=== PATIENT | male | born 1950 | race Caucasian/White ===

== ENCOUNTER 2019-04-26 15:28 | Emergency (ER) | payer OTHER ==
--- NOTE | 2019-04-26 16:24 | XR ---
EXAMINATION TYPE: XR chest 2V DATE OF EXAM: 04/26/2019 COMPARISON: 04/26/2019 INDICATION: Cough short of breath x5 days TECHNIQUE: Frontal and lateral views of the chest are obtained. FINDINGS: The heart size is normal. The pulmonary vasculature is normal. The lungs are clear. IMPRESSION: 1. No acute pulmonary process.
--- NOTE | 2019-04-26 16:33 | ED ---
General Adult HPI - General Chief complaint: Shortness of Breath Stated complaint: Upper Respitory issues Time Seen by Provider: 04/26/19 16:08 Source: patient Mode of arrival: ambulatory Limitations: no limitations - History of Present Illness Initial comments: Patient is a 69-year-old male presenting to emergency Department with complaints of a cough 5 days. Patient states he has had pneumonia multiple times in the past as well as bronchitis. Patient states he has been coughing up yellow greenish phlegm for the last 5 days. Patient denies any fever. Patient isn't every day smoker. He has been cold lately. Patient denies any chest pain, nausea, vomiting, diarrhea. Patient has been eating and drinking as normal. Patient has no other complaints at this time. Upon arrival to the ER, patient's O2 is at 93%. BP is 182/95. Rest of vitals are normal. - Related Data Previous Rx's Medication Instructions Recorded Azithromycin [Zithromax Z-pack] 0 mg PO DIRECTED #1 pack 04/26/19 methylPREDNISolone [Medrol Dose 4 mg PO DIRECTED #1 pack 04/26/19 Pack] Allergies Allergy/AdvReac Type Severity Reaction Status Date / Time codeine Allergy Unknown Verified 04/26/19 15:50 Review of Systems ROS Statement: Those systems with pertinent positive or pertinent negative responses have been documented in the HPI. ROS Other: All systems not noted in ROS Statement are negative. Past Medical History Past Medical History: Hypertension, Pneumonia History of Any Multi-Drug Resistant Organisms: None Reported Past Surgical History: Appendectomy, Tonsillectomy Past Psychological History: No Psychological Hx Reported Smoking Status: Current every day smoker Past Alcohol Use History: Occasional Past Drug Use History: Marijuana General Exam - General Exam Comments Initial Comments: GENERAL: Well-appearing, well-nourished and in no acute distress. HEAD: Atraumatic, normocephalic. EYES: Pupils equal round and reactive to light, extraocular movements intact, sclera anicteric, conjunctiva are normal. ENT: TMs normal, nares patent, oropharynx clear without exudates. Moist mucous membranes. NECK: Normal range of motion, supple without lymphadenopathy or JVD. LUNGS: Mild bilateral wheezes. No rales or rhonchi. HEART: Regular rate and rhythm without murmurs, rubs or gallops. ABDOMEN: Soft, nontender, normoactive bowel sounds. No guarding, no rebound. No masses appreciated. : Deferred EXTREMITIES: Normal range of motion, no pitting or edema. No clubbing or cyanosis. NEUROLOGICAL: Normal speech, normal gait. PSYCH: Normal mood, normal affect. SKIN: Warm, Dry, normal turgor, no rashes or lesions noted. Limitations: no limitations Course Vital Signs 04/26/19 04/26/19 15:46 16:15 Temperature 98.1 F Pulse Rate 88 Respiratory 20 18 Rate Blood Pressure 182/95 O2 Sat by Pulse 93 L Oximetry Medical Decision Making - Medical Decision Making Patient is a 69-year-old male with a cough 5 days. Vital signs are stable, afebrile. Patient has mild bilateral wheezes. Chest x-ray shows no acute pulmonary processes. Given patient's history, smoking status, patient will be treated with antibiotics as well as a course of steroids. Patient does have an inhaler at home that he will use as needed. Patient will follow up with his PCP if symptoms persist after one week. Patient is stable for discharge at this time and he is in agreement with this plan of care. Return parameters were discussed with the patient and he verbalized understanding. Case discussed with Dr. Siddiqui. Disposition Clinical Impression: Bronchitis Disposition: HOME SELF-CARE Condition: Stable Instructions (If sedation given, give patient instructions): Acute Bronchitis (ED) Additional Instructions: Please return to the Emergency Department if symptoms worsen or any other concerns. Take prescriptions as prescribed. Follow-up with PCP if symptoms persist after one week. Prescriptions: methylPREDNISolone [Medrol Dose Pack] 4 mg PO DIRECTED #1 pack Azithromycin [Zithromax Z-pack] 0 mg PO DIRECTED #1 pack Is patient prescribed a controlled substance at d/c from ED?: No Referrals: [facility],Clinic [Primary Care Provider] - 1-2 days
[2019-04-26 16:38] VITALS: RESP 18
[2019-04-26 16:56] VITALS: BP 172/93; PULSE 79; TEMP 97.8
== END 2019-04-26 16:54 | disposition home or self-care (01) ==
LOC: EC 15:28
DX: J40 Bronchitis, not specified as acute or chronic (principal); I10 Essential (primary) hypertension; F17.200 Nicotine dependence, unspecified, uncomplicated; Z88.5 Allergy status to narcotic agent
CPT/HCPCS: 71046; 99284

== ENCOUNTER → 2019-05-28 | Outpatient (CLI) | payer OTHER ==
--- NOTE | 2019-05-28 15:15 | CT ---
EXAMINATION TYPE: CT chest wo con DATE OF EXAM: 05/28/2019 COMPARISON: None HISTORY: Left sided chest pain. CT DLP: 445 mGycm, Automated exposure control for dose reduction was used. CONTRAST: Performed injected with 0 mL of Isovue 300. TECHNIQUE: Axial images were obtained at 5 mm thick sections. Reconstructed images are reviewed on [employer] computer in the coronal plane. FINDINGS: Portion of the thyroid visualized is normal. There is a 0.4 x 1.3 cm oval streak opacity within the right middle lobe. Series 4 image 40. There is a 0.3 cm pleural-based nodule in the anterior lateral right apex. Series 4 image 15. Lungs otherwise appear clear. No enlarged mediastinal or hilar adenopathy is evident. The ascending aorta diameter at the level o f the main pulmonary artery is 3.5 cm. The main pulmonary artery diameter at the bifurcation is 2.7 cm. Moderate coronary artery calcification is present. Limited CT sections are obtained through the upper abdomen. Abdomen is essentially unremarkable. IMPRESSIONS: 1. Right middle lobe lung nodule. Follow-up exam in 3 months is recommended to evaluate stability.
== END | disposition home or self-care (01) ==
LOC: RADCTMAIN 14:42
DX: Z09 Encounter for follow-up examination after completed treatment for conditions other than malignant neoplasm (principal); R91.1 Solitary pulmonary nodule; Z87.891 Personal history of nicotine dependence
CPT/HCPCS: 71250

== ENCOUNTER 2019-11-09 14:39 | Inpatient (IN) | payer OTHER ==
[2019-11-09 15:01] VITALS: RESP 16; TEMP 98.2
--- NOTE | 2019-11-09 15:29 | ED ---
Recheck HPI - General Chief Complaint: Recheck/Abnormal Lab/Rx Stated Complaint: Abn Potassium Level Time Seen by Provider: 11/09/19 14:58 Source: patient, RN notes reviewed Mode of arrival: ambulatory Limitations: no limitations - History of Present Illness Initial Comments: 69-year-old male presents emergency Department chief complaint of abnormal labs. Patient states he received a phone call today stating that his potassium was elevated. Patient states she does take potassium supplement with denies taking a diuretic. Patient states is unsure why he takes potassium. He has no specific complaints at this time. Denies any chest pain, palpitations, muscle cramping, dizziness, shortness breath. Patient offers no other complaints. - Related Data Previous Rx's Medication Instructions Recorded Azithromycin [Zithromax Z-pack] 0 mg PO DIRECTED #1 pack 04/26/19 methylPREDNISolone [Medrol Dose 4 mg PO DIRECTED #1 pack 04/26/19 Pack] Allergies Allergy/AdvReac Type Severity Reaction Status Date / Time codeine Allergy Unknown Verified 04/26/19 15:50 Review of Systems ROS Statement: Those systems with pertinent positive or pertinent negative responses have been documented in the HPI. ROS Other: All systems not noted in ROS Statement are negative. Past Medical History Past Medical History: Hypertension, Pneumonia History of Any Multi-Drug Resistant Organisms: None Reported Past Surgical History: Appendectomy, Tonsillectomy Past Psychological History: No Psychological Hx Reported Smoking Status: Current every day smoker Past Alcohol Use History: Occasional Past Drug Use History: Marijuana General Exam Limitations: no limitations General appearance: alert, in no apparent distress Head exam: Present: atraumatic, normocephalic, normal inspection Eye exam: Present: normal appearance, PERRL, EOMI. Absent: scleral icterus, conjunctival injection, periorbital swelling Neck exam: Present: normal inspection. Absent: tenderness, meningismus, ly mphadenopathy Respiratory exam: Present: normal lung sounds bilaterally. Absent: respiratory distress, wheezes, rales, rhonchi, stridor Cardiovascular Exam: Present: regular rate, normal rhythm, normal heart sounds. Absent: systolic murmur, diastolic murmur, rubs, gallop, clicks Neurological exam: Present: alert, oriented X3, CN II-XII intact Skin exam: Present: warm, dry, intact, normal color. Absent: rash Course Vital Signs 11/09/19 14:58 Temperature 98.2 F Pulse Rate 66 Respiratory 16 Rate Blood Pressure 139/76 O2 Sat by Pulse 97 Oximetry Medical Decision Making - Medical Decision Making 69-year-old male presented for abnormal labs. Patient found to have sodium 128. Patient denies being on diuretics. Patient does complain of mild headaches. Patient will be admitted for hyponatremia. - Lab Data Result diagrams: 11/09/19 15:31 11/09/19 15:31 Lab Results 11/09/19 11/09/19 Range/Units 15:31 15:31 WBC 5.9 (3.8-10.6) k/uL RBC 4.20 L (4.30-5.90) m/uL Hgb 13.3 (13.0-17.5) gm/dL Hct 40.7 (39.0-53.0) % MCV 96.9 (80.0-100.0) fL MCH 31.6 (25.0-35.0) pg MCHC 32.6 (31.0-37.0) g/dL RDW 12.7 (11.5-15.5) % Plt Count 252 (150-450) k/uL Neutrophils % 65 % Lymphocytes % 23 % Monocytes % 8 % Eosinophils % 2 % Basophils % 1 % Neutrophils # 3.8 (1.3-7.7) k/uL Lymphocytes # 1.3 (1.0-4.8) k/uL Monocytes # 0.5 (0-1.0) k/uL Eosinophils # 0.1 (0-0.7) k/uL Basophils # 0.0 (0-0.2) k/uL Sodium 123 L (137-145) mmol/L Potassium 4.4 (3.5-5.1) mmol/L Chloride 88 L (98-107) mmol/L Carbon Dioxide 29 (22-30) mmol/L Anion Gap 6 mmol/L BUN 17 (9-20) mg/dL Creatinine 0.65 L (0.66-1.25) mg/dL Est GFR (CKD-EPI)AfAm >90 (>60 ml/min/1.73 sqM) Est GFR (CKD-EPI)NonAf >90 (>60 ml/min/1.73 sqM) Glucose 198 H (74-99) mg/dL Calcium 8.8 (8.4-10.2) mg/dL Disposition Clinical Impression: Hyponatremia Disposition: ADMITTED IP TO THIS HOSP Condition: Fair Referrals: [facility],Clinic [Primary Care Provider] - 1-2 days
[2019-11-09 15:52] LABS: Basophils % (A) 1 %; Eosinophils # (A) 0.1 k/uL (0-0.7); Eosinophils % (A) 2 %; HCT 40.7 % (39.0-53.0); HGB 13.3 gm/dL (13.0-17.5); Lymphocytes # (A) 1.3 k/uL (1.0-4.8); Lymphocytes % (A) 23 %; MCH 31.6 pg (25.0-35.0); MCHC 32.6 g/dL (31.0-37.0); MCV 96.9 fL (80.0-100.0); Mean Platelet Volume 7.4; Monocytes # (A) 0.5 k/uL (0-1.0); Monocytes % (A) 8 %; Neutrophils # (A) 3.8 k/uL (1.3-7.7); Neutrophils % (A) 65 %; Platelet Count 252 k/uL (150-450); RDW 12.7 % (11.5-15.5); WBC 5.9 k/uL (3.8-10.6)
[2019-11-09 16:01] LABS: African American GFR (CKD) >90 (>60 ml/min/1.73 sqM); Anion Gap 6 mmol/L; Blood Urea Nitrogen 17 mg/dL (9-20); Calcium 8.8 mg/dL (8.4-10.2); Carbon Dioxide 29 mmol/L (22-30); Chloride 88 mmol/L (98-107); Glucose 198 mg/dL (74-99); Non-African American GFR(CKD) >90 (>60 ml/min/1.73 sqM); Potassium 4.4 mmol/L (3.5-5.1); Sodium 123 mmol/L (137-145)
[2019-11-09] MEDS ORDERED: SODIUM CHLORIDE 0.9% 500 ML 500 ML IV ONE (16:18)
[2019-11-09] MEDS ORDERED: NALOXONE 0.4 MG/ML 1 ML VIAL IV PRN (16:19)
[2019-11-09] MEDS ORDERED: ACETAMINOPHEN TAB 325 MG TAB PO PRN (16:19)
[2019-11-09] MEDS ORDERED: SODIUM CHLORIDE 0.9% 1,000 ML IV SCH (16:30)
[2019-11-09 19:24] VITALS: BP 167/97; PULSE 67
--- NOTE | 2019-11-09 23:17 | HP ---
HISTORY AND PHYSICAL HISTORY AND PHYSICAL AND DISCHARGE SUMMARY DATE OF SERVICE: 11/09/2019 CHIEF COMPLAINT: Abnormal sodium level. hyponatremia HISTORY OF PRESENT ILLNESS: This 69-year-old gentleman admitted with severe hyponatremia. The sodium was 123 and potassium 4.4. However, the patient left the hospital AGAINST MEDICAL ADVICE. Please refer to the ER notes and staff notes for further information. The prognosis is extremely guarded. MMODL / IJN: [id number] / MTDKai
== END 2019-11-09 21:01 | disposition left against medical advice (07) | DRG 641 ==
LOC: EC 14:39 → 6NMEDSUR 16:19 → 5NMEDONC 17:56
PROVIDERS: ADMIT Hospitalist; ATTEND Hospitalist
DX: E87.1 Hypo-osmolality and hyponatremia (principal); I10 Essential (primary) hypertension; F17.200 Nicotine dependence, unspecified, uncomplicated; Z11.59 Encounter for screening for other viral diseases; Z87.01 Personal history of pneumonia (recurrent); Z88.5 Allergy status to narcotic agent; Z90.49 Acquired absence of other specified parts of digestive tract; Z90.89 Acquired absence of other organs
CPT/HCPCS: 36415; 80048; 85025; 96360; 96361; 99285

== ENCOUNTER → 2019-12-07 | Outpatient (CLI) | payer OTHER ==
[2019-12-07 15:24] LABS: African American GFR (CKD) >90 (>60 ml/min/1.73 sqM); Blood Urea Nitrogen 10 mg/dL (9-20); Non-African American GFR(CKD) >90 (>60 ml/min/1.73 sqM)
--- NOTE | 2019-12-07 16:37 | CT ---
EXAMINATION TYPE: CT chest wo con DATE OF EXAM: 12/07/2019 COMPARISON: CT chest 05/28/2019 HISTORY: chest congestion CT DLP: 200.8 mGycm. Automated Exposure Control for Dose Reduction was Utilized. TECHNIQUE: CT scan of the thorax is performed without IV contrast. FINDINGS: Lack of intravenous contrast could compromise sensitivity. LUNGS: The lungs are grossly clear, there is no concerning parenchymal mass or nodule identified, sma ll subpleural right upper lobe nodule is stable on axial image 14 of a similar lesion anteriorly on i mage 22 is also unchanged. Bandlike area of increased attenuation in the right upper lobe is also sta ble Centrilobular emphysema changes are present. There is no pleural effusion or pneumothorax seen. The tracheobronchial tree is patent. MEDIASTINUM: Lack of IV contrast is noted to limit evaluation for mediastinal and especially hilar ad enopathy. There are no definitive greater than 1 cm hilar or mediastinal lymph nodes. No cardiomega ly or pericardial effusion is seen. There are coronary artery calcifications. OTHER: No additional significant abnormality is seen. IMPRESSION: Emphysema. No suspicious lung nodule.
--- NOTE | 2019-12-07 16:45 | CT ---
CTA brain HISTORY: Headaches Patient received 100 cc Isovue-370 intravenously and helical imaging obtained through the brain, thre e-dimensional reconstructions performed on an alternate workstation. No comparisons, automated exposure control for dose reduction, DLP 1081.2 mGycm The internal carotid arteries are patent. There is no evident dissection, embolus, or aneurysm. Verte bral arteries are patent and codominant. Atheromatous changes present. IMPRESSION: No abnormality evident to account for patient's symptoms.
== END | disposition home or self-care (01) ==
LOC: RADCTMAIN 14:42
DX: Z09 Encounter for follow-up examination after completed treatment for conditions other than malignant neoplasm (principal); J43.9 Emphysema, unspecified; Z86.79 Personal history of other diseases of the circulatory system; Z87.891 Personal history of nicotine dependence
CPT/HCPCS: 82565; 84520; 70496; 71250; 36415; Q9967

== ENCOUNTER → 2022-11-08 | Outpatient (CLI) | payer OTHER ==
--- NOTE | 2022-11-08 19:26 | CT ---
EXAMINATION TYPE: CT chest wo con DATE OF EXAM: 11/08/2022 COMPARISON: 12/07/2019 HISTORY: 72-year-old male J44.9, Follow up for COPD. TECHNIQUE: Contiguous axial scanning of the chest without IV contrast. Coronal and sagittal reconstru ctions performed. CT DLP: 145.1 mGycm Automated exposure control for dose reduction was used. FINDINGS: The heart is normal size without pericardial effusion. Extensive three-vessel coronary calcifications are present. Additional mild aortic valvular calcifications. Ectatic ascending aorta 3.6 cm. Moderate atherosclerotic arch calcifications with conventional arch v essel branching anatomy. Ectatic descending thoracic aorta at 3.3 cm. Mid descending thoracic aorta is ectatic at 3.2 cm. 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 Moderate metastatic calcifications continue into th e visualized abdominal aorta. No thoracic lymphadenopathy by CT size criteria. Lungs show moderate to advanced emphysematous change. * Minimal 9 mm groundglass focus posterior right upper lung is new. * Stable elongated 1 cm nodule anterior right lower lung. Stability suggests a benign etiology. * A 4 mm subpleural pulmonary nodule lateral right base, axial image 57 is new and should be reasses sed at a 6 month follow-up. * Some subtle tree-in-bud groundglass changes in the periphery of the right base, new from prior. Otherwise, no consolidation or pleural effusion. Visualized upper abdomen shows a nonobstructive 3 mm left renal calculus. Bones: Advanced degenerative disc disease L3-L4. Mild degenerative disc disease midthoracic spine. IMPRESSION: 1. COPD WITH MODERATE TO ADVANCED EMPHYSEMA. There is a 4 mm subpleural pulmonary nodule lateral righ t base not clearly seen previously. Six-month follow-up CT to reassess and ensure stability. 2. A tiny 9 mm groundglass focus posterior right upper lung as well as some subtle tree-in-bud ground glass changes in the periphery of the right base. Findings suggest infectious/inflammatory foci. Derrell elate with patient's symptoms. This can also be reassessed at the 6 month follow-up. 3. CAD with extensive three-vessel coronary artery calcifications.
== END | disposition home or self-care (01) ==
LOC: RADCTMAIN 14:22
PROVIDERS: ATTEND Physician Assistant
DX: J43.9 Emphysema, unspecified (principal); I25.10 Atherosclerotic heart disease of native coronary artery without angina pectoris; R91.1 Solitary pulmonary nodule
CPT/HCPCS: 71250

== ENCOUNTER 2023-04-16 10:51 | Inpatient (IN) | payer OTHER ==
[2023-04-16 12:06] LABS: Basophils % (A) 0 %; Eosinophils # (A) 0.1 k/uL (0-0.7); Eosinophils % (A) 1 %; HGB 14.8 gm/dL (13.0-17.5); Hypochromasia Moderate; Lymphocytes # (A) 1.1 k/uL (1.0-4.8); Lymphocytes % (A) 13 %; MCH 30.7 pg (25.0-35.0); MCHC 31.5 g/dL (31.0-37.0); MCV 97.5 fL (80.0-100.0); Mean Platelet Volume 7.1; Monocytes # (A) 0.4 k/uL (0-1.0); Monocytes % (A) 5 %; Neutrophils % (A) 79 %; Platelet Count 295 k/uL (150-450); RBC 4.82 m/uL (4.30-5.90); RDW 13.3 % (11.5-15.5); WBC 8.8 k/uL (3.8-10.6)
--- NOTE | 2023-04-16 12:22 | ED ---
Extremity Problem HPI - General Chief complaint: Extremity Problem,Nontraumatic Stated complaint: Leg swelling Source: patient Mode of arrival: ambulatory Limitations: no limitations - History of Present Illness Initial comments: The patient is a 73-year-old gentleman with a history of COPD presents emergency room with complaints of bilateral lower extremity swelling. Patient states he has had swelling in the legs for a few months and it has gradually worsened. He states that they have become so swollen that it is more painful patient states he does not have any shortness of chest pain. He denies any known history of CHF. Patient comes in with oxygen nasal cannula on for90% on room air oxygen. He does not use oxygen at home. Patient goes to the [place] and has seen a microeconomics professor years ago but not regularly. Patient denies any recent travel or recent surgery. He denies any history of DVT or PE. - Related Data Home Medications Medication Instructions Recorded Confirmed Budesonide/Formoterol Fumarate 2 puff INHALATION RT-BID 11/09/19 04/16/23 [Symbicort 160-4.5 Mcg Inhaler] amLODIPine [Norvasc] 10 mg PO DAILY 11/09/19 04/16/23 Ensure 1 can PO DAILY 04/16/23 04/16/23 Loratadine 10 mg PO DAILY 04/16/23 04/16/23 Magnesium Oxide 420 Mg 420 mg PO DAILY 04/16/23 04/16/23 Multivitamins, Thera [Multivitamin 1 tab PO DAILY 04/16/23 04/16/23 (formulary)] Sertraline [Zoloft] 50 mg PO DAILY 04/16/23 04/16/23 lisinopriL [Zestril] 20 mg PO DAILY 04/16/23 04/16/23 Allergies Allergy/AdvReac Type Severity Reaction Status Date / Time codeine Allergy Unknown Verified 04/16/23 12:16 Review of Systems ROS Statement: Those systems with pertinent positive or pertinent negative responses have been documented in the HPI. ROS Other: All systems not noted in ROS Statement are negative. Past Medical History Past Medical History: COPD, Hypertension, Pneumonia History of Any Multi-Drug Resistant Organisms: None Reported Past Surgical History: Appendectomy, Tonsillectomy Past Psychological History: No Psychological Hx Reported Past Alcohol Use History: Occasional Past Drug Use History: Marijuana General Exam Limitations: no limitations General appearance: alert, in no apparent distress Head exam: Present: atraumatic Eye exam: Present: normal appearance ENT exam: Present: normal exam Neck exam: Present: normal inspection Respiratory exam: Present: normal lung sounds bilaterally, other (Patient is on oxygen nasal cannula for 90% O2 sat in triage, no wheezing or respiratory distress) Cardiovascular Exam: Present: regular rate, other (+2 b/l pedal and posterior tibial pitting edema, no erythema or warmth. palpable pulses) GI/Abdominal exam: Present: soft Extremities exam: Present: full ROM Back exam: Present: normal inspection, full ROM Neurological exam: Present: alert, oriented X3, CN II-XII intact Psychiatric exam: Present: normal affect, normal mood Skin exam: Present: warm, dry Course Vital Signs 04/16/23 04/16/23 11:06 16:21 Temperature 98 F Pulse Rate 83 87 Respiratory 18 Rate Blood Pressure 157/97 167/112 O2 Sat by Pulse 90 L Oximetry - Reevaluation(s) Reevaluation #1: 04/16/23 1269 The patient is well-appearing emergency room. He is not complaining of any chest pain or shortness breath however is on 2 L nasal cannula for the 90% O2 sat in triage. Patient has +2 pitting edema consistent with a new onset CHF. He was started on IV Lasix 40 mg in the emergency room and will continue inpatient treatment for the CHF. I did speak with attending physician regarding the possible occluded femoral artery seen on venous ultrasound however he states he will evaluate the patient and put and further orders. Patient has elevated troponin likely due to the new onset CHF and straining. Medical Decision Making - Medical Decision Making Was pt. sent in by a medical professional or institution (, PA, CEMENT SPRAYER HELPER, urgent care, hospital, or penitentiary...) When possible be specific @ -[No] Did you speak to anyone other than the patient for history (EMS, parent, family, police, friend...)? What history was obtained from this source @ -Spoke with family at the bedside Did you review nursing and triage notes (agree or disagree)? Why? @ -[I reviewed and agree with nursing and triage notes] Were old charts reviewed (outside hosp., previous admission, EMS record, old EKG, old radiological studies, urgent care reports/EKG's, penitentiary records)? Report findings @ -External medication records Differential Diagnosis (chest pain, altered mental status, abdominal pain women, abdominal pain men, vaginal bleeding, weakness, fever, dyspnea, syncope, headache, dizziness, GI bleed, back pain, seizure, CVA, palpatations, mental health, musculoskeletal)? @ -CHF, DVT, renal failure EKG interpreted by me (3pts min.). @ -EKG shows sinus rhythm with short ND intervals rate [address] segment elevation X-rays interpreted by me (1pt min.). @ -No severe vascular congestion seen on chest x-ray CT interpreted by me (1pt min.). @ -[None done] U/S interpreted by me (1pt. min.). @ -[None done] What testing was considered but not performed or refused? (CT, X-rays, U/S, labs)? Why? @ -[None] What meds were considered but not given or refused? Why? @ -[None] Did you discuss the management of the patient with other professionals (professionals i.e. , PA, CEMENT SPRAYER HELPER, lab, RT, psych nurse, hospital social worker, stagecraft teacher, teacher, combat information center officer, rn case manager hospice)? Give summary @ -I spoke with sound physician Dr. Marcelo regarding admission for the new onset CHF management with hospital admission. Patient will be given IV Lasix in the emergency room and throughout the admission. I spoke with Dr. Marcelo regarding the possible occluded femoral artery seen on the venous ultrasound. He will take over further orders on this after evaluating the patient. Was smoking cessation discussed for >3mins.? @ -[No] Was critical care preformed (if so, how long)? @ -[No] Were there social determinants of health that impacted care today? How? (Homelessness, low income, unemployed, alcoholism, drug addiction, transportation, low edu. Level, literacy, decrease access to med. care, care home, rehab)? @ -[No] Was there de-escalation of care discussed even if they declined (Discuss DNR or withdrawal of care, Hospice)? DNR status @ -[No] What co-morbidities impacted this encounter? (DM, HTN, Smoking, COPD, CAD, Cancer, CVA, ARF, Chemo, Hep., AIDS, mental health diagnosis, sleep apnea, morbid obesity)? @ -COPD Was patient admitted / discharged? Hospital course, mention meds given and route, prescriptions, significant lab abnormalities, going to OR and other pertinent info. @ -Patient will be admitted for further management of the new onset CHF. Will continue IV Lasix upon admission and hospitalist will evaluate the possible occluded femoral artery upon admission as well. Undiagnose upon admission and they willd new problem with uncertain prognosis? @ -[No] Drug Therapy requiring intensive monitoring for toxicity (Heparin, Nitro, Insulin, Cardizem)? @ -[No] Were any procedures done? @ -[No] Diagnosis/symptom? @ new-onset CHF, hypoxia, peripheral edema, elevated troponin, suspected Femoral artery occlusion] Acute, or Chronic, or Acute on Chronic? @ -[Acute] Uncomplicated (without systemic symptoms) or Complicated (systemic symptoms)? @ -[Complicated Side effects of treatment? @ -[No] Exacerbation, Progression, or Severe Exacerbation? @ -[No] Poses a threat to life or bodily function? How? (Chest pain, [place], [place], pneumonia, PE, COPD, DKA, ARF, appy, cholecystitis, CVA, Diverticulitis, Homicidal, Suicidal, threat to staff... and all critical care pts) @ -YEs - Lab Data Result diagrams: 04/16/23 11:34 04/16/23 11:34 Lab Results 04/16/23 04/16/23 04/16/23 Range/Units 11:34 11:34 11:34 WBC 8.8 (3.8-10.6) k/uL RBC 4.82 (4.30-5.90) m/uL Hgb 14.8 (13.0-17.5) gm/dL Hct 47.0 (39.0-53.0) % MCV 97.5 (80.0-100.0) fL MCH 30.7 (25.0-35.0) pg MCHC 31.5 (31.0-37.0) g/dL RDW 13.3 (11.5-15.5) % Plt Count 295 (150-450) k/uL MPV 7.1 Neutrophils % 79 % Lymphocytes % 13 % Monocytes % 5 % Eosinophils % 1 % Basophils % 0 % Neutrophils # 7.0 (1.3-7.7) k/uL Lymphocytes # 1.1 (1.0-4.8) k/uL Monocytes # 0.4 (0-1.0) k/uL Eosinophils # 0.1 (0-0.7) k/uL Basophils # 0.0 (0-0.2) k/uL Hypochromasia Moderate D-Dimer (<0.60) mg/L FEU Sodium 128 L (137-145) mmol/L Potassium 4.7 (3.5-5.1) mmol/L Chloride 88 L (98-107) mmol/L Carbon Dioxide 30 (22-30) mmol/L Anion Gap 10 mmol/L BUN 16 (9-20) mg/dL Creatinine 0.58 L (0.66-1.25) mg/dL Est GFR (CKD-EPI)AfAm >90 (>60 ml/min/1.73 sqM) Est GFR (CKD-EPI)NonAf >90 (>60 ml/min/1.73 sqM) Glucose 79 (74-99) mg/dL Calcium 9.1 (8.4-10.2) mg/dL Total Bilirubin 1.1 (0.2-1.3) mg/dL AST 36 (17-59) U/L ALT 21 (4-49) U/L Alkaline Phosphatase 111 (38-126) U/L Troponin I 0.057 H* (0.000-0.034) ng/mL NT-Pro-B Natriuret Pep 7350 pg/mL Total Protein 6.5 (6.3-8.2) g/dL Albumin 3.6 (3.5-5.0) g/dL 04/16/23 04/16/23 04/16/23 Range/Units 15:24 15:24 15:24 WBC (3.8-10.6) k/uL RBC (4.30-5.90) m/uL Hgb (13.0-17.5) gm/dL Hct (39.0-53.0) % MCV (80.0-100.0) fL MCH (25.0-35.0) pg MCHC (31.0-37.0) g/dL RDW (11.5-15.5) % Plt Count (150-450) k/uL MPV Neutrophils % % Lymphocytes % % Monocytes % % Eosinophils % % Basophils % % Neutrophils # (1.3-7.7) k/uL Lymphocytes # (1.0-4.8) k/uL Monocytes # (0-1.0) k/uL Eosinophils # (0-0.7) k/uL Basophils # (0-0.2) k/uL Hypochromasia D-Dimer 1.78 H (<0.60) mg/L FEU Sodium (137-145) mmol/L Potassium (3.5-5.1) mmol/L Chloride (98-107) mmol/L Carbon Dioxide (22-30) mmol/L Anion Gap mmol/L BUN (9-20) mg/dL Creatinine (0.66-1.25) mg/dL Est GFR (CKD-EPI)AfAm (>60 ml/min/1.73 sqM) Est GFR (CKD-EPI)NonAf (>60 ml/min/1.73 sqM) Glucose (74-99) mg/dL Calcium (8.4-10.2) mg/dL Total Bilirubin (0.2-1.3) mg/dL AST (17-59) U/L ALT (4-49) U/L Alkaline Phosphatase (38-126) U/L Troponin I 0.050 H* (0.000-0.034) ng/mL NT-Pro-B Natriuret Pep 6970 pg/mL Total Protein (6.3-8.2) g/dL Albumin (3.5-5.0) g/dL - EKG Data -: EKG Interpreted by Me - Radiology Data Radiology results: report reviewed, image reviewed Disposition Clinical Impression: CHF (congestive heart failure), Peripheral edema Disposition: ADMITTED IP TO THIS [facility] Condition: Fair Decision to Admit Reason: Admit from EC Decision Time: 14:47
[2023-04-16 12:25] LABS: ALT 21 U/L (4-49); African American GFR (CKD) >90 (>60 ml/min/1.73 sqM); Albumin 3.6 g/dL (3.5-5.0); Anion Gap 10 mmol/L; Blood Urea Nitrogen 16 mg/dL (9-20); Calcium 9.1 mg/dL (8.4-10.2); Carbon Dioxide 30 mmol/L (22-30); Chloride 88 mmol/L (98-107); Glucose 79 mg/dL (74-99); Non-African American GFR(CKD) >90 (>60 ml/min/1.73 sqM); Sodium 128 mmol/L (137-145); Total Bilirubin 1.1 mg/dL (0.2-1.3); Total Protein 6.5 g/dL (6.3-8.2)
[2023-04-16 12:28] LABS: AST 36 U/L (17-59); Alkaline Phosphatase 111 U/L (38-126); Potassium 4.7 mmol/L (3.5-5.1)
[2023-04-16 12:31] LABS: NT-Pro-B-Type Natriuretic Pept 7350 pg/mL
--- NOTE | 2023-04-16 13:29 | US ---
EXAMINATION TYPE: US venous doppler duplex LE BI DATE OF EXAM: 04/16/2023 1:09 PM COMPARISON: NONE CLINICAL INDICATION: Male, 73 years old with history of LE swelling, pain; SIDE PERFORMED: Bilateral TECHNIQUE: The lower extremity deep venous system is examined utilizing real time linear array sonog de with graded compression, doppler sonography and color-flow sonography. VESSELS IMAGED: Common Femoral Vein Deep Femoral Vein Greater Saphenous Vein * Femoral Vein Popliteal Vein Small Saphenous Vein * Proximal Calf Veins (* superficial vessels) Right Leg: Negative for DVT Left Leg: Negative for DVT Incidental - ? completely occluded proximal left femoral artery. IMPRESSION: 1. No evidence of deep venous thrombosis. 2. Question abnormality within the left proximal femoral artery may be occluded. Further workup is re commended as the indicated.
--- NOTE | 2023-04-16 13:31 | XR ---
EXAMINATION TYPE: XR chest 2V DATE OF EXAM: 04/16/2023 COMPARISON: NONE HISTORY: Lower extremity swelling and hypoxia. TECHNIQUE: Frontal and lateral views of the chest are obtained. IMPRESSION: There is patchy parenchymal changes within the right lung base which is suspicious for a developing p neumonia. The left lung is clear. The cardiac silhouette and pulmonary vessels are otherwise appear to be within normal limits.
[2023-04-16] MEDS ORDERED: FUROSEMIDE 10 MG/ML 4 ML VIAL IV STA (13:40)
[2023-04-16] MEDS ORDERED: MELATONIN 3 MG TABLET PO PRN (14:47)
[2023-04-16] MEDS ORDERED: ACETAMINOPHEN TAB 325 MG TAB PO PRN (14:47)
[2023-04-16] MEDS ORDERED: NALOXONE 0.4 MG/ML 1 ML VIAL IV PRN (14:47)
[2023-04-16] MEDS ORDERED: DOCUSATE 100 MG CAP PO PRN (14:47)
[2023-04-16] MEDS ORDERED: ONDANSETRON 4 MG/2 ML VIAL IVP PRN (14:47)
--- NOTE | 2023-04-16 15:43 | P.HPIM ---
History of Present Illness H&P Date: 04/16/23 73-year-old male with PMH of COPD, hypertension, depression presents to the ED for shortness of breath and lower extremity swelling. Symptoms have been progressively getting worse over the past 6 months. He reports multiple pillow orthopnea. He reports a chronic cough (> 6 months) of green sputum. Reports a 50 year history of heavy smoking. Complains of left sided chest pain, sharp and stabbing with cough or deep inspiration. In the ED, he underwent extensive evaluation. Vital signs show hypoxia to 90%. CBC unremarkable. BMP NA 128, Cl 88, Cr 0.58. Trop 0.057. BNP 7350. CXR patchy parenchymal changes R > L. Venous doppler negative DVT possible occluded proximal left femoral artery. Pertinent positives and negatives as discussed in HPI, a complete review of systems was performed and all other systems are negative. General: non toxic, no distress, appears at stated age, cachectic Derm: warm, dry Head: atraumatic, normocephalic, symmetric Eyes: EOMI, no lid lag, anicteric sclera Cardiovascular: S1S2, no murmur Lungs: Decreased BS bilateral, no rhonchi, no rales , no accessory muscle use Abdominal: soft, nontender to palpation, no guarding, no appreciable organomegaly Ext: no gross muscle atrophy, 2+ pitting LE edema, no contractures Neuro: no focal neuro deficits Psych: Alert, oriented, appropriate affect Based on my assessment of this patient, this patient meets a high complexity level of care. Patient has an acute diagnosis of hypoxia and bilateral LE swelling that poses a threat to life or bodily function. Acute hypoxic respiratory failure: Supplemental O2 to maintain O2 saturation > 92%. Elevated BNP. Obtain D-Dimer. Obtain Echo. Obtain pro-alexia. Exertional dyspnea: Elevated BNP. Start Lasix 40 mg IV QD. Echo as above. Strict intake outtake. Daily weights. Lower extremity swelling Possible occluded proximal left femoral artery: CTA with run off ordered. Troponin elevation: Trend trop/EKG to rule out ACS. Echo as above. Hyponatremia: Hypervolemic? Hopeful improvement with diuresis. CODE STATUS: FULL CODE DVT Prophylaxis: Lovenox SQ GI Prophylaxis: Designated medical POA if patient is not able to make medical decisions for themselves: Son and daughter I have reviewed the following market intelligence consultant notes: I have reviewed the results of the following tests: As above. I have ordered the following tests: As above. I have discussed the care of this patient with the following independent historian: I have independently interpreted the following test below: I have discussed the management of this patient with the following physician: Discussed with ED provider in detail. Past Medical History Past Medical History: COPD, Hypertension, Pneumonia History of Any Multi-Drug Resistant Organisms: None Reported Past Surgical History: Appendectomy, Tonsillectomy Past Psychological History: No Psychological Hx Reported Past Alcohol Use History: Occasional Past Drug Use History: Marijuana Medications and Allergies Home Medications Medication Instructions Recorded Confirmed Type Budesonide/Formoterol Fumarate 2 puff INHALATION RT-BID 11/09/19 04/16/23 History [Symbicort 160-4.5 Mcg Inhaler] amLODIPine [Norvasc] 10 mg PO DAILY 11/09/19 04/16/23 History Ensure 1 can PO DAILY 04/16/23 04/16/23 History Loratadine 10 mg PO DAILY 04/16/23 04/16/23 History Magnesium Oxide 420 Mg 420 mg PO DAILY 04/16/23 04/16/23 History Multivitamins, Thera [Multivitamin 1 tab PO DAILY 04/16/23 04/16/23 History (formulary)] Sertraline [Zoloft] 50 mg PO DAILY 04/16/23 04/16/23 History lisinopriL [Zestril] 20 mg PO DAILY 04/16/23 04/16/23 History Allergies Allergy/AdvReac Type Severity Reaction Status Date / Time codeine Allergy Unknown Verified 04/16/23 12:16 Physical Exam Vitals: Vital Signs Temp Pulse Resp BP Pulse Ox 04/16/23 11:06 98 F 83 18 157/97 90 L Intake and Output 04/16/23 04/16/23 04/16/23 06:59 14:59 22:59 Other: Weight 63.503 kg Results CBC & Chem 7: 04/16/23 11:34 04/16/23 11:34 Labs: Abnormal Lab Results - Last 24 Hours (Table) 04/16/23 04/16/23 Range/Units 11:34 11:34 Sodium 128 L (137-145) mmol/L Chloride 88 L (98-107) mmol/L Creatinine 0.58 L (0.66-1.25) mg/dL Troponin I 0.057 H* (0.000-0.034) ng/mL
[2023-04-16] MEDS: lisinopriL 20 MG TAB PO SCH (16:18)
[2023-04-16] MEDS: amLODIPine 10 MG TAB PO SCH (16:18)
[2023-04-16] MEDS: SERTRALINE 50 MG TAB PO SCH (16:18)
[2023-04-16] MEDS: LORATADINE 10 MG TAB PO SCH (16:18)
[2023-04-17] MEDS ORDERED: FUROSEMIDE 10 MG/ML 4 ML VIAL IV SCH (02:00)
[2023-04-17] MEDS: ENOXAPARIN 40 MG/0.4 ML SYRINGE SQ SCH (07:46)
[2023-04-17] MEDS: LORATADINE 10 MG TAB PO SCH (07:47)
[2023-04-17] MEDS: FUROSEMIDE 10 MG/ML 4 ML VIAL IV SCH (07:47)
[2023-04-17] MEDS: amLODIPine 10 MG TAB PO SCH (07:47)
[2023-04-17] MEDS: SERTRALINE 50 MG TAB PO SCH (07:47)
[2023-04-17] MEDS: lisinopriL 20 MG TAB PO SCH (07:47)
[2023-04-17 08:41] LABS: Basophils % (A) 0 %; Eosinophils % (A) 0 %; HGB 12.7 gm/dL (13.0-17.5); Hypochromasia Moderate; Lymphocytes # (A) 1.1 k/uL (1.0-4.8); Lymphocytes % (A) 12 %; MCHC 31.8 g/dL (31.0-37.0); MCV 97.6 fL (80.0-100.0); Mean Platelet Volume 7.7; Monocytes # (A) 0.5 k/uL (0-1.0); Monocytes % (A) 6 %; Neutrophils # (A) 7.5 k/uL (1.3-7.7); Neutrophils % (A) 81 %; Platelet Count 273 k/uL (150-450); RDW 13.1 % (11.5-15.5); WBC 9.3 k/uL (3.8-10.6)
[2023-04-17 09:01] LABS: African American GFR (CKD) >90 (>60 ml/min/1.73 sqM); Anion Gap 7 mmol/L; Blood Urea Nitrogen 17 mg/dL (9-20); Calcium 8.5 mg/dL (8.4-10.2); Carbon Dioxide 37 mmol/L (22-30); Chloride 85 mmol/L (98-107); Glucose 81 mg/dL (74-99); Non-African American GFR(CKD) >90 (>60 ml/min/1.73 sqM); Sodium 129 mmol/L (137-145)
--- NOTE | 2023-04-17 11:31 | CA ---
Transthoracic Echo Report Name: Josh Brooke Age: 73 Gender: M : 1950 Exam Date: 04/17/2023 09:50 Exam Location: [facility] Ht (in): 76 Wt (lb): 140 Ordering Physician: Lita Bronson MD Attending/Referring Phys: Quantitative Researcher Harvinder Duran Procedure CPT: Indications: SOB LE swelling Cardiac Hx: Technical Quality: Fair Contrast 1: Total Dose (mL): Contrast 2: Total Dose (mL): MEASUREMENTS (Male / Female) Normal Values 2D ECHO LV Diastolic Diameter PLAX 3.4 cm 4.2 - 5.9 / 3.9 - 5.3 cm IVS Diastolic Thickness 1.2 cm 0.6 - 1.0 / 0.6 - 0.9 cm LVPW Diastolic Thickness 1.2 cm 0.6 - 1.0 / 0.6 - 0.9 cm LV Relative Wall Thickness 0.7 RV Internal Dim ED PLAX 2.7 cm LVOT Diameter 2.0 cm Aortic Root Diameter 3.0 cm LA Systolic Diameter LX 1.6 cm 3.0 - 4.0 / 2.7 - 3.8 cm LV Diastolic Volume MOD BP 56.0 cm??? 67 - 155 / 56 - 104 cm??? LV Systolic Volume MOD BP 28.0 cm??? 22 - 58 / 19 - 49 cm??? LV Ejection Fraction MOD BP 50.0 % >= 55 % LV Diastolic Volume MOD 4C 60.3 cm??? LV Systolic Volume MOD 4C 26.3 cm??? LV Ejection Fraction MOD 4C 56.3 % LV Diastolic Length 4C 8.0 cm LV Systolic Length 4C 6.6 cm LV Diastolic Volume MOD 2C 49.2 cm??? LV Systolic Volume MOD 2C 28.3 cm??? LV Ejection Fraction MOD 2C 42.5 % LV Diastolic Length 2C 7.5 cm LV Systolic Length 2C 7.1 cm LA Volume 31.9 cm??? 18 - 58 / 22 - 52 cm??? LA Volume Index 17.5 cm???/m??? 16 - 28 cm???/m??? DOPPLER AV Peak Velocity 253.6 cm/s AV Peak Gradient 25.7 mmHg AV Mean Velocity 168.9 cm/s AV Mean Gradient 13.6 mmHg AV Velocity Time Integral 45.0 cm LVOT Peak Velocity 95.3 cm/s LVOT Peak Gradient 3.6 mmHg LVOT Velocity Time Integral 21.1 cm LVOT Stroke Volume 67.7 cm??? LVOT Stroke Volume Index 35.6 ml/m??? AV Area Cont Eq vti 1.5 cm??? AV Area Cont Eq pk 1.2 cm??? MV Peak Velocity 123.2 cm/s MV Peak Gradient 6.1 mmHg MV Mean Velocity 61.5 cm/s MV Mean Gradient 1.8 mmHg MV Velocity Time Integral 36.4 cm Mitral E Point Velocity 85.8 cm/s Mitral A Point Velocity 117.7 cm/s Mitral E to A Ratio 0.7 MV Deceleration Time 334.7 ms PV Peak Velocity 67.8 cm/s PV Peak Gradient 1.8 mmHg FINDINGS Left Ventricle Moderate Concentric LVH. Normal LV size. Left ventricular ejection fraction is estimated at 50-55 %. Right Ventricle Normal right ventricular size. Right Atrium Normal right atrial size. Left Atrium Normal left atrial size. Mitral Valve Structurally normal mitral valve. No mitral regurgitation. Aortic Valve Moderate AV calcification. AV peak gradient=25.7mmHg. AV mean gradient= 13.6mmHg. Tricuspid Valve Structurally normal tricuspid valve. No tricuspid regurgitation. Pulmonic Valve Pulmonic valve not well visualized. No pulmonic regurgitation. Pericardium Normal pericardium. Aorta Normal size aortic root and proximal ascending aorta. CONCLUSIONS Concentric left ventricular hypertrophy with normal LV systolic function Aortic sclerosis with mild aortic stenosis with a. Peak gradient of 25 mm and the mean gradient of 13 mm across the valve Previewed by: Dr. Daryl Brunner MD (Electronically Signed) Final Date: 17 April 2023 11:30
--- NOTE | 2023-04-17 12:03 | CT ---
EXAMINATION TYPE: CT chest angio for PE DATE OF EXAM: 04/17/2023 COMPARISON: None available. HISTORY: Hypoxia with elevated d-dimer. CT DLP: 200.6 mGycm Automated exposure control for dose reduction was used. CONTRAST: CT Chest for pulmonary embolism performed with with IV Contrast, patient injected with 54 mL of Isovu e 370. FINDINGS: LUNGS: There is moderate diffuse centrilobular emphysema. There is significant tree-in-bud areas of n odularity seen within the right lower and right middle lobe which is likely inflammatory or infectiou s. There is mucus plugging also seen throughout the right lower lobe. Similar findings are seen withi n the right middle lobe to a lesser degree. The left lung otherwise appears clear. MEDIASTINUM: Multiple enlarged lymph nodes are seen within the right hilar region measuring up to 1.6 cm in short axis diameter. This could potentially represent 1 confluent lymph node. No additional ad enopathy is clearly identified. There is significant vascular calcification throughout the thoracic a glen without evidence of aneurysmal dilation or dissection. OTHER: No additional significant abnormality is seen. IMPRESSION: 1. No evidence of pulmonary embolism. 2. Significant areas of tree-in-bud nodularity, septal thickening and mild areas of airspace opacity within the right middle and right lower lobe are likely due to an inflammatory or atypical infectious process. There is associated right hilar lymphadenopathy which could be reactive with malignancy not entirely excluded. A follow-up in 3 months is recommended. 3. Moderate emphysema. 4. Severe coronary artery calcifications.
--- NOTE | 2023-04-17 12:30 | P.GSCN ---
History of Present Illness Consult date: 04/17/23 Reason for Consult: Left Femoral artery occlusion on venous duplex Requesting physician: Lita Bronson History of present illness: This is a 73-year-old male with a past medical history significant for 45 year pack per day cigarette smoker and marijuana smoker, COPD, hypertension who presented to the emergency department with complaints of bilateral lower extremity feet swelling. Patient states he has pain in bilateral feet with swelling. Also states he has pain in bilateral lower extremities has been for y ears. States he usually can only walk, maybe 50 feet max before he has to sit down because his legs hurt. He had a venous duplex of the lower extremities that were negative for DVT however the venous duplex did report possible left proximal femoral artery occlusion. Vascular surgery was consulted for the above. He did have a positive d-dimer, CT angiogram chest ordered. Patient denies any previous history of blood clots, no previous history of known peripheral arterial disease or intervention. Patient does have productive cough, some shortness of breath, no chest pain, abdominal pain, nausea, vomiting, fever, or chills. He does admit to lower extremity pain, there are some small scabs/sores on bilateral feet which he states have been there for years. Review of Systems A 14 point review systems was completed all pertinent positives and negatives as stated in the HPI. Past Medical History Past Medical History: COPD, Hypertension, Pneumonia History of Any Multi-Drug Resistant Organisms: None Reported Past Surgical History: Appendectomy, Tonsillectomy Past Anesthesia/Blood Transfusion Reactions: No Reported Reaction Past Psychological History: No Psychological Hx Reported Smoking Status: Former smoker Past Alcohol Use History: Occasional Past Drug Use History: Marijuana Medications and Allergies Home Medications Medication Instructions Recorded Confirmed Type Budesonide/Formoterol Fumarate 2 puff INHALATION RT-BID 11/09/19 04/16/23 History [Symbicort 160-4.5 Mcg Inhaler] amLODIPine [Norvasc] 10 mg PO DAILY 11/09/19 04/16/23 History Ensure 1 can PO DAILY 04/16/23 04/16/23 History Loratadine 10 mg PO DAILY 04/16/23 04/16/23 History Magnesium Oxide 420 Mg 420 mg PO DAILY 04/16/23 04/16/23 History Multivitamins, Thera [Multivitamin 1 tab PO DAILY 04/16/23 04/16/23 History (formulary)] Sertraline [Zoloft] 50 mg PO DAILY 04/16/23 04/16/23 History lisinopriL [Zestril] 20 mg PO DAILY 04/16/23 04/16/23 History Allergies Allergy/AdvReac Type Severity Reaction Status Date / Time codeine Allergy Unknown Verified 04/16/23 12:16 Surgical - Exam Vital Signs Temp Pulse Resp BP Pulse Ox 98 F 83 18 157/97 90 L 04/16/23 11:06 04/16/23 11:06 04/16/23 11:06 04/16/23 11:06 04/16/23 11:06 General appearance: The patient is alert, oriented, appears in no acute distress. HET: Head is normocephalic and atraumatic. Pupils are equal and reactive. Neck: Supple. No audible bruit. Heart: Regular. Lungs: Equal expansion, normal respiratory effort. Abdomen: Soft, nontender, nondistended. Extremities: Palpable bilateral femoral pulses. Bilateral popliteal, PT Doppler signals present. Right monophasic PT signal, no Doppler signal obtained. Left DP signal present. Bilateral lower extremities warm to the touch, toes are able to wiggle and move. Good capillary refill. Right great toe with 2 small scabs/ulcer. Right foot with erythema. Left foot with 2-3 small scabs. Neurological: No focal deficits. Sensorimotor intact. Results - Labs 04/17/23 07:16 04/17/23 07:16 Abnormal Lab Results - Last 24 Hours (Table) 04/16/23 04/16/23 04/16/23 Range/Units 11:34 11:34 15:24 RBC (4.30-5.90) m/uL Hgb (13.0-17.5) gm/dL D-Dimer (<0.60) mg/L FEU Sodium 128 L (137-145) mmol/L Chloride 88 L (98-107) mmol/L Carbon Dioxide (22-30) mmol/L Creatinine 0.58 L (0.66-1.25) mg/dL Troponin I 0.057 H* 0.050 H* (0.000-0.034) ng/mL 04/16/23 04/16/23 04/17/23 Range/Units 15:24 17:42 07:16 RBC 4.10 L (4.30-5.90) m/uL Hgb 12.7 L (13.0-17.5) gm/dL D-Dimer 1.78 H (<0.60) mg/L FEU Sodium (137-145) mmol/L Chloride (98-107) mmol/L Carbon Dioxide (22-30) mmol/L Creatinine (0.66-1.25) mg/dL Troponin I 0.050 H* (0.000-0.034) ng/mL 04/17/23 Range/Units 07:16 RBC (4.30-5.90) m/uL Hgb (13.0-17.5) gm/dL D-Dimer (<0.60) mg/L FEU Sodium 129 L (137-145) mmol/L Chloride 85 L (98-107) mmol/L Carbon Dioxide 37 H (22-30) mmol/L Creatinine 0.61 L (0.66-1.25) mg/dL Troponin I (0.000-0.034) ng/mL Diabetes panel 04/16/23 04/17/23 Range/Units 11:34 07:16 Sodium 128 L 129 L (137-145) mmol/L Potassium 4.7 4.0 (3.5-5.1) mmol/L Chloride 88 L 85 L (98-107) mmol/L Carbon Dioxide 30 37 H (22-30) mmol/L BUN 16 17 (9-20) mg/dL Creatinine 0.58 L 0.61 L (0.66-1.25) mg/dL Glucose 79 81 (74-99) mg/dL Calcium 9.1 8.5 (8.4-10.2) mg/dL AST 36 (17-59) U/L ALT 21 (4-49) U/L Alkaline Phosphatase 111 (38-126) U/L Total Protein 6.5 (6.3-8.2) g/dL Albumin 3.6 (3.5-5.0) g/dL Calcium panel 04/16/23 04/17/23 Range/Units 11:34 07:16 Calcium 9.1 8.5 (8.4-10.2) mg/dL Albumin 3.6 (3.5-5.0) g/dL Pituitary panel 04/16/23 04/17/23 Range/Units 11:34 07:16 Sodium 128 L 129 L (137-145) mmol/L Potassium 4.7 4.0 (3.5-5.1) mmol/L Chloride 88 L 85 L (98-107) mmol/L Carbon Dioxide 30 37 H (22-30) mmol/L BUN 16 17 (9-20) mg/dL Creatinine 0.58 L 0.61 L (0.66-1.25) mg/dL Glucose 79 81 (74-99) mg/dL Calcium 9.1 8.5 (8.4-10.2) mg/dL Adrenal panel 04/16/23 04/17/23 Range/Units 11:34 07:16 Sodium 128 L 129 L (137-145) mmol/L Potassium 4.7 4.0 (3.5-5.1) mmol/L Chloride 88 L 85 L (98-107) mmol/L Carbon Dioxide 30 37 H (22-30) mmol/L BUN 16 17 (9-20) mg/dL Creatinine 0.58 L 0.61 L (0.66-1.25) mg/dL Glucose 79 81 (74-99) mg/dL Calcium 9.1 8.5 (8.4-10.2) mg/dL Total Bilirubin 1.1 (0.2-1.3) mg/dL AST 36 (17-59) U/L ALT 21 (4-49) U/L Alkaline Phosphatase 111 (38-126) U/L Total Protein 6.5 (6.3-8.2) g/dL Albumin 3.6 (3.5-5.0) g/dL - Imaging Comments: Venous duplex lower extremity reports negative for DVT bilaterally. Question abnormality within the left proximal femoral artery may be occluded. Further workup is recommended as the indicated. Chest CT angiogram reports no evidence of pulmonary embolism. Significant areas of tree-in-bud nodularity, septal thickening and mild areas of airspace opacity within the right middle and right lower lobe likely due to inflammatory or atypical infectious process. Associated right hilar lymphadenopathy which could be reactive with malignancy not entirely excluded. Follow-up in 3 months recommended. Moderate emphysema. Severe coronary artery calcification. Echocardiogram reports concentric left ventricular hypertrophy with normal LV systolic function. Aortic sclerosis with mild aortic stenosis with a peak gradient of 25 mm and the mean gradient of 13 mm across the valve. Assessment and Plan Assessment: 1. Bilateral lower extremity swelling 2. Possible left proximal femoral artery occlusion per venous duplex 3. Bilateral lower extremity pain 4. Diabetes mellitus 5. 45 year pack per day smoker as well as marijuana smoker 6. COPD Plan: 1. Arterial duplex ordered 2. Carotid duplex ordered 3. Can wait and CTA abdomen pelvis with runoff and do as an outpatient, likely all chronic disease 4. Patient to follow-up with vascular surgery in 2-3 weeks. Thank you for this consultation, we will continue to follow. The impression and plan of care has been dictated as directed. I performed a history and examination of this patient, discussed the same with the dictator. I agree with the dictator's note ,documented as a scribe. Any additional findings or plans will be noted.
[2023-04-17 13:48] VITALS: BMI 16.7
--- NOTE | 2023-04-17 16:32 | P.PN ---
Subjective Progress Note Date: 04/17/23 73-year-old male with PMH of COPD, hypertension, depression presents to the ED for shortness of breath and lower extremity swelling. Symptoms have been progressively getting worse over the past 6 months. He reports multiple pillow orthopnea. He reports a chronic cough (> 6 months) of green sputum. Reports a 50 year history of heavy smoking. Complains of left sided chest pain, sharp and stabbing with cough or deep inspiration. In the ED, he underwent extensive evaluation. Vital signs show hypoxia to 90%. CBC unremarkable. BMP NA 128, Cl 88, Cr 0.58. Trop 0.057. EKG sinus rhythm. BNP 7350. CXR patchy parenchymal changes R > L. Venous doppler negative DVT possible occluded proximal left femoral artery. 04/17 Patient was seen and examined this morning. Slight improvement in his breathing. Currently on 2-3L NC saturating low 90s. D-Dimer elevated at 1.78. Troponins 0.057, 0.05, 0.05. Procal 0.03. Currently on Lasix 40 mg IV QD. Echocardiogram pending. CTA chest ordered to rule out PE. CBC Hg 12.7. BMP Na 129, Cl 85, bicarb 37, Cr 0.61. General: non toxic, no distress, appears at stated age, cachectic Derm: warm, dry Head: atraumatic, normocephalic, symmetric Eyes: EOMI, no lid lag, anicteric sclera Cardiovascular: S1S2, no murmur Lungs: Decreased BS bilateral, no rhonchi, no rales , no accessory muscle use Abdominal: soft, nontender to palpation, no guarding, no appreciable organome carey Ext: no gross muscle atrophy, 1+ pitting LE edema, no contractures Neuro: no focal neuro deficits Psych: Alert, oriented, appropriate affect Based on my assessment of this patient, this patient meets a high complexity level of care. Patient has an acute diagnosis of hypoxia and bilateral LE swelling that poses a threat to life or bodily function. Acute hypoxic respiratory failure: Supplemental O2 to maintain O2 saturation > 92%. Elevated BNP. D-Dimer elevated. Obtain Echo. Pro-alexia neg. Probable CHF exacerbation, unknown EF: Elevated BNP. Start Lasix 40 mg IV QD. Echo as above. Strict intake outtake. Daily weights. Elevated D-Dimer: Obtain CTA chest. Possible occluded proximal left femoral artery: Vascular surgery consulted. Troponin elevation: Flat. ACS ruled out. Echo ordered. Hyponatremia, hypochloremic with metabolic alkalsos: Likely due to forced diuresis. CODE STATUS: FULL CODE DVT Prophylaxis: Lovenox SQ GI Prophylaxis: Designated medical POA if patient is not able to make medical decisions for themselves: Son and daughter I have reviewed the following legal consultant notes: I have reviewed the results of the following tests: Procal. Troponin. D-Dimer. I have ordered the following tests: CTA chest. Pending: Echo, CBC, BMP I have discussed the care of this patient with the following independent historian: I have independently interpreted the following test below: I have discussed the management of this patient with the following physician: Objective - Vital Signs Vital signs: Vital Signs Temp 97.9 F 04/17/23 07:54 Pulse 78 04/17/23 07:54 Resp 20 04/17/23 07:54 BP 132/80 04/17/23 07:54 Pulse Ox 92 L 04/17/23 07:54 FiO2 Intake & Output 04/16/23 04/17/23 04/17/23 18:59 06:59 18:59 Intake Total 240 180 Balance 240 180 Weight 63.503 kg 62.4 kg Intake: Oral 240 180 Other: Voiding Method Urinal - Labs CBC & Chem 7: 04/17/23 07:16 04/17/23 07:16 Labs: Abnormal Lab Results - Last 24 Hours (Table) 04/16/23 04/16/23 04/16/23 Range/Units 11:34 11:34 15:24 D-Dimer (<0.60) mg/L FEU Sodium 128 L (137-145) mmol/L Chloride 88 L (98-107) mmol/L Creatinine 0.58 L (0.66-1.25) mg/dL Troponin I 0.057 H* 0.050 H* (0.000-0.034) ng/mL 04/16/23 04/16/23 Range/Units 15:24 17:42 D-Dimer 1.78 H (<0.60) mg/L FEU Sodium (137-145) mmol/L Chloride (98-107) mmol/L Creatinine (0.66-1.25) mg/dL Troponin I 0.050 H* (0.000-0.034) ng/mL
[2023-04-17] MEDS ORDERED: AZITHROMYCIN 500 MG in SODIUM CHLORIDE 0.9% 250 ML IVPB SCH (18:00)
--- NOTE | 2023-04-17 22:54 | US ---
EXAMINATION TYPE: US carotid duplex BILAT DATE OF EXAM: 04/17/2023 COMPARISON: CTA: 12/07/19 CLINICAL INDICATION: Male, 73 years old with history of CAD; CAD TECHNIQUE: Carotid duplex ultrasound examination. Indirect Doppler criteria was utilized. FINDINGS: EXAM MEASUREMENTS: RIGHT: Peak Systolic Velocity (PSV) cm/sec ----- Right CCA: 75.5 ----- Right ICA: 87.1 ----- Right ECA: 94.3 ICA/CCA ratio: 1.2 RIGHT: End Diastole cm/sec ----- Right CCA: 18.8 ----- Right ICA: 18.8 ----- Right ECA: 7.6 LEFT: Peak Systolic Velocity (PSV) cm/sec ----- Left CCA: 63.3 ----- Left ICA: 85.8 ----- Left ECA: 240.4 ICA/CCA ratio: 1.4 LEFT: End Diastole cm/sec ----- Left CCA: 15.7 ----- Left ICA: 18.4 ----- Left ECA: 22.9 VERTEBRALS (direction of flow): Right Vertebral: Antegrade Left Vertebral: Antegrade Rhythm: Normal IMPRESSION: Examination is negative for hemodynamically-significant carotid stenosis. Moderate-severe plaque seen in bilateral proximal, mid, and distal CCAs, carotid bulbs, and proximal ICAs. Criteria for Assigning % of Stenosis / Diameter reduction (Estimation based on the indirect measurements of the internal carotid artery velocities (ICA PSV). 1. Normal (no stenosis)=ICA PSV < 125 cm/s: ratio < 2.0: ICA EDV<40 cm/s. 2. Less than 50% stenosis=ICA PSV < 125 cm/s: ratio < 2.0: ICA EDV<40 cm/s. 3. 50 to 69% stenosis=ICA PSV of 125 to 230 cm/s: ration 2.0 ? 4.0: ICA EDV 40-100 cm/s. 4. Greater than 70% stenosis to near occlusion= ICA PSV > 230 cm/s: ratio > 4.0: ICA EDV > 100 cm/s. 5. Near occlusion= ICA PSV velocities may be low or undetectable: variable ratio and ICA EDV. 6. Total occlusion=unable to detect flow.
--- NOTE | 2023-04-18 07:42 | US ---
EXAMINATION TYPE: US arterial LE multi level DATE OF EXAM: 04/17/2023 5:05 PM CLINICAL INDICATION: Male, 73 years old with history of b/l lower extremity pain, evaluate for PAD; History of: Smoker: Patient stopped smoking a few months ago. Hypertension: Yes Diabetic: No Hyperlipidemia: No TIA/CVA: No Previous Vascular Surgery: No CAD: No TX: No Vascular Ulcers: no Claudication: None Gangrene: no Doppler Waveforms: Right: Monophasic Left: Monophasic Right Brachial Pressure: 122 Left Brachial Pressure: 106 Ankle-Brachial Indices: Right: 0.77 Left: 0.71 (Vessel hardening > 1.4; Normal 0.9 - 1.4, Moderate 0.7 - 0.9, Severe 0.5-0.7) Toe Brachial Indices: Right: CNO Left: CNO IMPRESSION: Moderate bilateral peripheral vascular disease by ankle brachial indices.
[2023-04-18] MEDS: LORATADINE 10 MG TAB PO SCH (09:26)
[2023-04-18] MEDS: lisinopriL 20 MG TAB PO SCH (09:26)
[2023-04-18] MEDS: SERTRALINE 50 MG TAB PO SCH (09:26)
[2023-04-18] MEDS: amLODIPine 10 MG TAB PO SCH (09:26)
[2023-04-18] MEDS: ENOXAPARIN 40 MG/0.4 ML SYRINGE SQ SCH (09:27)
[2023-04-18] MEDS: FUROSEMIDE 10 MG/ML 4 ML VIAL IV SCH (09:27)
[2023-04-18 10:07] LABS: African American GFR (CKD) >90 (>60 ml/min/1.73 sqM); Blood Urea Nitrogen 20 mg/dL (9-20); Calcium 8.5 mg/dL (8.4-10.2); Chloride 84 mmol/L (98-107); Glucose 259 mg/dL (74-99); Non-African American GFR(CKD) >90 (>60 ml/min/1.73 sqM); Potassium 4.1 mmol/L (3.5-5.1); Sodium 129 mmol/L (137-145)
[2023-04-18 10:16] LABS: Anion Gap 7 mmol/L
[2023-04-18 10:19] LABS: Carbon Dioxide 38 mmol/L (22-30)
--- NOTE | 2023-04-18 10:25 | P.PN ---
Subjective Progress Note Date: 04/18/23 Principal diagnosis: lower extremity edema Patient seen and examined follow-up of her possible left femoral artery occlusion seen on venous duplex. CTA chest was completed yesterday for positive d-dimer therefore held off on CT angiogram of lower extremities. However again feel as though any peripheral arterial disease would be chronic. Patient states he does have some pain in his feet. His right foot has some mild erythema. Sensorimotor intact with good capillary refill.arterial duplex shows a mild to moderate peripheral arterial disease with ABIs of 0.7 bilaterally. Carotid duplex with no hemodynamically significant stenosis. Objective - Vital Signs Vital signs: Vital Signs Temp 98.5 F 04/17/23 20:00 Pulse 71 04/18/23 04:00 Resp 20 04/18/23 04:00 BP 114/73 04/18/23 04:00 Pulse Ox 90 L 04/18/23 04:00 FiO2 Intake & Output 04/17/23 04/18/23 04/18/23 18:59 06:59 18:59 Intake Total 600 Output Total 1325 400 Balance -725 -400 Weight 62.4 kg Intake: Oral 600 Output: Urine 1325 400 Other: Voiding Method Urinal Urinal # Voids 1 - Exam General appearance: The patient is alert, oriented, appears in no acute distress. HET: Head is normocephalic and atraumatic. Pupils are equal and reactive. Neck: Supple. Heart: Regular. Lungs: Equal expansion, normal respiratory effort. Abdomen: Soft, nontender, nondistended. Extremities: right foot with some erythema, bilateral pedal edema. Good capillary refill with sensorimotor intact. Palpable bilateral femoral pulses. Bilateral popliteal and PT pulses multiphasic. Neurological: No focal deficits. Strength and sensation are grossly intact. - Labs CBC & Chem 7: 04/17/23 07:16 04/18/23 09:26 Labs: Abnormal Lab Results - Last 24 Hours (Table) 04/17/23 04/17/23 Range/Units 07:16 07:16 RBC 4.10 L (4.30-5.90) m/uL Hgb 12.7 L (13.0-17.5) gm/dL Sodium 129 L (137-145) mmol/L Chloride 85 L (98-107) mmol/L Carbon Dioxide 37 H (22-30) mmol/L Creatinine 0.61 L (0.66-1.25) mg/dL Assessment and Plan Assessment: 1. Bilateral lower extremity swelling 2. Possible left proximal femoral artery occlusion per venous duplex 3. Peripheral arterial disease 4. Bilateral lower extremity pain 5. Diabetes mellitus 6. 45 year pack per day smoker as well as marijuana smoker 7. COPD Plan: 1. Arterial duplex ordered and reviewed 2. Carotid duplex ordered and reviewed 3. Can wait and CTA abdomen pelvis with runoff and do as an outpatient, likely all chronic disease 4. Patient to follow-up with vascular surgery in 2-3 weeks. Thank you for this consultation, patient is cleared from vascular surgery for discharge. The impression and plan of care has been dictated as directed. I performed a history and examination of this patient, discussed the same with the dictator. I agree with the dictator's note ,documented as a scribe. Any additional findings or plans will be noted.
[2023-04-18] MEDS ORDERED: IPRATROPIUM-ALBUTEROL 3 ML NEB INHALATION PRN (10:41)
[2023-04-18] MEDS: IPRATROPIUM-ALBUTEROL 3 ML NEB INHALATION SCH ×3 (11:04→20:01)
--- NOTE | 2023-04-18 12:09 | P.PN ---
Subjective Progress Note Date: 04/18/23 73-year-old male with PMH of COPD, hypertension, depression presents to the ED for shortness of breath and lower extremity swelling. Symptoms have been progressively getting worse over the past 6 months. He reports multiple pillow orthopnea. He reports a chronic cough (> 6 months) of green sputum. Reports a 50 year history of heavy smoking. Complains of left sided chest pain, sharp and stabbing with cough or deep inspiration. In the ED, he underwent extensive evaluation. Vital signs show hypoxia to 90%. CBC unremarkable. BMP NA 128, Cl 88, Cr 0.58. Trop 0.057. EKG sinus rhythm. BNP 7350. CXR patchy parenchymal changes R > L. Venous doppler negative DVT possible occluded proximal left femoral artery. 04/17 Patient was seen and examined this morning. Slight improvement in his breathing. Currently on 2-3L NC saturating low 90s. D-Dimer elevated at 1.78. Troponins 0.057, 0.05, 0.05. Procal 0.03. Currently on Lasix 40 mg IV QD. Echocardiogram pending. CTA chest ordered to rule out PE. CBC Hg 12.7. BMP Na 129, Cl 85, bicarb 37, Cr 0.61. 04/18 Patient was seen and examined. Breathing stable. CTA chest showed no PE, significant areas of tree-in-bud nodularity, septal thicking in the RM and RLL with hilar LAD, moderate emphesema, severe CAD. Possible mucous plugging. Started on Rocephin and Azithromycin with Pulmonology consulted. Vascular surgery recommended CUS which shows moderate to severe plaque in the CCAs, carotid bulbs and proximal ICAs. Arterial duplex consistent with moderate PVD. Echo shows concentric LVH with normal systolic function, mild . BMP shows Na 129, Cl 84, bicarb 38, Cr 0.58, glu 259. General: non toxic, no distress, appears at stated age, cachectic Derm: warm, dry Head: atraumatic, normocephalic, symmetric Eyes: EOMI, no lid lag, anicteric sclera Cardiovascular: S1S2, no murmur Lungs: Decreased BS bilateral, no rhonchi, no rales , no accessory muscle use Abdominal: soft, nontender to palpation, no guarding, no appreciable organomegaly Ext: no gross muscle atrophy, 1+ pitting LE edema, no contractures Neuro: no focal neuro deficits Psych: Alert, oriented, appropriate affect Based on my assessment of this patient, this patient meets a high complexity level of care. Patient has an acute diagnosis of hypoxia and bilateral LE swelling that poses a threat to life or bodily function. Acute hypoxic respiratory failure: Supplemental O2 to maintain O2 saturation > 92%. Multifactorial, diastolic CHF along with RM and RLL consolidation with possible mucous plugging. Home O2 eval ordered. Diastolic CHF exacerbation: Elevated BNP. Continue Lasix 40 mg IV QD. Echo as above. Strict intake outtake. Daily weights. Cardiology on board. Community acquired PNA: With possible mucous plugging. Procal negative. Started on Rocephin and Azithromycin. Pulmonology consulted. Elevated D-Dimer: PE ruled out. Carotid stenosis with PVD: Start ASA 81 mg PO QD, Lipitor 40 mg PO QHS. Vascular surgery on board. Troponin elevation: Flat. ACS ruled out. Echo as above. Hyponatremia, hypochloremic with metabolic alkalsos: Likely due to forced diuresis. CODE STATUS: FULL CODE DVT Prophylaxis: Lovenox SQ GI Prophylaxis: Designated medical POA if patient is not able to make medical decisions for themselves: Son and daughter I have reviewed the following regulatory consultant notes: Vascular surgery, Cardiology note. I have reviewed the results of the following tests: CTA chest, CUS, Arterial duplex, Echo, BMP. I have ordered the following tests: BMP. I have discussed the care of this patient with the following independent historian: I have independently interpreted the following test below: I have discussed the management of this patient with the following physician: Objective - Vital Signs Vital signs: Vital Signs Temp 98.5 F 04/17/23 20:00 Pulse 71 04/18/23 04:00 Resp 20 04/18/23 04:00 BP 114/73 04/18/23 04:00 Pulse Ox 90 L 04/18/23 04:00 FiO2 Intake & Output 04/17/23 04/18/23 04/18/23 18:59 06:59 18:59 Intake Total 600 120 Output Total 1325 400 Balance -725 -400 120 Weight 62.4 kg Intake: Oral 600 120 Output: Urine 1325 400 Other: Voiding Method Urinal Urinal # Voids 1 - Labs CBC & Chem 7: 04/17/23 07:16 04/18/23 09:26
--- NOTE | 2023-04-18 12:56 | CDI ---
Documentation Clarification Form Date: 04/18/2023 12:41:34 PM From: Courtney Patel RN CCDS Phone: [phone] Admit Date: 04/16/2023 04:38:00 PM Patient Name: Josh Brooke Visit Number: [id number] Discharge Date: ATTENTION: The Clinical Documentation Specialists (CDI) and [facility] Coding Staff appreciate your assistance in clarifying documentation. Please respond to the clarification below the line at the bottom and electronically sign. The CDI & [facility] Coding staff will review the response and follow-up if needed. Please note: Queries are made part of the Legal Health Record. If you have any questions, please contact the author of this message via ITS. Dr. Lita Bronson The Registered Dietitian assessment on 04/17 indicates this patient meets criteria for Chronic Severe malnutrition. Based on this information and the findings below, is there an additional diagnosis that is clinically appropriate for this patient? History/Risk Factors: 73-year-old male presents to the ED with shortness of breath and lower extremity swelling. Medical History: COPD, HTN and Pneumonia. 04/16, H&P. Clinical Indicators: New onset Congestive heart failure. RD Consult Assessment: Current BMI: 19.2kg; Weight 62.4kg, Height 6ft 4 inches, BMI Underweight, Calculated [place] body weight 91.626kg. Physical Findings: Emaciated and underweight Estimated Nutritional needs in Kcal 2748 -3207 Kcal Estimated Protein needs in grams 110 grams/day Nutritional diagnosis: Chronic severe malnutrition, Poor caloric intake <75% of EER> 1 month. Evidence by: Severe fat and muscle wasting. Buccal fat pads, temporalis, pectoralis major, trapezius muscles and deltoid muscle. Treatment: Monitor PO and Supplement Intake, Low Sodium diet Supplements: Ensure Enlive TID, Vanilla preferred. Is there an additional diagnosis that is clinically appropriate for this patient? [ ] Severe Protein-Calorie Malnutrition [ ] Other condition, please specify [ ] Unable to Determine Reference: Using the ASPEN Guidelines, Undernutrition (Malnutrition) is characterized by at least two of the following six findings. The severity can be determined based on the criteria listed below. Malnutrition Characteristics for Moderate and Severe Malnutrition Type of Malnutrition Acute Illness or Injury Chronic Illness Degree of Malnutrition Non-severe (moderate) Malnutrition Severe Malnutrition Non-severe (moderate) Malnutrition Severe Malnutrition Energy Intake <75% for >7 days = 50% for = 5 days <75% for = 1 month =75% for = 1 month Weight Loss 1-2% in one week, 5% in 1 month, 7.5% in 3 months 2% in one week, >5% in 1 month, >7.5% in 3 months 5% in one month, 7.5% in 3 months, 10% in 6 months, 20% in 1 year >5% in one month, >7.5% in 3 months, >10% in 6 months, >20% in 1 year Body Fat Wasting Mild Moderate Mild Severe Muscle Wasting Mild Moderate Mild Severe Presence of Edema Mild Moderate to Severe 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 Consensus statement: Academy of Nutrition and Dietetics and [employer] Society for Parenteral and Enteral Nutrition: characteristics recommended for the identification and documentation of adult malnutrition (undernutrition).BRANDIN J Parenter Enteral Nutr. 2012;36(3):275-283. (Template Last Revised: November 2022) MTDD
[2023-04-18] MEDS: ASPIRIN 81 MG PO SCH (13:04)
--- NOTE | 2023-04-18 15:02 | P.CNPUL ---
History of Present Illness Consult date: 04/18/23 Requesting physician: Lita Bronson Reason for consult: dyspnea, cough, COPD, hypoxemia, abnormal CXR/CT, other Chief complaint: Shortness of breath. History of present illness: Pulmonary consult dated 04/18/2023. 73-year-old male presents to the emergency department on April 16, with c omplaints of lower extremity edema. In addition, the patient was short of breath, particularly on exertion. The swelling in the lower semis, had been taken place over a period of a couple months. In addition the swelling, he had pain in his legs, which necessitated him to come to the emergency room to be evaluated. The patient apparently sees somebody at the [facility] in [place], [place]. In the past, the patient has seen cardiology as well. Currently, the patient is sitting up in a chair next to his bed. He is on 3 L of oxygen. His pro- calcitonin level is 0.03. Antibiotics can be discontinued. His admission N- terminal proBNP was 7350. White count 9.3, he will been 12.7, hematocrit 40, platelet count 273,000. D-dimer was 1.78. Sodium 129, potassium 4.1, chloride 84, CO2 38, anion gap 7, BUN 20, creatinine 0.58. Glucose 259. Troponins were 0.057, 0.050, and 0.050. As mentioned, the initial N-terminal proBNP was 7350. Subsequently, it was 6970. Venous Dopplers of the lower extremities were negative for DVT. Computed tomography scan of the chest revealed no evidence of pulmonary embolism. There were some inflammatory changes noted particularly in the right middle lobe and right lower lobe, possibly related to atypical infection. In addition, there are emphysematous changes. Review of Systems REVIEW OF SYSTEMS: CONSTITUTIONAL: Weakness. NEUROLOGIC: [ Negative.] HEENT: [ Negative.] CARDIAC: Lower extremity edema. PULMONARY: Shortness of breath. GI: [Negative.] : [Negative.] RHEUMATOLOGIC: [ Negative.] IMMUNOLOGIC: [ Negative.] ENDOCRINE: [Negative. ] DERMATOLOGIC: [Negative.] Past Medical History Past Medical History: COPD, Hypertension, Pneumonia History of Any Multi-Drug Resistant Organisms: None Reported Past Surgical History: Appendectomy, Tonsillectomy Past Anesthesia/Blood Transfusion Reactions: No Reported Reaction Past Psychological History: No Psychological Hx Reported Smoking Status: Former smoker Past Alcohol Use History: Occasional Past Drug Use History: Marijuana Medications and Allergies Home Medications Medication Instructions Recorded Confirmed Type Budesonide/Formoterol Fumarate 2 puff INHALATION RT-BID 11/09/19 04/16/23 History [Symbicort 160-4.5 Mcg Inhaler] amLODIPine [Norvasc] 10 mg PO DAILY 11/09/19 04/16/23 History Ensure 1 can PO DAILY 04/16/23 04/16/23 History Loratadine 10 mg PO DAILY 04/16/23 04/16/23 History Magnesium Oxide 420 Mg 420 mg PO DAILY 04/16/23 04/16/23 History Multivitamins, Thera [Multivitamin 1 tab PO DAILY 04/16/23 04/16/23 History (formulary)] Sertraline [Zoloft] 50 mg PO DAILY 04/16/23 04/16/23 History lisinopriL [Zestril] 20 mg PO DAILY 04/16/23 04/16/23 History Allergies Allergy/AdvReac Type Severity Reaction Status Date / Time codeine Allergy Unknown Verified 04/16/23 12:16 Physical Exam Osteopathic Statement: *. No significant issues noted on an osteopathic structural exam other than those noted in the History and Physical/Consult. Vitals: Vital Signs Temp Pulse Pulse Resp BP Pulse Ox Pulse Ox 04/18/23 13:07 87 L 04/18/23 12:12 61 18 114/73 04/18/23 11:16 75 04/18/23 11:04 72 04/18/23 09:25 98.3 F 85 16 112/62 94 L 04/18/23 04:00 71 20 114/73 90 L 04/18/23 00:00 80 20 114/69 100 04/17/23 20:00 98.5 F 84 20 90/59 91 L 04/17/23 16:01 98.2 F 86 20 122/71 92 L Intake and Output 04/17/23 04/18/23 04/18/23 22:59 06:59 14:59 Intake Total 240 210 Output Total 975 250 Balance -735 -250 210 Intake: IV 40 Invasive Line 1 20 Invasive Line 3 20 Intake, IV Titration 50 Amount cefTRIAXone 2 gm In 50 Sodium Chloride 0.9% 50 ml @ 100 mls/hr IVPB Q24HR [facility] Rx#:[id number] Oral 240 120 Output: Urine 975 250 Other: Voiding Method Urinal Urinal Urinal # Voids 1 3 No acute distress, oriented 3. 3 L saturation is 92%. HEENT examination is grossly unremarkable. Mucous membranes are moist. No oral lesions. Neck supple. Full range of motion. No adenopathy thyromegaly or neck vein distention. Cardiovascular examination reveals regular rhythm rate. S1-S2 normal. No S3 or S4. No discernible murmur noted. Heart rate 75 bpm. Lungs reveal minimal bibasilar crackles. No wheezes. No rhonchi. Breath sounds equal bilaterally. Saturations are adequate on supplemental oxygen. Abdomen soft bowel sounds are heard. No masses or tenderness. Extremities are intact. No cyanosis or clubbing. Trace to 1+ edema of the lower extremities is noted. Skin is without rash or lesion. Neurologic examination is brief but nonfocal. Results - Laboratory Findings CBC and BMP: 04/17/23 07:16 04/18/23 09:26 PT/INR, D-dimer D-Dimer 1.78 mg/L FEU (<0.60) H 04/16/23 15:24 Abnormal lab findings: Abnormal Labs 04/16/23 04/16/23 04/16/23 11:34 11:34 15:24 RBC Hgb D-Dimer Sodium 128 L Chloride 88 L Carbon Dioxide Creatinine 0.58 L Glucose Troponin I 0.057 H* 0.050 H* 04/16/23 04/16/23 04/17/23 15:24 17:42 07:16 RBC 4.10 L Hgb 12.7 L D-Dimer 1.78 H Sodium Chloride Carbon Dioxide Creatinine Glucose Troponin I 0.050 H* 04/17/23 04/18/23 07:16 09:26 RBC Hgb D-Dimer Sodium 129 L 129 L Chloride 85 L 84 L Carbon Dioxide 37 H 38 H Creatinine 0.61 L 0.58 L Glucose 259 H Troponin I - Diagnostic Findings Chest x-ray: image reviewed CT scan - chest: image reviewed Assessment and Plan Assessment: Acute hypoxemic respiratory failure, multifactorial, in part related to fluid overload/CHF, COPD exacerbation, and possible pulmonary infection. History of COPD from previous heavy tobacco use. History of hypertension. History of pneumonia. Plan: Plan dated 04/18/2023. The patient is seen today in room 370. The patient was admitted with a d iagnosis of shortness of breath, and lower extremity edema. Likely his shortness of breath, is multifactorial, most related to COPD, and fluid overload/CHF. In addition, there may be some inflammatory/infectious changes in the right middle lobe and right lower lobe, that we'll need outpatient eval uation. We will continue to follow the patient, and make recommendations along the way. The patient currently is on Symbicort 160/4.5, 2 puffs twice a day, albuterol sulfate and ipratropium bromide updrafts, 4 times a day and when necessary, and antibiotics have been discontinued, given the pro-calcitonin level 0.03. Time with Patient: Greater than 30
[2023-04-18] MEDS: SYMBICORT 160-4.5 MCG INHALER INHALATION SCH (20:01)
[2023-04-18] MEDS ORDERED: ATORVASTATIN 40 MG TAB PO SCH (21:00)
[2023-04-19] MEDS: SYMBICORT 160-4.5 MCG INHALER INHALATION SCH (07:46)
[2023-04-19] MEDS: IPRATROPIUM-ALBUTEROL 3 ML NEB INHALATION SCH ×3 (07:46→15:45)
[2023-04-19] MEDS: ENOXAPARIN 40 MG/0.4 ML SYRINGE SQ SCH (09:08)
[2023-04-19] MEDS: FUROSEMIDE 10 MG/ML 4 ML VIAL IV SCH (09:08)
[2023-04-19] MEDS: SERTRALINE 50 MG TAB PO SCH (09:08)
[2023-04-19] MEDS: lisinopriL 20 MG TAB PO SCH (09:08)
[2023-04-19] MEDS: LORATADINE 10 MG TAB PO SCH (09:08)
[2023-04-19] MEDS: ASPIRIN 81 MG PO SCH (09:08)
[2023-04-19] MEDS: amLODIPine 10 MG TAB PO SCH (09:08)
[2023-04-19 09:24] VITALS: RESP 20
--- NOTE | 2023-04-19 11:34 | P.PN ---
Subjective Progress Note Date: 04/19/23 Principal diagnosis: Shortness of breath. Pulmonary consult dated 04/18/2023. 73-year-old male presents to the emergency department on April 16, with complaints of lower extremity edema. In addition, the patient was short of breath, particularly on exertion. The swelling in the lower semis, had been taken place over a period of a couple months. In addition the swelling, he had pain in his legs, which necessitated him to come to the emergency room to be evaluated. The patient apparently sees somebody at the [facility] in [place], [place]. In the past, the patient has seen cardiology as well. Currently, the patient is sitting up in a chair next to his bed. He is on 3 L of oxygen. His pro- calcitonin level is 0.03. Antibiotics can be discontinued. His admission N-terminal proBNP was 7350. White count 9.3, he will been 12.7, hematocrit 40, platelet count 273,000. D-dimer was 1.78. Sodium 129, potassium 4.1, chloride 84, CO2 38, anion gap 7, BUN 20, creatinine 0.58. Glucose 259. Troponins were 0.057, 0.050, and 0.050. As mentioned, the initial N-terminal proBNP was 7350. Subsequently, it was 6970. Venous Dopplers of the lower extremities were negative for DVT. Computed tomography scan of the chest revealed no evidence of pulmonary embolism. There were some inflammatory changes noted particularly in the right middle lobe and right lower lobe, possibly related to atypical infection. In addition, there are emphysematous changes. Progress note dated 04/19/2023. 73-year-old male who was admitted to the hospital April 16. We saw him in consultation yesterday. The patient came to the hospital with complaints of lower extremity edema. He also had shortness of breath on exertion. His admission N-terminal proBNP was 7350. He was evaluated for DVT, but that was negative. Currently, the patient's on 2 L of oxygen. He's not receiving any IV fluids. He appears be much more clinically stable. No new labs today. Labs from April 18 are reviewed. Objective - Vital Signs Vital signs: Vital Signs Temp 97.2 F L 04/19/23 08:00 Pulse 70 04/19/23 08:02 Resp 20 04/19/23 08:00 BP 128/74 04/19/23 08:00 Pulse Ox 97 04/19/23 08:00 FiO2 Intake & Output 04/18/23 04/19/23 04/19/23 18:59 06:59 18:59 Intake Total 330 1040 480 Output Total 200 275 750 Balance 130 765 -270 Intake: IV 40 20 Invasive Line 1 20 Invasive Line 3 20 20 Intake, IV Titration 50 Amount cefTRIAXone 2 gm In 50 Sodium Chloride 0.9% 50 ml @ 100 mls/hr IVPB Q24HR [facility] Rx#:[id number] Oral 240 1020 480 Output: Urine 200 275 750 Other: Voiding Method Urinal Urinal # Voids 3 - Exam No acute distress, oriented 3. 2 L saturation is 97 %. HEENT examination is grossly unremarkable. Mucous membranes are moist. No oral lesions. Neck supple. Full range of motion. No adenopathy thyromegaly or neck vein distention. Cardiovascular examination reveals regular rhythm rate. S1-S2 normal. No S3 or S4. No discernible murmur noted. Heart rate 78 bpm. Lungs reveal minimal bibasilar crackles. No wheezes. No rhonchi. Breath sounds equal bilaterally. Saturations are adequate on supplemental oxygen. Abdomen soft bowel sounds are heard. No masses or tenderness. Extremities are intact. No cyanosis or clubbing. Trace to 1+ edema of the lower extremities is noted. Skin is without rash or lesion. Neurologic examination is brief but nonfocal. - Labs CBC & Chem 7: 04/17/23 07:16 04/18/23 09:26 Assessment and Plan Assessment: Acute hypoxemic respiratory failure, multifactorial, in part related to fluid overload/CHF, COPD exacerbation, and possible pulmonary infection. History of COPD from previous heavy tobacco use. History of hypertension. History of pneumonia. Plan: Plan dated 04/18/2023. The patient is seen today in room 370. The patient was admitted with a diagnosis of shortness of breath, and lower extremity edema. Likely his shortness of breath, is multifactorial, most related to COPD, and fluid overload/CHF. In addition, there may be some inflammatory/infectious changes in the right middle lobe and right lower lobe, that we'll need outpatient evaluation. We will continue to follow the patient, and make recommendations along the way. The patient currently is on Symbicort 160/4.5, 2 puffs twice a day, albuterol sulfate and ipratropium bromide updrafts, 4 times a day and when necessary, and antibiotics have been discontinued, given the pro-calcitonin level 0.03. Plan dated 04/19/2023. 73-year-old male seen for shortness of breath on exertion, likely related to COPD exacerbation, and fluid overload/CHF. His pro-calcitonin level was 0.03. We don't believe he has active pulmonary infection. He's currently on Symbicort , and updrafts, and diuretics. We will continue to follow make recommendations along the way. Labs, x-rays, and medications are reviewed. He appears clinically stable. Time with Patient: Less than 30
[2023-04-19 11:54] LABS: African American GFR (CKD) >90 (>60 ml/min/1.73 sqM); Blood Urea Nitrogen 21 mg/dL (9-20); Calcium 8.6 mg/dL (8.4-10.2); Chloride 82 mmol/L (98-107); Glucose 128 mg/dL (74-99); Non-African American GFR(CKD) >90 (>60 ml/min/1.73 sqM); Sodium 130 mmol/L (137-145)
[2023-04-19 12:01] LABS: Anion Gap 9 mmol/L
[2023-04-19 12:06] LABS: Carbon Dioxide 39 mmol/L (22-30)
[2023-04-19 13:03] VITALS: BP 93/52; TEMP 97.4
--- NOTE | 2023-04-19 14:02 | P.DS ---
Providers Date of admission: 04/16/23 16:38 Expected date of discharge: 04/19/23 Attending physician: Lita Bronson MD Consults: 04/17/23 16:28 Consult Physician Routine Consulting Provider: Howard Nye Consult Reason/Comments: mucus plug, PNA Do you want consulting provider notified?: Yes Primary care physician: [facility] Course: 73-year-old male with PMH of COPD, hypertension, depression presents to the ED for shortness of breath and lower extremity swelling. Symptoms have been progressively getting worse over the past 6 months. He reports multiple pillow orthopnea. He reports a chronic cough (> 6 months) of green sputum. Reports a 50 year history of heavy smoking. Complains of left sided chest pain, sharp and stabbing with cough or deep insp iration. In the ED, he underwent extensive evaluation. Vital signs show hypoxia to 90%. CBC unremarkable. BMP NA 128, Cl 88, Cr 0.58. Trop 0.057. EKG sinus rhythm. BNP 7350. CXR patchy parenchymal changes R > L. Venous doppler negative DVT possible occluded proximal left femoral artery. 04/17 Patient was seen and examined this morning. Slight improvement in his breathing. Currently on 2-3L NC saturating low 90s. D-Dimer elevated at 1.78. Troponins 0.057, 0.05, 0.05. Procal 0.03. Currently on Lasix 40 mg IV QD. Echocardiogram pending. CTA chest ordered to rule out PE. CBC Hg 12.7. BMP Na 129, Cl 85, bicarb 37, Cr 0.61. 04/18 Patient was seen and examined. Breathing stable. CTA chest showed no PE, significant areas of tree-in-bud nodularity, septal thicking in the RM and RLL with hilar LAD, moderate emphesema, severe CAD. Possible mucous plugging. Started on Rocephin and Azithromycin with Pulmonology consulted. Vascular surgery recommended CUS which shows moderate to severe plaque in the CCAs, carotid bulbs and proximal ICAs. Arterial duplex consistent with moderate PVD. Echo shows concentric LVH with normal systolic function, mild . BMP shows Na 129, Cl 84, bicarb 38, Cr 0.58, glu 259. 04/19 Patient was seen and examined. Home O2 eval performed yesterday, he will need home O2 on discharge, hopefully to be delivered today. Pulmonology consulted, started on DuoNeb scheduled and PRN along with Symbicort INH. Procalcitonin was negative, so antibiotics were discontinued. BMP Na 130, Cl 82, bicarb 39, BUN 21, Cr 0.54, glu 128. Lasix will be switched from 40 mg IV QD to 20 mg PO QD. Plans to discharge home today on ASA, Lipitor, Lasix and Albuterol. Continue Amlodipine, Symbicort and Lisinopril. Diet: Low salt. 1.5 L fluid restriction Follow up with PCP within 1-2 days of discharge Follow up with Pulmonology, Cardiology and Vascular surgery within 1 week of discharge. Pertinent studies include Venous doppler, CXR, Echo, CTA chest, CUS, Art duplex LE General: non toxic, no distress, appears at stated age, cachectic Derm: warm, dry Head: atraumatic, normocephalic, symmetric Eyes: EOMI, no lid lag, anicteric sclera Cardiovascular: S1S2, no murmur Lungs: Decreased BS bilateral, no rhonchi, no rales , no accessory muscle use Abdominal: soft, nontender to palpation, no guarding, no appreciable organomegaly Ext: no gross muscle atrophy, 1+ pitting LE edema, no contractures Neuro: no focal neuro deficits Psych: Alert, oriented, appropriate affect Discharge Diagnosis: Acute hypoxic respiratory failure Diastolic CHF exacerbation Community acquired PNA Elevated D-Dimer Carotid stenosis with PVD Troponin elevation Hyponatremia, hypochloremic with metabolic alkalosis This complex discharge took 35 minutes to complete. Patient Condition at Discharge: Stable Plan - Discharge Summary Discharge Rx Participant: No New Discharge Prescriptions: New RX: Aspirin 81 mg PO DAILY #30 tab RX: Furosemide [Lasix] 20 mg PO DAILY #30 tab RX: Atorvastatin [Lipitor] 40 mg PO HS #30 tab RX: Albuterol Inhaler [Ventolin Hfa Inhaler] 1 - 2 puff INHALATION Q6H PRN #1 each PRN Reason: Shortness Of Breath Continue RX: amLODIPine [Norvasc] 10 mg PO DAILY RX: Budesonide/Formoterol Fumarate [Symbicort 160-4.5 Mcg Inhaler] 2 puff INHALATION RT-BID RX: Sertraline [Zoloft] 50 mg PO DAILY RX: Ensure 1 can PO DAILY Magnesium Oxide 420 Mg 420 mg PO DAILY RX: Loratadine 10 mg PO DAILY RX: Multivitamins, Thera [Multivitamin (formulary)] 1 tab PO DAILY RX: lisinopriL [Zestril] 20 mg PO DAILY Discharge Medication List RX: Budesonide/Formoterol Fumarate [Symbicort 160-4.5 Mcg Inhaler] 2 puff INHAL ATION RT-BID 11/09/19 [History] RX: amLODIPine [Norvasc] 10 mg PO DAILY 11/09/19 [History] Magnesium Oxide 420 Mg 420 mg PO DAILY 04/16/23 [History] RX: Ensure 1 can PO DAILY 04/16/23 [History] RX: Loratadine 10 mg PO DAILY 04/16/23 [History] RX: Multivitamins, Thera [Multivitamin (formulary)] 1 tab PO DAILY 04/16/23 [History] RX: Sertraline [Zoloft] 50 mg PO DAILY 04/16/23 [History] RX: lisinopriL [Zestril] 20 mg PO DAILY 04/16/23 [History] RX: Albuterol Inhaler [Ventolin Hfa Inhaler] 1 - 2 puff INHALATION Q6H PRN #1 each 04/19/23 [Rx] RX: Aspirin 81 mg PO DAILY #30 tab 04/19/23 [Rx] RX: Atorvastatin [Lipitor] 40 mg PO HS #30 tab 04/19/23 [Rx] RX: Furosemide [Lasix] 20 mg PO DAILY #30 tab 04/19/23 [Rx] Follow up Appointment(s)/Referral(s): Trip Ontiveros MD [Medical Doctor] - 1 Week Howard Nye DO [Doctor of Osteopathic Medicine] - 1 Week [facility] [Primary Care Provider] - 1-2 days Activity/Diet/Wound Care/Special Instructions: Diet: Low salt. 1.5 L fluid restriction Follow up with PCP within 1-2 days of discharge Follow up with Pulmonology, Cardiology and Vascular surgery within 1 week of discharge. Discharge Disposition: HOME SELF-CARE
[2023-04-19 16:15] VITALS: PULSE 72
[2023-04-20] MEDS ORDERED: FUROSEMIDE 20 MG TAB PO SCH (09:00)
== END 2023-04-19 16:50 | disposition home or self-care (01) | DRG 291 ==
LOC: EC 10:51 → 3SCARD 16:38
PROVIDERS: ADMIT Family Medicine; ATTEND Family Medicine
DX: I11.0 Hypertensive heart disease with heart failure (principal); I50.33 Acute on chronic diastolic (congestive) heart failure; J96.01 Acute respiratory failure with hypoxia; J18.9 Pneumonia, unspecified organism; E87.3 Alkalosis; E87.1 Hypo-osmolality and hyponatremia; J44.0 Chronic obstructive pulmonary disease with (acute) lower respiratory infection; J44.1 Chronic obstructive pulmonary disease with (acute) exacerbation; E11.51 Type 2 diabetes mellitus with diabetic peripheral angiopathy without gangrene; E87.8 Other disorders of electrolyte and fluid balance, not elsewhere classified; I70.202 Unspecified atherosclerosis of native arteries of extremities, left leg; Z28.310 Unvaccinated for COVID-19; I65.23 Occlusion and stenosis of bilateral carotid arteries; I25.10 Atherosclerotic heart disease of native coronary artery without angina pectoris; F32.A Depression, unspecified; Z79.51 Long term (current) use of inhaled steroids; Z79.899 Other long term (current) drug therapy; Z87.891 Personal history of nicotine dependence; Z87.01 Personal history of pneumonia (recurrent); Z88.5 Allergy status to narcotic agent
CPT/HCPCS: 36415; 71046; 71275; 80048; 80053; 83880; 84145; 84484; 85025; 85379; 93005; 93306; 93880; 93923; 93970; 94640; 94760; 96374; 99285

== ENCOUNTER 2023-06-11 16:33 | Inpatient (IN) | payer OTHER ==
[2023-06-11] MEDS ORDERED: IPRATROPIUM-ALBUTEROL 3 ML NEB INHALATION STA (16:55)
[2023-06-11 17:37] LABS: Basophils % (A) 1 %; Eosinophils # (A) 0.1 k/uL (0-0.7); Eosinophils % (A) 1 %; HGB 13.9 gm/dL (13.0-17.5); Hypochromasia Marked; Lymphocytes # (A) 0.6 k/uL (1.0-4.8); Lymphocytes % (A) 7 %; MCH 29.1 pg (25.0-35.0); MCHC 30.1 g/dL (31.0-37.0); MCV 96.7 fL (80.0-100.0); Mean Platelet Volume 7.2; Monocytes # (A) 0.4 k/uL (0-1.0); Monocytes % (A) 4 %; Neutrophils % (A) 86 %; Platelet Count 296 k/uL (150-450); RBC 4.76 m/uL (4.30-5.90); RDW 14.6 % (11.5-15.5); WBC 9.2 k/uL (3.8-10.6)
[2023-06-11 17:38] LABS: VBG PH 7.32 (7.31-7.41)
[2023-06-11 17:53] LABS: ALT 55 U/L (4-49); African American GFR (CKD) >90 (>60 ml/min/1.73 sqM); Anion Gap 6 mmol/L; Blood Urea Nitrogen 34 mg/dL (9-20); Calcium 8.5 mg/dL (8.4-10.2); Carbon Dioxide 30 mmol/L (22-30); Chloride 97 mmol/L (98-107); Glucose 126 mg/dL (74-99); Non-African American GFR(CKD) >90 (>60 ml/min/1.73 sqM); Sodium 133 mmol/L (137-145); Total Bilirubin 0.7 mg/dL (0.2-1.3)
[2023-06-11 18:01] LABS: NT-Pro-B-Type Natriuretic Pept 13100 pg/mL
--- NOTE | 2023-06-11 18:02 | XR ---
EXAMINATION TYPE: XR chest 2V DATE OF EXAM: 06/11/2023 5:29 PM CLINICAL INDICATION:Male, 73 years old with history of difficulty breathing; [facility] COMPARISON: 04/16/2023 TECHNIQUE: XR chest 2V Frontal and lateral views of the chest. FINDINGS: Lungs/Pleura: There is no evidence of pleural effusion, focal consolidation, or pneumothorax. Pulmonary vascularity: Unremarkable. Heart/mediastinum: Cardiomediastinal silhouette is unremarkable. Musculoskeletal: No acute osseous pathology. IMPRESSION: Low lung volumes with a generalized hazy appearance which could represent atelectasis versus pulmonar y edema correlate with serum BNP.
[2023-06-11 18:04] LABS: AST 85 U/L (17-59); Albumin 3.7 g/dL (3.5-5.0); Alkaline Phosphatase 112 U/L (38-126); Potassium 5.7 mmol/L (3.5-5.1); Total Protein 6.8 g/dL (6.3-8.2)
[2023-06-11] MEDS ORDERED: FUROSEMIDE 10 MG/ML 4 ML VIAL IV STA (18:11)
[2023-06-11 18:17] LABS: Partial Thromboplastin Time 24.3 sec (22.0-30.0); Prothrombin Time 10.9 sec (10.0-12.5)
[2023-06-11] MEDS ORDERED: ASPIRIN 81 MG PO STA (18:25)
[2023-06-11] MEDS ORDERED: NALOXONE 0.4 MG/ML 1 ML VIAL IV PRN (18:45)
--- NOTE | 2023-06-11 18:49 | ED ---
General Adult HPI - General Chief complaint: Shortness of Breath Stated complaint: leg swelling Time Seen by Provider: 06/11/23 16:45 Source: patient, RN notes reviewed, old records reviewed Mode of arrival: ambulatory Limitations: no limitations - History of Present Illness Initial comments: Patient is a 73-year-old male who presents emergency department complaining of shortness of breath. Patient is supposed to be on oxygen at home but ran out about a month ago and has been without it since then. Patient is also noticed increasing lower extremity swelling over this period of time. Endorses worsening orthopnea, exertional dyspnea. Patient denies any chest pain. He has a history of COPD. Denies history of CHF despite in his chart showing that he was recently diagnosed with CHF. Has noticed worsening lower extremity edema. When I ask him about this he does endorse that he may not be taking every medication that he was recently prescribed. This includes what appears to be Lasix. Presents for further evaluation at this time. Endorses a nonproductive cough. - Related Data Home Medications Medication Instructions Recorded Confirmed Budesonide/Formoterol Fumarate 2 puff INHALATION RT-BID 11/09/19 06/11/23 [Symbicort 160-4.5 Mcg Inhaler] amLODIPine [Norvasc] 10 mg PO DAILY 11/09/19 06/11/23 Ensure 1 can PO DAILY 04/16/23 06/11/23 Loratadine 10 mg PO DAILY 04/16/23 06/11/23 Magnesium Oxide 420 Mg 420 mg PO DAILY 04/16/23 06/11/23 Multivitamins, Thera [Multivitamin 1 tab PO DAILY 04/16/23 06/11/23 (formulary)] Sertraline [Zoloft] 50 mg PO DAILY 04/16/23 06/11/23 lisinopriL [Zestril] 20 mg PO DAILY 04/16/23 06/11/23 Previous Rx's Medication Instructions Recorded Albuterol Inhaler [Ventolin Hfa 1 - 2 puff INHALATION Q6H PRN #1 04/19/23 Inhaler] each Aspirin 81 mg PO DAILY #30 tab 04/19/23 Atorvastatin [Lipitor] 40 mg PO HS #30 tab 04/19/23 Furosemide [Lasix] 20 mg PO DAILY #30 tab 04/19/23 Allergies Allergy/AdvReac Type Severity Reaction Status Date / Time codeine Allergy Unknown Verified 06/11/23 17:50 Review of Systems ROS Statement: Those systems with pertinent positive or pertinent negative responses have been documented in the HPI. Review of Systems: CONST: Denies fever EYES: Denies blurry vision ENT: Denies nasal congestion C/V: Denies Chest pain RESP: Endorses shortness of breath GI: Denies abdominal pain : Denies dysuria SKIN: Denies rash. MSK: Denies joint pain. NEURO: Denies headache ROS Other: All systems not noted in ROS Statement are negative. Past Medical History Past Medical History: COPD, Hypertension, Pneumonia History of Any Multi-Drug Resistant Organisms: None Reported Past Surgical History: Appendectomy, Tonsillectomy Past Anesthesia/Blood Transfusion Reactions: No Reported Reaction Past Psychological History: No Psychological Hx Reported Smoking Status: Current some day smoker, Former smoker Past Alcohol Use History: Occasional Past Drug Use History: Marijuana General Exam - General Exam Comments Initial Comments: General: Appears in no acute distress. HEAD: Normal with no signs of head trauma. EYES: PERRLA, EOMI, conjunctiva normal, no discharge. ENT: Hearing grossly intact, normal oropharynx. RESPIRATORY: Coarse breath sounds bilaterally. Hypoxic on room air to 78%. Improved on 3 L nasal cannula. Mild increased work of breathing. C/V: Regular rate and rhythm. S1 and S2 auscultated, significant bilateral lower extremity pitting edema peripheral pulses 2+ and intact throughout ABD: Abd is soft, nontender, nondistended EXT: Normal range of motion, no obvious deformity SKIN: No rashes or lesions observed on exposed skin. NEURO: Alert and oriented x 4. Limitations: no limitations Course Vital Signs 06/11/23 06/11/23 06/11/23 16:39 16:49 16:59 Temperature 97.9 F 97.7 F Pulse Rate 100 100 Respiratory 18 22 Rate Blood Pressure 159/84 153/99 O2 Sat by Pulse 78 L 93 L Oximetry 06/11/23 06/11/23 06/11/23 18:33 18:43 18:44 Temperature Pulse Rate 90 85 80 Respiratory 20 Rate Blood Pressure 164/104 O2 Sat by Pulse 100 Oximetry 06/11/23 06/11/23 06/11/23 19:20 20:35 21:01 Temperature Pulse Rate 81 83 Respiratory 14 22 Rate Blood Pressure 170/108 173/104 O2 Sat by Pulse 95 97 98 Oximetry Medical Decision Making - Medical Decision Making Was pt. sent in by a medical professional or institution (, DUARTE, LEGAL ANALYST, urgent care, hospital, or senior care...) When possible be specific @ -No Did you speak to anyone other than the patient for history (EMS, parent, family, police, friend...)? What history was obtained from this source @ -No Did you review nursing and triage notes (agree or disagree)? Why? @ -I reviewed and agree with nursing and triage notes Were old charts reviewed (outside hosp., previous admission, EMS record, old EKG, old radiological studies, urgent care reports/EKG's, senior care records)? Report findings @ -Old charts reviewed Differential Diagnosis (chest pain, altered mental status, abdominal pain women, abdominal pain men, vaginal bleeding, weakness, fever, dyspnea, syncope, headache, dizziness, GI bleed, back pain, seizure, CVA, palpatations, mental health, musculoskeletal)? @Differential Dyspnea: Coronary syndrome, arrhythmia, tamponade, asthma, COPD, pulmonary embolism, pneumonia, pneumothorax, pulmonary effusion, anaphylaxis, diabetic ketoacidosis, flailed chest, pulmonary contusion, diaphragmatic rupture, anemia, neuromuscular, this is not meant to be an all-inclusive list. EKG interpreted by me (3pts min.). @ -As above X-rays interpreted by me (1pt min.). @ -Chest x-ray reveals bilateral pulmonary vascular congestion, CT interpreted by me (1pt min.). @ -None done U/S interpreted by me (1pt. min.). @ -None done What testing was considered but not performed or refused? (CT, X-rays, U/S, la bs)? Why? @ -None What meds were considered but not given or refused? Why? @ -None Did you discuss the management of the patient with other professionals (professionals i.e. DUARTE Tang, LEGAL ANALYST, lab, RT, psych nurse, clinical social worker, director of enterprise architecture, teacher, chief fundraising officer, rifle case repairer)? Give summary @ -Discussed with Dr. Ojeda who accepted the admission. Was smoking cessation discussed for >3mins.? @ -No Was critical care preformed (if so, how long)? @ -Yes, 36 minutes Were there social determinants of health that impacted care today? How? (Homelessness, low income, unemployed, alcoholism, drug addiction, transportation, low edu. Level, literacy, decrease access to med. care, fdc, rehab)? @ -No Was there de-escalation of care discussed even if they declined (Discuss DNR or withdrawal of care, Hospice)? DNR status @ -No What co-morbidities impacted this encounter? (DM, HTN, Smoking, COPD, CAD, Cancer, CVA, ARF, Chemo, Hep., AIDS, mental health diagnosis, sleep apnea, morbid obesity)? @ -CHF, medication noncompliance Was patient admitted / discharged? Hospital course, mention meds given and route, prescriptions, significant lab abnormalities, going to OR and other pertinent info. @ -Patient is a 73-year-old male who is supposed to be on home oxygen and has not been compliant as well as who was prescribed Lasix for CHF who has not been compliant presents emergency department for what appears to be CHF exacerbation and acute hypoxic respiratory failure. Patient's workup remarkable for bilateral pulmonary vascular congestion. Patient has an elevated BNP of 13,000, slightly elevated troponin of 0.079 likely secondary to underlying CHF as well as recent hypoxia, he hemolyzed potassium which will be repeated. EKG shows no signs of acute ischemia. On room air, patient was initially 78%. Improved on 3 L nasal cannula. I discussed the workup with the patient. He is feeling improved at this time on oxygen. We will continue with IV Lasix administration, repeat potassium, and trending the troponin. He will be given 324 mg of aspirin in addition to 40 mg of IV Lasix twice a day. He was in agreement this plan. Home meds will be reordered. Cardiology is consulted. I spoke with the admitting physician, Dr. Ojeda who was in agreement the plan and accepted the admission. Undiagnosed new problem with uncertain prognosis? @ -No Drug Therapy requiring intensive monitoring for toxicity (Heparin, Nitro, Insulin, Cardizem)? @ -No Were any procedures done? @ -No Diagnosis/symptom? @ -CHF, hypoxic respiratory failure, elevated troponin Acute, or Chronic, or Acute on Chronic? @ -Acute on chronic Uncomplicated (without systemic symptoms) or Complicated (systemic symptoms)? @ -Complicated Side effects of treatment? @ -No Exacerbation, Progression, or Severe Exacerbation? @ -Exacerbation Poses a threat to life or bodily function? How? (Chest pain, [place], [place], pneumonia, PE, COPD, DKA, ARF, appy, cholecystitis, CVA, Diverticulitis, Homicidal, Suicidal, threat to staff... and all critical care pts) @ -Yes - Lab Data Result diagrams: 06/11/23 17:01 06/11/23 19:03 Lab Results 06/11/23 06/11/23 06/11/23 Range/Units 17:01 17:01 17:01 WBC 9.2 (3.8-10.6) k/uL RBC 4.76 (4.30-5.90) m/uL Hgb 13.9 (13.0-17.5) gm/dL Hct 46.0 (39.0-53.0) % MCV 96.7 (80.0-100.0) fL MCH 29.1 (25.0-35.0) pg MCHC 30.1 L (31.0-37.0) g/dL RDW 14.6 (11.5-15.5) % Plt Count 296 (150-450) k/uL MPV 7.2 Neutrophils % 86 % Lymphocytes % 7 % Monocytes % 4 % Eosinophils % 1 % Basophils % 1 % Neutrophils # 8.0 H (1.3-7.7) k/uL Lymphocytes # 0.6 L (1.0-4.8) k/uL Monocytes # 0.4 (0-1.0) k/uL Eosinophils # 0.1 (0-0.7) k/uL Basophils # 0.0 (0-0.2) k/uL Hypochromasia Marked PT 10.9 (10.0-12.5) sec INR 1.0 (<1.2) APTT 24.3 (22.0-30.0) sec VBG pH (7.31-7.41) VBG pCO2 (37-51) mmHg VBG HCO3 (24-28) mmol/L Sodium (137-145) mmol/L Potassium (3.5-5.1) mmol/L Chloride (98-107) mmol/L Carbon Dioxide (22-30) mmol/L Anion Gap mmol/L BUN (9-20) mg/dL Creatinine (0.66-1.25) mg/dL Est GFR (CKD-EPI)AfAm (>60 ml/min/1.73 sqM) Est GFR (CKD-EPI)NonAf (>60 ml/min/1.73 sqM) Glucose (74-99) mg/dL Plasma Lactic Acid Justin (0.7-2.0) mmol/L Calcium (8.4-10.2) mg/dL Magnesium (1.6-2.3) mg/dL Total Bilirubin (0.2-1.3) mg/dL AST (17-59) U/L ALT (4-49) U/L Alkaline Phosphatase (38-126) U/L Troponin I (0.000-0.034) ng/mL NT-Pro-B Natriuret Pep pg/mL Total Protein (6.3-8.2) g/dL Albumin (3.5-5.0) g/dL Urine Color Colorless Urine Appearance Clear (Clear) Urine pH 5.5 (5.0-8.0) Ur Specific [place] 1.010 (1.001-1.035) Urine Protein Negative (Negative) Urine Glucose (UA) Negative (Negative) Urine Ketones Negative (Negative) Urine Blood Negative (Negative) Urine Nitrite Negative (Negative) Urine Bilirubin Negative (Negative) Urine Urobilinogen <2.0 (<2.0) mg/dL Ur Leukocyte Esterase Negative (Negative) Influenza Type A (PCR) (Not Detectd) Influenza Type B (PCR) (Not Detectd) RSV (PCR) (Not Detectd) SARS-CoV-2 (PCR) (Not Detectd) 06/11/23 06/11/23 06/11/23 Range/Units 17:01 17:01 17:01 WBC (3.8-10.6) k/uL RBC (4.30-5.90) m/uL Hgb (13.0-17.5) gm/dL Hct (39.0-53.0) % MCV (80.0-100.0) fL MCH (25.0-35.0) pg MCHC (31.0-37.0) g/dL RDW (11.5-15.5) % Plt Count (150-450) k/uL MPV Neutrophils % % Lymphocytes % % Monocytes % % Eosinophils % % Basophils % % Neutrophils # (1.3-7.7) k/uL Lymphocytes # (1.0-4.8) k/uL Monocytes # (0-1.0) k/uL Eosinophils # (0-0.7) k/uL Basophils # (0-0.2) k/uL Hypochromasia PT (10.0-12.5) sec INR (<1.2) APTT (22.0-30.0) sec VBG pH (7.31-7.41) VBG pCO2 (37-51) mmHg VBG HCO3 (24-28) mmol/L Sodium 133 L (137-145) mmol/L Potassium 5.7 H (3.5-5.1) mmol/L Chloride 97 L (98-107) mmol/L Carbon Dioxide 30 (22-30) mmol/L Anion Gap 6 mmol/L BUN 34 H (9-20) mg/dL Creatinine 0.65 L (0.66-1.25) mg/dL Est GFR (CKD-EPI)AfAm >90 (>60 ml/min/1.73 sqM) Est GFR (CKD-EPI)NonAf >90 (>60 ml/min/1.73 sqM) Glucose 126 H (74-99) mg/dL Plasma Lactic Acid Justin (0.7-2.0) mmol/L Calcium 8.5 (8.4-10.2) mg/dL Magnesium 2.0 (1.6-2.3) mg/dL Total Bilirubin 0.7 (0.2-1.3) mg/dL AST 85 H (17-59) U/L ALT 55 H (4-49) U/L Alkaline Phosphatase 112 (38-126) U/L Troponin I 0.079 H* (0.000-0.034) ng/mL NT-Pro-B Natriuret Pep 57541 pg/mL Total Protein 6.8 (6.3-8.2) g/dL Albumin 3.7 (3.5-5.0) g/dL Urine Color Urine Appearance (Clear) Urine pH (5.0-8.0) Ur Specific [place] (1.001-1.035) Urine Protein (Negative) Urine Glucose (UA) (Negative) Urine Ketones (Negative) Urine Blood (Negative) Urine Nitrite (Negative) Urine Bilirubin (Negative) Urine Urobilinogen (<2.0) mg/dL Ur Leukocyte Esterase (Negative) Influenza Type A (PCR) Not Detected (Not Detectd) Influenza Type B (PCR) Not Detected (Not Detectd) RSV (PCR) Not Detected (Not Detectd) SARS-CoV-2 (PCR) Not Detected (Not Detectd) 06/11/23 06/11/23 Range/Units 17:01 18:13 WBC (3.8-10.6) k/uL RBC (4.30-5.90) m/uL Hgb (13.0-17.5) gm/dL Hct (39.0-53.0) % MCV (80.0-100.0) fL MCH (25.0-35.0) pg MCHC (31.0-37.0) g/dL RDW (11.5-15.5) % Plt Count (150-450) k/uL MPV Neutrophils % % Lymphocytes % % Monocytes % % Eosinophils % % Basophils % % Neutrophils # (1.3-7.7) k/uL Lymphocytes # (1.0-4.8) k/uL Monocytes # (0-1.0) k/uL Eosinophils # (0-0.7) k/uL Basophils # (0-0.2) k/uL Hypochromasia PT (10.0-12.5) sec INR (<1.2) APTT (22.0-30.0) sec VBG pH 7.32 (7.31-7.41) VBG pCO2 65 H (37-51) mmHg VBG HCO3 34 H (24-28) mmol/L Sodium (137-145) mmol/L Potassium (3.5-5.1) mmol/L Chloride (98-107) mmol/L Carbon Dioxide (22-30) mmol/L Anion Gap mmol/L BUN (9-20) mg/dL Creatinine (0.66-1.25) mg/dL Est GFR (CKD-EPI)AfAm (>60 ml/min/1.73 sqM) Est GFR (CKD-EPI)NonAf (>60 ml/min/1.73 sqM) Glucose (74-99) mg/dL Plasma Lactic Acid Justin 1.4 (0.7-2.0) mmol/L Calcium (8.4-10.2) mg/dL Magnesium (1.6-2.3) mg/dL Total Bilirubin (0.2-1.3) mg/dL AST (17-59) U/L ALT (4-49) U/L Alkaline Phosphatase (38-126) U/L Troponin I (0.000-0.034) ng/mL NT-Pro-B Natriuret Pep pg/mL Total Protein (6.3-8.2) g/dL Albumin (3.5-5.0) g/dL Urine Color Urine Appearance (Clear) Urine pH (5.0-8.0) Ur Specific [place] (1.001-1.035) Urine Protein (Negative) Urine Glucose (UA) (Negative) Urine Ketones (Negative) Urine Blood (Negative) Urine Nitrite (Negative) Urine Bilirubin (Negative) Urine Urobilinogen (<2.0) mg/dL Ur Leukocyte Esterase (Negative) Influenza Type A (PCR) (Not Detectd) Influenza Type B (PCR) (Not Detectd) RSV (PCR) (Not Detectd) SARS-CoV-2 (PCR) (Not Detectd) - EKG Data -: EKG Interpreted by Me EKG Comments: 12-lead Electrocardiogram Interpretation Note EKG was reviewed and interpreted by myself. 12-lead ECG performed at 1657 is interpreted by me as revealing normal sinus rhythm at a rate of 95 beats per minute. [place] is normal. MI interval is 135 ms, QRS duration is 88 ms, QTc is 380 ms.. There were no ST or T wave abnormalities to suggest myocardial ischemia or injury. R wave progression across the precordium was satisfactory. By my interpretation this EKG is non-diagnostic for acute ischemia. Critical Care Time Critical Care Time: Yes Total Critical Care Time: 36 Disposition Clinical Impression: CHF exacerbation, Hypoxia Disposition: ADMITTED IP TO THIS HOSP Condition: Serious Time of Disposition: 18:32
[2023-06-11] MEDS ORDERED: ALBUTEROL NEBULIZED 2.5 MG/3 ML INHALATION PRN (19:26)
[2023-06-11 19:28] LABS: Appearance,Urine Clear (Clear); Bilirubin,Urine Negative (Negative); Blood,Urine Negative (Negative); Color,Urine Colorless; Glucose,Urine (UA) Negative (Negative); Ketones,Urine Negative (Negative); Leukocyte Esterase,Urine Negative (Negative); Nitrite,Urine Negative (Negative); PH, Urine 5.5 (5.0-8.0); Protein,Urine Negative (Negative); Urobilinogen,Urine <2.0 mg/dL (<2.0)
[2023-06-11] MEDS: ATORVASTATIN 40 MG TAB PO SCH (20:28)
[2023-06-11] MEDS: SYMBICORT 160-4.5 MCG INHALER INHALATION SCH (20:33)
[2023-06-11] MEDS ORDERED: FUROSEMIDE 10 MG/ML 4 ML VIAL IV SCH (21:00)
[2023-06-11] MEDS ORDERED: HEPARIN SODIUM 1,000 UN/ML (10ML VL) IV ONE (23:44)
[2023-06-11] MEDS ORDERED: HEPARIN SODIUM 1,000 UN/ML (10ML VL) IV PRN (23:44)
[2023-06-11] MEDS ORDERED: HEPARIN SOD,PORK IN 0.45% NACL 25,000 UNIT in 0.45% NACL 1 250ML.BAG IV SCH (23:45)
[2023-06-12] MEDS ORDERED: HEPARIN SODIUM,PORCINE 5,000 UNIT/ML 1 ML VIAL SQ SCH
[2023-06-12 00:33] LABS: Basophils % (A) 1 %; Eosinophils # (A) 0.1 k/uL (0-0.7); Eosinophils % (A) 1 %; HCT 43.2 % (39.0-53.0); Hypochromasia Marked; Lymphocytes # (A) 0.9 k/uL (1.0-4.8); Lymphocytes % (A) 12 %; MCHC 30.2 g/dL (31.0-37.0); MCV 96.1 fL (80.0-100.0); Mean Platelet Volume 7.3; Monocytes # (A) 0.6 k/uL (0-1.0); Monocytes % (A) 8 %; Neutrophils # (A) 5.5 k/uL (1.3-7.7); Neutrophils % (A) 76 %; Platelet Count 291 k/uL (150-450); RBC 4.49 m/uL (4.30-5.90); RDW 14.7 % (11.5-15.5); WBC 7.3 k/uL (3.8-10.6)
[2023-06-12 00:44] LABS: Partial Thromboplastin Time 24.7 sec (22.0-30.0); Prothrombin Time 11.3 sec (10.0-12.5)
--- NOTE | 2023-06-12 02:06 | CT ---
EXAM: CT Head Without Intravenous Contrast CLINICAL HISTORY: ITS.REASON CT Reason: prior head trauma, heparin drip TECHNIQUE: Axial computed tomography images of the head/brain without intravenous contrast. CTDI is 49.2 mGy and DLP is 1183.4 mGy-cm. This CT exam was performed using one or more of the following dose reduction techniques: automated exposure control, adjustment of the mA and/or kV according to patient size, and/or use of iterative reconstruction technique. COMPARISON: No relevant prior studies available. FINDINGS: Brain: Trace acute subarachnoid hemorrhage near the left subinsular white matter. No herniation or midline shift. Ventricles: No hydrocephalus. Bones/joints: Unremarkable. Soft tissues: Unremarkable. Sinuses: No air fluid level. Mastoid air cells: Clear. IMPRESSION: Trace acute subarachnoid hemorrhage near the left subinsular white matter. No herniation or midline shift. <MYCVCSECTION> Communications: 06/12/23 02:22 Verify Receipt with Nurse Verified receipt with MESSI Julio on 06/12 02:22 (-05:00)
--- NOTE | 2023-06-12 03:15 | P.HPIM ---
History of Present Illness H&P Date: 06/11/23 Chief Complaint: Shortness of breath 73-year-old male with COPD, hypertension, recent diagnosis CHF Patient coming in reporting difficulty breathing which has gotten worse after he ran out of oxygen at home over the past month. Patient seems to be very noncompliant with medications has poor insight of his overall medical condition. He has been noticing gradually worsening shortness of breath with activity and recently started having some orthopnea and shortness of breath even at rest while doing nothing. He is not compliant with his medications he believes that he was recently prescribed Lasix but he has not been taking them. For which she has been noticing gradual worsening bilateral leg edema, he is also endorsing some coughing nonproductive denies any fevers or chills denies any chest pain denies any abdominal pain denies nausea vomiting changes in bowel or urinary habits Patient denies any history of blood clots denies any recent traveling review of systems Pertinent positives as noted in HPI. All other systems were reviewed and are negative on exam Constitutional: No acute distress, very hard of hearing Eyes: Anicteric sclerae, moist conjunctiva, Pupils equal round reactive to light ENMT: NC/AT Oropharynx clear, no erythema, or exudates Lungs: Poor effort decreased breath sounds at lung bases with some inspiratory rales Clear to percussion Normal respiratory effort, no accessory muscle use Cardiovascular: Heart regular in rate and rhythm, No murmurs, gallops, or rubs +2 bilateral peripheral leg edema Abdominal: Soft Nontender, no guarding, rebound or rigidity Abdomen moving with respiration Normoactive bowel sounds No hepatomegaly, No splenomegaly Extremities: No digital cyanosis No clubbing Pedal pulses intact and symmetrical Radial pulses intact and symmetrical No calf tenderness Psychiatric: Alert and oriented to person, place Neuro patient moving all 4 extremities spontaneously purposefully but failed to cooperate with neuroexam Lymphatics: no palpable cervical or supraclavicular lymph nodes Past Medical History Past Medical History: COPD, Hypertension, Pneumonia History of Any Multi-Drug Resistant Organisms: None Reported Past Surgical History: Appendectomy, Tonsillectomy Past Anesthesia/Blood Transfusion Reactions: No Reported Reaction Past Psychological History: No Psychological Hx Reported Smoking Status: Current some day smoker, Former smoker Past Alcohol Use History: Occasional Past Drug Use History: Marijuana Medications and Allergies Home Medications Medication Instructions Recorded Confirmed Type Budesonide/Formoterol Fumarate 2 puff INHALATION RT-BID 11/09/19 06/11/23 History [Symbicort 160-4.5 Mcg Inhaler] amLODIPine [Norvasc] 10 mg PO DAILY 11/09/19 06/11/23 History Ensure 1 can PO DAILY 04/16/23 06/11/23 History Loratadine 10 mg PO DAILY 04/16/23 06/11/23 History Magnesium Oxide 420 Mg 420 mg PO DAILY 04/16/23 06/11/23 History Multivitamins, Thera [Multivitamin 1 tab PO DAILY 04/16/23 06/11/23 History (formulary)] Sertraline [Zoloft] 50 mg PO DAILY 04/16/23 06/11/23 History lisinopriL [Zestril] 20 mg PO DAILY 04/16/23 06/11/23 History Albuterol Inhaler [Ventolin Hfa 1 - 2 puff INHALATION Q6H PRN #1 04/19/23 06/11/23 Rx Inhaler] each Aspirin 81 mg PO DAILY #30 tab 04/19/23 06/11/23 Rx Atorvastatin [Lipitor] 40 mg PO HS #30 tab 04/19/23 06/11/23 Rx Furosemide [Lasix] 20 mg PO DAILY #30 tab 04/19/23 06/11/23 Rx Allergies Allergy/AdvReac Type Severity Reaction Status Date / Time codeine Allergy Unknown Verified 06/11/23 17:50 Physical Exam Vitals: Vital Signs Temp Pulse Pulse Resp BP BP Pulse Ox 06/11/23 23:27 68 18 168/91 100 06/11/23 21:43 97.4 F L 85 20 159/98 96 06/11/23 21:01 83 22 173/104 98 06/11/23 20:35 97 06/11/23 19:20 81 14 170/108 95 06/11/23 18:44 80 06/11/23 18:43 85 20 164/104 100 06/11/23 18:33 90 06/11/23 16:59 93 L 06/11/23 16:49 97.7 F 100 22 153/99 78 L 06/11/23 16:39 97.9 F 100 18 159/84 Intake and Output 06/11/23 06/11/23 06/12/23 14:59 22:59 06:59 Intake Total 240 Output Total 325 400 Balance -85 -400 Intake: Oral 240 Output: Urine 325 400 Other: Weight 63.503 kg Results CBC & Chem 7: 06/12/23 00:22 06/11/23 19:03 Labs: Abnormal Lab Results - Last 24 Hours (Table) 06/11/23 06/11/23 06/11/23 Range/Units 17:01 17:01 17:01 MCHC 30.1 L (31.0-37.0) g/dL Neutrophils # 8.0 H (1.3-7.7) k/uL Lymphocytes # 0.6 L (1.0-4.8) k/uL VBG pCO2 (37-51) mmHg VBG HCO3 (24-28) mmol/L Sodium 133 L (137-145) mmol/L Potassium 5.7 H (3.5-5.1) mmol/L Chloride 97 L (98-107) mmol/L BUN 34 H (9-20) mg/dL Creatinine 0.65 L (0.66-1.25) mg/dL Glucose 126 H (74-99) mg/dL AST 85 H (17-59) U/L ALT 55 H (4-49) U/L Troponin I 0.079 H* (0.000-0.034) ng/mL 06/11/23 06/11/23 06/11/23 Range/Units 17:01 19:03 21:35 MCHC (31.0-37.0) g/dL Neutrophils # (1.3-7.7) k/uL Lymphocytes # (1.0-4.8) k/uL VBG pCO2 65 H (37-51) mmHg VBG HCO3 34 H (24-28) mmol/L Sodium (137-145) mmol/L Potassium 5.3 H (3.5-5.1) mmol/L Chloride (98-107) mmol/L BUN (9-20) mg/dL Creatinine (0.66-1.25) mg/dL Glucose (74-99) mg/dL AST (17-59) U/L ALT (4-49) U/L Troponin I 0.094 H* (0.000-0.034) ng/mL 06/12/23 Range/Units 00:22 MCHC 30.2 L (31.0-37.0) g/dL Neutrophils # (1.3-7.7) k/uL Lymphocytes # 0.9 L (1.0-4.8) k/uL VBG pCO2 (37-51) mmHg VBG HCO3 (24-28) mmol/L Sodium (137-145) mmol/L Potassium (3.5-5.1) mmol/L Chloride (98-107) mmol/L BUN (9-20) mg/dL Creatinine (0.66-1.25) mg/dL Glucose (74-99) mg/dL AST (17-59) U/L ALT (4-49) U/L Troponin I (0.000-0.034) ng/mL Thrombosis Risk Factor Assmnt - Choose All That Apply Other Risk Factors: Yes Each Risk Factor Represents 2 Points: Age 61-74 years Thrombosis Risk Factor Assessment Total Risk Factor Score: 2 Thrombosis Risk Factor Assessment Level: Low Risk Assessment and Plan Assessment: 73-year-old male COPD hypertension noncompliant with home medications coming in for progressive worsening of shortness of breath with orthopnea bilateral leg edema I discussed the case with the ED doctor accepted the admission for acute CHF exacerbation with fluid overload with anticipated length of stay more than 2 midnights Acute on chronic hypoxic respiratory failure Fluid overload with pulmonary edema CHF exacerbation Elevated troponins Plan IV Lasix 40 mg twice daily Daily weight Fluid restriction 1500 cc daily Fall precautions Cardiac monitoring Monitor vital signs Cardiology consult Trend troponins Cardiology recommending heparin drip for elevated tropes Elevated proBNP 49186 Chest x-ray showing pulmonary edema COPD Continue with home inhalers Continue with DuoNebs as needed Supplemental oxygen as needed Hypertension Blood pressure poorly controlled Continue with amlodipine and lisinopril Home medications Blood work overall unremarkable sodium 133 potassium 5.7 BUN 34 creatinine 0.6 White count 7 hemoglobin 13 Respiratory viral panel negative Full code DVT prophylaxis on heparin drip for elevated troponins
[2023-06-12 03:27] LABS: Glucose,Whole Blood 121 mg/dL (70-110)
[2023-06-12 04:55] LABS: Basophils % (A) 1 %; Eosinophils # (A) 0.1 k/uL (0-0.7); Eosinophils % (A) 1 %; HCT 38.4 % (39.0-53.0); HGB 11.7 gm/dL (13.0-17.5); Hypochromasia Marked; Lymphocytes # (A) 0.9 k/uL (1.0-4.8); Lymphocytes % (A) 14 %; MCH 29.3 pg (25.0-35.0); MCHC 30.3 g/dL (31.0-37.0); MCV 96.6 fL (80.0-100.0); Mean Platelet Volume 7.4; Monocytes # (A) 0.4 k/uL (0-1.0); Monocytes % (A) 7 %; Neutrophils # (A) 4.6 k/uL (1.3-7.7); Neutrophils % (A) 76 %; Platelet Count 299 k/uL (150-450); RBC 3.98 m/uL (4.30-5.90); RDW 14.7 % (11.5-15.5); WBC 6.1 k/uL (3.8-10.6)
[2023-06-12 05:13] LABS: African American GFR (CKD) >90 (>60 ml/min/1.73 sqM); Anion Gap 3 mmol/L; Blood Urea Nitrogen 28 mg/dL (9-20); Carbon Dioxide 38 mmol/L (22-30); Chloride 91 mmol/L (98-107); Glucose 106 mg/dL (74-99); Non-African American GFR(CKD) >90 (>60 ml/min/1.73 sqM); Sodium 132 mmol/L (137-145)
[2023-06-12 06:09] LABS: Prothrombin Time 10.8 sec (10.0-12.5)
[2023-06-12 06:10] LABS: Partial Thromboplastin Time 25.3 sec (22.0-30.0)
--- NOTE | 2023-06-12 06:23 | P.CNPUL ---
History of Present Illness Consult date: 06/12/23 Requesting physician: Oh Pierce Reason for consult: other (Development of acute subarachnoid hemorrhage and ICU monitoring) Chief complaint: Shortness of breath and increased lower extremity swelling History of present illness: I am seeing this patient in consultation today June 12, 2023 after he was transferred earlier this morning for the finding of a trace acute subarachnoid hemorrhage on brain CT. Patient is a 73-year-old white male with past medical history significant for CHF, hypertension, COPD, ongoing tobacco dependence, hypertension. Patient actually came to the hospital yesterday evening for increased shortness of breath and lower extremity swelling over the past month. Also endorses exertional dyspnea along with orthopnea. He denies any chest pain. He had a recent hospital admission back in March, for the same and possible superimposed pneumonia. He is oxygen dependent at home, but has reportedly been without for approximately 1 month. He is currently on 4 L/min nasal cannula. SpO2 98%. He is in no respiratory distress. He denies any infectious symptoms such as cough, sputum production, fever, hemoptysis. On arrival to the emergency room, the patient had elevated troponins, he was going to be started on IV heparin. When questioned about previous head injury, the patient did report hitting his head about 1 month ago. He did redemonstrate that in the room. Patient was sent down for a brain CT which found a trace acute subarachnoid hemorrhage near the left subinsular white matter. Patient's admitting physician contacted me for transfer to the intensive care unit. Patient's neurological exam was benign at this point. He is alert and oriented. Able to protect his airway. Blood pressure is stable. As needed IV nicardipine was added to maintain a systolic blood pressure less than 160. I did personally talk to our neurologist. There were initial plans for transfer, however, our neurologist felt it unnecessary if the patient does not need systemic heparinization. Heparin was never started and there is no need for reversal. No witnessed seizure activity. No prophylactic antiepileptics have been added. In the meantime, the patient was transferred to the intensive care unit for close neurological monitoring. Vital signs are stable at this time. Review of Systems REVIEW OF SYSTEMS: CONSTITUTIONAL: Denies any recent significant weight loss or weight gain. EYES: Denies change in vision. He does wear glasses. EARS, NOSE, MOUTH, THROAT: Denies headaches, denies sore throat. CARDIOVASCULAR: Denies chest pain, palpitations or syncopal episodes. RESPIRATORY: see HPI GASTROINTESTINAL: Denies change in appetite, abdominal pain, nausea and vomiting, or diarrhea GENITOURINARY: Denies hematuria, denies infections. MUSKULOSKELETAL: Denies pain, denies swelling. INTEGUMENTARY: Denies rash, denies eczema. NEUROLOGICAL: Denies recent memory loss, no recent seizure activity. Denies headache. Denies vision changes. Denies photophobia. PSYCHIATRIC: Denies anxiety, denies depression. HEMATOLOGIC/LYMPHATIC: Denies anemia, denies enlarged lymph node Past Medical History Past Medical History: COPD, Hypertension, Pneumonia History of Any Multi-Drug Resistant Organisms: None Reported Past Surgical History: Appendectomy, Tonsillectomy Past Anesthesia/Blood Transfusion Reactions: No Reported Reaction Past Psychological History: No Psychological Hx Reported Smoking Status: Current some day smoker, Former smoker Past Alcohol Use History: Occasional Past Drug Use History: Marijuana Medications and Allergies Home Medications Medication Instructions Recorded Confirmed Type Budesonide/Formoterol Fumarate 2 puff INHALATION RT-BID 11/09/19 06/11/23 History [Symbicort 160-4.5 Mcg Inhaler] amLODIPine [Norvasc] 10 mg PO DAILY 11/09/19 06/11/23 History Ensure 1 can PO DAILY 04/16/23 06/11/23 History Loratadine 10 mg PO DAILY 04/16/23 06/11/23 History Magnesium Oxide 420 Mg 420 mg PO DAILY 04/16/23 06/11/23 History Multivitamins, Thera [Multivitamin 1 tab PO DAILY 04/16/23 06/11/23 History (formulary)] Sertraline [Zoloft] 50 mg PO DAILY 04/16/23 06/11/23 History lisinopriL [Zestril] 20 mg PO DAILY 04/16/23 06/11/23 History Albuterol Inhaler [Ventolin Hfa 1 - 2 puff INHALATION Q6H PRN #1 04/19/23 06/11/23 Rx Inhaler] each Aspirin 81 mg PO DAILY #30 tab 04/19/23 06/11/23 Rx Atorvastatin [Lipitor] 40 mg PO HS #30 tab 04/19/23 06/11/23 Rx Furosemide [Lasix] 20 mg PO DAILY #30 tab 12/02/23 01/24/24 Rx Allergies Allergy/AdvReac Type Severity Reaction Status Date / Time codeine Allergy Unknown Verified 06/11/23 17:50 Physical Exam Vitals: Vital Signs Temp Pulse Pulse Resp BP BP Pulse Ox 06/12/23 05:00 74 18 144/95 06/12/23 04:45 71 16 143/94 06/12/23 04:30 28 H 154/104 06/12/23 04:15 68 15 142/87 06/12/23 04:00 76 24 145/95 06/12/23 03:47 97.4 F L 70 23 145/95 06/12/23 03:11 97.4 F L 70 23 142/87 06/11/23 23:27 68 18 168/91 100 06/11/23 21:43 97.4 F L 85 20 159/98 96 06/11/23 21:01 83 22 173/104 98 06/11/23 20:35 97 06/11/23 19:20 81 14 170/108 95 06/11/23 18:44 80 06/11/23 18:43 85 20 164/104 100 06/11/23 18:33 90 06/11/23 16:59 93 L 06/11/23 16:49 97.7 F 100 22 153/99 78 L 06/11/23 16:39 97.9 F 100 18 159/84 Intake and Output 06/11/23 06/11/23 06/12/23 14:59 22:59 06:59 Intake Total 240 Output Total 325 400 Balance -85 -400 Intake: Oral 240 Output: Urine 325 400 Other: Voiding Method Toilet Urinal Weight 63.503 kg 56.5 kg GENERAL EXAM: Alert, 73-year-old white male, frail/cachectic, comfortable in no apparent distress. HEAD: Normocephalic and atraumatic EYES: Normal reaction of pupils, equal size. NOSE: Clear with pink turbinates. THROAT: No erythema or exudates. NECK: No masses, no JVD. CHEST: No chest wall deformity. LUNGS: Equal air entry with no crackles, wheeze, rhonchi or dullness. On 4 L/min nasal cannula. No conversational dyspnea or accessory muscle use.. CVS: S1 and S2 normal with no audible murmur, regular rhythm. No extra heart sounds ABDOMEN: No hepatosplenomegaly, active bowel sounds, no guarding or rigidity. SPINE: No scoliosis or deformity SKIN: No rashes CENTRAL NERVOUS SYSTEM: Alert and fully oriented x 3. Cranial nerves II through XII grossly intact. No oculomotor nerve palsy. No vomiting. No photophobia. No focal deficits, tone is normal in all 4 extremities. EXTREMITIES: There is bilateral lower extremity 3+ edema. No clubbing, or cyanosis. Peripheral pulses are intact. Results - Laboratory Findings CBC and BMP: 06/12/23 04:00 06/12/23 04:00 PT/INR, D-dimer PT 11.3 sec (10.0-12.5) 06/12/23 00:22 INR 1.0 (<1.2) 06/12/23 00:22 Abnormal lab findings: Abnormal Labs 06/11/23 06/11/23 06/11/23 17:01 17:01 17:01 RBC Hgb Hct MCHC 30.1 L Neutrophils # 8.0 H Lymphocytes # 0.6 L VBG pCO2 VBG HCO3 Sodium 133 L Potassium 5.7 H Chloride 97 L Carbon Dioxide BUN 34 H Creatinine 0.65 L Glucose 126 H POC Glucose (mg/dL) Calcium AST 85 H ALT 55 H Troponin I 0.079 H* 06/11/23 06/11/23 06/11/23 17:01 19:03 21:35 RBC Hgb Hct MCHC Neutrophils # Lymphocytes # VBG pCO2 65 H VBG HCO3 34 H Sodium Potassium 5.3 H Chloride Carbon Dioxide BUN Creatinine Glucose POC Glucose (mg/dL) Calcium AST ALT Troponin I 0.094 H* 06/12/23 06/12/23 06/12/23 00:22 00:22 03:25 RBC Hgb Hct MCHC 30.2 L Neutrophils # Lymphocytes # 0.9 L VBG pCO2 VBG HCO3 Sodium Potassium Chloride Carbon Dioxide BUN Creatinine Glucose POC Glucose (mg/dL) 121 H Calcium AST ALT Troponin I 0.083 H* 06/12/23 06/12/23 04:00 04:00 RBC 3.98 L Hgb 11.7 L Hct 38.4 L MCHC 30.3 L Neutrophils # Lymphocytes # 0.9 L VBG pCO2 VBG HCO3 Sodium 132 L Potassium Chloride 91 L Carbon Dioxide 38 H BUN 28 H Creatinine 0.56 L Glucose 106 H POC Glucose (mg/dL) Calcium 8.0 L AST ALT Troponin I - Diagnostic Findings Chest x-ray: image reviewed Assessment and Plan Assessment: Acute trace subarachnoid hemorrhage, brain CT found a trace acute subarachnoid hemorrhage near the left subinsular white matter, no herniation or midline shift. Neurology was updated, and feels transfer to tertiary facility is not necessary at this time, if the patient does not need systemic anticoagulation. Patient has been transferred to the intensive care unit for closer monitoring. Acute on chronic hypoxemic respiratory failure, possibly secondary to diastolic CHF exacerbation, chest x-ray on arrival demonstrates a stable cardiac silhouette, generalized hazy appearance, and right lower lobe infiltrate likely correlating with patient's recent chest CTA on April 17, 2003 which showed a significant area of tree-in-bud nodularity, septal thickening, and mild areas of airspace opacity within the right middle lobe and right lower lobe likely due to an inflammatory or atypical infectious process. NT-proBNP elevated at 13,000. Bilateral lower extremity edema Elevated troponins, rule out NSTEMI Chronic obstructive pulmonary disease, stable Chronic ongoing tobacco dependence Hypertension Severe protein-calorie malnutrition Plan: Patient was moved to the intensive care unit after an acute subarachnoid hemorrhage was found on brain CT, no mass effect or midline shift. Original plan was for transfer to tertiary care facility. Admitting Sound physician did initiate this transfer. I did speak to the neurologist on-call at our facility who felt surgical intervention and transfer not necessary at this point in time. A follow-up brain CT is ordered. May follow up with Brain MRI. Neurological examination is benign at this time. He is alert and able to protect his airway. No need for intubation. No seizure-like activity. Nicardipine infusion was started to avoid hypertension. Patient was never started on IV heparin and this order has been discontinued. Continue supplemental oxygen Continue Lasix 40 mg twice daily. Overall prognosis is guarded related to above-mentioned comorbidities. I would still recommend transfer to tertiary care facility if patient has any sign of neurological compromise or if follow-up brain CT shows enlarging subarachnoid hemorrhage. We will continue to follow, and further recommendations are forthcoming I have personally seen and examined the patient, performed the documentation and the assessment and plan as written. Number of minutes spent on the visit:20 Time with Patient: Greater than 30
--- NOTE | 2023-06-12 07:27 | P.CRDCN ---
History of Present Illness Consult date: 06/12/23 History of present illness: History of Present Illness: The patient is a 73-year-old male who presented to the emergency room with symptoms of progressive dyspnea and worsening edema. He has a history of chronic tobacco use. He has not been using his home oxygen because of difficulty in operating his machine. Cardiology consultation was requested for further evaluation of heart failure. He had an echocardiogram in March 2023 that revealed a preserved systolic function. Patient is vague about any prior history of cardiac disease. He says he may have had a heart attack or heart failure but not very clear. I have no records of prior admission with myocard ial infarction. In the emergency room he was noted to have mild troponin elevation but he had a recent fall and injury to his head, his CT scan showed evidence of subarachnoid hemorrhage. No anticoagulation was initiated. The patient had the worsening dyspnea with cough and worsening peripheral edema. He denies any chest discomfort or palpitations. He has a cough and wheezing that has been chronic. He continues to smoke on a regular basis. He was hypertensive on presentation. He has been initiated on diuretics since admission. His NT proBNP was elevated on presentation. He was started on nicardipine on admission. Medications: Lisinopril 20 mg daily, amlodipine 10 mg daily, Lasix 20 mg daily, Lipitor 40 mg daily, aspirin, multivitamin, Zoloft, Ventolin, Symbicort Review of Systems: Respiratory: Symptoms of progressive dyspnea and cough with chronic obstructive lung disease GI: No nausea or vomiting . No history of peptic ulcer disease. No recent GI bleed. : No hematuria or dysuria. Nervous System: No seizure. Questionable history of stroke Physical Examination: 73-year-old male, cachectic appears older than stated age,Blood pressure 145/90, Heart rate 70 Head: Normocephalic. Eyes: Sclerae nonicteric. Neck: Good carotid upstroke, no bruit, mild jugular venous distention. Lungs: Decreased breath sounds bilaterally with few crackles Heart: Regular rate and rhythm, S1-S2, no S3, no rub. Systolic ejection murmur. Abdomen: Soft nontender, positive bowel sounds no organomegaly. Extremities: +2-3 edema bilaterally with erythema, intact distal pulses. Labs: Hemoglobin 13, WBC 7.3, potassium on admission 5.7, 4.0 this morning. BUN/creatinine 28 and 0.56. NT proBNP 13,100. Troponin 0.079, 0.094, 0.083. Brain CT is consistent with subarachnoid hemorrhage, trace. Chest x-ray is consistent with fluid overload and possible atelectasis. EKG: Sinus mechanism rate of [address]-T wave changes Impression: 1. Progressive dyspnea and peripheral edema with evidence of CHF, probably with preserved systolic function 2. Mild troponin elevation, flat, most likely secondary to the CHF and representing a type II cardiac injury 3. Subarachnoid hemorrhage 4. History of hypertension 5. Chronic tobacco use and chronic obstructive lung disease, not using his oxygen 6. History of hyperlipidemia 7. Cachexia Plan: 1. Continue IV diuresis 2. Stop amlodipine which could be worsening his peripheral edema 3. Increase SHANKAR inhibitor and add hydralazine for blood pressure control 4. Add Farxiga 5. Obtain an echocardiogram with Doppler 6. No anticoagulation because of the subarachnoid hemorrhage 7. Follow renal functions closely 8. Depending on his progress further recommendations will be made. Thank you for this consult we will follow with you. Past Medical History Past Medical History: COPD, Hypertension, Pneumonia History of Any Multi-Drug Resistant Organisms: None Reported Past Surgical History: Appendectomy, Tonsillectomy Past Anesthesia/Blood Transfusion Reactions: No Reported Reaction Past Psychological History: No Psychological Hx Reported Smoking Status: Current some day smoker, Former smoker Past Alcohol Use History: Occasional Past Drug Use History: Marijuana Medications and Allergies Home Medications Medication Instructions Recorded Confirmed Type Budesonide/Formoterol Fumarate 2 puff INHALATION RT-BID 11/09/19 06/11/23 History [Symbicort 160-4.5 Mcg Inhaler] amLODIPine [Norvasc] 10 mg PO DAILY 11/09/19 06/11/23 History Ensure 1 can PO DAILY 04/16/23 06/11/23 History Loratadine 10 mg PO DAILY 04/16/23 06/11/23 History Magnesium Oxide 420 Mg 420 mg PO DAILY 04/16/23 06/11/23 History Multivitamins, Thera [Multivitamin 1 tab PO DAILY 04/16/23 06/11/23 History (formulary)] Sertraline [Zoloft] 50 mg PO DAILY 04/16/23 06/11/23 History lisinopriL [Zestril] 20 mg PO DAILY 04/16/23 06/11/23 History Albuterol Inhaler [Ventolin Hfa 1 - 2 puff INHALATION Q6H PRN #1 04/19/23 06/11/23 Rx Inhaler] each Aspirin 81 mg PO DAILY #30 tab 04/19/23 06/11/23 Rx Atorvastatin [Lipitor] 40 mg PO HS #30 tab 04/19/23 06/11/23 Rx Furosemide [Lasix] 20 mg PO DAILY #30 tab 04/19/23 06/11/23 Rx Allergies Allergy/AdvReac Type Severity Reaction Status Date / Time codeine Allergy Unknown Verified 06/11/23 17:50 Physical Exam Vitals: Vital Signs Temp Pulse Pulse Resp BP BP Pulse Ox 06/12/23 06:30 73 15 145/90 06/12/23 06:15 97.5 F L 70 11 L 132/95 06/12/23 06:11 36.4 F L 70 15 142/87 06/12/23 06:00 67 15 149/85 06/12/23 05:45 71 15 155/87 06/12/23 05:30 72 18 138/92 06/12/23 05:15 36.5 F L 69 18 145/85 06/12/23 05:11 97.7 F 69 15 142/87 06/12/23 05:00 74 18 144/95 06/12/23 04:45 71 16 143/94 06/12/23 04:30 28 H 154/104 06/12/23 04:15 68 15 142/87 06/12/23 04:11 97.5 F L 68 15 142/87 06/12/23 04:00 76 24 145/95 06/12/23 03:47 97.4 F L 70 23 145/95 06/12/23 03:11 97.4 F L 70 23 142/87 06/11/23 23:27 68 18 168/91 100 06/11/23 21:43 97.4 F L 85 20 159/98 96 06/11/23 21:01 83 22 173/104 98 06/11/23 20:35 97 06/11/23 19:20 81 14 170/108 95 06/11/23 18:44 80 06/11/23 18:43 85 20 164/104 100 06/11/23 18:33 90 06/11/23 16:59 93 L 06/11/23 16:49 97.7 F 100 22 153/99 78 L 06/11/23 16:39 97.9 F 100 18 159/84 Intake and Output 06/11/23 06/12/23 06/12/23 22:59 06:59 14:59 Intake Total 240 Output Total 325 850 Balance -85 -850 Intake: Oral 240 Output: Urine 325 850 Other: Voiding Method External Catheter Weight 63.503 kg 56.5 kg Results 06/12/23 04:00 06/12/23 04:00 Cardiac Enzymes 06/11/23 06/11/23 06/11/23 Range/Units 17:01 17:01 21:35 AST 85 H (17-59) U/L Troponin I 0.079 H* 0.094 H* (0.000-0.034) ng/mL 06/12/23 Range/Units 00:22 AST (17-59) U/L Troponin I 0.083 H* (0.000-0.034) ng/mL Coagulation 06/11/23 06/12/23 06/12/23 Range/Units 17:01 00:22 04:00 PT 10.9 11.3 10.8 (10.0-12.5) sec APTT 24.3 24.7 25.3 (22.0-30.0) sec CBC 06/11/23 06/12/23 06/12/23 Range/Units 17:01 00:22 04:00 WBC 9.2 7.3 6.1 (3.8-10.6) k/uL RBC 4.76 4.49 3.98 L (4.30-5.90) m/uL Hgb 13.9 13.0 11.7 L (13.0-17.5) gm/dL Hct 46.0 43.2 38.4 L (39.0-53.0) % Plt Count 296 291 299 (150-450) k/uL Comprehensive Metabolic Panel 06/11/23 06/11/23 06/12/23 Range/Units 17:01 19:03 04:00 Sodium 133 L 132 L (137-145) mmol/L Potassium 5.7 H 5.3 H 4.0 (3.5-5.1) mmol/L Chloride 97 L 91 L (98-107) mmol/L Carbon Dioxide 30 38 H (22-30) mmol/L BUN 34 H 28 H (9-20) mg/dL Creatinine 0.65 L 0.56 L (0.66-1.25) mg/dL Glucose 126 H 106 H (74-99) mg/dL Calcium 8.5 8.0 L (8.4-10.2) mg/dL AST 85 H (17-59) U/L ALT 55 H (4-49) U/L Alkaline Phosphatase 112 (38-126) U/L Total Protein 6.8 (6.3-8.2) g/dL Albumin 3.7 (3.5-5.0) g/dL Current Medications Generic Name Dose Route Start Last Admin Trade Name Freq PRN Reason Stop Dose Admin Albuterol Sulfate 2.5 mg 06/11/23 19:26 Albuterol Nebulized 2.5 Mg/3 Ml INHALATION Q6H PRN Shortness Of Breath Amlodipine Besylate 10 mg 06/12/23 09:00 Amlodipine 10 Mg Tab PO DAILY TAMMY Atorvastatin Calcium 40 mg 06/11/23 21:00 06/11/23 20:28 Atorvastatin 40 Mg Tab PO 40 mg HS TAMMY Administration Budesonide/Formoterol Fumarate 2 puff 06/11/23 20:00 06/11/23 20:33 Symbicort 160-4.5 Mcg Inhaler INHALATION 2 puff RT-BID TAMMY Administration Furosemide 40 mg 06/11/23 21:00 06/11/23 20:29 Furosemide 10 Mg/Ml 4 Ml Vial IV 40 mg Q12HR TAMMY Administration Nicardipine HCl 20 mg/ Sodium 200 mls @ 50 mls/hr 06/12/23 03:15 Chloride IV .Q4H TAMMY Protocol 5 MG/HR Lisinopril 20 mg 06/12/23 09:00 Lisinopril 20 Mg Tab PO DAILY TAMMY Loratadine 10 mg 06/12/23 09:00 Loratadine 10 Mg Tab PO DAILY TAMMY Naloxone HCl 0.2 mg 06/11/23 18:45 Naloxone 0.4 Mg/Ml 1 Ml Vial IV Q2M PRN Opioid Reversal Sertraline HCl 50 mg 06/12/23 09:00 Sertraline 50 Mg Tab PO DAILY TAMMY Intake and Output 06/11/23 06/12/23 06/12/23 22:59 06:59 14:59 Intake Total 240 Output Total 325 850 Balance -85 -850 Intake: Oral 240 Output: Urine 325 850 Other: Voiding Method External Catheter Weight 63.503 kg 56.5 kg 06/12/23 04:00 06/12/23 04:00
[2023-06-12] MEDS: niCARdipine 20 MG in SODIUM CHLORIDE 0.9% 192 ML IV SCH ×6 (07:53→23:08)
[2023-06-12] MEDS: hydrALAZINE HCL 25 MG TAB PO SCH ×3 (08:14→22:58)
[2023-06-12] MEDS: LORATADINE 10 MG TAB PO SCH (08:14)
[2023-06-12] MEDS: lisinopriL 20 MG TAB PO SCH ×2 (08:15→20:11)
[2023-06-12] MEDS: FUROSEMIDE 10 MG/ML 4 ML VIAL IV SCH ×3 (08:15→22:58)
[2023-06-12] MEDS: DAPAGLIFLOZIN PROPANEDIOL 10 MG TABLET PO SCH (08:15)
[2023-06-12] MEDS ORDERED: amLODIPine 10 MG TAB PO SCH (09:00)
[2023-06-12] MEDS ORDERED: lisinopriL 20 MG TAB PO SCH (09:00)
[2023-06-12] MEDS ORDERED: ASPIRIN 81 MG PO SCH (09:00)
[2023-06-12] MEDS: SYMBICORT 160-4.5 MCG INHALER INHALATION SCH ×2 (09:30→22:22)
[2023-06-12] MEDS: SERTRALINE 50 MG TAB PO SCH (11:18)
--- NOTE | 2023-06-12 11:26 | MR ---
EXAMINATION TYPE: MR brain wo con DATE OF EXAM: 06/12/2023 COMPARISON: CT brain 06/12/2023 HISTORY: Rule out SAH, aneurysm CONTRAST: Performed utilizing 0 mL intravenous Gadavist gadolinium contrast. TECHNIQUE: Multiplanar, multiecho imaging on a 3.0 Wilma magnet is performed through the brain. Stud y is performed within 24 hours of arrival to the hospital. The craniovertebral junction is normal. The pituitary is normal. Diffusion-weighted imaging is performed. No abnormal hyperintensity is present to suggest an acute i ntracranial infarct or acute ischemic change. There are patchy periventricular and subcortical white matter changes, likely on the basis of chronic white matter ischemic change. There is some blooming artifact within the posterior left basal ganglion suspicious for hemorrhage. T his area corresponds to some vague increased density on the recent CT examination. Additionally, in t he left posterior lateral ventricle periventricular region there is a smaller focus of blooming artif act without corresponding abnormality on the CT examination suspicious for additional acute hemorrhag e. Example image series 701 image 349. Ventricles and sulci are appropriate for the patient age. No mass effect or midline shift is evident. IMPRESSION: 1. Two foci of acute hemorrhage left periventricular region and posterior left basal ganglion. Second fredrick appears to correlate with the recent CT examinations.
--- NOTE | 2023-06-12 12:03 | P.CNNES ---
History of Present Illness Consult date: 06/12/23 Requesting physician: Oh Pierce Reason for Consult: Subarachnoid hemorrhage History of Present Illness: Patient is a 73-year-old right-handed male came to the hospital yesterday at 4:33 PM for increased body swelling and leg swelling. Patient states that he has peripheral edema going on for about 9 months to a year and it has been getting worse. Patient states that the swelling was so much, that he was using a toothpick, and poking try to get rid of the water. Patient was diagnosed with CHF exacerbation. Patient was noted to have elevated cardiac enzymes. Prior to starting heparin, on asking, it appeared patient's did suffer from a fall 3 weeks ago. He states that he turned around too fast, became dizzy, lightheaded, drop to the knees, and lean forward and hit his head lightly on the board which patient describes as "love tap". He did not pass out. He did not seek any medical attention, as he was feeling fine. Because of this history of head injury, CT scan was performed, which revealed possibility of subarachnoid hemorrhage. Neurology was consulted. Vital signs on arrival blood pressure 159/84, pulse rate 100 temperature 97.9. Blood test shows normal CBC, PT PTT, sodium 133 potassium 5.7, BUN 34, creatinine 0.65, AST and ALT are mildly elevated 85 and 55 respectively, troponins mildly elevated UA negative. Influenza, RSV and gonzales virus PCR negative. EKG shows sinus rhythm with sinus arrhythmia. Chest x-ray revealed low lung volumes with a generalized hazy appearance, which could represent atelectasis versus pulmonary edema, correlate with serum BNP. CT head revealed trace acute subarachnoid hemorrhage near the left subinsular white matter. No herniation or midline shift. I personally reviewed CT head, agree with the findings. Unclear if subarachnoid, or intraparenchymal or artifactual. Patient's home medications include amlodipine, sertraline 50 mg, magnesium, multivitamins, lisinopril, aspirin 81 mg, Lasix 20 mg, Lipitor 40 mg, albuterol. Patient states that he lives by himself, does not use any assistive device. He has 4 children, one of them of a car accident. He smokes at least 1 pack/day for last 50 years and also uses marijuana. Patient denies any numbness or tingling focal weakness, headache. He just complains of swelling and s oreness in the feet. Patient does have hypertension. Review of Systems Constitutional: Reports weight gain (from fluid), Denies chills, Denies fever Eyes: denies blurred vision, denies diplopia, denies pain, denies loss of vision Ears: bilateral: decreased hearing, deny: earache Ears, nose, mouth and throat: Denies headache, Denies vertigo Cardiovascular: Reports shortness of breath, Denies chest pain, Denies lightheadedness Respiratory: Reports cough (on an off, not often), Denies excessive sputum Gastrointestinal: Denies abdominal pain, Denies diarrhea, Denies nausea, Denies vomiting Genitourinary: Denies dysuria, Denies incontinence Musculoskeletal: Reports low back pain, Denies neck pain Integumentary: Reports sores, Denies pruritus, Denies rash Neurological: Reports as per HPI Psychiatric: Denies anxiety, Denies depression Endocrine: Reports weight change Past Medical History Past Medical History: COPD, Hypertension, Pneumonia History of Any Multi-Drug Resistant Organisms: None Reported Past Surgical History: Appendectomy, Tonsillectomy Past Anesthesia/Blood Transfusion Reactions: No Reported Reaction Past Psychological History: No Psychological Hx Reported Smoking Status: Current some day smoker, Former smoker Past Alcohol Use History: Occasional Past Drug Use History: Marijuana Medications and Allergies Home Medications Medication Instructions Recorded Confirmed Type Budesonide/Formoterol Fumarate 2 puff INHALATION RT-BID 11/09/19 06/11/23 History [Symbicort 160-4.5 Mcg Inhaler] amLODIPine [Norvasc] 10 mg PO DAILY 11/09/19 06/11/23 History Ensure 1 can PO DAILY 04/16/23 06/11/23 History Loratadine 10 mg PO DAILY 04/16/23 06/11/23 History Magnesium Oxide 420 Mg 420 mg PO DAILY 04/16/23 06/11/23 History Multivitamins, Thera [Multivitamin 1 tab PO DAILY 04/16/23 06/11/23 History (formulary)] Sertraline [Zoloft] 50 mg PO DAILY 04/16/23 06/11/23 History lisinopriL [Zestril] 20 mg PO DAILY 04/16/23 06/11/23 History Albuterol Inhaler [Ventolin Hfa 1 - 2 puff INHALATION Q6H PRN #1 04/19/23 06/11/23 Rx Inhaler] each Aspirin 81 mg PO DAILY #30 tab 04/19/23 06/11/23 Rx Atorvastatin [Lipitor] 40 mg PO HS #30 tab 04/19/23 06/11/23 Rx Furosemide [Lasix] 20 mg PO DAILY #30 tab 04/19/23 06/11/23 Rx Allergies Allergy/AdvReac Type Severity Reaction Status Date / Time codeine Allergy Unknown Verified 06/11/23 17:50 Physical Examination - Vital Signs Vital Signs: Vital Signs Temp Pulse Pulse Resp BP BP Pulse Ox 06/12/23 10:00 81 19 148/89 92 L 06/12/23 09:00 89 16 168/105 89 L 06/12/23 08:00 99.0 F 77 18 164/94 88 L 06/12/23 07:00 72 14 150/104 06/12/23 06:30 73 15 145/90 06/12/23 06:15 97.5 F L 70 11 L 132/95 06/12/23 06:11 36.4 F L 70 15 142/87 06/12/23 06:00 67 15 149/85 06/12/23 05:45 71 15 155/87 06/12/23 05:30 72 18 138/92 06/12/23 05:15 36.5 F L 69 18 145/85 06/12/23 05:11 97.7 F 69 15 142/87 06/12/23 05:00 74 18 144/95 06/12/23 04:45 71 16 143/94 06/12/23 04:30 28 H 154/104 06/12/23 04:15 68 15 142/87 06/12/23 04:11 97.5 F L 68 15 142/87 06/12/23 04:00 76 24 145/95 06/12/23 03:47 97.4 F L 70 23 145/95 06/12/23 03:11 97.4 F L 70 23 142/87 06/11/23 23:27 68 18 168/91 100 06/11/23 21:43 97.4 F L 85 20 159/98 96 06/11/23 21:01 83 22 173/104 98 06/11/23 20:35 97 06/11/23 19:20 81 14 170/108 95 06/11/23 18:44 80 06/11/23 18:43 85 20 164/104 100 06/11/23 18:33 90 06/11/23 16:59 93 L 06/11/23 16:49 97.7 F 100 22 153/99 78 L 06/11/23 16:39 97.9 F 100 18 159/84 Intake and Output 06/11/23 06/12/23 06/12/23 22:59 06:59 14:59 Intake Total 240 200 Output Total 315 308 7015 Balance -85 -850 -800 Intake: Oral 240 200 Output: Urine 485 138 5641 Other: Voiding Method External Catheter External Catheter Weight 63.503 kg 56.5 kg Patient is an elderly male, cachectic looking, very pleasant, in no acute distress. Patient is alert awake oriented to time place and person. Patient knows it is June 12, 2023 and that he is [facility] in [place]. Speech and language functions are normal. Patient can name and repeat very well. No aphasia or dysarthria. Attention, concentration and fund of knowledge is adequate. On cranial nerve examination, pupils are equal, round and reacting to light, visual mehta are full on confrontation, with no neglect on double simultaneous stimulation. Extraocular muscles are intact with no nystagmus. Face is symmetric, tongue protrudes to the midline. Palatal elevation and sensation normal, hearing is moderately decreased and shoulder shrug normal, facial sensation normal. On muscle strength testing, there is no pronator drift and the strength is normal in arms and legs distally and proximally except hip flexion, which is 4+ bilaterally. Deep tendon reflexes are symmetric (right/left) very hypoactive and plantars are flat. Sensory to touch is equal with no neglect on double simultaneous stimulation. Cerebellar function showed no ataxia for [id number]-[id number] testing. No ataxia for jbuh-cx-fube testing on either side. Tone and bulk of muscles normal. Gait deferred.. On general examination, there is no carotid bruit or murmur, S1-S2 audible. Chest is clear on consultation. Abdomen is soft nontender. No organomegaly, bowel sounds present. Patient has moderate peripheral edema. He has some scabs on his knees, some redness of the skin. Results - Laboratory Findings CBC and BMP: 06/12/23 04:00 06/12/23 04:00 Abnormal Lab Findings: Abnormal Labs 06/11/23 06/11/23 06/11/23 17:01 17:01 17:01 RBC Hgb Hct MCHC 30.1 L Neutrophils # 8.0 H Lymphocytes # 0.6 L VBG pCO2 VBG HCO3 Sodium 133 L Potassium 5.7 H Chloride 97 L Carbon Dioxide BUN 34 H Creatinine 0.65 L Glucose 126 H POC Glucose (mg/dL) Calcium AST 85 H ALT 55 H Troponin I 0.079 H* 06/11/23 06/11/23 06/11/23 17:01 19:03 21:35 RBC Hgb Hct MCHC Neutrophils # Lymphocytes # VBG pCO2 65 H VBG HCO3 34 H Sodium Potassium 5.3 H Chloride Carbon Dioxide BUN Creatinine Glucose POC Glucose (mg/dL) Calcium AST ALT Troponin I 0.094 H* 06/12/23 06/12/23 06/12/23 00:22 00:22 03:25 RBC Hgb Hct MCHC 30.2 L Neutrophils # Lymphocytes # 0.9 L VBG pCO2 VBG HCO3 Sodium Potassium Chloride Carbon Dioxide BUN Creatinine Glucose POC Glucose (mg/dL) 121 H Calcium AST ALT Troponin I 0.083 H* 06/12/23 06/12/23 04:00 04:00 RBC 3.98 L Hgb 11.7 L Hct 38.4 L MCHC 30.3 L Neutrophils # Lymphocytes # 0.9 L VBG pCO2 VBG HCO3 Sodium 132 L Potassium Chloride 91 L Carbon Dioxide 38 H BUN 28 H Creatinine 0.56 L Glucose 106 H POC Glucose (mg/dL) Calcium 8.0 L AST ALT Troponin I Assessment and Plan Assessment: * Probable subarachnoid hemorrhage, left perisylvian region. Patient did suffer from a fall 3 weeks ago and hitting his head lightly. Uncertain if related to the fall, as the hyperdensity on CT scan appears "fresh hemorrhage", should not show up by now after 3 weeks. * Hypertension * CHF exacerbation * Mild troponin elevation, flat * COPD * Peripheral edema * Hard of hearing * Tobacco use * Marijuana use Plan: * No antiplatelets or anticoagulants. * Urgent MRI of the brain, MRA of head ordered last night. * Patient at present is currently asymptomatic, with no headache or any focal symptoms or focal deficits. His NIH stroke scale is 0. * Patient is neurologically completely stable, and the subarachnoid hemorrhage is small. I do not see any medical necessity for transfer to higher level of care. * Keep head end of bed at least 30 degree. * Keep blood pressure <140/80 * Patient will need repeat CT head next morning. * PT, OT, speech therapy * Other medical management as per IM/critical care. Discussed with ICU staff. * Discussed with patient's daughter as well. She is not sure if patient had suffered from another fall besides the one 3 weeks ago that he mentioned. * EEG, rule out any epileptiform activity. * Recommend complete tobacco cessation. * Neurology will follow. Thank you for the consult. Time with Patient: Greater than 30
--- NOTE | 2023-06-12 12:55 | MR ---
EXAMINATION TYPE: MR angio head wo con DATE OF EXAM: 06/12/2023 COMPARISON: HISTORY: Rule out SAH, aneurysm CONTRAST: None TECHNIQUE: Multiplanar multiecho imaging on a 3.0 Wilma magnet is performed through the [place]. 3-D [id number] imaging is performed. Source images are reviewed on the computer in the axi al plane. Reconstructed images rotating on the computer are reviewed. FINDINGS: The internal carotid arteries bifurcate normally into A1 and M1 segments. The A2 segments are normal. Middle cerebral artery branches are normal. Anterior communicating artery is patent. The right posterior communicating artery is absent. The left posterior communicating artery is absent. Vertebrobasilar arteries within the [id number]-wr-[id number] are normal. Posterior cerebral vasculature is norm al. No suspicious aneurysm or aneurysmal dilatation is evident. No obstructions are identified. No significant flow-limiting stenosis is evident. In the left posterior basal ganglion there is a small vessel with signal with surrounding blooming ar tifact. This would most likely be a branch of the middle cerebral artery. Series 301 image 94. No signal abnormality is identified within the additional area of left periventricular lateral ventri cular Blooming artifact. Series 301 image 117. IMPRESSION: 1. NORMAL MRA [place]. 2. Vascular type signal may be within the lower area of blooming artifact at the subarachnoid hemorrh age. A 2 mm aneurysm cannot be excluded.
--- NOTE | 2023-06-12 14:17 | P.PN ---
Subjective Progress Note Date: 06/12/23 Hospital Course: 73-year-old male with history of COPD, hypertension, diastolic heart failure patient presented with shortness of breath. Patient also had recent fall about 2 to 3 weeks ago sustaining head injury. P at the time of admission, vital signs were within normal limit limits except for hypoxia. Patient was started on nasal cannula. Sinus rhythm. Chest x-ray showed increased interstitial opacities. Laboratory workup showed mild hyponatremia slightly elevated troponin, proBNP at 13,000. Patient was admitted for CHF exacerbation started on IV diuretics. Head CT was also completed, which showed trace acute subarachnoid hemorrhage with no herniation or midline shift. Neurology was c onsulted, patient was moved to medical ICU for close monitoring. Subjective: Patient seen and examined at bedside. No acute events overnight. Patient Pertinent positives and negatives as discussed above, a complete review of systems was performed and all other systems are negative. Vitals Signs Reviewed. General: [nontoxic], [no distress], [appears at stated age] Derm: [warm], [dry] Head: [atraumatic], [normocephalic], [symmetric] Eyes: [EOMI], [no lid lag], [anicteric sclera] Mouth: [no lip lesion], [mucus membranes moist] Cardiovascular: [S1S2 reg], [no murmur] Lungs: [Bibasilar rales] , [no accessory muscle use], supplemental oxygen Abdominal: [soft], [ nontender to palpation], [no EKG showed guarding], [no appreciable organomegaly] Ext: [no gross muscle atrophy], [trace peripheral edema], [no contractures] Neuro: [ CN II-XI grossly intact], [no focal neuro deficits] Psych: [Alert], [oriented], [appropriate affect] Data Reviewed Today: Pertinent Labs: WBC 6.1, hemoglobin 11.7, sodium 132, potassium 4, creatinine 0.56, troponin peaked at 0.094 Imaging: MRI brain shows 2 foci of acute hemorrhage left periventricular region and posterior left basal ganglia correlated with recent CT examination. Had MRI also shows vascular type signal within the lower area of blooming artifact at the subarachnoid hemorrhage. Assessment and Plan: Patient is severely ill, in medical ICU, needs close monitoring. Prognosis is guarded . [Active:] Recent traumatic fall with head injury Acute trace subarachnoid hemorrhage found on head CT Acute on chronic hypoxic respiratory failure Acute diastolic CHF exacerbation NSTEMI, type 2 Hypervolemic hyponatremia Hypertension -Continue IV Lasix 40 mg every 8 hours -Lisinopril increased to 20 twice daily -Strict I's and O's, daily weights, continue telemetry -Echocardiogram pending -Cardiology note reviewed, amlodipine discontinued, also started on Farxiga, hold off any further anticoagulation, also started on hydralazine 25 3 times daily -Neurology note reviewed, keep blood pressure below 140/80, repeat CT head next morning, if worsening hemorrhage, may need transfer, EEG pending -Sodium improving, repeat BMP tomorrow Severe protein calorie malnutrition -Dietitian consult [Chronic:] COPD not in exacerbation Depression Dyslipidemia DVT ppx: SCDs Code status: Full code Anticipated discharge place: Pending clinical course pending clinical course Anticipated discharge time: [] Objective - Vital Signs Vital signs: Vital Signs Temp 98.2 F 06/12/23 12:00 Pulse 74 06/12/23 13:00 Resp 18 06/12/23 13:00 BP 138/102 06/12/23 13:00 Pulse Ox 99 06/12/23 13:00 FiO2 Intake & Output 06/11/23 06/12/23 06/12/23 18:59 06:59 18:59 Intake Total 240 600 Output Total 1175 1400 Balance -935 -800 Weight 63.503 kg 56.5 kg Intake: Oral 240 600 Output: Urine 1175 1400 Other: Voiding Method External Catheter External Catheter - Labs CBC & Chem 7: 06/12/23 04:00 06/12/23 04:00 Labs: Abnormal Lab Results - Last 24 Hours (Table) 06/11/23 06/11/23 06/11/23 Range/Units 17:01 17:01 17:01 RBC (4.30-5.90) m/uL Hgb (13.0-17.5) gm/dL Hct (39.0-53.0) % MCHC 30.1 L (31.0-37.0) g/dL Neutrophils # 8.0 H (1.3-7.7) k/uL Lymphocytes # 0.6 L (1.0-4.8) k/uL VBG pCO2 (37-51) mmHg VBG HCO3 (24-28) mmol/L Sodium 133 L (137-145) mmol/L Potassium 5.7 H (3.5-5.1) mmol/L Chloride 97 L (98-107) mmol/L Carbon Dioxide (22-30) mmol/L BUN 34 H (9-20) mg/dL Creatinine 0.65 L (0.66-1.25) mg/dL Glucose 126 H (74-99) mg/dL POC Glucose (mg/dL) (70-110) mg/dL Calcium (8.4-10.2) mg/dL AST 85 H (17-59) U/L ALT 55 H (4-49) U/L Troponin I 0.079 H* (0.000-0.034) ng/mL 06/11/23 06/11/23 06/11/23 Range/Units 17:01 19:03 21:35 RBC (4.30-5.90) m/uL Hgb (13.0-17.5) gm/dL Hct (39.0-53.0) % MCHC (31.0-37.0) g/dL Neutrophils # (1.3-7.7) k/uL Lymphocytes # (1.0-4.8) k/uL VBG pCO2 65 H (37-51) mmHg VBG HCO3 34 H (24-28) mmol/L Sodium (137-145) mmol/L Potassium 5.3 H (3.5-5.1) mmol/L Chloride (98-107) mmol/L Carbon Dioxide (22-30) mmol/L BUN (9-20) mg/dL Creatinine (0.66-1.25) mg/dL Glucose (74-99) mg/dL POC Glucose (mg/dL) (70-110) mg/dL Calcium (8.4-10.2) mg/dL AST (17-59) U/L ALT (4-49) U/L Troponin I 0.094 H* (0.000-0.034) ng/mL 06/12/23 06/12/23 06/12/23 Range/Units 00:22 00:22 03:25 RBC (4.30-5.90) m/uL Hgb (13.0-17.5) gm/dL Hct (39.0-53.0) % MCHC 30.2 L (31.0-37.0) g/dL Neutrophils # (1.3-7.7) k/uL Lymphocytes # 0.9 L (1.0-4.8) k/uL VBG pCO2 (37-51) mmHg VBG HCO3 (24-28) mmol/L Sodium (137-145) mmol/L Potassium (3.5-5.1) mmol/L Chloride (98-107) mmol/L Carbon Dioxide (22-30) mmol/L BUN (9-20) mg/dL Creatinine (0.66-1.25) mg/dL Glucose (74-99) mg/dL POC Glucose (mg/dL) 121 H (70-110) mg/dL Calcium (8.4-10.2) mg/dL AST (17-59) U/L ALT (4-49) U/L Troponin I 0.083 H* (0.000-0.034) ng/mL 06/12/23 06/12/23 Range/Units 04:00 04:00 RBC 3.98 L (4.30-5.90) m/uL Hgb 11.7 L (13.0-17.5) gm/dL Hct 38.4 L (39.0-53.0) % MCHC 30.3 L (31.0-37.0) g/dL Neutrophils # (1.3-7.7) k/uL Lymphocytes # 0.9 L (1.0-4.8) k/uL VBG pCO2 (37-51) mmHg VBG HCO3 (24-28) mmol/L Sodium 132 L (137-145) mmol/L Potassium (3.5-5.1) mmol/L Chloride 91 L (98-107) mmol/L Carbon Dioxide 38 H (22-30) mmol/L BUN 28 H (9-20) mg/dL Creatinine 0.56 L (0.66-1.25) mg/dL Glucose 106 H (74-99) mg/dL POC Glucose (mg/dL) (70-110) mg/dL Calcium 8.0 L (8.4-10.2) mg/dL AST (17-59) U/L ALT (4-49) U/L Troponin I (0.000-0.034) ng/mL
[2023-06-12] MEDS: ATORVASTATIN 40 MG TAB PO SCH (20:11)
--- NOTE | 2023-06-13 02:48 | EEG ---
DATE OF SERVICE: 06/12/2023 ELECTROENCEPHALOGRAM REPORT PREAMBLE: This is a 73-year-old male, who suffered from a fall recently, and has developed left subarachnoid hemorrhage. This study is performed to evaluate for any epileptiform activity. EEG FINDINGS: This is a 21-channel digital EEG recorded with video component, utilizing 10/20 international system with referential and bipolar montages. Background consists of periods of relatively normal appearing background at 7 to 8 hertz, posterior dominant, reactive to eye opening and closing. This is intermixed with some periods of theta and some low-voltage delta slowing seen in bihemispheric region. Photic driving response was not seen. The patient was frequently drowsy during most of the study. Deeper stages of sleep were not seen. No focal or generalized epileptiform activity was seen. IMPRESSION: This is an abnormal EEG due to intermittent background slowing, suggestive of mild generalized cerebral dysfunction as can be seen with encephalopathy. No epileptiform activity was seen. MMODL / IJN: [id number] / MTDD
[2023-06-13] MEDS: hydrALAZINE HCL 25 MG TAB PO SCH ×3 (08:59→22:16)
[2023-06-13] MEDS: SERTRALINE 50 MG TAB PO SCH (09:00)
[2023-06-13] MEDS: lisinopriL 20 MG TAB PO SCH ×2 (09:00→22:16)
[2023-06-13] MEDS: DAPAGLIFLOZIN PROPANEDIOL 10 MG TABLET PO SCH (09:00)
[2023-06-13] MEDS: LORATADINE 10 MG TAB PO SCH (09:00)
[2023-06-13] MEDS: FUROSEMIDE 10 MG/ML 4 ML VIAL IV SCH (09:01)
--- NOTE | 2023-06-13 09:35 | CA ---
Transthoracic Echo Report Name: Josh Brooke Age: 73 Gender: M : 1950 Exam Date: 06/12/2023 09:09 Exam Location: [facility] Ht (in): 76 Wt (lb): 124 Ordering Physician: Duane Dixon MD ([id number]) Attending/Referring Phys: Bailing Machine Operator Caitlyn Bosch [facility] Procedure CPT: Indications: chf Cardiac Hx: Technical Quality: Technically difficult study Contrast 1: Total Dose (mL): Contrast 2: Total Dose (mL): MEASUREMENTS (Male / Female) Normal Values 2D ECHO LV Diastolic Diameter PLAX 3.7 cm 4.2 - 5.9 / 3.9 - 5.3 cm LV Systolic Diameter PLAX 2.6 cm IVS Diastolic Thickness 1.2 cm 0.6 - 1.0 / 0.6 - 0.9 cm LVPW Diastolic Thickness 1.2 cm 0.6 - 1.0 / 0.6 - 0.9 cm LV Relative Wall Thickness 0.6 LVOT Diameter 2.0 cm M-MODE Aortic Root Diameter MM 2.2 cm LA Systolic Diameter MM 4.0 cm LA Ao Ratio MM 1.8 AV Cusp Separation MM 1.1 cm DOPPLER AV Peak Velocity 256.0 cm/s AV Peak Gradient 26.2 mmHg AV Mean Velocity 166.4 cm/s AV Mean Gradient 13.3 mmHg AV Velocity Time Integral 47.6 cm LVOT Peak Velocity 86.4 cm/s LVOT Peak Gradient 3.0 mmHg LVOT Velocity Time Integral 21.3 cm LVOT Stroke Volume 69.7 cm??? LVOT Stroke Volume Index 38.6 ml/m??? LVOT Cardiac Index 3349.6 cm???/min???m??? AV Area Cont Eq vti 1.5 cm??? AV Area Cont Eq pk 1.1 cm??? Mitral E Point Velocity 92.1 cm/s Mitral A Point Velocity 105.8 cm/s Mitral E to A Ratio 0.9 MV Deceleration Time 218.0 ms LV E' Lateral Velocity 6.3 cm/s Mitral E to LV E' Lateral Ratio 14.6 LV E' Septal Velocity 4.9 cm/s Mitral E to LV E' Septal Ratio 18.7 TR Peak Velocity 313.1 cm/s TR Peak Gradient 39.2 mmHg Right Atrial Pressure 8.0 mmHg Pulmonary Artery Systolic Pressu 47.2 mmHg Right Ventricular Systolic Press 47.2 mmHg FINDINGS Left Ventricle Mildly increased left ventricular wall thickness. Small left ventricular cavity. Low normal left ventricular systolic function with no obvious regional wall motion abnormalities. Left ventricular ejection fraction is estimated at 50-55%. Right Ventricle Severe right ventricular dilatation. Moderate pulmonary hypertension. Right Atrium Mild right atrial dilatation. Left Atrium Normal left atrial size. Mitral Valve Mitral valve thickened. Trace mitral regurgitation. Aortic Valve Aortic valve not well visualized. Mildly calcified. Diffuse thickening of the aortic valve cusps with reduced excursion. Mild aortic stenosis with a peak gradient of 26.2 mmHg and a mean gradient of 13.3 mmHg. No aortic regurgitation. Tricuspid Valve Structurally normal tricuspid valve. Mild tricuspid regurgitation. Pulmonic Valve Pulmonic valve not well visualized. Pericardium Small pericardial effusion. Aorta Normal size aortic root. CONCLUSIONS Normal LV systolic function Aortic sclerosis. Cannot exclude bicuspid aortic valve. Mean gradient is 13 mmHg Small pericardial effusion Previewed by: Dr. Nayan Hooper MD (Electronically Signed) Final Date: 13 June 2023 09:34
[2023-06-13] MEDS: SYMBICORT 160-4.5 MCG INHALER INHALATION SCH ×2 (09:43→22:07)
[2023-06-13 10:49] LABS: Basophils % (A) 0 %; Eosinophils # (A) 0.1 k/uL (0-0.7); Eosinophils % (A) 1 %; HCT 41.4 % (39.0-53.0); HGB 12.7 gm/dL (13.0-17.5); Hypochromasia Marked; Lymphocytes % (A) 9 %; MCH 29.1 pg (25.0-35.0); MCHC 30.6 g/dL (31.0-37.0); MCV 95.1 fL (80.0-100.0); Monocytes # (A) 0.6 k/uL (0-1.0); Monocytes % (A) 5 %; Neutrophils # (A) 8.8 k/uL (1.3-7.7); Neutrophils % (A) 83 %; Platelet Count 310 k/uL (150-450); RBC 4.35 m/uL (4.30-5.90); RDW 14.8 % (11.5-15.5); WBC 10.6 k/uL (3.8-10.6)
[2023-06-13 11:11] LABS: African American GFR (CKD) >90 (>60 ml/min/1.73 sqM); Blood Urea Nitrogen 26 mg/dL (9-20); Calcium 8.5 mg/dL (8.4-10.2); Chloride 85 mmol/L (98-107); Glucose 97 mg/dL (74-99); Magnesium 1.7 mg/dL (1.6-2.3); Non-African American GFR(CKD) >90 (>60 ml/min/1.73 sqM); Sodium 132 mmol/L (137-145)
[2023-06-13 11:18] LABS: Anion Gap 3 mmol/L
[2023-06-13 11:41] LABS: Carbon Dioxide 44 mmol/L (22-30)
--- NOTE | 2023-06-13 12:30 | CT ---
EXAMINATION TYPE: CT brain wo con DATE OF EXAM: 06/13/2023 COMPARISON: ] 252, CT brain 06/12/2023 INDICATION: Follow up SAH DLP: 1144.3 mGycm, Automated exposure control for dose reduction was used. CONTRAST: None CT of the brain is performed utilizing 3 mm thick sections through the posterior fossa and 3 mm thick sections through the remaining calvarium. Study is performed within 24 hours of arrival to the hosp [facility]. The vague increased density near the sylvian fissure remains present. No increase in size is no new a willa of hemorrhage is evident. No mass lesion is evident. There is a 0.9 cm rounded area adjacent to the fourth ventricle. This appe ars to be artifact not on the prior examinations. No acute infarcts are evident. Periventricular white matter hypodensity is present on the basis of ch ronic white matter ischemic changes. Ventricles and sulci are appropriate for the patient age. Paranasal sinuses and mastoid air cells within the [id number] are clear. IMPRESSION: 1. Stable appearance to minimal left subarachnoid hemorrhage. 2. Chronic appearing periventricular white matter ischemic-type changes. 3. No suspicious interval findings.
--- NOTE | 2023-06-13 13:49 | P.PN ---
Subjective HISTORY OF PRESENT ILLNESS: The patient is a 73-year-old male who presented to the emergency room with symptoms of progressive dyspnea and worsening edema. He has a history of chronic tobacco use. He has not been using his home oxygen because of difficulty in operating his machine. Cardiology consultation was requested for further evaluation of heart failure. He had an echocardiogram in March 2023 that revealed a preserved systolic function. Patient is vague about any prior history of cardiac disease. He says he may have had a heart attack or heart failure but not very clear. I have no records of prior admission with myocardial infarction. In the emergency room he was noted to have mild troponin elevation but he had a recent fall and injury to his head, his CT scan showed evidence of subarachnoid hemorrhage. No anticoagulation was initiated. The patient had the worsening dyspnea with cough and worsening peripheral edema. He denies any chest discomfort or palpitations. He has a cough and wheezing that has been chronic. He continues to smoke on a regular basis. He was hypertensive on presentation. He has been initiated on diuretics since admission. His NT proBNP was elevated on presentation. He was started on nicardipine on admission. Medications: Lisinopril 20 mg daily, amlodipine 10 mg daily, Lasix 20 mg daily, Lipitor 40 mg daily, aspirin, multivitamin, Zoloft, Ventolin, Symbicort Labs: Hemoglobin 13, WBC 7.3, potassium on admission 5.7, 4.0 this morning. BUN/creatinine 28 and 0.56. NT proBNP 13,100. Troponin 0.079, 0.094, 0.083. Brain CT is consistent with subarachnoid hemorrhage, trace. Chest x-ray is consistent with fluid overload and possible atelectasis. EKG: Sinus mechanism rate of [address]-T wave changes June 13, 2023 Patient examined this morning at the bedside. Patient currently denies chest pain or pressure. He denies shortness of breath. He complains of a headache at the time of examination. Telemetry reveals sinus mechanism with a heart rate in the 90s. Echocardiogram completed revealing ejection fraction 50 to 55%. PHYSICAL EXAM: VITAL SIGNS: Reviewed. GENERAL: Well-developed in no acute distress. NECK: Supple. No JVD or thyromegaly LUNGS: Respirations even and unlabored. Lungs essentially clear to auscultation bilaterally, diminished. HEART: Regular rate and rhythm. S1 and S2 heard. Systolic murmur noted. EXTREMITIES: Normal range of motion. No clubbing or cyanosis. Peripheral pulses intact. Bilateral lower extremity edema noted, improved ASSESSMENT: 1. Progressive dyspnea and peripheral edema with evidence of CHF, with pres erved systolic function 2. Mild troponin elevation, flat, most likely secondary to the CHF and repr esenting a type II cardiac injury 3. Subarachnoid hemorrhage 4. History of hypertension 5. Chronic tobacco use and chronic obstructive lung disease, not using his oxygen 6. History of hyperlipidemia 7. Cachexia PLAN: Discontinue Cardene drip Discontinue IV Lasix. Begin oral Lasix 40 mg twice a day No anticoagulation secondary to subarachnoid hemorrhage Continue to monitor blood pressure. Continue telemetry monitoring. Further recommendations pending patient course Nurse practitioner note has been reviewed by physician. Signing provider agrees with the documented findings, assessment, and plan of care documented by EXERCISER HORSE as a scribe. Objective - Vital Signs Vital signs: Vital Signs Temp 98 F 06/13/23 08:00 Pulse 84 06/13/23 08:06 Resp 18 06/13/23 08:06 BP 128/81 06/13/23 08:00 Pulse Ox 93 L 06/13/23 09:43 FiO2 Intake & Output 06/12/23 06/13/23 06/13/23 18:59 06:59 18:59 Intake Total 1200 260 Output Total 3400 300 Balance -2200 -40 Weight 58.8 kg 58.8 kg Intake: IV 20 Invasive Line 2 10 Invasive Line 3 10 Oral 1200 240 Output: Urine 3400 300 Other: Voiding Method External Catheter External Catheter # Voids 1 1 # Bowel Movements 1 1 - Labs CBC & Chem 7: 06/13/23 10:23 06/13/23 10:23 Labs: Abnormal Lab Results - Last 24 Hours (Table) 06/13/23 06/13/23 Range/Units 10:23 10:23 Hgb 12.7 L (13.0-17.5) gm/dL MCHC 30.6 L (31.0-37.0) g/dL Neutrophils # 8.8 H (1.3-7.7) k/uL Sodium 132 L (137-145) mmol/L Chloride 85 L (98-107) mmol/L Carbon Dioxide 44 H* (22-30) mmol/L BUN 26 H (9-20) mg/dL Creatinine 0.62 L (0.66-1.25) mg/dL
--- NOTE | 2023-06-13 14:11 | P.PN ---
Subjective Progress Note Date: 06/13/23 Hospital Course: 73-year-old male with history of COPD, hypertension, diastolic heart failure patient presented with shortness of breath. Patient also had recent fall about 2 to 3 weeks ago sustaining head injury. P at the time of admission, vital signs were within normal limit limits except for hypoxia. Patient was started on nasal cannula. Sinus rhythm. Chest x-ray showed increased interstitial opacities. Laboratory workup showed mild hyponatremia slightly elevated troponin, proBNP at 13,000. Patient was admitted for CHF exacerbation started on IV diuretics. Head CT was also completed, which showed trace acute subarachnoid hemorrhage with no herniation or midline shift. Neurology was c onsulted, patient was moved to medical ICU for close monitoring. MRI brain shows 2 foci of acute hemorrhage left periventricular region and posterior left basal ganglia correlated with recent CT examination. Head MRI also shows vascular type signal within the lower area of blooming artifact at the subarachnoid hemorrhage. Repeat CT head showed stable appearance to minimal left subarachnoid hemorrhage. Patient transition back to regular floors. EEG did not show any epileptiform discharges. Subjective: Patient seen and examined at bedside. No acute events overnight. No new complaints. Pertinent positives and negatives as discussed above, a complete review of systems was performed and all other systems are negative. Vitals Signs Reviewed. General: Nontoxic, no distress, appears at stated age Derm: Warm, dry Head: Atraumatic, normocephalic, symmetric Eyes: EOMI, no lid lag, anicteric sclera Mouth: No lip lesion, mucus membranes moist Cardiovascular: S1S2 reg, no murmur Lungs: Bibasilar rales, no accessory muscle use, supplemental oxygen Abdominal: Soft, nontender to palpation, no guarding, no appreciable organomegaly Ext: No gross muscle atrophy, trace peripheral edema, no contractures Neuro: CN II-XI grossly intact, no focal neuro deficits Psych: Alert, oriented, appropriate affect Data Reviewed Today: Pertinent Labs: WBC 10.6, hemoglobin 12.7, sodium 132, bicarb 44, creatinine 0.60 Imaging: EEG did not show any epileptiform discharges. CT head showed stable appearance compatible left subarachnoid hemorrhage. Assessment and Plan: . Active: Recent traumatic fall with head injury Acute trace subarachnoid hemorrhage found on head CT Acute on chronic hypoxic respiratory failure Acute diastolic CHF exacerbation NSTEMI, type 2 Hypervolemic hyponatremia Hypertension Metabolic alkalosis -Cardiology note reviewed, patient started on oral Lasix 40 twice daily -Continue lisinopril 20 twice daily, continue Farxiga, hydralazine 25 3 times daily -Strict I's and O's, daily weights, continue telemetry -Echocardiogram showed normal LV systolic function, aortic sclerosis, could not exclude bicuspid aortic valve, small pericardial effusion. -Discussed management with neurology, no further changes -Sodium improving, repeat BMP tomorrow -Likely contraction alkalosis, repeat BMP tomorrow Severe protein calorie malnutrition -Dietitian consult Chronic: COPD not in exacerbation Depression Dyslipidemia DVT ppx: SCDs Code status: Full code Anticipated discharge place: Pending clinical course Anticipated discharge time: Pending clinical course Objective - Vital Signs Vital signs: Vital Signs Temp 98 F 06/13/23 08:00 Pulse 84 06/13/23 08:06 Resp 18 06/13/23 08:06 BP 128/81 06/13/23 08:00 Pulse Ox 93 L 06/13/23 09:43 FiO2 Intake & Output 06/12/23 06/13/23 06/13/23 18:59 06:59 18:59 Intake Total 1200 260 Output Total 3400 300 Balance -2200 -40 Weight 58.8 kg 58.8 kg Intake: IV 20 Invasive Line 2 10 Invasive Line 3 10 Oral 1200 240 Output: Urine 3400 300 Other: Voiding Method External Catheter External Catheter # Voids 1 1 # Bowel Movements 1 1 - Labs CBC & Chem 7: 06/13/23 10:23 06/13/23 10:23 Labs: Abnormal Lab Results - Last 24 Hours (Table) 06/13/23 06/13/23 Range/Units 10:23 10:23 Hgb 12.7 L (13.0-17.5) gm/dL MCHC 30.6 L (31.0-37.0) g/dL Neutrophils # 8.8 H (1.3-7.7) k/uL Sodium 132 L (137-145) mmol/L Chloride 85 L (98-107) mmol/L Carbon Dioxide 44 H* (22-30) mmol/L BUN 26 H (9-20) mg/dL Creatinine 0.62 L (0.66-1.25) mg/dL
--- NOTE | 2023-06-13 16:14 | P.PN ---
Subjective Progress Note Date: 06/13/23 Principal diagnosis: Acute subarachnoid hemorrhage and acute on chronic hypoxic respiratory failure secondary to acute on chronic diastolic congestive heart failure I am seeing this patient in consultation today June 12, 2023 after he was transferred earlier this morning for the finding of a trace acute subarachnoid hemorrhage on brain CT. Patient is a 73-year-old white male with past medical history significant for CHF, hypertension, COPD, ongoing tobacco dependence, hy pertension. Patient actually came to the hospital yesterday evening for increased shortness of breath and lower extremity swelling over the past month. Also endorses exertional dyspnea along with orthopnea. He denies any chest pain. He had a recent hospital admission back in March, for the same and possible superimposed pneumonia. He is oxygen dependent at home, but has reportedly been without for approximately 1 month. He is currently on 4 L/min nasal cannula. SpO2 98%. He is in no respiratory distress. He denies any infectious symptoms such as cough, sputum production, fever, hemoptysis. On arrival to the emergency room, the patient had elevated troponins, he was going to be started on IV heparin. When questioned about previous head injury, the patient did report hitting his head about 1 month ago. He did redemonstrate that in the room. Patient was sent down for a brain CT which found a trace acute subarachnoid hemorrhage near the left subinsular white matter. Patient's admitting physician contacted me for transfer to the intensive care unit. Patient's neurological exam was benign at this point. He is alert and oriented. Able to protect his airway. Blood pressure is stable. As needed IV nicardipine was added to maintain a systolic blood pressure less than 160. I did personally talk to our neurologist. There were initial plans for transfer, however, our neurologist felt it unnecessary if the patient does not need systemic heparinization. Heparin was never started and there is no need for reversal. No witnessed seizure activity. No prophylactic antiepileptics have been added. In the meantime, the patient was transferred to the intensive care unit for close neurological monitoring. Vital signs are stable at this time. Reevaluated today on 06/13/2023, patient is resting in bed, does not seem to be in any distress, denies any specific neurological symptoms, no headache, no syncope, no lightheadedness, patient is relatively asymptomatic. Labs are reviewed, bicarb is 44, repeat brain CT showed stable appearance to minimal left subarachnoid hemorrhage and no suspicious interval findings Objective - Vital Signs Vital signs: Vital Signs Temp 98.1 F 06/13/23 12:00 Pulse 87 06/13/23 12:00 Resp 20 06/13/23 12:00 BP 127/74 06/13/23 12:00 Pulse Ox 93 L 06/13/23 12:00 FiO2 Intake & Output 06/12/23 06/13/23 06/13/23 18:59 06:59 18:59 Intake Total 1200 830 Output Total 3400 1075 Balance -2200 -245 Weight 58.8 kg 58.8 kg Intake: IV 40 Invasive Line 2 20 Invasive Line 3 20 Oral 1200 790 Output: Urine 3400 1075 Other: Voiding Method External Catheter External Catheter External Catheter # Voids 1 1 # Bowel Movements 1 1 - Exam GENERAL EXAM: Alert, 73-year-old white male, frail/cachectic, comfortable in no apparent distress. HEAD: Normocephalic and atraumatic EYES: Normal reaction of pupils, equal size. NOSE: Clear with pink turbinates. THROAT: No erythema or exudates. NECK: No masses, no JVD. CHEST: No chest wall deformity. LUNGS: Equal air entry with no crackles, wheeze, rhonchi or dullness. On 4 L/min nasal cannula. No conversational dyspnea or accessory muscle use.. CVS: S1 and S2 normal with no audible murmur, regular rhythm. No extra heart sounds ABDOMEN: No hepatosplenomegaly, active bowel sounds, no guarding or rigidity. SPINE: No scoliosis or deformity SKIN: No rashes CENTRAL NERVOUS SYSTEM: Alert and fully oriented x 3. Cranial nerves II through XII grossly intact. . EXTREMITIES: There is bilateral lower extremity 3+ edema. No clubbing, or cyanosis. Peripheral pulses are intact. - Labs CBC & Chem 7: 06/13/23 10:23 06/13/23 10:23 Labs: Abnormal Lab Results - Last 24 Hours (Table) 06/13/23 06/13/23 Range/Units 10:23 10:23 Hgb 12.7 L (13.0-17.5) gm/dL MCHC 30.6 L (31.0-37.0) g/dL Neutrophils # 8.8 H (1.3-7.7) k/uL Sodium 132 L (137-145) mmol/L Chloride 85 L (98-107) mmol/L Carbon Dioxide 44 H* (22-30) mmol/L BUN 26 H (9-20) mg/dL Creatinine 0.62 L (0.66-1.25) mg/dL Assessment and Plan Assessment: Impression Acute trace subarachnoid hemorrhage, brain CT found a trace acute subarachnoid hemorrhage near the left subinsular white matter, no herniation or midline shift. Acute on chronic hypoxemic respiratory failure, possibly secondary to diastolic CHF exacerbation, followed by cardiology Bilateral lower extremity edema, on diuretics Elevated troponins, rule out NSTEMI Chronic obstructive pulmonary disease, stable Chronic ongoing tobacco dependence Hypertension Severe protein-calorie malnutrition Recommendation: Continue present treatment plan as per neurology Continue present treatment plan as per cardiology Patient cannot go on anticoagulation because of his subarachnoid hemorrhage Close monitoring of his blood pressure Will continue to follow. Time with Patient: Less than 30
[2023-06-13] MEDS: FUROSEMIDE 40 MG TAB PO SCH (16:49)
--- NOTE | 2023-06-13 19:22 | CT ---
EXAMINATION TYPE: CT angio head neck DATE OF EXAM: 06/13/2023 HISTORY: Cerebral aneurysm COMPARISON: CT DLP: 364.3 mGycm. Automated Exposure Control for Dose Reduction was Utilized. TECHNIQUE: CTA scan of the neck is performed with IV Contrast, patient injected with 65ml mL of Isov ue 370, axial images are obtained, coronal and sagittal reformatted images are reviewed. Three-D dannielle nstructed images are created on an independent workstation and reviewed. Source images are reviewed. FINDINGS: Carotid/Vascular Structures: There is a 3 vessel arch. Common carotid arteries bifurcate into internal and external carotid arteries. There appears to be se chava narrowing of the left internal carotid artery at its origin. This measures 71% by NASCET criteri a. Dense calcifications of the carotid bifurcations. Vertebral arteries are codominant. Internal carotid arteries and vertebral arteries are patent to the skull base. Cervical of [place]: Vertebral basilar system appears normal. Posterior cerebral vasculature is unrema rkable. Internal carotid arteries bifurcate normally into A1 and M1 segments. A2 segments are normal. The anterior communicating artery is patent. The right posterior communicating artery is patent. The left posterior communicating artery is patent. IMPRESSION: 1. Significant flow-limiting stenosis of 71% left internal carotid artery origin. 2. Normal [place] of [place]. No obvious aneurysm evident. NASCET criteria was used in interpretation of this exam?
[2023-06-13] MEDS: ATORVASTATIN 40 MG TAB PO SCH (22:16)
[2023-06-14] MEDS: LORATADINE 10 MG TAB PO SCH (08:37)
[2023-06-14] MEDS: SERTRALINE 50 MG TAB PO SCH (08:37)
[2023-06-14] MEDS: DAPAGLIFLOZIN PROPANEDIOL 10 MG TABLET PO SCH (08:37)
[2023-06-14] MEDS: FUROSEMIDE 40 MG TAB PO SCH ×2 (08:37→15:49)
[2023-06-14] MEDS: lisinopriL 20 MG TAB PO SCH ×2 (08:37→21:03)
[2023-06-14] MEDS: hydrALAZINE HCL 25 MG TAB PO SCH ×3 (08:37→21:03)
[2023-06-14 09:24] LABS: Basophils % (A) 0 %; Eosinophils % (A) 0 %; HCT 40.7 % (39.0-53.0); HGB 12.7 gm/dL (13.0-17.5); Hypochromasia Marked; Lymphocytes % (A) 11 %; MCH 29.5 pg (25.0-35.0); MCHC 31.1 g/dL (31.0-37.0); Mean Platelet Volume 7.6; Monocytes # (A) 0.6 k/uL (0-1.0); Monocytes % (A) 7 %; Neutrophils # (A) 7.5 k/uL (1.3-7.7); Neutrophils % (A) 79 %; Platelet Count 323 k/uL (150-450); RBC 4.28 m/uL (4.30-5.90); RDW 14.9 % (11.5-15.5); WBC 9.5 k/uL (3.8-10.6)
[2023-06-14] MEDS: SYMBICORT 160-4.5 MCG INHALER INHALATION SCH ×2 (09:41→22:11)
[2023-06-14 09:47] LABS: African American GFR (CKD) >90 (>60 ml/min/1.73 sqM); Anion Gap 5 mmol/L; Blood Urea Nitrogen 18 mg/dL (9-20); Calcium 8.7 mg/dL (8.4-10.2); Chloride 83 mmol/L (98-107); Glucose 129 mg/dL (74-99); Non-African American GFR(CKD) >90 (>60 ml/min/1.73 sqM); Potassium 4.4 mmol/L (3.5-5.1); Sodium 128 mmol/L (137-145)
--- NOTE | 2023-06-14 10:12 | P.PN ---
Subjective Progress Note Date: 06/13/23 Patient was seen for a follow-up. Patient admits to having headache 7-12/26, pointing to the frontal region. Denies any numbness or tingling. Denies any focal symptoms. Patient is laying comfortably in the bed. Objective - Vital Signs Vital signs: Vital Signs Temp 98.1 F 06/13/23 12:00 Pulse 87 06/13/23 12:00 Resp 20 06/13/23 12:00 BP 127/74 06/13/23 12:00 Pulse Ox 93 L 06/13/23 12:00 FiO2 Intake & Output 06/12/23 06/13/23 06/13/23 18:59 06:59 18:59 Intake Total 1200 830 Output Total 3400 1075 Balance -2200 -245 Weight 58.8 kg 58.8 kg Intake: IV 40 Invasive Line 2 20 Invasive Line 3 20 Oral 1200 790 Output: Urine 3400 1075 Other: Voiding Method External Catheter External Catheter External Catheter # Voids 1 1 # Bowel Movements 1 1 - Exam Patient's mental status, speech and language functions are normal. Visual mehta are full, face is symmetric and muscle strength is normal. Patient has SCDs in place. - Labs CBC & Chem 7: 06/14/23 08:16 06/13/23 10:23 Labs: Abnormal Lab Results - Last 24 Hours (Table) 06/13/23 06/13/23 Range/Units 10:23 10:23 Hgb 12.7 L (13.0-17.5) gm/dL MCHC 30.6 L (31.0-37.0) g/dL Neutrophils # 8.8 H (1.3-7.7) k/uL Sodium 132 L (137-145) mmol/L Chloride 85 L (98-107) mmol/L Carbon Dioxide 44 H* (22-30) mmol/L BUN 26 H (9-20) mg/dL Creatinine 0.62 L (0.66-1.25) mg/dL Assessment and Plan Assessment: * Probable subarachnoid hemorrhage, left perisylvian region. Patient did suffer from a fall 3 weeks ago and hitting his head lightly. Uncertain if related to the fall, as the hyperdensity on CT scan appears "fresh hemorrhage", should not show up by now after 3 weeks. * Hypertension * CHF exacerbation * Mild troponin elevation, flat * COPD * Peripheral edema * Hard of hearing * Tobacco use * Marijuana use Plan: * No antiplatelets or anticoagulants. * MRI of the brain revealed 2 foci of acute hemorrhage left periventricular region and posterior left basal ganglia on. Secondary appears to correlate with the recent CT examinations. * MRA of the head revealed normal MRA [place] of [place]. Vascular type signal may be within the lower areas of blooming artifact at the subarachnoid hemorrhage. A 2 mm aneurysm cannot be excluded. * Repeat CT head performed today reveals stable appearance to minimal left subarachnoid hemorrhage. Chronic appearing periventricular white matter ischemic type changes. No suspicious interval findings. * Patient at present complaining of headache. His CT head and MRI of the brain confirmed subarachnoid hemorrhage. I spoke to neurointervention Dr. Foy, about these findings and also because of report of possible 2 mm aneurysm. * Dr. Foy recommended checking CTA of head and neck. * CTA of head and neck revealed significant flow-limiting stenosis of 71% left ICA origin. Normal [place] of [place]. No obvious aneurysm evident. * Check carotid Doppler. * Keep head end of bed at least 30 degree. * Keep blood pressure <140/80 * PT, OT, speech therapy * Other medical management as per IM/critical care. Discussed with ICU staff. * EEG was abnormal due to intermittent background slowing, suggestive of mild generalized cerebral dysfunction, as can be seen with encephalopathy. No epileptiform activity was seen. No indication for antiepileptic medication. * Recommend complete tobacco cessation.
[2023-06-14 10:14] LABS: Carbon Dioxide 40 mmol/L (22-30)
--- NOTE | 2023-06-14 11:25 | P.PN ---
Subjective Progress Note Date: 06/14/23 Hospital Course: 73-year-old male with history of chronic hypoxic respiratory failure, COPD, hypertension, diastolic heart failure patient presented with shortness of breath. Patient also had recent fall about 2 to 3 weeks ago sustaining head injury. P at the time of admission, vital signs were within normal limit limits except for hypoxia. Patient was started on nasal cannula. Sinus rhythm. Chest x-ray showed increased interstitial opacities. Laboratory workup showed mild hyponatremia slightly elevated troponin, proBNP at 13,000. Patient was admitted for CHF exacerbation started on IV diuretics. Head CT was also completed, which showed trace acute subarachnoid hemorrhage with no herniation or midline shift. Neurology was consulted, patient was moved to medical ICU for close monitoring. MRI brain shows 2 foci of acute hemorrhage left periventricular region and posterior left basal ganglia correlated with recent CT examination. Head MRI also shows vascular type signal within the lower area of blooming artifact at the subarachnoid hemorrhage. Repeat CT head showed stable appearance to minimal left subarachnoid hemorrhage. Patient transition back to regular floors. EEG did not show any epileptiform discharges. Subjective: Patient seen and examined at bedside. No acute events overnight. No new complaints. Pertinent positives and negatives as discussed above, a complete review of systems was performed and all other systems are negative. Vitals Signs Reviewed. General: Nontoxic, no distress, appears older than at stated age, cachectic Derm: Warm, dry Head: Atraumatic, normocephalic, symmetric Eyes: EOMI, no lid lag, anicteric sclera Mouth: No lip lesion, mucus membranes moist Cardiovascular: S1S2 reg, no murmur Lungs: Bibasilar rales, no accessory muscle use, supplemental oxygen Abdominal: Soft, nontender to palpation, no guarding, no appreciable organomeg ethan Ext: No gross muscle atrophy, no edema, no contractures Neuro: CN II-XI grossly intact, no focal neuro deficits Psych: Alert, oriented, appropriate affect Data Reviewed Today: Pertinent Labs: WBC 9.5, hemoglobin 12.7, sodium 128, bicarb 40, creatinine 0.62 Imaging: CTA showed significant flow-limiting stenosis of 71% left internal carotid artery origin Assessment and Plan: . Active: Recent traumatic fall with head injury Acute trace subarachnoid hemorrhage found on head CT Carotid artery stenosis -Neurochecks -Neurology following -Repeat CT head showed stable appearance -Continue atorvastatin, not on any anticoagulation or antiplatelet therapy Acute on chronic hypoxic respiratory failure, resolving Acute diastolic CHF exacerbation, resolving NSTEMI, type 2, no active chest pain Hyponatremia, worsening Hypertension Metabolic alkalosis, improving -Cardiology following, patient currently on oral Lasix 40 twice daily -Continue lisinopril 20 twice daily, continue Farxiga 10 daily, hydralazine 25 3 times daily -Strict I's and O's, daily weights, continue telemetry -Echocardiogram showed normal LV systolic function, aortic sclerosis, could not exclude bicuspid aortic valve, small pericardial effusion. -Sodium down trended likely in the setting of diuretics, if continues to go do wn, we will need to reduce the dose of Lasix Severe protein calorie malnutrition -Dietitian -Magic cup 3 times daily Debility -PT consult Following Chronic: COPD not in exacerbation Depression Dyslipidemia DVT ppx: SCDs Code status: Full code Anticipated discharge place: Pending clinical course Anticipated discharge time: Pending clinical course Objective - Vital Signs Vital signs: Vital Signs Temp 98.2 F 06/14/23 04:00 Pulse 84 06/14/23 09:43 Resp 16 06/14/23 08:00 BP 102/65 06/14/23 08:00 Pulse Ox 97 06/14/23 09:43 FiO2 Intake & Output 06/13/23 06/14/23 06/14/23 18:59 06:59 18:59 Intake Total 1070 40 138 Output Total 1075 1350 1550 Balance -5 -1310 -1412 Weight 58.8 kg Intake: IV 40 40 20 Invasive Line 2 20 20 10 Invasive Line 3 20 20 10 Oral 1030 118 Output: Urine 1075 1350 1550 Other: Voiding Method External Catheter External Catheter External Catheter # Voids 1 1 # Bowel Movements 1 1 1 - Labs CBC & Chem 7: 06/14/23 08:16 06/14/23 08:16 Labs: Abnormal Lab Results - Last 24 Hours (Table) 06/13/23 06/14/23 06/14/23 Range/Units 10:23 08:16 08:16 RBC 4.28 L (4.30-5.90) m/uL Hgb 12.7 L (13.0-17.5) gm/dL Sodium 132 L 128 L (137-145) mmol/L Chloride 85 L 83 L (98-107) mmol/L Carbon Dioxide 44 H* 40 H (22-30) mmol/L BUN 26 H (9-20) mg/dL Creatinine 0.62 L 0.62 L (0.66-1.25) mg/dL Glucose 129 H (74-99) mg/dL
--- NOTE | 2023-06-14 12:14 | P.PN ---
Subjective HISTORY OF PRESENT ILLNESS: The patient is a 73-year-old male who presented to the emergency room with symptoms of progressive dyspnea and worsening edema. He has a history of chronic tobacco use. He has not been using his home oxygen because of difficulty in operating his machine. Cardiology consultation was requested for further evaluation of heart failure. He had an echocardiogram in March 2023 that revealed a preserved systolic function. Patient is vague about any prior history of cardiac disease. He says he may have had a heart attack or heart failure but not very clear. I have no records of prior admission with myocardial infarction. In the emergency room he was noted to have mild troponin elevation but he had a recent fall and injury to his head, his CT scan showed evidence of subarachnoid hemorrhage. No anticoagulation was initiated. The patient had the worsening dyspnea with cough and worsening peripheral edema. He denies any chest discomfort or palpitations. He has a cough and wheezing that has been chronic. He continues to smoke on a regular basis. He was hypertensive on presentation. He has been initiated on diuretics since admission. His NT proBNP was elevated on presentation. He was started on nicardipine on admission. Medications: Lisinopril 20 mg daily, amlodipine 10 mg daily, Lasix 20 mg daily, Lipitor 40 mg daily, aspirin, multivitamin, Zoloft, Ventolin, Symbicort Labs: Hemoglobin 13, WBC 7.3, potassium on admission 5.7, 4.0 this morning. BUN/creatinine 28 and 0.56. NT proBNP 13,100. Troponin 0.079, 0.094, 0.083. Brain CT is consistent with subarachnoid hemorrhage, trace. Chest x-ray is consistent with fluid overload and possible atelectasis. EKG: Sinus mechanism rate of [address]-T wave changes June 13, 2023 Patient examined this morning at the bedside. Patient currently denies chest pain or pressure. He denies shortness of breath. He complains of a headache at the time of examination. Telemetry reveals sinus mechanism with a heart rate in the 90s. Echocardiogram completed revealing ejection fraction 50 to 55%. June 14, 2023 Patient examined this morning. He is sitting up in the chair. He currently denies chest pain or pressure. He denies shortness of breath.. He remains on oral diuretics. Patient does have lower extremity edema. Patient is sitting with his legs in the dependent position at the time of examination. Patient ag reeable to elevating his legs and adding pillows. Telemetry reveals sinus mechanism. PHYSICAL EXAM: VITAL SIGNS: Reviewed. GENERAL: Well-developed in no acute distress. NECK: Supple. No JVD or thyromegaly LUNGS: Respirations even and unlabored. Lungs essentially clear to auscultation bilaterally, diminished. HEART: Regular rate and rhythm. S1 and S2 heard. Systolic murmur noted. EXTREMITIES: Normal range of motion. No clubbing or cyanosis. Peripheral pulses intact. Bilateral lower extremity edema noted, improved ASSESSMENT: 1. Progressive dyspnea and peripheral edema with evidence of CHF, with preserved systolic function 2. Mild troponin elevation, flat, most likely secondary to the CHF and representing a type II cardiac injury 3. Subarachnoid hemorrhage 4. History of hypertension 5. Chronic tobacco use and chronic obstructive lung disease, not using his oxygen 6. History of hyperlipidemia 7. Cachexia PLAN: Continue oral diuretics Continue to elevate lower extremities when patient is sitting up in the chair Continue to monitor blood pressure. Continue telemetry monitoring. Further recommendations pending patient course Nurse practitioner note has been reviewed by physician. Signing provider agrees with the documented findings, assessment, and plan of care documented by JOURNEYMAN MILLWRIGHT as a scribe. Objective - Vital Signs Vital signs: Vital Signs Temp 98.2 F 06/14/23 04:00 Pulse 78 06/14/23 11:46 Resp 16 06/14/23 11:46 BP 154/89 06/14/23 11:46 Pulse Ox 97 06/14/23 11:46 FiO2 Intake & Output 06/13/23 06/14/23 06/14/23 18:59 06:59 18:59 Intake Total 1070 40 138 Output Total 1075 1350 1550 Balance -5 -1310 -1412 Weight 58.8 kg Intake: IV 40 40 20 Invasive Line 2 20 20 10 Invasive Line 3 20 20 10 Oral 1030 118 Output: Urine 1075 1350 1550 Other: Voiding Method External Catheter External Catheter External Catheter # Voids 1 1 # Bowel Movements 1 1 1 - Labs CBC & Chem 7: 06/14/23 08:16 06/14/23 08:16 Labs: Abnormal Lab Results - Last 24 Hours (Table) 06/14/23 06/14/23 Range/Units 08:16 08:16 RBC 4.28 L (4.30-5.90) m/uL Hgb 12.7 L (13.0-17.5) gm/dL Sodium 128 L (137-145) mmol/L Chloride 83 L (98-107) mmol/L Carbon Dioxide 40 H (22-30) mmol/L Creatinine 0.62 L (0.66-1.25) mg/dL Glucose 129 H (74-99) mg/dL
--- NOTE | 2023-06-14 14:05 | P.PN ---
Subjective Progress Note Date: 06/14/23 I am seeing this patient in consultation today June 12, 2023 after he was transferred earlier this morning for the finding of a trace acute subarachnoid hemorrhage on brain CT. Patient is a 73-year-old white male with past medical history significant for CHF, hypertension, COPD, ongoing tobacco dependence, hypertension. Patient actually came to the hospital yesterday evening for increased shortness of breath and lower extremity swelling over the past month. Also endorses exertional dyspnea along with orthopnea. He denies any chest pain. He had a recent hospital admission back in March, for the same and possible superimposed pneumonia. He is oxygen dependent at home, but has reportedly been without for approximately 1 month. He is currently on 4 L/min nasal cannula. SpO2 98%. He is in no respiratory distress. He denies any infectious symptoms such as cough, sputum production, fever, hemoptysis. On arrival to the emergency room, the patient had elevated troponins, he was going to be started on IV heparin. When questioned about previous head injury, the patient did report hitting his head about 1 month ago. He did redemonstrate that in the room. Patient was sent down for a brain CT which found a trace acute subarachnoid hemorrhage near the left subinsular white matter. Patient's admitting physician contacted me for transfer to the intensive care unit. Patient's neurological exam was benign at this point. He is alert and oriented. Able to protect his airway. Blood pressure is stable. As needed IV nicardipine was added to maintain a systolic blood pressure less than 160. I did personally talk to our neurologist. There were initial plans for transfer, however, our neurologist felt it unnecessary if the patient does not need systemic heparinization. Heparin was never started and there is no need for reversal. No witnessed seizure activity. No prophylactic antiepileptics have been added. In the meantime, the patient was transferred to the intensive care unit for close neurological monitoring. Vital signs are stable at this time. Reevaluated today on 06/13/2023, patient is resting in bed, does not seem to be in any distress, denies any specific neurological symptoms, no headache, no syncope, no lightheadedness, patient is relatively asymptomatic. Labs are reviewed, bicarb is 44, repeat brain CT showed stable appearance to minimal left subarachnoid hemorrhage and no suspicious interval findings The patient is seen today June 14, 2023 in follow-up on the selective care unit. He is up ambulating in his room. Awake and alert in no acute distress. Denies any worsening shortness of breath, cough or congestion congestion. Denies any headache. Denies any change in neurological status. CT angiogram revealed significant flow-limiting stenosis of 71% in the left internal carotid artery. Normal [place]. No obvious aneurysm present. White count 9.5. Hemoglobin 12.7. Platelets 323. Sodium 128. Potassium 4.4. Bicarb 40. BUN 18. Creatinine 0.62. He remains on Symbicort, albuterol. Remains on oral diuretics. Neurology following. Objective - Vital Signs Vital signs: Vital Signs Temp 98.2 F 06/14/23 04:00 Pulse 78 06/14/23 11:46 Resp 16 06/14/23 11:46 BP 154/89 06/14/23 11:46 Pulse Ox 97 06/14/23 11:46 FiO2 Intake & Output 06/13/23 06/14/23 06/14/23 18:59 06:59 18:59 Intake Total 1070 40 276 Output Total 1075 1350 1550 Balance -5 -1310 -1274 Weight 58.8 kg Intake: IV 40 40 40 Invasive Line 2 20 20 20 Invasive Line 3 20 20 20 Oral 1030 236 Output: Urine 1075 1350 1550 Other: Voiding Method External Catheter External Catheter External Catheter # Voids 1 1 # Bowel Movements 1 1 1 - Exam GENERAL EXAM: Alert, 73-year-old male, on 4 L nasal cannula, comfortable in no apparent distress. HEAD: Normocephalic and atraumatic EYES: Normal reaction of pupils, equal size. NOSE: Clear with pink turbinates. THROAT: No erythema or exudates. NECK: No masses, no JVD. CHEST: No chest wall deformity. LUNGS: Equal air entry with no crackles, wheeze, rhonchi or dullness. No conversational dyspnea. CVS: S1 and S2 normal with no audible murmur, regular rhythm. No extra heart sounds ABDOMEN: No hepatosplenomegaly, active bowel sounds, no guarding or rigidity. SPINE: No scoliosis or deformity SKIN: No rashes CENTRAL NERVOUS SYSTEM: Alert and fully oriented x 3. Cranial nerves II through XII grossly intact. . EXTREMITIES: There is bilateral lower extremity 3+ edema. No clubbing, or cyanosis. Peripheral pulses are intact. - Labs CBC & Chem 7: 06/14/23 08:16 06/14/23 08:16 Labs: Abnormal Lab Results - Last 24 Hours (Table) 06/14/23 06/14/23 Range/Units 08:16 08:16 RBC 4.28 L (4.30-5.90) m/uL Hgb 12.7 L (13.0-17.5) gm/dL Sodium 128 L (137-145) mmol/L Chloride 83 L (98-107) mmol/L Carbon Dioxide 40 H (22-30) mmol/L Creatinine 0.62 L (0.66-1.25) mg/dL Glucose 129 H (74-99) mg/dL Assessment and Plan Assessment: Acute trace subarachnoid hemorrhage, brain CT found a trace acute subarachnoid hemorrhage near the left subinsular white matter, no herniation or midline shift. Acute on chronic hypoxemic respiratory failure, possibly secondary to diastolic CHF exacerbation, followed by cardiology Bilateral lower extremity edema, on diuretics Elevated troponins, rule out NSTEMI Chronic obstructive pulmonary disease, stable Chronic ongoing tobacco dependence Hypertension Severe protein-calorie malnutrition Plan: The patient was seen and evaluated Stable from the pulmonary/critical care standpoint Neurology is following for possible transfer to tertiary care center We will continue to follow I have personally seen and examined the patient, performed the documentation and the assessment and plan as written. Number of minutes spent on the visit: 10.
[2023-06-14] MEDS: ATORVASTATIN 40 MG TAB PO SCH (21:03)
[2023-06-15] MEDS: LORATADINE 10 MG TAB PO SCH (08:51)
[2023-06-15] MEDS: DAPAGLIFLOZIN PROPANEDIOL 10 MG TABLET PO SCH (08:51)
[2023-06-15] MEDS: lisinopriL 20 MG TAB PO SCH ×2 (08:51→20:17)
[2023-06-15] MEDS: SERTRALINE 50 MG TAB PO SCH (08:51)
[2023-06-15] MEDS: FUROSEMIDE 40 MG TAB PO SCH ×2 (08:51→16:04)
[2023-06-15] MEDS: hydrALAZINE HCL 50 MG TAB PO SCH ×3 (08:53→20:17)
[2023-06-15] MEDS: SYMBICORT 160-4.5 MCG INHALER INHALATION SCH ×2 (09:05→20:53)
[2023-06-15 09:51] LABS: African American GFR (CKD) >90 (>60 ml/min/1.73 sqM); Blood Urea Nitrogen 19 mg/dL (9-20); Calcium 8.7 mg/dL (8.4-10.2); Chloride 83 mmol/L (98-107); Glucose 103 mg/dL (74-99); Magnesium 1.7 mg/dL (1.6-2.3); Non-African American GFR(CKD) >90 (>60 ml/min/1.73 sqM); Sodium 127 mmol/L (137-145)
[2023-06-15 09:57] LABS: Anion Gap 1 mmol/L
[2023-06-15 10:03] LABS: Carbon Dioxide 43 mmol/L (22-30)
--- NOTE | 2023-06-15 10:47 | P.PN ---
Subjective Progress Note Date: 06/14/23 Patient was seen for a follow-up. Patient complaining of occipital headache. He states that he ran out of the hot pack. Denies frontal headache. Denies any numbness or tingling. Denies any focal symptoms. Patient is laying comfortably in the bed. Objective - Vital Signs Vital signs: Vital Signs Temp 98.2 F 06/14/23 04:00 Pulse 78 06/14/23 11:46 Resp 16 06/14/23 11:46 BP 154/89 06/14/23 11:46 Pulse Ox 97 06/14/23 11:46 FiO2 Intake & Output 06/13/23 06/14/23 06/14/23 18:59 06:59 18:59 Intake Total 1070 40 138 Output Total 1075 1350 1550 Balance -5 -1310 -1412 Weight 58.8 kg Intake: IV 40 40 20 Invasive Line 2 20 20 10 Invasive Line 3 20 20 10 Oral 1030 118 Output: Urine 1075 1350 1550 Other: Voiding Method External Catheter External Catheter External Catheter # Voids 1 1 # Bowel Movements 1 1 1 - Exam Patient's mental status, speech and language functions are normal. Visual mehta are full, face is symmetric and muscle strength is normal. Patient has SCDs in place. - Labs CBC & Chem 7: 06/14/23 08:16 06/15/23 08:24 Labs: Abnormal Lab Results - Last 24 Hours (Table) 06/14/23 06/14/23 Range/Units 08:16 08:16 RBC 4.28 L (4.30-5.90) m/uL Hgb 12.7 L (13.0-17.5) gm/dL Sodium 128 L (137-145) mmol/L Chloride 83 L (98-107) mmol/L Carbon Dioxide 40 H (22-30) mmol/L Creatinine 0.62 L (0.66-1.25) mg/dL Glucose 129 H (74-99) mg/dL Assessment and Plan Assessment: * Subarachnoid hemorrhage, left perisylvian region. Patient did suffer from a fall 3 weeks ago and hitting his head lightly. Uncertain if related to the fall, as the hyperdensity on CT scan appears "fresh hemorrhage", should not show up by now after 3 weeks. * Rule out aneurysm * Hypertension * CHF exacerbation * Mild troponin elevation, flat * COPD * Peripheral edema * Hard of hearing * Tobacco use * Marijuana use Plan: * No antiplatelets or anticoagulants. * MRI of the brain revealed 2 foci of acute hemorrhage left periventricular region and posterior left basal ganglia on. Secondary appears to correlate with the recent CT examinations. * MRA of the head revealed normal MRA lower [place]. Vascular type signal may be within the lower areas of blooming artifact at the subarachnoid hemorrhage. A 2 mm aneurysm cannot be excluded. * Repeat CT head performed today reveals stable appearance to minimal left subarachnoid hemorrhage. Chronic appearing periventricular white matter ischemic type changes. No suspicious interval findings. * I had discussed case with neurointervention Dr. Foy, about these findings and also because of report of possible 2 mm aneurysm. * Dr. Foy recommended checking CTA of head and neck. * CTA of head and neck revealed significant flow-limiting stenosis of 71% left ICA origin. Normal [place]. No obvious aneurysm evident. * Dr. Foy reviewed all images, and informed that he does not see any aneurysm, however he did recommend patient to undergo DSA as an outpatient. * Check carotid Doppler. * Keep head end of bed at least 30 degree. * Keep blood pressure <140/80 * PT, OT, speech therapy * Other medical management as per IM/critical care. Discussed with ICU staff. * EEG was abnormal due to intermittent background slowing, suggestive of mild generalized cerebral dysfunction, as can be seen with encephalopathy. No epileptiform activity was seen. No indication for antiepileptic medication. * Recommend complete tobacco cessation.
--- NOTE | 2023-06-15 10:49 | P.PN ---
Subjective HISTORY OF PRESENT ILLNESS: The patient is a 73-year-old male who presented to the emergency room with symptoms of progressive dyspnea and worsening edema. He has a history of chronic tobacco use. He has not been using his home oxygen because of difficulty in operating his machine. Cardiology consultation was requested for further evaluation of heart failure. He had an echocardiogram in March 2023 that revealed a preserved systolic function. Patient is vague about any prior history of cardiac disease. He says he may have had a heart attack or heart failure but not very clear. I have no records of prior admission with myocardial infarction. In the emergency room he was noted to have mild troponin elevation but he had a recent fall and injury to his head, his CT scan showed evidence of subarachnoid hemorrhage. No anticoagulation was initiated. The patient had the worsening dyspnea with cough and worsening peripheral edema. He denies any chest discomfort or palpitations. He has a cough and wheezing that has been chronic. He continues to smoke on a regular basis. He was hypertensive on presentation. He has been initiated on diuretics since admission. His NT proBNP was elevated on presentation. He was started on nicardipine on admission. Medications: Lisinopril 20 mg daily, amlodipine 10 mg daily, Lasix 20 mg daily, Lipitor 40 mg daily, aspirin, multivitamin, Zoloft, Ventolin, Symbicort Labs: Hemoglobin 13, WBC 7.3, potassium on admission 5.7, 4.0 this morning. BUN/creatinine 28 and 0.56. NT proBNP 13,100. Troponin 0.079, 0.094, 0.083. Brain CT is consistent with subarachnoid hemorrhage, trace. Chest x-ray is consistent with fluid overload and possible atelectasis. EKG: Sinus mechanism rate of [address]-T wave changes June 13, 2023 Patient examined this morning at the bedside. Patient currently denies chest pain or pressure. He denies shortness of breath. He complains of a headache at the time of examination. Telemetry reveals sinus mechanism with a heart rate in the 90s. Echocardiogram completed revealing ejection fraction 50 to 55%. June 14, 2023 Patient examined this morning. He is sitting up in the chair. He currently denies chest pain or pressure. He denies shortness of breath.. He remains on oral diuretics. Patient does have lower extremity edema. Patient is sitting with his legs in the dependent position at the time of examination. Patient ag reeable to elevating his legs and adding pillows. Telemetry reveals sinus mechanism. June 15, 2023 Patient examined this morning at the bedside. Patient denies chest pain pressure. He denies shortness of breath. He remains on nasal cannula at 6 L to maintain oxygen saturations are in the 92%. Patient's blood pressures are elevated this morning with a systolic in the 150s. PHYSICAL EXAM: VITAL SIGNS: Reviewed. GENERAL: Well-developed in no acute distress. NECK: Supple. No JVD or thyromegaly LUNGS: Respirations even and unlabored. Lungs essentially clear to auscultation bilaterally, diminished. HEART: Regular rate and rhythm. S1 and S2 heard. Systolic murmur noted. EXTREMITIES: Normal range of motion. No clubbing or cyanosis. Peripheral pulses intact. Bilateral lower extremity edema noted, improved ASSESSMENT: 1. Progressive dyspnea and peripheral edema with evidence of CHF, with preserved systolic function 2. Mild troponin elevation, flat, most likely secondary to the CHF and representing a type II cardiac injury 3. Subarachnoid hemorrhage 4. History of hypertension 5. Chronic tobacco use and chronic obstructive lung disease, not using his oxygen 6. History of hyperlipidemia 7. Cachexia PLAN: Continue oral diuretics Continue to elevate lower extremities when patient is sitting up in the chair Continue to monitor blood pressure. Continue telemetry monitoring Increase hydralazine to 50 mg 3 times a day for optimal blood pressure control Further recommendations pending patient course Nurse practitioner note has been reviewed by physician. Signing provider agrees with the documented findings, assessment, and plan of care documented by COMPUTER SYSTEMS MANAGER as a scribe. Objective - Vital Signs Vital signs: Vital Signs Temp 97.6 F 06/14/23 20:59 Pulse 89 06/15/23 04:10 Resp 18 06/15/23 04:10 BP 159/77 06/15/23 04:10 Pulse Ox 92 L 06/15/23 09:06 FiO2 Intake & Output 06/14/23 06/15/23 06/15/23 18:59 06:59 18:59 Intake Total 276 Output Total 1550 1550 Balance -1274 -1550 Weight 58.5 kg Intake: IV 40 Invasive Line 2 20 Invasive Line 3 20 Oral 236 Output: Urine 1550 1550 Other: Voiding Method External Catheter External Catheter # Voids 1 # Bowel Movements 1 1 - Labs CBC & Chem 7: 06/14/23 08:16 06/15/23 08:24 Labs: Abnormal Lab Results - Last 24 Hours (Table) 06/15/23 Range/Units 08:24 Sodium 127 L (137-145) mmol/L Chloride 83 L (98-107) mmol/L Carbon Dioxide 43 H* (22-30) mmol/L Creatinine 0.52 L (0.66-1.25) mg/dL Glucose 103 H (74-99) mg/dL
--- NOTE | 2023-06-15 11:15 | XR ---
EXAMINATION TYPE: XR chest 1V portable DATE OF EXAM: 06/15/2023 COMPARISON: 06/11/2023 INDICATION: CHF TECHNIQUE: Single frontal view of the chest is obtained. FINDINGS: The heart size is normal. The pulmonary vasculature is normal. Right lower lobe infiltrate is present. There is blunting of right costophrenic angle. Findings appea r stable from comparison IMPRESSION: 1. Mild right lower lobe infiltrate and/or effusion. Correlate for atelectasis and pneumonia
--- NOTE | 2023-06-15 13:05 | P.PN ---
Subjective Progress Note Date: 06/15/23 Hospital Course: 73-year-old male with history of chronic hypoxic respiratory failure, COPD, hypertension, diastolic heart failure patient presented with shortness of breath. Patient also had recent fall about 2 to 3 weeks ago sustaining head injury. P at the time of admission, vital signs were within normal limit limits except for hypoxia. Patient was started on nasal cannula. Sinus rhythm. Chest x-ray showed increased interstitial opacities. Laboratory workup showed mild hyponatremia slightly elevated troponin, proBNP at 13,000. Patient was admitted for CHF exacerbation started on IV diuretics. Head CT was also completed, which showed trace acute subarachnoid hemorrhage with no herniation or midline shift. Neurology was consulted, patient was moved to medical ICU for close monitoring. MRI brain shows 2 foci of acute hemorrhage left periventricular region and posterior left basal ganglia correlated with recent CT examination. Head MRI also shows vascular type signal within the lower area of blooming artifact at the subarachnoid hemorrhage. Repeat CT head showed stable appearance to minimal left subarachnoid hemorrhage. Patient transition back to regular floors. EEG did not show any epileptiform discharges. Subjective: Patient seen and examined at bedside. No acute events overnight. No new complaints. Pertinent positives and negatives as discussed above, a complete review of systems was performed and all other systems are negative. Vitals Signs Reviewed. General: Nontoxic, no distress, appears older than at stated age, cachectic Derm: Warm, dry Head: Atraumatic, normocephalic, symmetric Eyes: EOMI, no lid lag, anicteric sclera Mouth: No lip lesion, mucus membranes moist Cardiovascular: S1S2 reg, no murmur Lungs: Bibasilar rales, no accessory muscle use, supplemental oxygen Abdominal: Soft, nontender to palpation, no guarding, no appreciable organomeg ethan Ext: No gross muscle atrophy, no edema, no contractures Neuro: CN II-XI grossly intact, no focal neuro deficits Psych: Alert, oriented, appropriate affect Data Reviewed Today: Pertinent Labs: WBC 9.5, hemoglobin 12.7, sodium 128, bicarb 40, creatinine 0.62 Imaging: Chest x-ray dependently interpreted, shows bibasilar interstitial opacities, more prominent in right lower lobe, similar to how he presented initially. Assessment and Plan: . Active: Recent traumatic fall with head injury Acute trace subarachnoid hemorrhage found on head CT Carotid artery stenosis -Neurochecks -Neurology following -Repeat CT head showed stable appearance -Continue atorvastatin, not on any anticoagulation or antiplatelet therapy Acute on chronic hypoxic respiratory failure, resolving Acute diastolic CHF exacerbation, resolving NSTEMI, type 2, no active chest pain Hyponatremia, worsening Hypertension Metabolic alkalosis, contraction related -Cardiology note reviewed, continue on Lasix 40 twice daily, monitor renal function and electrolytes -Continue lisinopril 20 twice daily, continue Farxiga 10 daily, hydralazine increased to 50 twice daily -Strict I's and O's, daily weights, continue telemetry -Echocardiogram showed normal LV systolic function, aortic sclerosis, could not exclude bicuspid aortic valve, small pericardial effusion. -Sodium down trended likely in the setting of diuretics, if continues to go down, we will need to reduce the dose of Lasix Severe protein calorie malnutrition -Dietitian -Magic cup 3 times daily Debility -PT consult Following Chronic: COPD not in exacerbation Depression Dyslipidemia DVT ppx: SCDs Code status: Full code Anticipated discharge place: Pending clinical course Anticipated discharge time: Pending clinical course Objective - Vital Signs Vital signs: Vital Signs Temp 98.3 F 06/15/23 08:00 Pulse 84 06/15/23 08:00 Resp 16 06/15/23 08:00 BP 150/82 06/15/23 08:00 Pulse Ox 92 L 06/15/23 09:06 FiO2 Intake & Output 06/14/23 06/15/23 06/15/23 18:59 06:59 18:59 Intake Total 276 240 Output Total 1550 1550 Balance -1274 -1550 240 Weight 58.5 kg Intake: IV 40 Invasive Line 2 20 Invasive Line 3 20 Oral 236 240 Output: Urine 1550 1550 Other: Voiding Method External Catheter External Catheter External Catheter # Voids 1 # Bowel Movements 1 1 - Labs CBC & Chem 7: 06/14/23 08:16 06/15/23 08:24 Labs: Abnormal Lab Results - Last 24 Hours (Table) 06/15/23 Range/Units 08:24 Sodium 127 L (137-145) mmol/L Chloride 83 L (98-107) mmol/L Carbon Dioxide 43 H* (22-30) mmol/L Creatinine 0.52 L (0.66-1.25) mg/dL Glucose 103 H (74-99) mg/dL
--- NOTE | 2023-06-15 14:16 | P.PN ---
Subjective Progress Note Date: 06/15/23 Principal diagnosis: Acute subarachnoid hemorrhage and acute on chronic hypoxic respiratory failure secondary to acute on chronic diastolic congestive heart failure I am seeing this patient in consultation today June 12, 2023 after he was transferred earlier this morning for the finding of a trace acute subarachnoid hemorrhage on brain CT. Patient is a 73-year-old white male with past medical history significant for CHF, hypertension, COPD, ongoing tobacco dependence, hy pertension. Patient actually came to the hospital yesterday evening for increased shortness of breath and lower extremity swelling over the past month. Also endorses exertional dyspnea along with orthopnea. He denies any chest pain. He had a recent hospital admission back in March, for the same and possible superimposed pneumonia. He is oxygen dependent at home, but has reportedly been without for approximately 1 month. He is currently on 4 L/min nasal cannula. SpO2 98%. He is in no respiratory distress. He denies any infectious symptoms such as cough, sputum production, fever, hemoptysis. On arrival to the emergency room, the patient had elevated troponins, he was going to be started on IV heparin. When questioned about previous head injury, the patient did report hitting his head about 1 month ago. He did redemonstrate that in the room. Patient was sent down for a brain CT which found a trace acute subarachnoid hemorrhage near the left subinsular white matter. Patient's admitting physician contacted me for transfer to the intensive care unit. Patient's neurological exam was benign at this point. He is alert and oriented. Able to protect his airway. Blood pressure is stable. As needed IV nicardipine was added to maintain a systolic blood pressure less than 160. I did personally talk to our neurologist. There were initial plans for transfer, however, our neurologist felt it unnecessary if the patient does not need systemic heparinization. Heparin was never started and there is no need for reversal. No witnessed seizure activity. No prophylactic antiepileptics have been added. In the meantime, the patient was transferred to the intensive care unit for close neurological monitoring. Vital signs are stable at this time. Reevaluated today on 06/13/2023, patient is resting in bed, does not seem to be in any distress, denies any specific neurological symptoms, no headache, no syncope, no lightheadedness, patient is relatively asymptomatic. Labs are reviewed, bicarb is 44, repeat brain CT showed stable appearance to minimal left subarachnoid hemorrhage and no suspicious interval findings Reevaluated today on 06/15/2023, patient is feeling better, relatively asymptomatic, nonetheless the patient continues to require oxygen at 4 to 6 L vi a nasal cannula and his O2 saturations ranging above 94%. I recommended a follow-up chest x-ray this morning, and it clearly showed evidence of COPD and I strongly suspect and a limited infiltrate in the right lower lobe neurologically, the patient is doing well, no headache, no neurological sympto ms, apparently his subarachnoid hemorrhage is not clinically significant at this point. WBC count yesterday was 9.5, sodium today is 127 bicarb is 43 BUN is 19 creatinine 0.52 I suspect that the patient has chronic COPD and chronic hypercapnia with metabolic compensation Objective - Vital Signs Vital signs: Vital Signs Temp 97.5 F L 06/15/23 12:00 Pulse 82 06/15/23 12:00 Resp 18 06/15/23 12:00 BP 104/55 06/15/23 12:00 Pulse Ox 94 L 06/15/23 12:00 FiO2 Intake & Output 06/14/23 06/15/23 06/15/23 18:59 06:59 18:59 Intake Total 276 358 Output Total 1550 1550 Balance -1274 -1550 358 Weight 58.5 kg Intake: IV 40 Invasive Line 2 20 Invasive Line 3 20 Oral 236 358 Output: Urine 1550 1550 Other: Voiding Method External Catheter External Catheter External Catheter # Voids 1 # Bowel Movements 1 1 1 - Exam GENERAL EXAM: Alert, 73-year-old white male, frail/cachectic, comfortable in no apparent distress. HEAD: Normocephalic and atraumatic EYES: Normal reaction of pupils, equal size. NOSE: Clear with pink turbinates. THROAT: No erythema or exudates. NECK: No masses, no JVD. CHEST: No chest wall deformity. LUNGS: Equal air entry with no crackles, wheeze, rhonchi or dullness. On 4 L /min nasal cannula. No conversational dyspnea or accessory muscle use.. CVS: S1 and S2 normal with no audible murmur, regular rhythm. No extra heart sounds ABDOMEN: No hepatosplenomegaly, active bowel sounds, no guarding or rigidity. SPINE: No scoliosis or deformity SKIN: No rashes CENTRAL NERVOUS SYSTEM: Alert and fully oriented x 3. Cranial nerves II through XII grossly intact. . EXTREMITIES: There is bilateral lower extremity 3+ edema. No clubbing, or cyanosis. Peripheral pulses are intact. - Labs CBC & Chem 7: 06/14/23 08:16 06/15/23 08:24 Labs: Abnormal Lab Results - Last 24 Hours (Table) 06/15/23 Range/Units 08:24 Sodium 127 L (137-145) mmol/L Chloride 83 L (98-107) mmol/L Carbon Dioxide 43 H* (22-30) mmol/L Creatinine 0.52 L (0.66-1.25) mg/dL Glucose 103 H (74-99) mg/dL Assessment and Plan Assessment: Impression Acute trace subarachnoid hemorrhage, brain CT found a trace acute subarachnoid hemorrhage near the left subinsular white matter, no herniation or midline shift. Acute on chronic hypoxemic respiratory failure, possibly secondary to diastolic CHF exacerbation, followed by cardiology suspect underlying COPD but inactive. Bilateral lower extremity edema, on diuretics Suspect right lower lobe pneumonia, possibly hospital-acquired pneumonia considering this is a relatively new finding. Elevated troponins, rule out NSTEMI Chronic obstructive pulmonary disease, stable Chronic ongoing tobacco dependence Hypertension Severe protein-calorie malnutrition Recommendation: Check procalcitonin level Start patient empirically on Augmentin 875 twice daily, however if procalcitonin level is normal could consider stopping antibiotics at that point Continue present treatment plan as per neurology Continue present treatment plan as per cardiology Patient cannot go on anticoagulation because of his subarachnoid hemorrhage Close monitoring of his blood pressure Will continue to follow. Time with Patient: Less than 30
--- NOTE | 2023-06-15 14:35 | US ---
EXAMINATION TYPE: US carotid duplex BILAT DATE OF EXAM: 06/15/2023 COMPARISON: US CLINICAL INDICATION: Male, 73 years old with history of ICA stenosis; Stenosis TECHNIQUE: Carotid duplex ultrasound examination. Indirect Doppler criteria was utilized. FINDINGS: EXAM MEASUREMENTS: RIGHT: Peak Systolic Velocity (PSV) cm/sec ----- Right CCA: 95.8 ----- Right ICA: 95.1 ----- Right ECA: 160.1 ICA/CCA ratio: 1.0 RIGHT: End Diastole cm/sec ----- Right CCA: 31.8 ----- Right ICA: 27.3 ----- Right ECA: 20.7 LEFT: Peak Systolic Velocity (PSV) cm/sec ----- Left CCA: 94.3 ----- Left ICA: 120.0 ----- Left ECA: 87.8 ICA/CCA ratio: 1.3 LEFT: End Diastole cm/sec ----- Left CCA: 24.5 ----- Left ICA: 31.3 ----- Left ECA: 19.1 VERTEBRALS (direction of flow): Right Vertebral: Antegrade Left Vertebral: Antegrade Rhythm: Normal RECORD CHANGER NOTES: Extensive heterogeneous plaque bilaterally with elevated velocities bilateral ECA' s IMPRESSION: Scattered atherosclerotic disease without sonographic evidence of significant stenosis.
[2023-06-15] MEDS: AMOXIC-POT CLAV 875-125MG 1 EACH TAB PO SCH ×2 (16:04→20:17)
[2023-06-15] MEDS: ATORVASTATIN 40 MG TAB PO SCH (20:17)
--- NOTE | 2023-06-15 23:18 | P.PN ---
Subjective Progress Note Date: 06/15/23 Patient was seen for a follow-up. Patient denies headache. He states the neck hurts just a little bit. Offers no new complaints. Objective - Vital Signs Vital signs: Vital Signs Temp 97.5 F L 06/15/23 12:00 Pulse 82 06/15/23 12:00 Resp 18 06/15/23 12:00 BP 104/55 06/15/23 12:00 Pulse Ox 94 L 06/15/23 12:00 FiO2 Intake & Output 06/14/23 06/15/23 06/15/23 18:59 06:59 18:59 Intake Total 276 358 Output Total 1550 1550 Balance -1274 -1550 358 Weight 58.5 kg Intake: IV 40 Invasive Line 2 20 Invasive Line 3 20 Oral 236 358 Output: Urine 1550 1550 Other: Voiding Method External Catheter External Catheter External Catheter # Voids 1 # Bowel Movements 1 1 1 - Exam Patient's mental status, speech and language functions are normal. Visual mehta are full, face is symmetric and muscle strength is normal. Patient has SCDs in place. - Labs CBC & Chem 7: 06/14/23 08:16 06/15/23 08:24 Labs: Abnormal Lab Results - Last 24 Hours (Table) 06/15/23 Range/Units 08:24 Sodium 127 L (137-145) mmol/L Chloride 83 L (98-107) mmol/L Carbon Dioxide 43 H* (22-30) mmol/L Creatinine 0.52 L (0.66-1.25) mg/dL Glucose 103 H (74-99) mg/dL Assessment and Plan Assessment: * Subarachnoid hemorrhage, left perisylvian region. Patient did suffer from a fall 3 weeks ago and hitting his head lightly. Uncertain if related to the fall, as the hyperdensity on CT scan appears "fresh hemorrhage", should not show up by now after 3 weeks. * Rule out left MCA cerebral aneurysm * Hypertension * CHF exacerbation * Mild troponin elevation, flat * COPD * Peripheral edema * Hard of hearing * Tobacco use * Marijuana use Plan: * No antiplatelets or anticoagulants. * MRI of the brain 06/12/2023 revealed 2 foci of acute hemorrhage left periventricular region and posterior left basal ganglion. Secondary appears to correlate with the recent CT examinations. I personally reviewed MRI agree with the findings. * MRA of the head revealed normal MRA [place]. Vascular type signal may be within the lower areas of blooming artifact at the subarachnoid hemorrhage. A 2 mm aneurysm cannot be excluded. * Repeat CT head 06/13/2023 reveals stable appearance to minimal left subarachnoid hemorrhage. Chronic appearing periventricular white matter ischemic type changes. No suspicious interval findings. * Repeat CT head in the morning. * I had discussed case with neurointervention Dr. Foy, about these findings and also because of report of possible 2 mm aneurysm. * Dr. Foy recommended checking CTA of head and neck. * CTA of head and neck revealed significant flow-limiting stenosis of 71% left ICA origin. Normal [place]. No obvious aneurysm evident. * Dr. Foy reviewed all images, and informed that he does not see any aneurysm, however he did recommend patient to undergo DSA as an outpatient. * Carotid Doppler revealed scattered atherosclerotic disease without sonographic evidence of significant stenosis. Antegrade flow in both vertebral arteries. * Keep head end of bed at least 30 degree. * Keep blood pressure <140/80 * PT, OT, speech therapy * Other medical management as per IM/critical care. Discussed with ICU staff. * EEG was abnormal due to intermittent background slowing, suggestive of mild generalized cerebral dysfunction, as can be seen with encephalopathy. No epileptiform activity was seen. No indication for antiepileptic medication. * Recommend complete tobacco cessation. * Dr. Vinod Nye to resume neurology service in the morning.
[2023-06-16 07:23] LABS: African American GFR (CKD) >90 (>60 ml/min/1.73 sqM); Anion Gap 5 mmol/L; Blood Urea Nitrogen 19 mg/dL (9-20); Calcium 8.6 mg/dL (8.4-10.2); Carbon Dioxide 38 mmol/L (22-30); Chloride 84 mmol/L (98-107); Glucose 90 mg/dL (74-99); Magnesium 1.6 mg/dL (1.6-2.3); Non-African American GFR(CKD) >90 (>60 ml/min/1.73 sqM); Potassium 3.9 mmol/L (3.5-5.1); Sodium 127 mmol/L (137-145)
--- NOTE | 2023-06-16 08:48 | CT ---
EXAMINATION TYPE: CT brain wo con CT DLP: 1094.9 mGycm, Automated exposure control for dose reduction was used. DATE OF EXAM: 06/16/2023 8:28 AM COMPARISON: Prior CT Brain from 06/13/2023. CLINICAL INDICATION:Male, 73 years old with history of Follow-up subarachnoid hemorrhage, Follow up o n subarachnoid hemorrhage TECHNIQUE: Brain: Multiple axial CT images of the brain were obtained without IV contrast. . Coronal and sagitta l reformats reviewed. FINDINGS: Brain: Extra-axial spaces: 0.9 cm rounded area adjacent to the fourth ventricle favored to represent calcifi cation and is unchanged from prior exam. Similar vague increased density near the sylvian fissure on the left (series 201, image 23). No identified subdural hemorrhage. Ventricular system: Within normal limits Cerebral parenchyma: No acute mass effect. The wyatt-white junction is well differentiated. Scattered hypoattenuating areas are seen within the white matter. Cerebellum: Unremarkable. Mass effect: No evidence of midline shift. Intracranial vasculature: Atherosclerotic calcifications of the intracranial vessels. Soft tissues: Normal. Calvarium/osseous structures: No depressed skull fracture. Paranasal sinuses and mastoid air cells: Clear Visualized orbits: Orbital contents are intact. IMPRESSION: No significant change in minimal left subarachnoid hemorrhage near the sylvian fissure. No new concer justo findings.
[2023-06-16] MEDS: SYMBICORT 160-4.5 MCG INHALER INHALATION SCH ×2 (08:58→21:26)
[2023-06-16] MEDS: LORATADINE 10 MG TAB PO SCH (09:37)
[2023-06-16] MEDS: DAPAGLIFLOZIN PROPANEDIOL 10 MG TABLET PO SCH (09:37)
[2023-06-16] MEDS: hydrALAZINE HCL 50 MG TAB PO SCH ×4 (09:37→21:48)
[2023-06-16] MEDS: AMOXIC-POT CLAV 875-125MG 1 EACH TAB PO SCH ×2 (09:37→21:48)
[2023-06-16] MEDS: FUROSEMIDE 40 MG TAB PO SCH ×2 (09:37→16:56)
[2023-06-16] MEDS: lisinopriL 20 MG TAB PO SCH ×2 (09:37→09:44)
[2023-06-16] MEDS: SERTRALINE 50 MG TAB PO SCH (09:37)
--- NOTE | 2023-06-16 13:00 | P.PN ---
Subjective Progress Note Date: 06/16/23 73-year-old male with history of chronic hypoxic respiratory failure, COPD, hypertension, diastolic heart failure patient presented with shortness of breath. Patient also had recent fall about 2 to 3 weeks ago sustaining head injury. At the time of admission, vital signs were within normal limit limits except for hypoxia. Patient was started on nasal cannula. Sinus rhythm. Chest x-ray showed increased interstitial opacities. Laboratory workup showed mild hyponatremia slightly elevated troponin, proBNP at 13,000. Patient was admitted for CHF exacerbation started on IV diuretics. Head CT was also completed, which showed trace acute subarachnoid hemorrhage with no herniation or midline shift. Neurology was consulted, patient was moved to medical ICU for close monitoring. MRI brain shows 2 foci of acute hemorrhage left periventricular region and posterior left basal ganglia correlated with recent CT examination. Head MRI also shows vascular type signal within the lower area of blooming artifact at the subarachnoid hemorrhage. Repeat CT head showed stable appearance to minimal left subarachnoid hemorrhage. Patient transition back to regular floors. EEG did not show any epileptiform discharges. 06/16 Patient was seen and examined. Nasal cannula not on laying on the side of the bed. Hypoxic to 70s. Patient reports having oxygen at home but conflicting reports of wether he uses it or not. He is feeling well and wanting to go home. Repeat CT head shows minimal subarachnoid hemorrhage. BMP Na 127, Cl 84, bicarb 38, Cr 0.49. General: Non toxic, no distress, appears at stated age, cachectic Derm: Warm, dry Head: Atraumatic, normocephalic, symmetric Eyes: EOMI, no lid lag, anicteric sclera Mouth: No lip lesion, mucus membranes moist Cardiovascular: S1S2 reg, no murmur Lungs: Decreased BS bilateral, no rhonchi, no rales Ext: No gross muscle atrophy, no edema, no contractures Neuro: no focal neuro deficits Psych: Alert, oriented, appropriate affect Based on my assessment of this patient, this patient meets a moderate complexity level of care. Patient has a new diagnosis of traumatic SAH likely from syncope from hypoxia with uncertain prognosis. Recent traumatic fall with head injury: Fall purecations. PT and OT on board. Acute trace subarachnoid hemorrhage found on head CT: ST consulted for cognitive eval. Neurology on board. Carotid artery stenosis: As seen on carotid doppler. Lipitor 40 mg QHS. Chronic respiratory failure: Unclear if patient has decision making capability with regard to wearning his oxygen. Mentation could have worsened with recent SAH. HypoCl metabolic alkalosis: Likely compensatory from chronic respiratory failure. Hyponatremia: SIADH vs hypovolemic due to diuretic use. Diastolic CHF: Appears euvolemic. Hydralazine 50 mg PO TID. Switch Lisinopril to 20 mg PO QD from BID due to hypotension today. NSTEMI: Troponins flat. ACS ruled out. No ASA due to recent SAH. CODE STATUS: FULL CODE. DVT Prophylaxis: SCD GI Prophylaxis: Designated medical POA if patient is not able to make medical decisions for themselves: I have reviewed the following design center consultant notes: I have reviewed the results of the following tests: BMP. CT head. I have ordered the following tests: BMP. VBG. I have discussed the care of this patient with the following independent historian: Discussed with RN and case management. Patient seems to be unsafe for discharge home. I have independently interpreted the following test below: I have discussed the management of this patient with the following physician: Discussed with Dr. Nye. Objective - Vital Signs Vital signs: Vital Signs Temp 97.8 F 06/16/23 08:00 Pulse 100 06/16/23 08:00 Resp 18 06/16/23 08:00 BP 90/54 06/16/23 08:00 Pulse Ox 91 L 06/16/23 08:00 FiO2 Intake & Output 06/15/23 06/16/23 06/16/23 18:59 06:59 18:59 Intake Total 358 0 Output Total 500 600 Balance -142 -600 Weight 54 kg Intake: Oral 358 0 Output: Urine 500 600 Other: Voiding Method External Catheter External Catheter # Bowel Movements 1 1 - Labs CBC & Chem 7: 06/14/23 08:16 06/16/23 06:30 Labs: Abnormal Lab Results - Last 24 Hours (Table) 06/16/23 Range/Units 06:30 Sodium 127 L (137-145) mmol/L Chloride 84 L (98-107) mmol/L Carbon Dioxide 38 H (22-30) mmol/L Creatinine 0.49 L (0.66-1.25) mg/dL
--- NOTE | 2023-06-16 14:43 | P.PN ---
Subjective Progress Note Date: 06/16/23 HISTORY OF PRESENT ILLNESS: The patient is a 73-year-old male who presented to the emergency room with s ymptoms of progressive dyspnea and worsening edema. He has a history of chronic tobacco use. He has not been using his home oxygen because of difficulty in operating his machine. Cardiology consultation was requested for further evaluation of heart failure. He had an echocardiogram in March 2023 that revealed a preserved systolic function. Patient is vague about any prior history of cardiac disease. He says he may have had a heart attack or heart failure but not very clear. I have no records of prior admission with myocardial infarction. In the emergency room he was noted to have mild troponin elevation but he had a recent fall and injury to his head, his CT scan showed evidence of subarachnoid hemorrhage. No anticoagulation was initiated. The patient had the worsening dyspnea with cough and worsening peripheral edema. He denies any chest discomfort or palpitations. He has a cough and wheezing that has been chronic. He continues to smoke on a regular basis. He was hype rtensive on presentation. He has been initiated on diuretics since admission. His NT proBNP was elevated on presentation. He was started on nicardipine on admission. Medications: Lisinopril 20 mg daily, amlodipine 10 mg daily, Lasix 20 mg daily, Lipitor 40 mg daily, aspirin, multivitamin, Zoloft, Ventolin, Symbicort Labs: Hemoglobin 13, WBC 7.3, potassium on admission 5.7, 4.0 this morning. BUN/creatinine 28 and 0.56. NT proBNP 13,100. Troponin 0.079, 0.094, 0.083. Brain CT is consistent with subarachnoid hemorrhage, trace. Chest x-ray is consistent with fluid overload and possible atelectasis. EKG: Sinus mechanism rate of [address]-T wave changes June 13, 2023 Patient examined this morning at the bedside. Patient currently denies chest pain or pressure. He denies shortness of breath. He complains of a headache at the time of examination. Telemetry reveals sinus mechanism with a heart rate in the 90s. Echocardiogram completed revealing ejection fraction 50 to 55%. June 14, 2023 Patient examined this morning. He is sitting up in the chair. He currently denies chest pain or pressure. He denies shortness of breath.. He remains on oral diuretics. Patient does have lower extremity edema. Patient is sitting with his legs in the dependent position at the time of examination. Patient agreeable to elevating his legs and adding pillows. Telemetry reveals sinus mechanism. June 15, 2023 Patient examined this morning at the bedside. Patient denies chest pain pressure. He denies shortness of breath. He remains on nasal cannula at 6 L to maintain oxygen saturations are in the 92%. Patient's blood pressures are elevated this morning with a systolic in the 150s. 06/16 Patient denies having any lightheadedness, no shortness of breath. His edema has been resolved. Blood pressure 90/54, heart rate in the 89-100 range. Afebrile, pulse ox 91 to 93% on 6 L nasal cannula. Repeat blood work reveals sodium 127, potassium 3.9, BUN 19 creatinine 0.49, CO2 is 38. PHYSICAL EXAM: VITAL SIGNS: Reviewed. GENERAL: Well-developed in no acute distress. NECK: Supple. No JVD or thyromegaly LUNGS: Respirations even and unlabored. Lungs essentially clear to auscultation bilaterally, diminished. HEART: Regular rate and rhythm. S1 and S2 heard. Systolic murmur noted. EXTREMITIES: Normal range of motion. No clubbing or cyanosis. Peripheral pulses intact. Bilateral lower extremity edema noted, improved ASSESSMENT: 1. Progressive dyspnea and peripheral edema with evidence of CHF, with preserved systolic function 2. Mild troponin elevation, flat, most likely secondary to the CHF and representing a type II cardiac injury 3. Subarachnoid hemorrhage 4. History of hypertension 5. Chronic tobacco use and chronic obstructive lung disease, not using his oxygen 6. History of hyperlipidemia 7. Cachexia PLAN: Continue oral diuretics Continue to elevate lower extremities when patient is sitting up in the chair Continue hydralazine to 50 mg 3 times a day for optimal blood pressure control Cardiology will sign off this case and follow on an as-needed basis. Please reconsult for any new concerns. Patient may follow-up in the office in one to 2 weeks. Nurse practitioner note has been reviewed by physician. Signing provider agrees with the documented findings, assessment, and plan of care documented by BREASTFEEDING EDUCATOR as a scribe. Objective - Vital Signs Vital signs: Vital Signs Temp 97.8 F 06/16/23 08:00 Pulse 100 06/16/23 08:00 Resp 18 06/16/23 08:00 BP 90/54 06/16/23 08:00 Pulse Ox 91 L 06/16/23 08:00 FiO2 Intake & Output 06/15/23 06/16/23 06/16/23 18:59 06:59 18:59 Intake Total 358 0 120 Output Total 500 600 400 Balance -142 -600 -280 Weight 54 kg Intake: Oral 358 0 120 Output: Urine 500 600 400 Other: Voiding Method External Catheter External Catheter # Bowel Movements 1 1 - Labs CBC & Chem 7: 06/14/23 08:16 06/16/23 06:30 Labs: Abnormal Lab Results - Last 24 Hours (Table) 06/16/23 Range/Units 06:30 Sodium 127 L (137-145) mmol/L Chloride 84 L (98-107) mmol/L Carbon Dioxide 38 H (22-30) mmol/L Creatinine 0.49 L (0.66-1.25) mg/dL
--- NOTE | 2023-06-16 14:44 | P.PN ---
Subjective Progress Note Date: 06/16/23 Principal diagnosis: CHF, respiratory failure. Acute subarachnoid hemorrhage and acute on chronic hypoxic respiratory failure secondary to acute on chronic diastolic congestive heart failure I am seeing this patient in consultation today June 12, 2023 after he was transferred earlier this morning for the finding of a trace acute subarachnoid hemorrhage on brain CT. Patient is a 73-year-old white male with past medical history significant for CHF, hypertension, COPD, ongoing tobacco dependence, hypertension. Patient actually came to the hospital yesterday evening for increased shortness of breath and lower extremity swelling over the past month. Also endorses exertional dyspnea along with orthopnea. He denies any chest pain. He had a recent hospital admission back in March, for the same and possible superimposed pneumonia. He is oxygen dependent at home, but has reportedly been without for approximately 1 month. He is currently on 4 L/min nasal cannula. SpO2 98%. He is in no respiratory distress. He denies any infectious symptoms such as cough, sputum production, fever, hemoptysis. On arrival to the emergency room, the patient had elevated troponins, he was going to be started on IV heparin. When questioned about previous head injury, the patient did report hitting his head about 1 month ago. He did redemonstrate that in the room. Patient was sent down for a brain CT which found a trace acute subarachnoid hemorrhage near the left subinsular white matter. Patient's admitting physician contacted me for transfer to the intensive care unit. Patient's neurological exam was benign at this point. He is alert and oriented. Able to protect his airway. Blood pressure is stable. As needed IV nicardipine was added to maintain a systolic blood pressure less than 160. I did personally talk to our neurologist. There were initial plans for transfer, however, our neurologist felt it unnecessary if the patient does not need systemic heparinization. Heparin was never started and there is no need for reversal. No witnessed seizure activity. No prophylactic antiepileptics have been added. In the meantime, the patient was transferred to the intensive care unit for close neurological monitoring. Vital signs are stable at this time. Reevaluated today on 06/13/2023, patient is resting in bed, does not seem to be in any distress, denies any specific neurological symptoms, no headache, no syncope, no lightheadedness, patient is relatively asymptomatic. Labs are reviewed, bicarb is 44, repeat brain CT showed stable appearance to minimal left subarachnoid hemorrhage and no suspicious interval findings Reevaluated today on 06/15/2023, patient is feeling better, relatively asymptomatic, nonetheless the patient continues to require oxygen at 4 to 6 L via nasal cannula and his O2 saturations ranging above 94%. I recommended a follow-up chest x-ray this morning, and it clearly showed evidence of COPD and I strongly suspect and a limited infiltrate in the right lower lobe neurologically, the patient is doing well, no headache, no neurological symptoms, apparently his subarachnoid hemorrhage is not clinically significant at this point. WBC count yesterday was 9.5, sodium today is 127 bicarb is 43 BUN is 19 creatinine 0.52 I suspect that the patient has chronic COPD and chronic hypercapnia with metabolic compensation Progress note dated June 16, 2023. The patient is seen today in room 374. Currently, the patient is on room air, but his saturations are only 72%. He was not wearing his oxygen, and it was placed back on him by the nurse, in the hospital physician. He should be on 6 L by nasal cannula. The patient is not receiving any IV fluids. Having said that, the patient did not appear to be in any distress. Labs today include a sodium 127, potassium 3.9, chloride 84, CO2 38, BUN 19, creatinine 0.49. Calcium is 8.6 with a magnesium of 1.6. Brain CT showed no significant change in the patient's minimal left subarachnoid hemorrhage. Objective - Vital Signs Vital signs: Vital Signs Temp 97.8 F 06/16/23 08:00 Pulse 100 06/16/23 08:00 Resp 18 06/16/23 08:00 BP 90/54 06/16/23 08:00 Pulse Ox 91 L 06/16/23 08:00 FiO2 Intake & Output 06/15/23 06/16/23 06/16/23 18:59 06:59 18:59 Intake Total 358 0 120 Output Total 500 600 400 Balance -142 -600 -280 Weight 54 kg Intake: Oral 358 0 120 Output: Urine 500 600 400 Other: Voiding Method External Catheter External Catheter # Bowel Movements 1 1 - Exam No acute distress, oriented 3. Currently on 6 L nasal cannula. HEENT examination is grossly unremarkable. Mucous membranes are moist. No oral lesions. Neck supple. Full range of motion. No adenopathy thyromegaly or neck vein distention. Cardiovascular examination reveals regular rhythm rate. S1-S2 normal. No S3 or S4. No discernible murmur noted. Heart rate 80 bpm. Lungs reveal clear breath sounds. Breath sounds are equal bilaterally. No adventitious lung sounds including wheezes rhonchi or crackles. Room air saturation was only 72%. Abdomen soft, with bowel sounds. No masses or tenderness. Extremities are intact. No cyanosis or clubbing. Mild to moderate edema. Skin is without rash or lesion. Neurologic examination is brief but nonfocal. - Labs CBC & Chem 7: 06/14/23 08:16 06/16/23 06:30 Labs: Abnormal Lab Results - Last 24 Hours (Table) 06/16/23 Range/Units 06:30 Sodium 127 L (137-145) mmol/L Chloride 84 L (98-107) mmol/L Carbon Dioxide 38 H (22-30) mmol/L Creatinine 0.49 L (0.66-1.25) mg/dL Assessment and Plan Assessment: Acute small subarachnoid hemorrhage, with no planned intervention at this time. Acute on chronic hypoxemic respiratory failure, secondary to diastolic CHF. Bilateral lower extremity edema. Possible right lower lobe pneumonia. Rule out non-ST segment elevation myocardial infarction. Chronic obstructive pulmonary disease, relatively stable. Chronic and ongoing tobacco dependence. Hypertension. Severe protein/calorie malnutrition. Plan: Plan dated June 16, 2023. The patient continues on Augmentin. In addition, the patient continues on Lasix 40 mg twice a day, and albuterol breathing treatments, as needed. Labs, x-rays, and all medications are reviewed. We have encouraged the patient to continue to wear his oxygen. When we entered the room, he was on room air, with saturations of only 72%. He was placed back on nasal cannula 6 L. Labs, x-rays, and medications are reviewed. The patient's overall prognosis remains guarded. No additional recommendations at this time. Time with Patient: Less than 30
--- NOTE | 2023-06-16 17:19 | P.PN ---
Subjective Progress Note Date: 06/16/23 I am seeing the patient for the first time during this admission. Please refer to Dr. Benites's notes for further details. It seems the patient had a fall 3 weeks prior to present to the ED and hit his head slightly and is seems the patient has subarachnoid hemorrhage over the left parasylvian region. It seems that interventional neurologist recommended diagnostic cerebral angiogram as an outpatient and did not feel there is aneurysm per Dr. Benites's note. Denies of any headache. He feels he is doing much better. Objective - Vital Signs Vital signs: Vital Signs Temp 98.7 F 06/16/23 16:00 Pulse 90 06/16/23 16:00 Resp 18 06/16/23 16:00 BP 121/77 06/16/23 16:00 Pulse Ox 90 L 06/16/23 12:00 FiO2 Intake & Output 06/15/23 06/16/23 06/16/23 18:59 06:59 18:59 Intake Total 358 0 120 Output Total 500 600 400 Balance -142 -600 -280 Weight 54 kg Intake: Oral 358 0 120 Output: Urine 500 600 400 Other: Voiding Method External Catheter External Catheter External Catheter # Bowel Movements 1 1 - Exam General: Lying in bed and is not in acute distress. Neuro: She is awake alert and oriented to self place and time. The patient is following simple commands. No aphasia and no neglect. The pupils are round equal reactive to light. Pupils are round 3 mm bilaterally. Visual mehta are full to confrontation. Extraocular movement was intact. No facial weakness. No dysarthria. Motor: strength is lifting all extremities above gravity equally. No focal deficit is appreciated Sensation is normal to touch throughout. - Labs CBC & Chem 7: 06/14/23 08:16 06/16/23 06:30 Labs: Abnormal Lab Results - Last 24 Hours (Table) 06/16/23 Range/Units 06:30 Sodium 127 L (137-145) mmol/L Chloride 84 L (98-107) mmol/L Carbon Dioxide 38 H (22-30) mmol/L Creatinine 0.49 L (0.66-1.25) mg/dL Assessment and Plan Assessment: * Subarachnoid hemorrhage, left perisylvian region. Patient did suffer from a fall 3 weeks ago and hitting his head lightly. Uncertain if related to the fall, as the hyperdensity on CT scan appears "fresh hemorrhage", should not show up by now after 3 weeks---stable. Denies of any headache. * Rule out left MCA cerebral aneurysm * Hypertension * CHF exacerbation * Mild troponin elevation, flat * COPD * Peripheral edema * Hard of hearing * Tobacco use * Marijuana use Plan: * No antiplatelets or anticoagulants. * MRI of the brain 06/12/2023 revealed 2 foci of acute hemorrhage left periventricular region and posterior left basal ganglion. Secondary appears to correlate with the recent CT examinations. I personally reviewed MRI agree with the findings. * MRA of the head revealed normal MRA [place]. Vascular type signal may be within the lower areas of blooming artifact at the subarachnoid hemorrhage. A 2 mm aneurysm cannot be excluded. * Repeat CT head 06/13/2023 reveals stable appearance to minimal left subarachnoid hemorrhage. Chronic appearing periventricular white matter ischemic type changes. No suspicious interval findings. * Repeat CT head today a.m.: There is reported as no significant change and and minimal left subarachnoid hemorrhage near the sylvian fissure. No new concerning finding. * Dr. Benites, discussed case with neurointervention Dr. Foy, about these findings and also because of report of possible [address] Benites, Dr. Foy reviewed all images, and informed that he does not see any aneurysm, however he did recommend patient to undergo DSA as an outpatient. * CTA of head and neck revealed significant flow-limiting stenosis of 71% left ICA origin. Normal [place]. No obvious aneurysm evident. * Carotid Doppler revealed scattered atherosclerotic disease without sonographic evidence of significant stenosis. Antegrade flow in both vertebral arteries. * EEG was abnormal due to intermittent background slowing, suggestive of mild generalized cerebral dysfunction, as can be seen with encephalopathy. No epileptiform activity was seen. No indication for antiepileptic medication. * Keep head end of bed at least 30 degree. * Keep blood pressure <140/80 * PT, OT, speech therapy * Other medical management as per IM and other specialist. * Recommend complete tobacco cessation. * Upon discharge recommend patient to follow-up with a interventionalists neurologist as an outpatient as well as general neurologist in town within 2 weeks. The plan is discussed with his nurse. Time with Patient: Less than 30
[2023-06-16] MEDS: ATORVASTATIN 40 MG TAB PO SCH (21:48)
[2023-06-17] MEDS: SYMBICORT 160-4.5 MCG INHALER INHALATION SCH ×2 (08:21→22:06)
[2023-06-17] MEDS: FUROSEMIDE 40 MG TAB PO SCH ×2 (08:32→16:00)
[2023-06-17] MEDS: LORATADINE 10 MG TAB PO SCH (08:32)
[2023-06-17] MEDS: AMOXIC-POT CLAV 875-125MG 1 EACH TAB PO SCH ×2 (08:32→20:46)
[2023-06-17] MEDS: DAPAGLIFLOZIN PROPANEDIOL 10 MG TABLET PO SCH (08:32)
[2023-06-17] MEDS: SERTRALINE 50 MG TAB PO SCH (08:32)
[2023-06-17] MEDS: hydrALAZINE HCL 50 MG TAB PO SCH (08:33)
[2023-06-17] MEDS: lisinopriL 20 MG TAB PO SCH (08:58)
[2023-06-17 09:39] LABS: VBG PH 7.47 (7.31-7.41)
[2023-06-17 10:01] LABS: African American GFR (CKD) >90 (>60 ml/min/1.73 sqM); Blood Urea Nitrogen 25 mg/dL (9-20); Calcium 8.3 mg/dL (8.4-10.2); Chloride 83 mmol/L (98-107); Glucose 142 mg/dL (74-99); Non-African American GFR(CKD) >90 (>60 ml/min/1.73 sqM); Potassium 3.9 mmol/L (3.5-5.1); Sodium 127 mmol/L (137-145)
[2023-06-17 10:08] LABS: Anion Gap 5 mmol/L
[2023-06-17 10:10] LABS: Carbon Dioxide 39 mmol/L (22-30)
--- NOTE | 2023-06-17 12:03 | P.PN ---
Subjective Progress Note Date: 06/17/23 73-year-old male with history of chronic hypoxic respiratory failure, COPD, hypertension, diastolic heart failure patient presented with shortness of breath. Patient also had recent fall about 2 to 3 weeks ago sustaining head injury. At the time of admission, vital signs were within normal limit limits except for hypoxia. Patient was started on nasal cannula. Sinus rhythm. Chest x-ray showed increased interstitial opacities. Laboratory workup showed mild hyponatremia slightly elevated troponin, proBNP at 13,000. Patient was admitted for CHF exacerbation started on IV diuretics. Head CT was also completed, which showed trace acute subarachnoid hemorrhage with no herniation or midline shift. Neurology was consulted, patient was moved to medical ICU for close monitoring. MRI brain shows 2 foci of acute hemorrhage left periventricular region and posterior left basal ganglia correlated with recent CT examination. Head MRI also shows vascular type signal within the lower area of blooming artifact at the subarachnoid hemorrhage. Repeat CT head showed stable appearance to minimal left subarachnoid hemorrhage. Patient transition back to regular floors. EEG did not show any epileptiform discharges. 06/16 Patient was seen and examined. Nasal cannula not on laying on the side of the bed. Hypoxic to 70s. Patient reports having oxygen at home but conflicting reports of wether he uses it or not. He is feeling well and wanting to go home. Repeat CT head shows minimal subarachnoid hemorrhage. BMP Na 127, Cl 84, bicarb 38, Cr 0.49. 06/17 Patient was seen and examined. No complaints, wants to go home. Yesterday, eloped with son, found in the lobby without any oxygen, brought back to his room. ST did evaluate him, SLUMS, mild cognitive impairment. Psychiatry consulted for decision making capacity. VBG pH 7.47 pCO2 62. BMP Na 127, Cl 83, bicarb 39, BUN 25, Cr 0.55, glu 142, Ca 8.3. His D-Dimer is found to be elevated at 1.81. However, he does not have IV access and is refusing to get one. He does understand that this test is meant to rule out pulmonary embolus but continues to refuse testing. General: Non toxic, no distress, appears at stated age, cachectic Derm: Warm, dry Head: Atraumatic, normocephalic, symmetric Eyes: EOMI, no lid lag, anicteric sclera Mouth: No lip lesion, mucus membranes moist Cardiovascular: S1S2 reg, no murmur Lungs: Decreased BS bilateral, no rhonchi, no rales Ext: No gross muscle atrophy, no edema, no contractures Neuro: no focal neuro deficits Psych: Alert, oriented, appropriate affect Based on my assessment of this patient, this patient meets a moderate complexity level of care. Patient has a new diagnosis of traumatic SAH likely from syncope from hypoxia with uncertain prognosis. Recent traumatic fall with head injury: Fall purecations. PT and OT on board. Acute trace subarachnoid hemorrhage found on head CT: ST consulted for cognitive eval. Neurology on board. Carotid artery stenosis: As seen on carotid doppler. Lipitor 40 mg QHS. Chronic respiratory failure: Respiratory acidosis with metabolic alkalosis. Unclear if patient has decision making capability with regard to wearing his oxygen. Mentation could have worsened with recent SAH. Psyc consulted, discussed with Dr. Iglesias. Hyponatremia: SIADH vs hypovolemic due to diuretic use. Diastolic CHF: Appears euvolemic. Hydralazine 50 switched to 25 mg PO TID, Lisin opril 20 mg PO QD due to hypotension today. NSTEMI: Troponins flat. ACS ruled out. No ASA due to recent SAH. CODE STATUS: FULL CODE. DVT Prophylaxis: SCD GI Prophylaxis: Designated medical POA if patient is not able to make medical decisions for themselves: I have reviewed the following technology consultant notes: I have reviewed the results of the following tests: BMP. VBG. D-Dimer I have ordered the following tests: I have discussed the care of this patient with the following independent historian: Discussed with RN and case management. I have independently interpreted the following test below: I have discussed the management of this patient with the following physician: Discussed with Dr. Iglesias. Objective - Vital Signs Vital signs: Vital Signs Temp 97.6 F 06/17/23 08:30 Pulse 84 06/17/23 08:30 Resp 18 06/17/23 08:30 BP 92/54 06/17/23 08:30 Pulse Ox 91 L 06/17/23 08:30 FiO2 Intake & Output 06/16/23 06/17/23 06/17/23 18:59 06:59 18:59 Intake Total 120 240 598 Output Total 400 600 600 Balance -280 -360 -2 Weight 50.5 kg Intake: Oral 120 240 598 Output: Urine 400 600 600 Other: Voiding Method External Catheter Toilet Toilet External Catheter External Catheter # Bowel Movements 1 - Labs CBC & Chem 7: 06/14/23 08:16 06/17/23 09:04 Labs: Abnormal Lab Results - Last 24 Hours (Table) 06/17/23 06/17/23 06/17/23 Range/Units 09:04 09:05 09:05 D-Dimer 1.81 H (<0.60) mg/L FEU VBG pH 7.47 H (7.31-7.41) VBG pCO2 62 H (37-51) mmHg VBG HCO3 45 H (24-28) mmol/L Sodium 127 L (137-145) mmol/L Chloride 83 L (98-107) mmol/L Carbon Dioxide 39 H (22-30) mmol/L BUN 25 H (9-20) mg/dL Creatinine 0.55 L (0.66-1.25) mg/dL Glucose 142 H (74-99) mg/dL Calcium 8.3 L (8.4-10.2) mg/dL
--- NOTE | 2023-06-17 13:45 | P.PN ---
Subjective Progress Note Date: 06/17/23 Principal diagnosis: CHF, respiratory failure. Acute subarachnoid hemorrhage and acute on chronic hypoxic respiratory failure secondary to acute on chronic diastolic congestive heart failure I am seeing this patient in consultation today June 12, 2023 after he was transferred earlier this morning for the finding of a trace acute subarachnoid hemorrhage on brain CT. Patient is a 73-year-old white male with past medical history significant for CHF, hypertension, COPD, ongoing tobacco dependence, hypertension. Patient actually came to the hospital yesterday evening for increased shortness of breath and lower extremity swelling over the past month. Also endorses exertional dyspnea along with orthopnea. He denies any chest pain. He had a recent hospital admission back in March, for the same and possible superimposed pneumonia. He is oxygen dependent at home, but has reportedly been without for approximately 1 month. He is currently on 4 L/min nasal cannula. SpO2 98%. He is in no respiratory distress. He denies any infectious symptoms such as cough, sputum production, fever, hemoptysis. On arrival to the emergency room, the patient had elevated troponins, he was going to be started on IV heparin. When questioned about previous head injury, the patient did report hitting his head about 1 month ago. He did redemonstrate that in the room. Patient was sent down for a brain CT which found a trace acute subarachnoid hemorrhage near the left subinsular white matter. Patient's admitting physician contacted me for transfer to the intensive care unit. Patient's neurological exam was benign at this point. He is alert and oriented. Able to protect his airway. Blood pressure is stable. As needed IV nicardipine was added to maintain a systolic blood pressure less than 160. I did personally talk to our neurologist. There were initial plans for transfer, however, our neurologist felt it unnecessary if the patient does not need systemic heparinization. Heparin was never started and there is no need for reversal. No witnessed seizure activity. No prophylactic antiepileptics have been added. In the meantime, the patient was transferred to the intensive care unit for close neurological monitoring. Vital signs are stable at this time. Reevaluated today on 06/13/2023, patient is resting in bed, does not seem to be in any distress, denies any specific neurological symptoms, no headache, no syncope, no lightheadedness, patient is relatively asymptomatic. Labs are reviewed, bicarb is 44, repeat brain CT showed stable appearance to minimal left subarachnoid hemorrhage and no suspicious interval findings Reevaluated today on 06/15/2023, patient is feeling better, relatively asymptomatic, nonetheless the patient continues to require oxygen at 4 to 6 L via nasal cannula and his O2 saturations ranging above 94%. I recommended a follow-up chest x-ray this morning, and it clearly showed evidence of COPD and I strongly suspect and a limited infiltrate in the right lower lobe neurologically, the patient is doing well, no headache, no neurological symptoms, apparently his subarachnoid hemorrhage is not clinically significant at this point. WBC count yesterday was 9.5, sodium today is 127 bicarb is 43 BUN is 19 creatinine 0.52 I suspect that the patient has chronic COPD and chronic hypercapnia with metabolic compensation Progress note dated June 16, 2023. The patient is seen today in room 374. Currently, the patient is on room air, but his saturations are only 72%. He was not wearing his oxygen, and it was placed back on him by the nurse, in the hospital physician. He should be on 6 L by nasal cannula. The patient is not receiving any IV fluids. Having said that, the patient did not appear to be in any distress. Labs today include a sodium 127, potassium 3.9, chloride 84, CO2 38, BUN 19, creatinine 0.49. Calcium is 8.6 with a magnesium of 1.6. Brain CT showed no significant change in the patient's minimal left subarachnoid hemorrhage. Progress note dated June 17, 2023. This is a 73-year-old gentleman seen in room 374. Currently, the patient is on 6 L of oxygen. He is not receiving any IV fluids. Currently, labs include a D- dimer of 1.81, and a venous blood gas showing a pCO2 of 62, and a pH of 7.47. Sodium 127, potassium 3.9, chloride 83, CO2 39, BUN 25, and creatinine 0.55. Glucose is 142 with a calcium of 8.3. Objective - Vital Signs Vital signs: Vital Signs Temp 97.6 F 06/17/23 08:30 Pulse 84 06/17/23 08:30 Resp 18 06/17/23 08:30 BP 92/54 06/17/23 08:30 Pulse Ox 91 L 06/17/23 08:30 FiO2 Intake & Output 06/16/23 06/17/23 06/17/23 18:59 06:59 18:59 Intake Total 120 240 598 Output Total 400 600 600 Balance -280 -360 -2 Weight 50.5 kg Intake: Oral 120 240 598 Output: Urine 400 600 600 Other: Voiding Method External Catheter Toilet Toilet External Catheter External Catheter # Bowel Movements 1 - Exam No acute distress, oriented 3. Currently on 6 L nasal cannula. HEENT examination is grossly unremarkable. Mucous membranes are moist. No oral lesions. Neck supple. Full range of motion. No adenopathy thyromegaly or neck vein distention. Cardiovascular examination reveals regular rhythm rate. S1-S2 normal. No S3 or S4. No discernible murmur noted. Heart rate 84 bpm. Lungs reveal clear breath sounds. Breath sounds are equal bilaterally. No adventitious lung sounds including wheezes rhonchi or crackles. 6 L saturation was 92%. Abdomen soft, with bowel sounds. No masses or tenderness. Extremities are intact. No cyanosis or clubbing. Mild to moderate edema. Skin is without rash or lesion. Neurologic examination is brief but nonfocal. - Labs CBC & Chem 7: 06/14/23 08:16 06/17/23 09:04 Labs: Abnormal Lab Results - Last 24 Hours (Table) 06/17/23 06/17/23 06/17/23 Range/Units 09:04 09:05 09:05 D-Dimer 1.81 H (<0.60) mg/L FEU VBG pH 7.47 H (7.31-7.41) VBG pCO2 62 H (37-51) mmHg VBG HCO3 45 H (24-28) mmol/L Sodium 127 L (137-145) mmol/L Chloride 83 L (98-107) mmol/L Carbon Dioxide 39 H (22-30) mmol/L BUN 25 H (9-20) mg/dL Creatinine 0.55 L (0.66-1.25) mg/dL Glucose 142 H (74-99) mg/dL Calcium 8.3 L (8.4-10.2) mg/dL Assessment and Plan Assessment: Acute small subarachnoid hemorrhage, with no planned intervention at this time. Acute on chronic hypoxemic respiratory failure, secondary to diastolic CHF. Bilateral lower extremity edema. Possible right lower lobe pneumonia. Rule out non-ST segment elevation myocardial infarction. Chronic obstructive pulmonary disease, relatively stable. Chronic and ongoing tobacco dependence. Hypertension. Severe protein/calorie malnutrition. Plan: Plan dated June 16, 2023. The patient continues on Augmentin. In addition, the patient continues on Lasix 40 mg twice a day, and albuterol breathing treatments, as needed. Labs, x-rays, and all medications are reviewed. We have encouraged the patient to continue to wear his oxygen. When we entered the room, he was on room air, with saturations of only 72%. He was placed back on nasal cannula 6 L. Labs, x-rays, and medications are reviewed. The patient's overall prognosis remains guarded. No additional recommendations at this time. Plan dated June 17, 2023. The patient is currently on 6 L of oxygen. Saturations are in the low 90s. He does not appear to have any respiratory distress. The patient is not receiving any IV fluids. Labs, x-rays, and medications are all reviewed. The patient continues on albuterol inhaler, Symbicort, Augmentin, and Lasix, among other medications. We will continue to follow, make recommendations along the way. Prognosis is guarded. No additional recommendations at this time. The patient is encouraged to keep his oxygen on. Time with Patient: Less than 30
[2023-06-17 15:02] VITALS: BMI 13.5
[2023-06-17] MEDS ORDERED: OLANZapine 2.5 MG TAB PO PRN (15:22)
[2023-06-17] MEDS ORDERED: OLANZapine 10 MG VIAL IM PRN (15:22)
[2023-06-17] MEDS: hydrALAZINE HCL 25 MG TAB PO SCH ×2 (16:00→20:46)
[2023-06-17] MEDS: MELATONIN 3 MG TABLET PO SCH (20:46)
[2023-06-17] MEDS: ATORVASTATIN 40 MG TAB PO SCH (20:46)
--- NOTE | 2023-06-17 21:33 | P.CN ---
Psychiatric Consult - . Consult date: 06/17/23 Consult:: 06/17/23 15:22 IDENTIFYING DATA: This patient is a 73-year-old male, currently lives alone in an apartment, he is , he has 4 kids REASON FOR REFERRAL: Psychiatry was consulted for capacity evaluation HISTORY OF PRESENT ILLNESS: The patient presented to the hospital on 06/11 for SOB, patient has a hx of COPD and supposed to be on home , presented with LE swelling. he also had hyponatremia, was admitted to the medical floors with CHF exacerbation, hypoxia and a subarachnoid hemorrage and also respiratory failure. Nurse and hospitalist claimed that patient apparently attempted to elope from the hospital and apparently has not been able to take care of himself at home. patient knows his name, location, does not know the specific date however does know its 2023. he spoke briefly about his sx coming into the hospital mainly his swelling. he minimized his need for hospitalization and stated that he was promised that he could leave today. he made several vague threats about causing issues if he is not d/c. he beleives that because he has an oxygen tank that he is stable to go home. he was not able to verbalize the risks of going home too early against medical advice and was not able to appreciate the extent of his physical condition. claims his mood is "fine" and denies any anxiety. he denies any issues with sleep and appetite. At this time patient denies any suicidal or homical ideations, intent or plan. Patient denies any auditory, visual hallucinations and denies any paranoia or delusions. Patients admits to using cigarettes and cannabis regulalry. he claims that he doesnt use his oxygen much at home. PAST PSYCHIATRIC HISTORY: Patient has a a history of anxiety/depression. currently on zoloft. states that he was once psychiatrically hospitalized . [Patient denies any psychiatric outpatient follow-up. Patient denies any history of suicide attempts in the past. Past Medical History: COPD, Hypertension, Pneumonia History of Any Multi-Drug Resistant Organisms: None Reported Past Surgical History: Appendectomy, Tonsillectomy Past Anesthesia/Blood Transfusion Reactions: No Reported Reaction Past Psychological History: No Psychological Hx Reported Smoking Status: Current some day smoker, Former smoker Past Alcohol Use History: Occasional Past Drug Use History: Marijuana ALLERGIES: as per EMR. CHEMICAL DEPENDENCY HISTORY: as per HPI. FAMILY PSYCHIATRIC/SUBSTANCE USE HISTORY: denies SOCIAL HISTORY: Patient was born and raised in [place], [place] and also in [place]. claism that he finishe high school, served in the [employer] for 9 months. 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 states that he also served a brief amount of time in [facility] for drug related charges. MENTAL STATUS EXAM: General Appearance: Patient appears to be thin/frail, stated age is alert, pleasant, and cooperative. Patient appears to have [fair] hygiene and grooming wearing hospital gown with [fair] eye contact. Behavior: [Patient is calmly lying in bed without any agitated behavior.] mildly irritable Speech: Patient's speech is fluent and nonpressured. concrete Mood/Affect: Patient reports their mood is "fine", affect is congruent and constricted Suicidality/Homicidality: Patient denies having any suicidal or homicidal ideation intent or plan. Perceptions: Patient denies any visual hallucinations [and denies any auditory hallucinations] Though content/process: There is no evidence of any delusional thought content and thought process is linear and goal-directed. rationilizing and minimizing his condition. Memory and concentration: AOX2-3, grossly intact for the purposes of this session. Cannot spell "WORLD" backwards Judgment and insight: [poor] IMPRESSIONS: History of depressive disorder subarachnoid hemorrhage nonadherence with medical treatment PLAN: -At this time patient DOES NOT meet criteria for inpatient psychiatric admission. -Patient DOES NOT have decision making capacity at this time and is unable to reason through and communicate/appreciate the risks, benefits and alternatives to treatment and care. -Delirium precautions recommended with patient including - avoiding use of narcotics and [employer]URANCE [employer]IONER sedatives, limit anticholinergic medications when possible, frequent re-orientation, minimize use of restraints, open window shades during the day and close them at night -Would recommend the following medication changes/additions: melatonin qhs for sleep, added zyprexa 2.5 mg tid prn for agitation both PO and IM if needed. can continue on current dose of zoloft. -Communicated plan to patient's nurse and hospitalist -Psychiatry will sign off at this time -Please contact with any questions. 06/17/23 21:10
[2023-06-18] MEDS: SYMBICORT 160-4.5 MCG INHALER INHALATION SCH ×2 (08:09→21:29)
[2023-06-18] MEDS: LORATADINE 10 MG TAB PO SCH (08:36)
[2023-06-18] MEDS: FUROSEMIDE 40 MG TAB PO SCH ×2 (08:36→15:54)
[2023-06-18] MEDS: SERTRALINE 50 MG TAB PO SCH (08:36)
[2023-06-18] MEDS: lisinopriL 20 MG TAB PO SCH (08:36)
[2023-06-18] MEDS: AMOXIC-POT CLAV 875-125MG 1 EACH TAB PO SCH (08:36)
[2023-06-18] MEDS: DAPAGLIFLOZIN PROPANEDIOL 10 MG TABLET PO SCH (08:36)
[2023-06-18] MEDS: hydrALAZINE HCL 25 MG TAB PO SCH ×3 (08:36→21:48)
--- NOTE | 2023-06-18 13:38 | P.DS ---
Providers Date of admission: 06/11/23 18:48 Expected date of discharge: 06/18/23 Attending physician: Donya David MD Consults: 06/11/23 18:45 Consult Physician Routine Consulting Provider: [facility] Consult Reason/Comments: chf, elevated troponin Do you want consulting provider notified?: Yes 06/12/23 02:49 Consult Physician Urgent Consulting Provider: Tia Spangler Consult Reason/Comments: SAH Do you want consulting provider notified?: Yes 06/12/23 03:00 Consult Physician Routine Consulting Provider: Balaji Benites Consult Reason/Comments: SAH Do you want consulting provider notified?: Already Contacted 06/16/23 14:57 Consult Physician Routine Consulting Provider: Félxi Iglesias Consult Reason/Comments: decision making capacity Do you want consulting provider notified?: Yes Primary care physician: [facility] Course: 73-year-old male with history of chronic hypoxic respiratory failure, COPD, hypertension, diastolic heart failure patient presented with shortness of breath. Patient also had recent fall about 2 to 3 weeks ago sustaining head injury. At the time of admission, vital signs were within normal limit limits except for hypoxia. Patient was started on nasal cannula. Sinus rhythm. Chest x-ray showed increased interstitial opacities. Laboratory workup showed mild hyponatremia slightly elevated troponin, proBNP at 13,000. Patient was admitted for CHF exacerbation started on IV diuretics. Head CT was also completed, which showed trace acute subarachnoid hemorrhage with no herniation or midline shift. Neurology was consulted, patient was moved to medical ICU for close monitoring. MRI brain shows 2 foci of acute hemorrhage left periventricular region and posterior left basal ganglia correlated with recent CT examination. Head MRI also shows vascular type signal within the lower area of blooming artifact at the subarachnoid hemorrhage. Repeat CT head showed stable appearance to minimal left subarachnoid hemorrhage. Patient transition back to regular floors. EEG did not show any epileptiform discharges. 06/16 Patient was seen and examined. Nasal cannula not on laying on the side of the bed. Hypoxic to 70s. Patient reports having oxygen at home but conflicting reports of wether he uses it or not. He is feeling well and wanting to go home. Repeat CT head shows minimal subarachnoid hemorrhage. BMP Na 127, Cl 84, bicarb 38, Cr 0.49. 06/17 Patient was seen and examined. No complaints, wants to go home. Yesterday, eloped with son, found in the lobby without any oxygen, brought back to his room. ST did evaluate him, SLUMS, mild cognitive impairment. Psychiatry consulted for decision making capacity. VBG pH 7.47 pCO2 62. BMP Na 127, Cl 83, bicarb 39, BUN 25, Cr 0.55, glu 142, Ca 8.3. His D-Dimer is found to be elevated at 1.81. However, he does not have IV access and is refusing to get one. He does understand that this test is meant to rule out pulmonary embolus but continues to refuse testing. I attempted to call the [facility] twice [facility] Patient was seen and examined. He is upset that people are lying to him and that he can't go home. Discussed with Dr. Iglesias, patient does not have decision making capacity. His daughter is in the process of obtaining guardianship from the courts. We will need to discuss discharge disposition with her daughter to ensure a safe discharge home. Plans for discharge home if we are able to accomplish this today. General: Non toxic, no distress, appears at stated age, cachectic Derm: Warm, dry Head: Atraumatic, normocephalic, symmetric Eyes: EOMI, no lid lag, anicteric sclera Mouth: No lip lesion, mucus membranes moist Cardiovascular: S1S2 reg, no murmur Lungs: Decreased BS bilateral, no rhonchi, no rales Ext: No gross muscle atrophy, no edema, no contractures Neuro: no focal neuro deficits Psych: Alert, oriented, appropriate affect Discharge Diagnosis: Recent traumatic fall with head injury Acute trace subarachnoid hemorrhage found on head CT Carotid artery stenosis Chronic respiratory failure Hyponatremia Diastolic CHF NSTEMI This complex discharge took 35 minutes to complete. Patient Condition at Discharge: Stable Plan - Discharge Summary Discharge Rx Participant: Yes New Discharge Prescriptions: No Action amLODIPine [Norvasc] 10 mg PO DAILY Budesonide/Formoterol Fumarate [Symbicort 160-4.5 Mcg Inhaler] 2 puff INHALATION RT-BID Sertraline [Zoloft] 50 mg PO DAILY Ensure 1 can PO DAILY Magnesium Oxide 420 Mg 420 mg PO DAILY Loratadine 10 mg PO DAILY Multivitamins, Thera [Multivitamin (formulary)] 1 tab PO DAILY lisinopriL [Zestril] 20 mg PO DAILY Aspirin 81 mg PO DAILY #30 tab Furosemide [Lasix] 20 mg PO DAILY #30 tab Atorvastatin [Lipitor] 40 mg PO HS #30 tab Albuterol Inhaler [Ventolin Hfa Inhaler] 1 - 2 puff INHALATION Q6H PRN #1 each PRN Reason: Shortness Of Breath Discharge Medication List Budesonide/Formoterol Fumarate [Symbicort 160-4.5 Mcg Inhaler] 2 puff INHALATION RT-BID 11/09/19 [History] amLODIPine [Norvasc] 10 mg PO DAILY 11/09/19 [History] Ensure 1 can PO DAILY 04/16/23 [History] Loratadine 10 mg PO DAILY 04/16/23 [History] Magnesium Oxide 420 Mg 420 mg PO DAILY 04/16/23 [History] Multivitamins, Thera [Multivitamin (formulary)] 1 tab PO DAILY 04/16/23 [History] Sertraline [Zoloft] 50 mg PO DAILY 04/16/23 [History] lisinopriL [Zestril] 20 mg PO DAILY 04/16/23 [History] Albuterol Inhaler [Ventolin Hfa Inhaler] 1 - 2 puff INHALATION Q6H PRN #1 each 04/19/23 [Rx] Aspirin 81 mg PO DAILY #30 tab 04/19/23 [Rx] Atorvastatin [Lipitor] 40 mg PO HS #30 tab 04/19/23 [Rx] Furosemide [Lasix] 20 mg PO DAILY #30 tab 04/19/23 [Rx] Follow up Appointment(s)/Referral(s): Valentin Foy MD [STAFF PHYSICIAN] - 1 Week Aging,[place] [NON-STAFF] - [facility],Clinic [Primary Care Provider] - 1-2 days Activity/Diet/Wound Care/Special Instructions: Per [facility]: [facility] other gardiner they will take away the O2. You have missed multiple appointments already. Discharge/Stand Alone Forms: AA Meetings [place], Who Do I Call?, Adult Foster Nursing Home List, Community Resources, Help In The Home, Outpatient Counseling, In Substance Abuse Facilities, Personal Literacy Tutor
--- NOTE | 2023-06-18 14:10 | P.PN ---
Subjective Progress Note Date: 06/18/23 Principal diagnosis: CHF, respiratory failure. Acute subarachnoid hemorrhage and acute on chronic hypoxic respiratory failure secondary to acute on chronic diastolic congestive heart failure I am seeing this patient in consultation today June 12, 2023 after he was transferred earlier this morning for the finding of a trace acute subarachnoid hemorrhage on brain CT. Patient is a 73-year-old white male with past medical history significant for CHF, hypertension, COPD, ongoing tobacco dependence, hypertension. Patient actually came to the hospital yesterday evening for increased shortness of breath and lower extremity swelling over the past month. Also endorses exertional dyspnea along with orthopnea. He denies any chest pain. He had a recent hospital admission back in March, for the same and possible superimposed pneumonia. He is oxygen dependent at home, but has reportedly been without for approximately 1 month. He is currently on 4 L/min nasal cannula. SpO2 98%. He is in no respiratory distress. He denies any infectious symptoms such as cough, sputum production, fever, hemoptysis. On arrival to the emergency room, the patient had elevated troponins, he was going to be started on IV heparin. When questioned about previous head injury, the patient did report hitting his head about 1 month ago. He did redemonstrate that in the room. Patient was sent down for a brain CT which found a trace acute subarachnoid hemorrhage near the left subinsular white matter. Patient's admitting physician contacted me for transfer to the intensive care unit. Patient's neurological exam was benign at this point. He is alert and oriented. Able to protect his airway. Blood pressure is stable. As needed IV nicardipine was added to maintain a systolic blood pressure less than 160. I did personally talk to our neurologist. There were initial plans for transfer, however, our neurologist felt it unnecessary if the patient does not need systemic heparinization. Heparin was never started and there is no need for reversal. No witnessed seizure activity. No prophylactic antiepileptics have been added. In the meantime, the patient was transferred to the intensive care unit for close neurological monitoring. Vital signs are stable at this time. Reevaluated today on 06/13/2023, patient is resting in bed, does not seem to be in any distress, denies any specific neurological symptoms, no headache, no syncope, no lightheadedness, patient is relatively asymptomatic. Labs are reviewed, bicarb is 44, repeat brain CT showed stable appearance to minimal left subarachnoid hemorrhage and no suspicious interval findings Reevaluated today on 06/15/2023, patient is feeling better, relatively asymptomatic, nonetheless the patient continues to require oxygen at 4 to 6 L via nasal cannula and his O2 saturations ranging above 94%. I recommended a follow-up chest x-ray this morning, and it clearly showed evidence of COPD and I strongly suspect and a limited infiltrate in the right lower lobe neurologically, the patient is doing well, no headache, no neurological symptoms, apparently his subarachnoid hemorrhage is not clinically significant at this point. WBC count yesterday was 9.5, sodium today is 127 bicarb is 43 BUN is 19 creatinine 0.52 I suspect that the patient has chronic COPD and chronic hypercapnia with metabolic compensation Progress note dated June 16, 2023. The patient is seen today in room 374. Currently, the patient is on room air, but his saturations are only 72%. He was not wearing his oxygen, and it was placed back on him by the nurse, in the hospital physician. He should be on 6 L by nasal cannula. The patient is not receiving any IV fluids. Having said that, the patient did not appear to be in any distress. Labs today include a sodium 127, potassium 3.9, chloride 84, CO2 38, BUN 19, creatinine 0.49. Calcium is 8.6 with a magnesium of 1.6. Brain CT showed no significant change in the patient's minimal left subarachnoid hemorrhage. Progress note dated June 17, 2023. This is a 73-year-old gentleman seen in room 374. Currently, the patient is on 6 L of oxygen. He is not receiving any IV fluids. Currently, labs include a D- dimer of 1.81, and a venous blood gas showing a pCO2 of 62, and a pH of 7.47. Sodium 127, potassium 3.9, chloride 83, CO2 39, BUN 25, and creatinine 0.55. Glucose is 142 with a calcium of 8.3. Progress note dated June 18, 2023. This is a 73-year-old male seen in room 374. Currently, the patient is on oxygen at 5 L. He is not receiving any IV fluids. The patient is upset today, because apparently the decision has been made to transfer him to a detention. He is not happy about it. We will DC his Augmentin today. We do not believe he needs it anymore. No new labs today. Objective - Vital Signs Vital signs: Vital Signs Temp 97.5 F L 06/18/23 08:35 Pulse 81 06/18/23 12:00 Resp 17 06/18/23 12:00 BP 103/65 06/18/23 12:00 Pulse Ox 93 L 06/18/23 12:00 FiO2 Intake & Output 06/17/23 06/18/23 06/18/23 18:59 06:59 18:59 Intake Total 834 702 350 Output Total 600 150 Balance 234 552 350 Weight 50.5 kg Intake: Oral 834 702 350 Output: Urine 600 150 Other: Voiding Method Toilet Toilet Toilet External Catheter External Catheter External Catheter # Voids 2 - Exam No acute distress, oriented 3. Currently on 5 L nasal cannula. HEENT examination is grossly unremarkable. Mucous membranes are moist. No oral lesions. Neck supple. Full range of motion. No adenopathy thyromegaly or neck vein distention. Cardiovascular examination reveals regular rhythm rate. S1-S2 normal. No S3 or S4. No discernible murmur noted. Heart rate 81 bpm. Lungs reveal clear breath sounds. Breath sounds are equal bilaterally. No adventitious lung sounds including wheezes rhonchi or crackles. 5 L saturation was 93 %. Abdomen soft, with bowel sounds. No masses or tenderness. Extremities are intact. No cyanosis or clubbing. Mild to moderate edema. Skin is without rash or lesion. Neurologic examination is brief but nonfocal. - Labs CBC & Chem 7: 06/14/23 08:16 06/17/23 09:04 Assessment and Plan Assessment: Acute small subarachnoid hemorrhage, with no planned intervention at this time. Acute on chronic hypoxemic respiratory failure, secondary to diastolic CHF. Bilateral lower extremity edema. Possible right lower lobe pneumonia. Rule out non-ST segment elevation myocardial infarction. Chronic obstructive pulmonary disease, relatively stable. Chronic and ongoing tobacco dependence. Hypertension. Severe protein/calorie malnutrition. Plan: Plan dated June 16, 2023. The patient continues on Augmentin. In addition, the patient continues on Lasix 40 mg twice a day, and albuterol breathing treatments, as needed. Labs, x-rays, and all medications are reviewed. We have encouraged the patient to continue to wear his oxygen. When we entered the room, he was on room air, with saturations of only 72%. He was placed back on nasal cannula 6 L. Labs, x-rays, and medications are reviewed. The patient's overall prognosis remains guarded. No additional recommendations at this time. Plan dated June 17, 2023. The patient is currently on 6 L of oxygen. Saturations are in the low 90s. He does not appear to have any respiratory distress. The patient is not receiving any IV fluids. Labs, x-rays, and medications are all reviewed. The patient continues on albuterol inhaler, Symbicort, Augmentin, and Lasix, among other medications. We will continue to follow, make recommendations along the way. Prognosis is guarded. No additional recommendations at this time. The patient is encouraged to keep his oxygen on. Plan dated June 18, 2023. The patient is currently on 5 L of oxygen. No respiratory distress. The patient is not requiring any IV fluids. Will DC his antibiotic. The patient was very angry, as the patient may be ending up in a detention. Labs, x- rays, and medications are reviewed. Overall prognosis remains very guarded. Should he not be discharged, will continue to follow the patient, make recommendations along the way. Time with Patient: Less than 30
[2023-06-18] MEDS: MELATONIN 3 MG TABLET PO SCH (20:58)
[2023-06-18] MEDS: ATORVASTATIN 40 MG TAB PO SCH (20:58)
[2023-06-18] MEDS ORDERED: SODIUM CHLORIDE 0.9% 500 ML 250 ML IV ONE (22:23)
[2023-06-19] MEDS: SYMBICORT 160-4.5 MCG INHALER INHALATION SCH (08:15)
[2023-06-19] MEDS: DAPAGLIFLOZIN PROPANEDIOL 10 MG TABLET PO SCH (09:42)
[2023-06-19] MEDS: lisinopriL 20 MG TAB PO SCH (09:42)
[2023-06-19] MEDS: FUROSEMIDE 40 MG TAB PO SCH ×2 (09:42→16:56)
[2023-06-19] MEDS: SERTRALINE 50 MG TAB PO SCH (09:42)
[2023-06-19] MEDS: LORATADINE 10 MG TAB PO SCH (09:42)
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
[2023-06-19 11:39] LABS: HCT 36.6 % (39.0-53.0); HGB 11.3 gm/dL (13.0-17.5); Hypochromasia Marked; MCH 28.8 pg (25.0-35.0); MCHC 30.9 g/dL (31.0-37.0); Platelet Count 323 k/uL (150-450); RBC 3.93 m/uL (4.30-5.90); RDW 14.9 % (11.5-15.5); WBC 6.2 k/uL (3.8-10.6)
[2023-06-19 11:53] VITALS: TEMP 97.6
[2023-06-19 11:53] LABS: African American GFR (CKD) >90 (>60 ml/min/1.73 sqM); Blood Urea Nitrogen 30 mg/dL (9-20); Calcium 8.4 mg/dL (8.4-10.2); Chloride 84 mmol/L (98-107); Glucose 142 mg/dL (74-99); Non-African American GFR(CKD) >90 (>60 ml/min/1.73 sqM); Potassium 4.1 mmol/L (3.5-5.1); Sodium 128 mmol/L (137-145)
[2023-06-19 11:59] LABS: Anion Gap 7 mmol/L
[2023-06-19 12:10] LABS: Carbon Dioxide 37 mmol/L (22-30)
--- NOTE | 2023-06-19 12:51 | P.PN ---
Subjective Progress Note Date: 06/19/23 Principal diagnosis: CHF, respiratory failure. Acute subarachnoid hemorrhage and acute on chronic hypoxic respiratory failure secondary to acute on chronic diastolic congestive heart failure I am seeing this patient in consultation today June 12, 2023 after he was transferred earlier this morning for the finding of a trace acute subarachnoid hemorrhage on brain CT. Patient is a 73-year-old white male with past medical history significant for CHF, hypertension, COPD, ongoing tobacco dependence, hypertension. Patient actually came to the hospital yesterday evening for increased shortness of breath and lower extremity swelling over the past month. Also endorses exertional dyspnea along with orthopnea. He denies any chest pain. He had a recent hospital admission back in March, for the same and possible superimposed pneumonia. He is oxygen dependent at home, but has reportedly been without for approximately 1 month. He is currently on 4 L/min nasal cannula. SpO2 98%. He is in no respiratory distress. He denies any infectious symptoms such as cough, sputum production, fever, hemoptysis. On arrival to the emergency room, the patient had elevated troponins, he was going to be started on IV heparin. When questioned about previous head injury, the patient did report hitting his head about 1 month ago. He did redemonstrate that in the room. Patient was sent down for a brain CT which found a trace acute subarachnoid hemorrhage near the left subinsular white matter. Patient's admitting physician contacted me for transfer to the intensive care unit. Patient's neurological exam was benign at this point. He is alert and oriented. Able to protect his airway. Blood pressure is stable. As needed IV nicardipine was added to maintain a systolic blood pressure less than 160. I did personally talk to our neurologist. There were initial plans for transfer, however, our neurologist felt it unnecessary if the patient does not need systemic heparinization. Heparin was never started and there is no need for reversal. No witnessed seizure activity. No prophylactic antiepileptics have been added. In the meantime, the patient was transferred to the intensive care unit for close neurological monitoring. Vital signs are stable at this time. Reevaluated today on 06/13/2023, patient is resting in bed, does not seem to be in any distress, denies any specific neurological symptoms, no headache, no syncope, no lightheadedness, patient is relatively asymptomatic. Labs are reviewed, bicarb is 44, repeat brain CT showed stable appearance to minimal left subarachnoid hemorrhage and no suspicious interval findings Reevaluated today on 06/15/2023, patient is feeling better, relatively asymptomatic, nonetheless the patient continues to require oxygen at 4 to 6 L via nasal cannula and his O2 saturations ranging above 94%. I recommended a follow-up chest x-ray this morning, and it clearly showed evidence of COPD and I strongly suspect and a limited infiltrate in the right lower lobe neurologically, the patient is doing well, no headache, no neurological symptoms, apparently his subarachnoid hemorrhage is not clinically significant at this point. WBC count yesterday was 9.5, sodium today is 127 bicarb is 43 BUN is 19 creatinine 0.52 I suspect that the patient has chronic COPD and chronic hypercapnia with metabolic compensation Progress note dated June 16, 2023. The patient is seen today in room 374. Currently, the patient is on room air, but his saturations are only 72%. He was not wearing his oxygen, and it was placed back on him by the nurse, in the hospital physician. He should be on 6 L by nasal cannula. The patient is not receiving any IV fluids. Having said that, the patient did not appear to be in any distress. Labs today include a sodium 127, potassium 3.9, chloride 84, CO2 38, BUN 19, creatinine 0.49. Calcium is 8.6 with a magnesium of 1.6. Brain CT showed no significant change in the patient's minimal left subarachnoid hemorrhage. Progress note dated June 17, 2023. This is a 73-year-old gentleman seen in room 374. Currently, the patient is on 6 L of oxygen. He is not receiving any IV fluids. Currently, labs include a D- dimer of 1.81, and a venous blood gas showing a pCO2 of 62, and a pH of 7.47. Sodium 127, potassium 3.9, chloride 83, CO2 39, BUN 25, and creatinine 0.55. Glucose is 142 with a calcium of 8.3. Progress note dated June 18, 2023. This is a 73-year-old male seen in room 374. Currently, the patient is on oxygen at 5 L. He is not receiving any IV fluids. The patient is upset today, because apparently the decision has been made to transfer him to a longterm. He is not happy about it. We will DC his Augmentin today. We do not believe he needs it anymore. No new labs today. Progress note dated June 19, 2023. 73-year-old male seen in room 374. Currently, the patient is on 5 L of oxygen. He is not receiving any IV fluids. Apparently, the patient is going to be discharged to a longterm. Currently, he seems to be relatively comfortable from the pulmonary standpoint. His white count of 6.2, hemoglobin 11.3, hematocrit 36.6, and platelet count was normal at 323,000. Sodium 128, potassium 4.1, chloride 84, CO2 37, BUN 30, creatinine 0.58. Calcium is 8.4, and glucose is 142. A venous blood gas done 2 days ago shows a CO2 of 62, pH 7.47. Objective - Vital Signs Vital signs: Vital Signs Temp 97.6 F 06/19/23 11:20 Pulse 84 06/19/23 11:20 Resp 18 06/19/23 11:20 BP 106/64 06/19/23 11:20 Pulse Ox 95 06/19/23 11:20 FiO2 Intake & Output 06/18/23 06/19/23 06/19/23 18:59 06:59 18:59 Intake Total 550 520 10 Output Total 400 150 Balance 150 370 10 Weight 48 kg Intake: IV 10 Invasive Line 4 10 Oral 550 520 0 Output: Urine 400 150 Other: Voiding Method Toilet Toilet Toilet External Catheter External Catheter Urinal # Voids 1 250 # Bowel Movements 1 - Exam No acute distress, oriented 3. Currently on 5 L nasal cannula. HEENT examination is grossly unremarkable. Mucous membranes are moist. No oral lesions. Neck supple. Full range of motion. No adenopathy thyromegaly or neck vein distention. Cardiovascular examination reveals regular rhythm rate. S1-S2 normal. No S3 or S4. No discernible murmur noted. Heart rate 84 bpm. Lungs reveal clear breath sounds. Breath sounds are equal bilaterally. No adventitious lung sounds including wheezes rhonchi or crackles. 5 L saturation was 94 %. Abdomen soft, with bowel sounds. No masses or tenderness. Extremities are intact. No cyanosis or clubbing. Mild to moderate edema. Skin is without rash or lesion. Neurologic examination is brief but nonfocal. - Labs CBC & Chem 7: 06/19/23 10:59 06/19/23 10:59 Labs: Abnormal Lab Results - Last 24 Hours (Table) 06/19/23 06/19/23 Range/Units 10:59 10:59 RBC 3.93 L (4.30-5.90) m/uL Hgb 11.3 L (13.0-17.5) gm/dL Hct 36.6 L (39.0-53.0) % MCHC 30.9 L (31.0-37.0) g/dL Sodium 128 L (137-145) mmol/L Chloride 84 L (98-107) mmol/L Carbon Dioxide 37 H (22-30) mmol/L BUN 30 H (9-20) mg/dL Creatinine 0.58 L (0.66-1.25) mg/dL Glucose 142 H (74-99) mg/dL Assessment and Plan Assessment: Acute small subarachnoid hemorrhage, with no planned intervention at this time. Acute on chronic hypoxemic respiratory failure, secondary to diastolic CHF. Bilateral lower extremity edema. Possible right lower lobe pneumonia. Rule out non-ST segment elevation myocardial infarction. Chronic obstructive pulmonary disease, relatively stable. Chronic and ongoing tobacco dependence. Hypertension. Severe protein/calorie malnutrition. Plan: Plan dated June 16, 2023. The patient continues on Augmentin. In addition, the patient continues on Lasix 40 mg twice a day, and albuterol breathing treatments, as needed. Labs, x-rays, and all medications are reviewed. We have encouraged the patient to continue to wear his oxygen. When we entered the room, he was on room air, with saturations of only 72%. He was placed back on nasal cannula 6 L. Labs, x-rays, and medications are reviewed. The patient's overall prognosis remains guarded. No additional recommendations at this time. Plan dated June 17, 2023. The patient is currently on 6 L of oxygen. Saturations are in the low 90s. He does not appear to have any respiratory distress. The patient is not receiving any IV fluids. Labs, x-rays, and medications are all reviewed. The patient continues on albuterol inhaler, Symbicort, Augmentin, and Lasix, among other medications. We will continue to follow, make recommendations along the way. Prognosis is guarded. No additional recommendations at this time. The patient is encouraged to keep his oxygen on. Plan dated June 18, 2023. The patient is currently on 5 L of oxygen. No respiratory distress. The patient is not requiring any IV fluids. Will DC his antibiotic. The patient was very angry, as the patient may be ending up in a longterm. Labs, x-ra ys, and medications are reviewed. Overall prognosis remains very guarded. Should he not be discharged, will continue to follow the patient, make recommendations along the way. Plan dated June 19, 2023. Discharge planning underway. Labs, x-rays, and medications are reviewed. I believe the patient will be discharged to a rehab facility or longterm. Currently, the patient's respiratory status is stable on 5 L of oxygen. The patient continues on Symbicort, albuterol, and his other usual medications. We will continue to follow make recommendations along the way. Prognosis is guarde d. Time with Patient: Less than 30
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
[2023-06-19 17:22] VITALS: BP 119/72; PULSE 79; RESP 20
== END 2023-06-19 18:35 | disposition home or self-care (01) | DRG 82 ==
LOC: EC 16:33 → 3SCARD 18:48 → 2SICU 06-12 03:28 → 3SCARD 06-12 21:16
PROVIDERS: ADMIT Internal Medicine; ATTEND Internal Medicine
DX: S06.6XAA Traumatic subarachnoid hemorrhage with loss of consciousness status unknown, initial encounter (principal); E43 Unspecified severe protein-calorie malnutrition; I21.A1 Myocardial infarction type 2; I50.43 Acute on chronic combined systolic (congestive) and diastolic (congestive) heart failure; J96.21 Acute and chronic respiratory failure with hypoxia; Z68.1 Body mass index [BMI] 19.9 or less, adult; E87.1 Hypo-osmolality and hyponatremia; E87.4 Mixed disorder of acid-base balance; I47.20 Ventricular tachycardia, unspecified; Q23.1 Congenital insufficiency of aortic valve; I31.39 Other pericardial effusion (noninflammatory); R64 Cachexia; I95.9 Hypotension, unspecified; I11.0 Hypertensive heart disease with heart failure; R91.8 Other nonspecific abnormal finding of lung field; E78.5 Hyperlipidemia, unspecified; F17.210 Nicotine dependence, cigarettes, uncomplicated; R29.701 NIHSS score 1; F32.A Depression, unspecified; I49.3 Ventricular premature depolarization; I65.29 Occlusion and stenosis of unspecified carotid artery; R79.1 Abnormal coagulation profile; I70.0 Atherosclerosis of aorta; Z91.81 History of falling; Z79.51 Long term (current) use of inhaled steroids; Z79.82 Long term (current) use of aspirin; Z79.899 Other long term (current) drug therapy; Z91.148 Patient's other noncompliance with medication regimen for other reason; Z91.199 Patient's noncompliance with other medical treatment and regimen due to unspecified reason; Z99.81 Dependence on supplemental oxygen; Z53.29 Procedure and treatment not carried out because of patient's decision for other reasons; Z87.01 Personal history of pneumonia (recurrent); Z88.5 Allergy status to narcotic agent; Z11.52 Encounter for screening for COVID-19
CPT/HCPCS: 36415; 70450; 70496; 70498; 70544; 70551; 71045; 71046; 80048; 80053; 81003; 82803; 83605; 83735; 83880; 84132; 84484; 85025; 85027; 85379; 85610; 85730; 87636; 93005; 93306; 93880; 94640; 94760; 95816; 96374; 99291

== ENCOUNTER 2023-07-18 17:40 | Inpatient (IN) | payer OTHER ==
[2023-07-18 19:14] LABS: VBG PH 7.5 (7.31-7.41)
[2023-07-18 19:15] LABS: Anisocytosis Slight; HCT 29.8 % (39.0-53.0); Hypochromasia Slight; MCH 28.8 pg (25.0-35.0); MCV 90.1 fL (80.0-100.0); Mean Platelet Volume 7.4; Platelet Count 233 k/uL (150-450); RBC 3.31 m/uL (4.30-5.90); RDW 16.4 % (11.5-15.5)
[2023-07-18 19:25] LABS: ALT 19 U/L (4-49); AST 29 U/L (17-59); African American GFR (CKD) >90 (>60 ml/min/1.73 sqM); Albumin 2.5 g/dL (3.5-5.0); Alkaline Phosphatase 103 U/L (38-126); Anion Gap 3 mmol/L; Blood Urea Nitrogen 17 mg/dL (9-20); Calcium 7.8 mg/dL (8.4-10.2); Carbon Dioxide 30 mmol/L (22-30); Chloride 88 mmol/L (98-107); Creatine Kinase 56 U/L (55-170); Glucose 85 mg/dL (74-99); Magnesium 1.9 mg/dL (1.6-2.3); Non-African American GFR(CKD) >90 (>60 ml/min/1.73 sqM); Potassium 4.6 mmol/L (3.5-5.1); Sodium 121 mmol/L (137-145); Total Bilirubin 0.8 mg/dL (0.2-1.3); Total Protein 5.2 g/dL (6.3-8.2)
[2023-07-18 19:31] LABS: HGB 9.5 gm/dL (13.0-17.5)
[2023-07-18 19:33] LABS: Prothrombin Time 11.1 sec (10.0-12.5)
[2023-07-18] MEDS: SODIUM CHLORIDE 0.9% 1,000 ML IV STA (19:50)
--- NOTE | 2023-07-18 20:16 | ED ---
Dizziness HPI - General Chief Complaint: Syncope Stated Complaint: Fall Time Seen by Provider: 07/18/23 18:18 Source: patient, family Mode of arrival: wheelchair Limitations: no limitations - History of Present Illness Initial Comments: 73-year-old male presenting to the ED with a chief complaint of fatigue. Patient states yesterday he was trying to reach down to grab some carlos jars. States he was unable to do so while sitting in his chair so he went on to the ground on his hands and knees. States that he was still unable to do so so he scooted on his butt towards them and when he finally reached them he was too tired to get himself back up. When he reached this point, he also notes that his oxygen became disconnected. Patient then laid on the ground until his landlord checked on him this morning who then called EMS who brought the patient to this facility for further evaluation. Currently, patient only notes fatigue. No chest pain shortness of breath. Denies rectal bleeding or blood in the stool. No other complaints at this time. - Related Data Home Medications Medication Instructions Recorded Confirmed Budesonide/Formoterol Fumarate 2 puff INHALATION RT-BID 11/09/19 06/11/23 [Symbicort 160-4.5 Mcg Inhaler] Ensure 1 can PO DAILY 04/16/23 06/11/23 Loratadine 10 mg PO DAILY 04/16/23 06/11/23 Magnesium Oxide 420 Mg 420 mg PO DAILY 04/16/23 06/11/23 Multivitamins, Thera [Multivitamin 1 tab PO DAILY 04/16/23 06/11/23 (formulary)] Sertraline [Zoloft] 50 mg PO DAILY 04/16/23 06/11/23 lisinopriL [Zestril] 20 mg PO DAILY 04/16/23 06/11/23 Previous Rx's Medication Instructions Recorded Albuterol Inhaler [Ventolin Hfa 1 - 2 puff INHALATION Q6H PRN #1 04/19/23 Inhaler] each Aspirin 81 mg PO DAILY #30 tab 04/19/23 Atorvastatin [Lipitor] 40 mg PO HS #30 tab 04/19/23 Dapagliflozin Propanediol [Farxiga] 10 mg PO DAILY #30 tab 06/18/23 Furosemide [Lasix] 40 mg PO BID@0900,1600 #60 tab 06/18/23 Allergies Allergy/AdvReac Type Severity Reaction Status Date / Time codeine Allergy Unknown Verified 06/11/23 17:50 Review of Systems ROS Statement: Those systems with pertinent positive or pertinent negative responses have been documented in the HPI. ROS Other: All systems not noted in ROS Statement are negative. Past Medical History Past Medical History: COPD, Hypertension, Pneumonia History of Any Multi-Drug Resistant Organisms: None Reported Past Surgical History: Appendectomy, Tonsillectomy Past Anesthesia/Blood Transfusion Reactions: No Reported Reaction Past Psychological History: No Psychological Hx Reported Smoking Status: Current some day smoker, Former smoker Past Alcohol Use History: Occasional Past Drug Use History: Marijuana General Exam Limitations: no limitations General appearance: alert, in no apparent distress, cachectic Eye exam: Present: normal appearance Respiratory exam: Present: normal lung sounds bilaterally Cardiovascular Exam: Present: regular rate GI/Abdominal exam: Present: soft Neurological exam: Present: alert, oriented X3 Skin exam: Present: warm, dry Course Vital Signs 07/18/23 07/18/23 07/18/23 18:05 19:51 21:04 Temperature 97.5 F L Pulse Rate 75 72 72 Respiratory 16 18 16 Rate Blood Pressure 115/73 132/92 118/77 O2 Sat by Pulse 98 93 L 98 Oximetry Medical Decision Making - Medical Decision Making Was pt. sent in by a medical professional or institution ([facility], [employer]TA[employer], urgent care, hospital, or retirement...) When possible be specific @ -No Did you speak to anyone other than the patient for history (EMS, parent, family, police, friend...)? What history was obtained from this source @ -No Did you review nursing and triage notes (agree or disagree)? Why? @ -I reviewed and agree with nursing and triage notes Were old charts reviewed (outside hosp., previous admission, EMS record, old EKG, old radiological studies, urgent care reports/EKG's, retirement records)? Report findings @ -No old charts were reviewed Differential Diagnosis (chest pain, altered mental status, abdominal pain women, abdominal pain men, vaginal bleeding, weakness, fever, dyspnea, syncope, headache, dizziness, GI bleed, back pain, seizure, CVA, palpatations, mental health, musculoskeletal)? @ -Differential Weakness: Hypoglycemia, shock, sepsis, hyponatremia, anemia, infection, MO, ETOH, adverse medicine reaction, overdose, stroke, this is not meant to be an all-inclusive list. EKG interpreted by me (3pts min.). @ -EKG interpreted me showing a sinus rhythm at 71 bpm. QRS 110, QT/QTc 388/411. No acute ST or T wave changes. X-rays interpreted by me (1pt min.). @ -Chest x-ray interpreted me showing no evidence of acute finding. CT interpreted by me (1pt min.). @ -None done U/S interpreted by me (1pt. min.). @ -None done What testing was considered but not performed or refused? (CT, X-rays, U/S, labs)? Why? @ -None What meds were considered but not given or refused? Why? @ -None Did you discuss the management of the patient with other professionals (professionals i.e. , PA, CONTACT WORKER [employer], lab, RT, psych nurse, licensed social worker, clinical trials data coordinator, te acher, state highway police officer, case sealer)? Give summary @ -Case discussed with Dr. Pierce, who accepts admission. Was smoking cessation discussed for >3mins.? @ -No Was critical care preformed (if so, how long)? @ -No Were there social determinants of health that impacted care today? How? (Homelessness, low income, unemployed, alcoholism, drug addiction, transportation, low edu. Level, literacy, decrease access to med. care, assisted, rehab)? @ -No Was there de-escalation of care discussed even if they declined (Discuss DNR or withdrawal of care, Hospice)? DNR status @ -No What co-morbidities impacted this encounter? (DM, HTN, Smoking, COPD, CAD, Cancer, CVA, ARF, Chemo, Hep., AIDS, mental health diagnosis, sleep apnea, morbid obesity)? @ -None Was patient admitted / discharged? Hospital course, mention meds given and route, prescriptions, significant lab abnormalities, going to OR and other pertinent info. @ -Admission 73-year-old male presenting to the ED after being on the ground for the whole day disconnected to his oxygen and unable to stand back up secondary to fatigue. Laboratory studies reviewed. CBC shows some anemia with hemoglobin 9.6. Venous blood gas shows a pH of 7.5. Chemistry panel shows hyponatremia and hypochloremia at 121 and 88 respectively. Also some hypocalcemia at 7.8. Albumin low at 2.5. These findings were confirmed with repeat draws of both CBC and CMP. Patient will be admitted secondary to significant hyponatremia. Discussed plan of care with patient who is in agreement. Undiagnosed new problem with uncertain prognosis? @ -No Drug Therapy requiring intensive monitoring for toxicity (Heparin, Nitro, Insulin, Cardizem)? @ -No Were any procedures done? @ -No Diagnosis/symptom? @ -Anemia, hyponatremia Acute, or Chronic, or Acute on Chronic? @ -Acute Uncomplicated (without systemic symptoms) or Complicated (systemic symptoms)? @ -Uncomplicated Side effects of treatment? @ -No Exacerbation, Progression, or Severe Exacerbation? @ -No Poses a threat to life or bodily function? How? (Chest pain, USA, MO, pneumonia, PE, COPD, DKA, ARF, appy, cholecystitis, CVA, Diverticulitis, Homicidal, Suici bere, threat to staff... and all critical care pts) @ -Possibly - Lab Data Result diagrams: 07/18/23 20:26 07/18/23 20:26 Lab Results 07/18/23 07/18/23 07/18/23 Range/Units 18:50 18:50 18:50 WBC 4.0 (3.8-10.6) k/uL RBC 3.31 L (4.30-5.90) m/uL Hgb 9.5 L D (13.0-17.5) gm/dL Hct 29.8 L (39.0-53.0) % MCV 90.1 (80.0-100.0) fL MCH 28.8 (25.0-35.0) pg MCHC 32.0 (31.0-37.0) g/dL RDW 16.4 H (11.5-15.5) % Plt Count 233 (150-450) k/uL MPV 7.4 Neutrophils % (Manual) 72 % Lymphocytes % (Manual) 20 % Monocytes % (Manual) 6 % Eosinophils % (Manual) 2 % Neutrophils # (Manual) 2.88 (1.3-7.7) k/uL Lymphocytes # (Manual) 0.80 L (1.0-4.8) k/uL Monocytes # (Manual) 0.24 (0-1.0) k/uL Eosinophils # (Manual) 0.08 (0-0.7) k/uL Nucleated RBCs 0 (0-0) /100 WBC Manual Slide Review Performed Hypochromasia Slight Anisocytosis Slight PT 11.1 (10.0-12.5) sec INR 1.0 (<1.2) APTT 23.0 (22.0-30.0) sec VBG pH (7.31-7.41) VBG pCO2 (37-51) mmHg VBG HCO3 (24-28) mmol/L Sodium 121 L (137-145) mmol/L Potassium 4.6 (3.5-5.1) mmol/L Chloride 88 L (98-107) mmol/L Carbon Dioxide 30 (22-30) mmol/L Anion Gap 3 mmol/L BUN 17 (9-20) mg/dL Creatinine 0.57 L (0.66-1.25) mg/dL Est GFR (CKD-EPI)AfAm >90 (>60 ml/min/1.73 sqM) Est GFR (CKD-EPI)NonAf >90 (>60 ml/min/1.73 sqM) Glucose 85 (74-99) mg/dL Plasma Lactic Acid Justin (0.7-2.0) mmol/L Calcium 7.8 L (8.4-10.2) mg/dL Magnesium 1.9 (1.6-2.3) mg/dL Total Bilirubin 0.8 (0.2-1.3) mg/dL AST 29 (17-59) U/L ALT 19 (4-49) U/L Alkaline Phosphatase 103 (38-126) U/L Creatine Kinase 56 (55-170) U/L Troponin I (0.000-0.034) ng/mL Total Protein 5.2 L (6.3-8.2) g/dL Albumin 2.5 L (3.5-5.0) g/dL Influenza Type A (PCR) (Not Detectd) Influenza Type B (PCR) (Not Detectd) RSV (PCR) (Not Detectd) SARS-CoV-2 (PCR) (Not Detectd) 07/18/23 07/18/23 07/18/23 Range/Units 18:50 18:50 18:50 WBC (3.8-10.6) k/uL RBC (4.30-5.90) m/uL Hgb (13.0-17.5) gm/dL Hct (39.0-53.0) % MCV (80.0-100.0) fL MCH (25.0-35.0) pg MCHC (31.0-37.0) g/dL RDW (11.5-15.5) % Plt Count (150-450) k/uL MPV Neutrophils % (Manual) % Lymphocytes % (Manual) % Monocytes % (Manual) % Eosinophils % (Manual) % Neutrophils # (Manual) (1.3-7.7) k/uL Lymphocytes # (Manual) (1.0-4.8) k/uL Monocytes # (Manual) (0-1.0) k/uL Eosinophils # (Manual) (0-0.7) k/uL Nucleated RBCs (0-0) /100 WBC Manual Slide Review Hypochromasia Anisocytosis PT (10.0-12.5) sec INR (<1.2) APTT (22.0-30.0) sec VBG pH (7.31-7.41) VBG pCO2 (37-51) mmHg VBG HCO3 (24-28) mmol/L Sodium (137-145) mmol/L Potassium (3.5-5.1) mmol/L Chloride (98-107) mmol/L Carbon Dioxide (22-30) mmol/L Anion Gap mmol/L BUN (9-20) mg/dL Creatinine (0.66-1.25) mg/dL Est GFR (CKD-EPI)AfAm (>60 ml/min/1.73 sqM) Est GFR (CKD-EPI)NonAf (>60 ml/min/1.73 sqM) Glucose (74-99) mg/dL Plasma Lactic Acid Justin 0.7 (0.7-2.0) mmol/L Calcium (8.4-10.2) mg/dL Magnesium (1.6-2.3) mg/dL Total Bilirubin (0.2-1.3) mg/dL AST (17-59) U/L ALT (4-49) U/L Alkaline Phosphatase (38-126) U/L Creatine Kinase (55-170) U/L Troponin I <0.012 (0.000-0.034) ng/mL Total Protein (6.3-8.2) g/dL Albumin (3.5-5.0) g/dL Influenza Type A (PCR) Not Detected (Not Detectd) Influenza Type B (PCR) Not Detected (Not Detectd) RSV (PCR) Not Detected (Not Detectd) SARS-CoV-2 (PCR) Not Detected (Not Detectd) 07/18/23 07/18/23 07/18/23 Range/Units 18:59 20:26 20:26 WBC 4.1 (3.8-10.6) k/uL RBC 3.39 L (4.30-5.90) m/uL Hgb 9.6 L (13.0-17.5) gm/dL Hct 30.7 L (39.0-53.0) % MCV 90.6 (80.0-100.0) fL MCH 28.3 (25.0-35.0) pg MCHC 31.3 (31.0-37.0) g/dL RDW 16.4 H (11.5-15.5) % Plt Count 234 (150-450) k/uL MPV 7.2 Neutrophils % (Manual) 66 % Lymphocytes % (Manual) 24 % Monocytes % (Manual) 10 % Eosinophils % (Manual) % Neutrophils # (Manual) 2.71 (1.3-7.7) k/uL Lymphocytes # (Manual) 0.98 L (1.0-4.8) k/uL Monocytes # (Manual) 0.41 (0-1.0) k/uL Eosinophils # (Manual) (0-0.7) k/uL Nucleated RBCs 0 (0-0) /100 WBC Manual Slide Review Performed Hypochromasia Slight Anisocytosis Slight PT (10.0-12.5) sec INR (<1.2) APTT (22.0-30.0) sec VBG pH 7.50 H (7.31-7.41) VBG pCO2 44 (37-51) mmHg VBG HCO3 34 H (24-28) mmol/L Sodium 122 L (137-145) mmol/L Potassium 4.5 (3.5-5.1) mmol/L Chloride 86 L (98-107) mmol/L Carbon Dioxide 33 H (22-30) mmol/L Anion Gap 3 mmol/L BUN 16 (9-20) mg/dL Creatinine 0.71 (0.66-1.25) mg/dL Est GFR (CKD-EPI)AfAm >90 (>60 ml/min/1.73 sqM) Est GFR (CKD-EPI)NonAf >90 (>60 ml/min/1.73 sqM) Glucose 144 H (74-99) mg/dL Plasma Lactic Acid Justin (0.7-2.0) mmol/L Calcium 7.8 L (8.4-10.2) mg/dL Magnesium (1.6-2.3) mg/dL Total Bilirubin 0.7 (0.2-1.3) mg/dL AST 24 (17-59) U/L ALT 19 (4-49) U/L Alkaline Phosphatase 125 (38-126) U/L Creatine Kinase (55-170) U/L Troponin I (0.000-0.034) ng/mL Total Protein 5.3 L (6.3-8.2) g/dL Albumin 2.6 L (3.5-5.0) g/dL Influenza Type A (PCR) (Not Detectd) Influenza Type B (PCR) (Not Detectd) RSV (PCR) (Not Detectd) SARS-CoV-2 (PCR) (Not Detectd) Disposition Clinical Impression: Anemia, Hyponatremia Disposition: ADMITTED IP TO THIS HOSP Condition: Good Referrals: [facility] [Primary Care Provider] - 1-2 days Time of Disposition: 21:28
--- NOTE | 2023-07-18 20:28 | XR ---
EXAMINATION TYPE: XR chest 2V DATE OF EXAM: 07/18/2023 8:10 PM CLINICAL INDICATION:Male, 73 years old with history of syncope; PHH COMPARISON: Chest radiographs from 06/07/2023 TECHNIQUE: XR chest 2V Frontal and lateral views of the chest. FINDINGS: Lungs/Pleura: Prominent interstitial lung markings are seen scattered throughout the lungs with swetha ening of the diaphragm and increased lucency of the lung apices. No evidence of focal consolidation, pneumothorax or pleural effusion. Pulmonary vascularity: Unremarkable. Heart/mediastinum: Cardiomediastinal silhouette is unremarkable. Musculoskeletal: No acute osseous pathology. IMPRESSION: 1. No acute cardiopulmonary disease process. 2. COPD changes.
[2023-07-18 20:40] LABS: Anisocytosis Slight; HCT 30.7 % (39.0-53.0); HGB 9.6 gm/dL (13.0-17.5); Hypochromasia Slight; MCH 28.3 pg (25.0-35.0); MCHC 31.3 g/dL (31.0-37.0); MCV 90.6 fL (80.0-100.0); Mean Platelet Volume 7.2; Platelet Count 234 k/uL (150-450); RBC 3.39 m/uL (4.30-5.90); RDW 16.4 % (11.5-15.5); WBC 4.1 k/uL (3.8-10.6)
[2023-07-18 20:53] LABS: ALT 19 U/L (4-49); AST 24 U/L (17-59); African American GFR (CKD) >90 (>60 ml/min/1.73 sqM); Albumin 2.6 g/dL (3.5-5.0); Alkaline Phosphatase 125 U/L (38-126); Anion Gap 3 mmol/L; Blood Urea Nitrogen 16 mg/dL (9-20); Calcium 7.8 mg/dL (8.4-10.2); Carbon Dioxide 33 mmol/L (22-30); Chloride 86 mmol/L (98-107); Glucose 144 mg/dL (74-99); Non-African American GFR(CKD) >90 (>60 ml/min/1.73 sqM); Potassium 4.5 mmol/L (3.5-5.1); Sodium 122 mmol/L (137-145); Total Bilirubin 0.7 mg/dL (0.2-1.3); Total Protein 5.3 g/dL (6.3-8.2)
[2023-07-18 20:56] LABS: Eosinophils # (M) 0.08 k/uL (0-0.7); Monocytes # (M) 0.24 k/uL (0-1.0); Neutrophils # (M) 2.88 k/uL (1.3-7.7); Neutrophils % (M) 72 %; Nucleated Red Blood Cells 0 /100 WBC (0-0); Total Cells Counted 100
[2023-07-18 21:02] LABS: Lymphocytes # (M) 0.98 k/uL (1.0-4.8); Monocytes # (M) 0.41 k/uL (0-1.0); Neutrophils # (M) 2.71 k/uL (1.3-7.7); Neutrophils % (M) 66 %; Nucleated Red Blood Cells 0 /100 WBC (0-0); Total Cells Counted 100
[2023-07-18] MEDS ORDERED: KETOROLAC 15 MG/ML 1 ML VIAL IVP PRN (22:03)
[2023-07-18] MEDS ORDERED: NALOXONE 0.4 MG/ML 1 ML VIAL IV PRN (22:03)
--- NOTE | 2023-07-18 23:28 | P.HPIM ---
History of Present Illness H&P Date: 07/18/23 Patient is a 73-year-old male with a PMH of hypertension, COPD with chronic hypoxic respiratory failure on home oxygen continuously, who was brought into the emergency room for weakness. Patient reports that he was in his usual state of health until night when he leaned down to get something out of the bottom of his fridge when he was unable to stand back up. He lives by himself and had to scoot into the living room. The patient's landlord checked in on him the next morning and found him on the ground roughly 8 hours later. The patient does not recall if he lost consciousness or injured himself. As per the triage note however, the patient was reportedly disconnected from his home oxygen and was found to be unconscious by the landlord. He also had complained of left foot and right shoulder pain upon arrival at the emergency room which she is no longer complaining of. He does report diffuse bodyaches for the past several years which are unchanged. Denies experiencing headache, chest discomfort, shortness of breath, fever, chills, cough, nausea, vomiting, abdominal pain, diarrhea. Chest x-ray in the emergency room revealed findings consistent with COPD, chronic. EKG reveals narrow complex regular rhythm with no ST/T wave changes noted as reviewed by me. Laboratory evaluation was remarkable for hemoglobin 9.6 (baseline 11), sodium 121 (baseline 128), creatinine 0.57, troponin less than 0.012, and albumin 2.5. ED documentation reviewed and case discussed with ED provider. Review of systems: Pertinent positives and negatives as discussed in HPI, a complete review of systems was performed and all other systems are negative. Physical examination: Vital signs reviewed General: non toxic, no distress, appears at stated age, cachectic Derm: no unusual rashes/lesions, warm Head: atraumatic, normocephalic, symmetric Eyes: EOMI, no lid lag, anicteric sclera, pupils equal round reactive to light ENT: Nose and ears atraumatic Neck: No cervical lymphadenopathy, trachea midline, supple Mouth: no lip lesion, mucus membranes moist Cardiovascular: S1S2 reg, no murmur, positive dorsalis pedis pulse bilateral, no edema Lungs: CTA bilateral, no rhonchi, no rales, no accessory muscle use Abdominal: soft, nontender to palpation, no guarding Ext: muscle strength 3 out of 5 in all 4 extremities grossly, no gross muscle atrophy, no contractures, Neuro: CN II-XI grossly intact, no gross focal neuro deficits Psych: Alert, oriented, appropriate affect Assessment: Syncope, possibly due to hypoxia from disconnection of nasal cannula, unknown if trauma occurred Hypochloremic hyponatremia Normocytic anemia Severe protein calorie malnutrition with failure to thrive Imaging: Chest x-ray in the emergency room revealed findings consistent with COPD, chronic. EKG reveals narrow complex regular rhythm with no ST/T wave changes noted as reviewed by me. Data Review: Laboratory evaluation was remarkable for hemoglobin 9.6 (baseline 11), sodium 121 (baseline 128), creatinine 0.57, troponin less than 0.012, and albumin 2.5. Plan: PT consult Fall precautions Cardiac monitoring Obtain echocardiogram Monitor BMP closely Continue with IV fluids for now normal saline 50 cc/h Obtain hyponatremia workup Dietitian consult Monitor CBC and check anemia panel DVT prophylaxis: Lovenox subcu The patient is admitted with an anticipated greater than 2 midnight stay for evaluation of syncope CODE STATUS: Full Code Discussed with: Patient Anticipated discharge place: Home Past Medical History Past Medical History: COPD, Hypertension, Pneumonia History of Any Multi-Drug Resistant Organisms: None Reported Past Surgical History: Appendectomy, Tonsillectomy Past Anesthesia/Blood Transfusion Reactions: No Reported Reaction Past Psychological History: No Psychological Hx Reported Smoking Status: Current some day smoker, Former smoker Past Alcohol Use History: Occasional Past Drug Use History: Marijuana Medications and Allergies Home Medications Medication Instructions Recorded Confirmed Type Budesonide/Formoterol Fumarate 2 puff INHALATION RT-BID 11/09/19 07/18/23 History [Symbicort 160-4.5 Mcg Inhaler] Ensure 1 can PO DAILY 04/16/23 07/18/23 History Magnesium Oxide 420 Mg 420 mg PO BID@0400,0900 04/16/23 07/18/23 History Multivitamins, Thera [Multivitamin 1 tab PO DAILY 04/16/23 07/18/23 History (formulary)] Sertraline [Zoloft] 50 mg PO DAILY 04/16/23 07/18/23 History lisinopriL [Zestril] 20 mg PO DAILY 04/16/23 07/18/23 History Furosemide [Lasix] 40 mg PO BID@0900,1600 #60 tab 06/18/23 07/18/23 Rx Albuterol Inhaler [Ventolin Hfa 1 - 2 puff INHALATION RT-QID PRN 07/18/23 07/18/23 History Inhaler] amLODIPine [Norvasc] 10 mg PO DAILY 07/18/23 07/18/23 History diphenhydrAMINE HCL [Benadryl] 25 mg PO DAILY 07/18/23 07/18/23 History hydrALAZINE HCL [Apresoline] 25 mg PO TID 07/18/23 07/18/23 History Allergies Allergy/AdvReac Type Severity Reaction Status Date / Time codeine Allergy Unknown Verified 07/18/23 22:44 Physical Exam Vitals: Vital Signs Temp Pulse Resp BP Pulse Ox 07/18/23 21:04 72 16 118/77 98 07/18/23 19:51 72 18 132/92 93 L 07/18/23 18:05 97.5 F L 75 16 115/73 98 Intake and Output 07/18/23 07/18/23 07/19/23 14:59 22:59 06:59 Other: Weight 56.245 kg Results CBC & Chem 7: 07/18/23 20:26 07/18/23 20:26 Labs: Abnormal Lab Results - Last 24 Hours (Table) 07/18/23 07/18/23 07/18/23 Range/Units 18:50 18:50 18:59 RBC 3.31 L (4.30-5.90) m/uL Hgb 9.5 L D (13.0-17.5) gm/dL Hct 29.8 L (39.0-53.0) % RDW 16.4 H (11.5-15.5) % Lymphocytes # (Manual) 0.80 L (1.0-4.8) k/uL VBG pH 7.50 H (7.31-7.41) VBG HCO3 34 H (24-28) mmol/L Sodium 121 L (137-145) mmol/L Chloride 88 L (98-107) mmol/L Carbon Dioxide (22-30) mmol/L Creatinine 0.57 L (0.66-1.25) mg/dL Glucose (74-99) mg/dL Calcium 7.8 L (8.4-10.2) mg/dL Total Protein 5.2 L (6.3-8.2) g/dL Albumin 2.5 L (3.5-5.0) g/dL 07/18/23 07/18/23 Range/Units 20:26 20:26 RBC 3.39 L (4.30-5.90) m/uL Hgb 9.6 L (13.0-17.5) gm/dL Hct 30.7 L (39.0-53.0) % RDW 16.4 H (11.5-15.5) % Lymphocytes # (Manual) 0.98 L (1.0-4.8) k/uL VBG pH (7.31-7.41) VBG HCO3 (24-28) mmol/L Sodium 122 L (137-145) mmol/L Chloride 86 L (98-107) mmol/L Carbon Dioxide 33 H (22-30) mmol/L Creatinine (0.66-1.25) mg/dL Glucose 144 H (74-99) mg/dL Calcium 7.8 L (8.4-10.2) mg/dL Total Protein 5.3 L (6.3-8.2) g/dL Albumin 2.6 L (3.5-5.0) g/dL
--- NOTE | 2023-07-19 04:51 | CT ---
EXAM: CT Head Without Intravenous Contrast CLINICAL HISTORY: ITS.REASON CT Reason: fall and trauma at home TECHNIQUE: Axial computed tomography images of the head/brain without intravenous contrast. CTDI is 45.3 mGy and DLP is 1044 mGy-cm. This CT exam was performed using one or more of the following dose reduction techniques: automated exposure control, adjustment of the mA and/or kV according to patient size, and/or use of iterative reconstruction technique. COMPARISON: 06/13/2023 FINDINGS: Brain: Hyperdensity in the left subinsular white matter again seen. No new hyperdensity seen. No herniation or midline shift Ventricles: No hydrocephalus. Bones/joints: Unremarkable. Soft tissues: Scalp swelling. Sinuses: No air fluid level. Mastoid air cells: Clear. IMPRESSION: Hyperdensity in the left subinsular white matter again seen. Possibly subarachnoid hemorrhage although atypical that it is still present since May. Differential diagnosis could be a cavernoma. Continue follow- up. EXAM: CT Cervical Spine Without Intravenous Contrast CLINICAL HISTORY: ITS.REASON CT Reason: fall and trauma at home TECHNIQUE: Axial computed tomography images of the cervical spine without intravenous contrast. CTDI is 7.2 mGy and DLP is 209.7 mGy-cm. This CT exam was performed using one or more of the following dose reduction techniques: automated exposure control, adjustment of the mA and/or kV according to patient size, and/or use of iterative reconstruction technique. COMPARISON: No relevant prior studies available. FINDINGS: Vertebrae: No acute fracture. Discs/spinal canal/neural foramina: degenerative changes. Multilevel moderate to severe spinal canal stenosis Soft tissues: No prevertebral swelling. Severe calcification of the ICA bilaterally IMPRESSION: No acute fracture or subluxation.
[2023-07-19 07:36] LABS: Anisocytosis Slight; Basophils # (A) 0.1 k/uL (0-0.2); Basophils % (A) 2 %; Eosinophils # (A) 0.1 k/uL (0-0.7); Eosinophils % (A) 3 %; HCT 30.3 % (39.0-53.0); HGB 9.5 gm/dL (13.0-17.5); Hypochromasia Slight; Lymphocytes # (A) 0.9 k/uL (1.0-4.8); Lymphocytes % (A) 22 %; MCH 28.6 pg (25.0-35.0); MCHC 31.5 g/dL (31.0-37.0); MCV 90.9 fL (80.0-100.0); Mean Platelet Volume 7.3; Monocytes # (A) 0.4 k/uL (0-1.0); Monocytes % (A) 10 %; Neutrophils # (A) 2.4 k/uL (1.3-7.7); Neutrophils % (A) 60 %; Platelet Count 240 k/uL (150-450); RBC 3.33 m/uL (4.30-5.90); RDW 16.3 % (11.5-15.5); WBC 4.1 k/uL (3.8-10.6)
[2023-07-19 07:41] LABS: Reticulocyte % 1.3 % (0.5-2.0)
[2023-07-19 07:59] LABS: ALT 19 U/L (4-49); AST 25 U/L (17-59); African American GFR (CKD) >90 (>60 ml/min/1.73 sqM); Albumin 2.5 g/dL (3.5-5.0); Alkaline Phosphatase 119 U/L (38-126); Anion Gap -1 mmol/L; Blood Urea Nitrogen 14 mg/dL (9-20); Calcium 7.9 mg/dL (8.4-10.2); Carbon Dioxide 35 mmol/L (22-30); Chloride 86 mmol/L (98-107); Glucose 98 mg/dL (74-99); Non-African American GFR(CKD) >90 (>60 ml/min/1.73 sqM); Sodium 120 mmol/L (137-145); Total Bilirubin 0.6 mg/dL (0.2-1.3); Total Protein 5.2 g/dL (6.3-8.2)
[2023-07-19] MEDS: ENOXAPARIN 40 MG/0.4 ML SYRINGE SQ SCH (08:54)
[2023-07-19 13:37] LABS: % Iron Saturation 18.86 (15.00-50.00); Iron 43 UG/DL (65-175); Total Iron Binding Capacity 228 UG/DL (228-460)
[2023-07-19] MEDS ORDERED: TOLVAPTAN 15 MG TABLET PO ONE (14:20)
--- NOTE | 2023-07-19 14:40 | P.PN ---
Subjective Progress Note Date: 07/19/23 Hospital Course: 73-year-old male with a PMH of hypertension, COPD with chronic hypoxic respiratory failure on home oxygen continuously, who was brought into the emergency room for weakness. Chest x-ray in the emergency room revealed findings consistent with COPD, chronic. EKG reveals narrow complex regular rhythm with no ST/T wave changes.. Laboratory evaluation was remarkable for hemoglobin 9.6 (baseline 11), sodium 121 (baseline 128), creatinine 0.57, troponin less than 0.012, and albumin 2.5. Nephrology consulted. Subjective: Patient seen and examined at bedside. No acute events overnight. Pertinent positives and negatives as discussed above, a complete review of systems was performed and all other systems are negative. Vitals Signs Reviewed. General: non toxic, no distress, appears at stated age, cachectic Derm: no unusual rashes/lesions, warm Head: atraumatic, normocephalic, symmetric Eyes: EOMI, no lid lag, anicteric sclera, pupils equal round reactive to light ENT: Nose and ears atraumatic Neck: No cervical lymphadenopathy, trachea midline, supple Mouth: no lip lesion, mucus membranes moist Cardiovascular: S1S2 reg, no murmur, positive dorsalis pedis pulse bilateral, no edema Lungs: CTA bilateral, no rhonchi, no rales, no accessory muscle use Abdominal: soft, nontender to palpation, no guarding Ext: muscle strength 3 out of 5 in all 4 extremities grossly, no gross muscle atrophy, no contractures, Neuro: CN II-XI grossly intact, no gross focal neuro deficits Psych: Alert, oriented, appropriate affect Data Reviewed Today: Pertinent Labs: Hemoglobin 9.5, sodium 120, creatinine 0.60, iron 43, TIBC 228, percent saturation 18, urine sodium 118, urine osmolality 490 Imaging: no new imaging Assessment and Plan: Active: Hypovolemic hyponatremia Normocytic anemia, likely chronic disease related Severe protein calorie malnutrition Failure to thrive -500 cc normal saline ordered -Hold Lasix -Nephrology consulted -Hold sertraline for now -Continue telemetry monitoring -Neurochecks, seizure precautions Chronic: Hypertension COPD DVT ppx: Lovenox Code status: Full code Anticipated discharge place: Pending clinical course Anticipated discharge time: Pending clinical course Objective - Vital Signs Vital signs: Vital Signs Temp 98.4 F 03/02/24 12:53 Pulse 73 07/19/23 12:00 Resp 16 07/19/23 12:00 BP 127/75 07/19/23 12:00 Pulse Ox 97 07/19/23 12:00 FiO2 Intake & Output 07/18/23 07/19/23 07/19/23 18:59 06:59 18:59 Weight 56.245 kg - Labs CBC & Chem 7: 07/19/23 07:19 07/19/23 07:39 Labs: Abnormal Lab Results - Last 24 Hours (Table) 07/18/23 07/18/23 07/18/23 Range/Units 18:50 18:50 18:59 RBC 3.31 L (4.30-5.90) m/uL Hgb 9.5 L D (13.0-17.5) gm/dL Hct 29.8 L (39.0-53.0) % RDW 16.4 H (11.5-15.5) % Lymphocytes # (1.0-4.8) k/uL Lymphocytes # (Manual) 0.80 L (1.0-4.8) k/uL VBG pH 7.50 H (7.31-7.41) VBG HCO3 34 H (24-28) mmol/L Sodium 121 L (137-145) mmol/L Chloride 88 L (98-107) mmol/L Carbon Dioxide (22-30) mmol/L Creatinine 0.57 L (0.66-1.25) mg/dL Glucose (74-99) mg/dL Osmolality (275-295) mOsm/kg Calcium 7.8 L (8.4-10.2) mg/dL Iron (65-175) UG/DL Transferrin (204.0-354.0) mg/dL Total Protein 5.2 L (6.3-8.2) g/dL Albumin 2.5 L (3.5-5.0) g/dL 07/18/23 07/18/23 07/18/23 Range/Units 20:26 20:26 20:26 RBC 3.39 L (4.30-5.90) m/uL Hgb 9.6 L (13.0-17.5) gm/dL Hct 30.7 L (39.0-53.0) % RDW 16.4 H (11.5-15.5) % Lymphocytes # (1.0-4.8) k/uL Lymphocytes # (Manual) 0.98 L (1.0-4.8) k/uL VBG pH (7.31-7.41) VBG HCO3 (24-28) mmol/L Sodium 122 L (137-145) mmol/L Chloride 86 L (98-107) mmol/L Carbon Dioxide 33 H (22-30) mmol/L Creatinine (0.66-1.25) mg/dL Glucose 144 H (74-99) mg/dL Osmolality 266 L (275-295) mOsm/kg Calcium 7.8 L (8.4-10.2) mg/dL Iron (65-175) UG/DL Transferrin (204.0-354.0) mg/dL Total Protein 5.3 L (6.3-8.2) g/dL Albumin 2.6 L (3.5-5.0) g/dL 07/19/23 07/19/23 Range/Units 07:19 07:39 RBC 3.33 L (4.30-5.90) m/uL Hgb 9.5 L (13.0-17.5) gm/dL Hct 30.3 L (39.0-53.0) % RDW 16.3 H (11.5-15.5) % Lymphocytes # 0.9 L (1.0-4.8) k/uL Lymphocytes # (Manual) (1.0-4.8) k/uL VBG pH (7.31-7.41) VBG HCO3 (24-28) mmol/L Sodium 120 L (137-145) mmol/L Chloride 86 L (98-107) mmol/L Carbon Dioxide 35 H (22-30) mmol/L Creatinine 0.62 L (0.66-1.25) mg/dL Glucose (74-99) mg/dL Osmolality (275-295) mOsm/kg Calcium 7.9 L (8.4-10.2) mg/dL Iron 43 L (65-175) UG/DL Transferrin 163.0 L (204.0-354.0) mg/dL Total Protein 5.2 L (6.3-8.2) g/dL Albumin 2.5 L (3.5-5.0) g/dL
[2023-07-19] MEDS: SODIUM CHLORIDE 0.9% 500 ML 500 ML IV ONE (15:32)
--- NOTE | 2023-07-19 16:00 | CA ---
Transthoracic Echo Report Name: Josh Brooke Age: 73 Gender: M : 1950 Exam Date: 07/19/2023 08:30 Exam Location: [facility] Ht (in): 74 Wt (lb): 124 Ordering Physician: Shashi Dick MD Attending/Referring Phys: Vendor Specialist Procedure CPT: Indications: Syncope Cardiac Hx: Technical Quality: Contrast 1: Total Dose (mL): Contrast 2: Total Dose (mL): MEASUREMENTS (Male / Female) Normal Values 2D ECHO LV Diastolic Diameter PLAX 3.2 cm 4.2 - 5.9 / 3.9 - 5.3 cm LV Systolic Diameter PLAX 1.8 cm IVS Diastolic Thickness 0.8 cm 0.6 - 1.0 / 0.6 - 0.9 cm LVPW Diastolic Thickness 0.9 cm 0.6 - 1.0 / 0.6 - 0.9 cm LV Relative Wall Thickness 0.5 LVOT Diameter 2.1 cm LV Diastolic Volume MOD BP 53.2 cm??? 67 - 155 / 56 - 104 cm??? LV Systolic Volume MOD BP 20.7 cm??? 22 - 58 / 19 - 49 cm??? LV Ejection Fraction MOD BP 61.0 % >= 55 % LV Cardiac Index MOD BP 1305.2 cm???/min???m??? LV Diastolic Volume MOD 4C 52.6 cm??? LV Systolic Volume MOD 4C 15.8 cm??? LV Ejection Fraction MOD 4C 69.9 % LV Cardiac Index MOD 4C 1480.2 cm???/min???m??? LV Diastolic Length 4C 7.7 cm LV Systolic Length 4C 6.8 cm LV Diastolic Volume MOD 2C 54.5 cm??? LV Systolic Volume MOD 2C 23.6 cm??? LV Ejection Fraction MOD 2C 56.7 % LV Cardiac Index MOD 2C 1244.4 cm???/min???m??? LV Diastolic Length 2C 7.6 cm LV Systolic Length 2C 5.8 cm DOPPLER AV Peak Velocity 212.7 cm/s AV Peak Gradient 18.1 mmHg AV Mean Velocity 150.0 cm/s AV Mean Gradient 9.9 mmHg AV Velocity Time Integral 43.3 cm LVOT Peak Velocity 104.9 cm/s LVOT Peak Gradient 4.4 mmHg LVOT Velocity Time Integral 23.0 cm LVOT Stroke Volume 80.2 cm??? LVOT Stroke Volume Index 45.2 ml/m??? LVOT Cardiac Index 3230.4 cm???/min???m??? AV Area Cont Eq vti 1.9 cm??? AV Area Cont Eq pk 1.7 cm??? Mitral E Point Velocity 82.6 cm/s Mitral A Point Velocity 86.4 cm/s Mitral E to A Ratio 1.0 MV Deceleration Time 291.0 ms FINDINGS Left Ventricle Left ventricular ejection fraction is estimated at 50-55 %. Mild concentric left ventricular hypertrophy. Right Ventricle Right ventricle not well visualized. Right Atrium Right atrial dilatation. Left Atrium Left atrium not well visualized. Mitral Valve Mild mitral regurgitation. Aortic Valve Mild aortic stenosis with a peak gradient of 22.23 mmHg and a mean gradient of 11.72 mmHg. Tricuspid Valve Trace tricuspid regurgitation. Pulmonic Valve Pulmonic valve not well visualized. Pericardium No pericardial effusion. Aorta Aortic root and proximal ascending aorta not well visualized. CONCLUSIONS Normal LV systolic function Small circumferential pericardial effusion Mild aortic stenosis Previewed by: Dr. Nayan Hooper MD (Electronically Signed) Final Date: 19 July 2023 16:00
[2023-07-19] MEDS: hydrALAZINE HCL 25 MG TAB PO SCH (16:17)
[2023-07-19 18:10] LABS: African American GFR (CKD) >90 (>60 ml/min/1.73 sqM); Anion Gap -2 mmol/L; Blood Urea Nitrogen 12 mg/dL (9-20); Calcium 7.6 mg/dL (8.4-10.2); Carbon Dioxide 36 mmol/L (22-30); Chloride 86 mmol/L (98-107); Glucose 89 mg/dL (74-99); Non-African American GFR(CKD) >90 (>60 ml/min/1.73 sqM); Potassium 4.7 mmol/L (3.5-5.1); Sodium 120 mmol/L (137-145)
[2023-07-19] MEDS: SYMBICORT 160-4.5 MCG INHALER INHALATION SCH (19:52)
[2023-07-20] MEDS: lisinopriL 20 MG TAB PO SCH (08:25)
[2023-07-20] MEDS: amLODIPine 10 MG TAB PO SCH (08:25)
[2023-07-20 09:14] LABS: Basophils # (A) 0.04 X 10*3/uL (0.00-0.10); Basophils % (A) 0.9 %; Eosinophils # (A) 0.13 X 10*3/uL (0.04-0.35); Eosinophils % (A) 2.9 %; HCT 29.3 % (39.6-50.0); HGB 9.1 g/dL (13.0-17.0); Lymphocytes # (A) 0.85 X 10*3/uL (0.90-5.00); Lymphocytes % (A) 19.1 %; MCH 27.5 pg (27.0-32.0); MCHC 31.1 g/dL (32.0-37.0); MCV 88.5 FL (80.0-97.0); Mean Platelet Volume 9.3 FL (9.5-12.2); Monocytes % (A) 13.5 %; NRBC Per 100 WBC 0 X 10*3/uL (0.00-0.01); Neutrophils % (A) 63.1 %; Platelet Count 257 X 10*3/uL (140-440); RBC 3.31 X 10*6/uL (4.40-5.60); RDW 17.2 % (11.5-14.5); WBC 4.44 X 10*3/uL (4.50-10.00)
[2023-07-20] MEDS: MULTIVITAMINS, THERA 1 EACH TAB PO SCH (09:18)
[2023-07-20 09:44] LABS: Blood Urea Nitrogen 9.5 mg/dL (9.0-27.0); Carbon Dioxide 32.7 mmol/L (21.6-31.8); Chloride 85 mmol/L (96-109); Glucose 95 mg/dL (70-110); Potassium 4.8 mmol/L (3.5-5.5); Sodium 123 mmol/L (135-145)
[2023-07-20 09:45] LABS: Calcium 8.4 mg/dL (8.7-10.3)
--- NOTE | 2023-07-20 11:31 | P.NPCON ---
History of Present Illness - Reason for Consult hyponatremia - History of Present Illness Patient is a 72-year-old male with history of hypertension, COPD with chronic hypoxic respiratory failure maintained on home oxygen. Patient is admitted to the hospital with increased weakness and history of fall. Labs showed serum sodium of 121 mg/L Patient denied any history of numbness or tingling. No loss of consciousness. No previous episodes of hyponatremia per patient. However serum sodium was noted to be low at 127 and 128 in May 2023. Serum sodium was 121 on admission and decreased to 120 after normal saline administration. Patient is currently maintained on fluid restriction. urine osmolality 419 and random urine sodium of 118. No reports of nausea vomiting or diarrhea or any new medications been started recently. Maintained on Lasix prior to admission. Review of Systems As per HPI other systems negative Past Medical History Past Medical History: COPD, Hypertension, Pneumonia History of Any Multi-Drug Resistant Organisms: None Reported Past Surgical History: Appendectomy, Tonsillectomy Past Anesthesia/Blood Transfusion Reactions: No Reported Reaction Past Psychological History: No Psychological Hx Reported Smoking Status: Current some day smoker, Former smoker Past Alcohol Use History: Occasional Past Drug Use History: Marijuana Medications and Allergies Home Medications Medication Instructions Recorded Confirmed Type Budesonide/Formoterol Fumarate 2 puff INHALATION RT-BID 11/09/19 07/18/23 History [Symbicort 160-4.5 Mcg Inhaler] Ensure 1 can PO DAILY 04/16/23 07/18/23 History Magnesium Oxide 420 Mg 420 mg PO BID@0400,0900 04/16/23 07/18/23 History Multivitamins, Thera [Multivitamin 1 tab PO DAILY 04/16/23 07/18/23 History (formulary)] Sertraline [Zoloft] 50 mg PO DAILY 04/16/23 07/18/23 History lisinopriL [Zestril] 20 mg PO DAILY 04/16/23 07/18/23 History Furosemide [Lasix] 40 mg PO BID@0900,1600 #60 tab 06/18/23 07/18/23 Rx Albuterol Inhaler [Ventolin Hfa 1 - 2 puff INHALATION RT-QID PRN 07/18/23 07/18/23 History Inhaler] amLODIPine [Norvasc] 10 mg PO DAILY 07/18/23 07/18/23 History diphenhydrAMINE HCL [Benadryl] 25 mg PO DAILY 07/18/23 07/18/23 History hydrALAZINE HCL [Apresoline] 25 mg PO TID 07/18/23 07/18/23 History Allergies Allergy/AdvReac Type Severity Reaction Status Date / Time codeine Allergy Unknown Verified 07/18/23 22:44 Physical Exam Vitals: Vital Signs Temp Pulse Pulse Resp BP BP Pulse Ox 07/20/23 07:34 97.5 F L 76 17 96/63 99 07/20/23 02:00 98.4 F 73 16 126/59 97 07/19/23 23:00 97.5 F L 67 16 135/80 95 07/19/23 22:35 67 16 07/19/23 22:00 70 19 139/96 99 07/19/23 19:00 72 17 144/114 100 07/19/23 17:00 72 36 H 143/86 94 L 07/19/23 16:00 68 19 119/73 95 07/19/23 15:00 71 18 136/83 99 07/19/23 14:00 73 18 137/76 95 07/19/23 13:00 75 18 141/88 96 07/19/23 12:53 98.4 F 07/19/23 12:00 73 16 127/75 97 Intake and Output 07/19/23 07/20/23 07/20/23 22:59 06:59 14:59 Intake Total 400 358 Output Total 1200 1200 Balance -800 -1200 358 Intake: Oral 400 358 Output: Urine 1200 1200 Other: Voiding Method External Catheter Urinal Weight 56.245 kg Patient is awake, comfortable, no acute distress Patient is hard of hearing Examination of the heart S1 and S2 Examination of the lungs bilateral breath sounds are heard Abdomen is soft nontender Examination of lower extremity shows no evidence of edema INSTRUCTOR NURSE exam grossly intact Results - Lab Results Most recent lab results Calcium 8.4 mg/dL (8.7-10.3) L 07/20/23 05:54 Magnesium 1.9 mg/dL (1.6-2.3) 07/18/23 18:50 07/20/23 05:54 07/20/23 05:54 Assessment and Plan Assessment: 1. Hyponatremia, euvolemic with worsening of sodium with saline administration suggestive of underlying SIADH. Currently off of IV fluids and maintained on fluid restriction. Sodium has improved to 123. I will hold off on Samsca and recheck serum sodium this evening. Continue with fluid restriction for now. Patient is also advised to increase oral intake of protein. No significant abnormality noted on chest x-ray 2. History of fall 3. History of hypertension maintained on SHANKAR inhibitor's and hydralazine along with Norvasc prior to admission. Plan: Repeat sodium this evening. Continue with fluid restriction. Add Samsca if sodium is not further improved tonight. Hold Lasix for now Patient is encouraged to increase oral intake of protein. Thank you for the consultation. We will continue to follow the patient with you during his hospitalization.
--- NOTE | 2023-07-20 12:16 | P.PN ---
Subjective Progress Note Date: 07/20/23 Hospital Course: 73-year-old male with a PMH of hypertension, COPD with chronic hypoxic respiratory failure on home oxygen continuously, who was brought into the emergency room for weakness. Chest x-ray in the emergency room revealed findings consistent with COPD, chronic. EKG reveals narrow complex regular rhythm with no ST/T wave changes.. Laboratory evaluation was remarkable for hemoglobin 9.6 (baseline 11), sodium 121 (baseline 128), creatinine 0.57, troponin less than 0.012, and albumin 2.5. Nephrology consulted. Subjective: Patient seen and examined at bedside. No acute events overnight. Pertinent positives and negatives as discussed above, a complete review of systems was performed and all other systems are negative. Vitals Signs Reviewed. General: non toxic, no distress, appears at stated age, cachectic Derm: no unusual rashes/lesions, warm Head: atraumatic, normocephalic, symmetric Eyes: EOMI, no lid lag, anicteric sclera, pupils equal round reactive to light ENT: Nose and ears atraumatic Neck: No cervical lymphadenopathy, trachea midline, supple Mouth: no lip lesion, mucus membranes moist Cardiovascular: S1S2 reg, no murmur, positive dorsalis pedis pulse bilateral, no edema Lungs: CTA bilateral, no rhonchi, no rales, no accessory muscle use Abdominal: soft, nontender to palpation, no guarding Ext: muscle strength 3 out of 5 in all 4 extremities grossly, no gross muscle atrophy, no contractures, Neuro: CN II-XI grossly intact, no gross focal neuro deficits Psych: Alert, oriented, appropriate affect Data Reviewed Today: Pertinent Labs: Hemoglobin 9.1, sodium 123, potassium 4.8, creatinine 0.5, cortisol 14.7, TSH 1.01 Imaging: no new imaging Assessment and Plan: Patient is severely ill, needs close monitoring. Prognosis guarded. Active: Hypovolemic versus euvolemic hyponatremia Normocytic anemia, likely chronic disease related Severe protein calorie malnutrition Failure to thrive - discussed management with nephrology, Satish x 1, fluid restriction -Hold Lasix -Nephrology consulted -Hold sertraline for now -Continue telemetry monitoring -Neurochecks, seizure precautions PT consult Chronic: Hypertension COPD DVT ppx: Lovenox Code status: Full code Anticipated discharge place: Pending clinical course Anticipated discharge time: Pending clinical course Objective - Vital Signs Vital signs: Vital Signs Temp 97.5 F L 07/20/23 07:34 Pulse 76 07/20/23 07:34 Resp 17 07/20/23 07:34 BP 96/63 07/20/23 07:34 Pulse Ox 99 07/20/23 07:34 FiO2 Intake & Output 07/19/23 07/20/23 07/20/23 18:59 06:59 18:59 Intake Total 850 358 Output Total 2400 1200 Balance -1550 -1200 358 Weight 56.245 kg Intake: Oral 850 358 Output: Urine 2400 1200 Other: Voiding Method External Catheter Urinal - Labs CBC & Chem 7: 07/20/23 05:54 07/20/23 05:54 Labs: Abnormal Lab Results - Last 24 Hours (Table) 07/19/23 07/19/23 07/20/23 Range/Units 07:39 17:27 05:54 WBC 4.44 L (4.50-10.00) X 10*3/uL RBC 3.31 L (4.40-5.60) X 10*6/uL Hgb 9.1 L (13.0-17.0) g/dL Hct 29.3 L (39.6-50.0) % MCHC 31.1 L (32.0-37.0) g/dL RDW 17.2 H (11.5-14.5) % MPV 9.3 L (9.5-12.2) FL Lymphocytes # 0.85 L (0.90-5.00) X 10*3/uL Sodium 120 L (137-145) mmol/L Chloride 86 L (98-107) mmol/L Carbon Dioxide 36 H (22-30) mmol/L Creatinine (0.6-1.5) mg/dL Calcium 7.6 L (8.4-10.2) mg/dL Iron 43 L (65-175) UG/DL Transferrin 163.0 L (204.0-354.0) mg/dL 07/20/23 Range/Units 05:54 WBC (4.50-10.00) X 10*3/uL RBC (4.40-5.60) X 10*6/uL Hgb (13.0-17.0) g/dL Hct (39.6-50.0) % MCHC (32.0-37.0) g/dL RDW (11.5-14.5) % MPV (9.5-12.2) FL Lymphocytes # (0.90-5.00) X 10*3/uL Sodium 123 L (137-145) mmol/L Chloride 85 L (98-107) mmol/L Carbon Dioxide 32.7 H (22-30) mmol/L Creatinine 0.5 L (0.6-1.5) mg/dL Calcium 8.4 L (8.4-10.2) mg/dL Iron (65-175) UG/DL Transferrin (204.0-354.0) mg/dL
[2023-07-20] MEDS: TOLVAPTAN 15 MG TABLET PO ONE (16:32)
[2023-07-21 08:56] LABS: BUN/Creat Ratio 21.33 Ratio (12.00-20.00); Blood Urea Nitrogen 12.8 mg/dL (9.0-27.0); Calcium 8.7 mg/dL (8.7-10.3); Carbon Dioxide 35.1 mmol/L (21.6-31.8); Chloride 89 mmol/L (96-109); Glucose 91 mg/dL (70-110); Potassium 5.2 mmol/L (3.5-5.5); Sodium 132 mmol/L (135-145)
--- NOTE | 2023-07-21 11:32 | P.PN ---
Subjective Progress Note Date: 07/21/23 Hospital Course: 73-year-old male with a PMH of hypertension, COPD with chronic hypoxic respiratory failure on home oxygen continuously, who was brought into the emergency room for weakness. Chest x-ray in the emergency room revealed findings consistent with COPD, chronic. EKG reveals narrow complex regular rhythm with no ST/T wave changes.. Laboratory evaluation was remarkable for hemoglobin 9.6 (baseline 11), sodium 121 (baseline 128), creatinine 0.57, troponin less than 0.012, and albumin 2.5. Nephrology consulted. Patient was fluid restricted, had Samsca x 1. Hyponatremia improved. Subjective: Patient seen and examined at bedside. No acute events overnight. Pertinent positives and negatives as discussed above, a complete review of systems was performed and all other systems are negative. Vitals Signs Reviewed. General: non toxic, no distress, appears at stated age, cachectic Derm: no unusual rashes/lesions, warm Head: atraumatic, normocephalic, symmetric Eyes: EOMI, no lid lag, anicteric sclera, pupils equal round reactive to light ENT: Nose and ears atraumatic Neck: No cervical lymphadenopathy, trachea midline, supple Mouth: no lip lesion, mucus membranes moist Cardiovascular: S1S2 reg, no murmur, positive dorsalis pedis pulse bilateral, no edema Lungs: CTA bilateral, no rhonchi, no rales, no accessory muscle use Abdominal: soft, nontender to palpation, no guarding Ext: muscle strength 3 out of 5 in all 4 extremities grossly, no gross muscle atrophy, no contractures, Neuro: CN II-XI grossly intact, no gross focal neuro deficits Psych: Alert, oriented, appropriate affect Data Reviewed Today: Pertinent Labs: Sodium 132, creatinine 0.6 Imaging: no new imaging Assessment and Plan: Active: Euvolemic hyponatremia, improving Normocytic anemia, likely chronic disease related Severe protein calorie malnutrition Failure to thrive -Samsca x 1 during this admission Nephrology following, repeat sodium at 2 PM today Hold Lasix for now -Hold sertraline for now -Continue telemetry monitoring -Neurochecks, seizure precautions PT consult, pending Recommendations Chronic: Hypertension COPD DVT ppx: Lovenox Code status: Full code Anticipated discharge place: Pending clinical course Anticipated discharge time: Pending clinical course Objective - Vital Signs Vital signs: Vital Signs Temp 97.6 F 07/21/23 07:23 Pulse 77 07/21/23 07:23 Resp 16 07/21/23 07:23 BP 140/70 07/21/23 09:04 Pulse Ox 100 07/21/23 07:23 FiO2 Intake & Output 07/20/23 07/21/23 07/21/23 18:59 06:59 18:59 Intake Total 358 480 236 Output Total 125 250 600 Balance 233 230 -364 Intake: Oral 358 480 236 Output: Urine 125 250 600 Other: Voiding Method Urinal Urinal Urinal # Voids 2 - Labs CBC & Chem 7: 07/20/23 05:54 07/21/23 05:02 Labs: Abnormal Lab Results - Last 24 Hours (Table) 07/20/23 07/20/23 07/21/23 Range/Units 12:47 21:22 05:02 Sodium 120 L 125 L 132 L (137-145) mmol/L Chloride 89 L (96-109) mmol/L Carbon Dioxide 35.1 H (21.6-31.8) mmol/L BUN/Creatinine Ratio 21.33 H (12.00-20.00) Ratio
[2023-07-21] MEDS: DEXTROSE 5% IN WATER 1,000 ML IV SCH (11:37)
--- NOTE | 2023-07-21 12:13 | P.PN ---
Subjective Patient is seen for follow-up for hyponatremia, mostly SIADH and improved with Samsca significantly. Sodium is 132 today from 120 yesterday. No significant complaints. Patient states he feels well. Objective - Vital Signs Vital signs: Vital Signs Temp 97.6 F 07/21/23 07:23 Pulse 77 07/21/23 07:23 Resp 16 07/21/23 07:23 BP 140/70 07/21/23 09:04 Pulse Ox 100 07/21/23 07:23 FiO2 Intake & Output 07/20/23 07/21/23 07/21/23 18:59 06:59 18:59 Intake Total 358 480 236 Output Total 125 250 800 Balance 233 230 -564 Intake: Oral 358 480 236 Output: Urine 125 250 800 Other: Voiding Method Urinal Urinal Urinal # Voids 2 - Exam Patient is awake, comfortable, no acute distress Patient is hard of hearing Examination of the heart S1 and S2 Examination of the lungs bilateral breath sounds are heard Abdomen is soft nontender Examination of lower extremity shows no evidence of edema 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 Hyponatremia, euvolemic with worsening of sodium with saline administration suggestive of underlying SIADH. Currently off of IV fluids and maintained on fluid restriction. Sodium has improved to 132 after 1 dose of Samsca yesterday. 2. History of fall 3. History of hypertension maintained on SHANKAR inhibitor's and hydralazine along with Norvasc prior to admission. Plan: Add D5W due to rapid increase in serum sodium. Repeat sodium at about 2 PM today. Patient can likely be discharged tomorrow.
[2023-07-21 16:01] VITALS: BMI 15.0
[2023-07-22] MEDS: TOLVAPTAN 15 MG TABLET PO ONE (01:06)
[2023-07-22 11:45] LABS: Blood Urea Nitrogen 10.2 mg/dL (9.0-27.0); Calcium 8.7 mg/dL (8.7-10.3); Carbon Dioxide 34.6 mmol/L (21.6-31.8); Chloride 89 mmol/L (96-109); Glucose 143 mg/dL (70-110); Potassium 4.7 mmol/L (3.5-5.5); Sodium 130 mmol/L (135-145)
--- NOTE | 2023-07-22 13:25 | P.PN ---
Subjective Progress Note Date: 07/22/23 Hospital Course: 73-year-old male with a PMH of hypertension, COPD with chronic hypoxic respiratory failure on home oxygen continuously, who was brought into the emergency room for weakness. Chest x-ray in the emergency room revealed findings consistent with COPD, chronic. EKG reveals narrow complex regular rhythm with no ST/T wave changes.. Laboratory evaluation was remarkable for hemoglobin 9.6 (baseline 11), sodium 121 (baseline 128), creatinine 0.57, troponin less than 0.012, and albumin 2.5. Nephrology consulted. Has euvolemic hyponatremia. Patient was fluid restricted, had Samsca x 2. Hyponatremia improved. Patient currently lives alone, has cognitive impairment, needs 24/7 care at home versus correction facility. Subjective: Patient seen and examined at bedside. No acute events overnight. Pertinent positives and negatives as discussed above, a complete review of systems was performed and all other systems are negative. Vitals Signs Reviewed. General: non toxic, no distress, appears at stated age, cachectic Derm: no unusual rashes/lesions, warm Head: atraumatic, normocephalic, symmetric Eyes: EOMI, no lid lag, anicteric sclera, pupils equal round reactive to light ENT: Nose and ears atraumatic Neck: No cervical lymphadenopathy, trachea midline, supple Mouth: no lip lesion, mucus membranes moist Cardiovascular: S1S2 reg, no murmur, no edema Lungs: CTA bilateral, no rhonchi, no rales, no accessory muscle use Abdominal: soft, nontender to palpation, no guarding Ext: muscle strength 4 out of 5 in all 4 extremities grossly, no contractures, Neuro: CN II-XI grossly intact, no gross focal neuro deficits Psych: Alert, oriented, appropriate affect Data Reviewed Today: Pertinent Labs: Sodium 130, creatinine 0.6 Imaging: no new imaging Assessment and Plan: Active: Euvolemic hyponatremia, likely SIADH, improving Normocytic anemia, likely chronic disease related Severe protein calorie malnutrition Failure to thrive Mild cognitive impairment -Samsca x 2 during this admission Discussed management with nephrology, patient okay for discharge, needs to continue fluid restriction Hold Lasix for now -Sertraline was initially held, now restarted, currently on 50 mg daily, patient will need to be slowly weaned off of sertraline and consider different antidepressant -Continue telemetry monitoring -Neurochecks, seizure precautions Chronic: Hypertension COPD Depression DVT ppx: Lovenox Code status: Full code Anticipated discharge place: SNF versus 09/12 care at home Anticipated discharge time: Pending clinical course Objective - Vital Signs Vital signs: Vital Signs Temp 97.5 F L 07/22/23 12:31 Pulse 74 07/22/23 12:31 Resp 20 07/22/23 12:31 BP 94/53 07/22/23 12:31 Pulse Ox 95 07/22/23 12:31 FiO2 Intake & Output 07/21/23 07/22/23 07/22/23 18:59 06:59 18:59 Intake Total 596 240 240 Output Total 1200 900 375 Balance -604 -660 -135 Weight 56.245 kg Intake: Oral 596 240 240 Output: Urine 1200 900 375 Other: Voiding Method Urinal Urinal Urinal # Voids 1 - Labs CBC & Chem 7: 07/20/23 05:54 07/22/23 05:56 Labs: Abnormal Lab Results - Last 24 Hours (Table) 07/21/23 07/21/23 07/22/23 Range/Units 13:44 23:45 05:56 Sodium 126 L 124 L 130 L (137-145) mmol/L Chloride 89 L (96-109) mmol/L Carbon Dioxide 34.6 H (21.6-31.8) mmol/L Glucose 143 H (70-110) mg/dL
--- NOTE | 2023-07-22 13:29 | P.PN ---
Subjective Patient is seen for follow-up for hyponatremia, mostly SIADH and improved with Samsca Patient was started on D5W as serum sodium had increased significantly. However sodium decreased to 124 again last night and patient received 7.5 mg of Samsca. Sodium today is at 1:30. Patient denies any significant complaints.. Objective - Vital Signs Vital signs: Vital Signs Temp 97.5 F L 07/22/23 12:31 Pulse 74 07/22/23 12:31 Resp 20 07/22/23 12:31 BP 94/53 07/22/23 12:31 Pulse Ox 95 07/22/23 12:31 FiO2 Intake & Output 07/21/23 07/22/23 07/22/23 18:59 06:59 18:59 Intake Total 596 240 240 Output Total 1200 900 375 Balance -604 -660 -135 Weight 56.245 kg Intake: Oral 596 240 240 Output: Urine 1200 900 375 Other: Voiding Method Urinal Urinal Urinal # Voids 1 - Exam Patient is awake, comfortable, no acute distress Patient is hard of hearing Examination of the heart S1 and S2 Examination of the lungs bilateral breath sounds are heard Abdomen is soft nontender Examination of lower extremity shows no evidence of edema 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 Hyponatremia, euvolemic with worsening of sodium with saline administration suggestive of underlying SIADH. Currently off of IV fluids and maintained on fluid restriction. Status post D5W yesterday for rapid increase in serum sodium however sodium dropped back down to 124 and patient received another dose of Samsca last night. Sodium is at 130 today 2. History of fall 3. History of hypertension maintained on SHANKAR inhibitor's and hydralazine along with Norvasc prior to admission. Plan: Continue with fluid restriction Patient can be discharged from nephrology standpoint with repeat labs to be done in 2-3 days Repeat sodium later today if patient is not discharged
[2023-07-23 08:45] LABS: Blood Urea Nitrogen 9.6 mg/dL (9.0-27.0); Calcium 8.6 mg/dL (8.7-10.3); Carbon Dioxide 34.9 mmol/L (21.6-31.8); Chloride 86 mmol/L (96-109); Glucose 145 mg/dL (70-110); Potassium 4.6 mmol/L (3.5-5.5); Sodium 126 mmol/L (135-145)
[2023-07-23] MEDS ORDERED: SERTRALINE 50 MG TAB PO SCH (09:00)
[2023-07-23] MEDS: TOLVAPTAN 15 MG TABLET PO ONE (14:24)
--- NOTE | 2023-07-23 15:34 | P.PN ---
Subjective Progress Note Date: 07/23/23 (delayed charting seen at 0945) Patient is a 73-year-old male with hypertension, COPD with chronic hypoxic respiratory failure on chronic home O2, and prior tobacco abuse who presented to the emergency department with weakness. Patient was found on the ground unable to get up by his landlord, at that time he was disconnected from his home oxygen. In the emergency department he underwent an extensive evaluation. Chest x-ray showed no acute process but findings consistent with COPD. Laborat ory analysis was remarkable for hemoglobin 9.6 (baseline 11), and sodium 121, baseline 128. Patient was admitted for weakness related to significant hyponatremia. Nephrology was consulted. Patient initially was given IV fluids and had a drop in his sodium level. He was then started on fluid restriction. 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 Patient received a dose of Samsca and his sodium improved. Patient currently lives alone and has known cognitive impairment and requires 24/7 care at home versus correction facility. He was seen by physical therapy and was able to ambulate 175 feet with supervision. Patient seen and examined at bedside. He is sad because his food was cold and he could not eat at this morning as it was left there when he was sleeping. He denies any pain or shortness of breath. 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 Will give an additional Samsca dose today of 15 mg. Recheck basic metabolic profile in a.m. -Continue to hold SSRI -Patient has been eating well since being hospitalized -Daughter (guardian) is aware that recommendations are for 24/7 supervision. According to case management she is working on arranging this and has a meeting with [employer] on Friday. I have also offered to fill out FMLA paperwork for the daughter so that she may be around to care for her father as they continue to make arrangements for a more permanent solution. Chronic: Hypertension COPD without exacerbation Depression Imaging: None new Data Review: Labs reviewed from today include basic metabolic profile with sodium 126 DVT prophylaxis: SCDs Anticipated discharge date: 24 to [address]: Home with home care This dictation was prepared using [employer] voice recognition software. Though every attempt is made to correct errors during dictation some may still exist. Objective - Vital Signs Vital signs: Vital Signs Temp 97.3 F L 07/23/23 12:16 Pulse 79 07/23/23 12:16 Resp 16 07/23/23 12:16 BP 106/68 07/23/23 12:16 Pulse Ox 95 07/23/23 12:16 FiO2 Intake & Output 07/22/23 07/23/23 07/23/23 18:59 06:59 18:59 Intake Total 480 240 120 Output Total 375 Balance 105 240 120 Weight 56.245 kg Intake: Oral 480 240 120 Output: Urine 375 Other: Voiding Method Urinal Urinal Urinal # Voids 4 3 - Labs CBC & Chem 7: 07/20/23 05:54 07/23/23 05:59 Labs: Abnormal Lab Results - Last 24 Hours (Table) 07/23/23 Range/Units 05:59 Sodium 126 L (135-145) mmol/L Chloride 86 L (96-109) mmol/L Carbon Dioxide 34.9 H (21.6-31.8) mmol/L Creatinine 0.5 L (0.6-1.5) mg/dL Glucose 145 H (70-110) mg/dL Calcium 8.6 L (8.7-10.3) mg/dL
--- NOTE | 2023-07-23 21:39 | P.PN ---
Subjective Patient is seen for follow-up for hyponatremia, mostly SIADH and improved with Samsca Serum sodium was 126 this morning. Patient will be given another dose of Samsca. He denies any significant complaints. Patient remains on fluid restriction. Objective - Vital Signs Vital signs: Vital Signs Temp 97.8 F 07/23/23 19:53 Pulse 89 07/23/23 19:53 Resp 16 07/23/23 19:53 BP 100/73 07/23/23 19:53 Pulse Ox 90 L 07/23/23 19:53 FiO2 Intake & Output 07/23/23 07/23/23 07/24/23 06:59 18:59 06:59 Intake Total 240 360 Output Total 350 Balance 240 10 Weight 56.245 kg Intake: Oral 240 360 Output: Urine 350 Other: Voiding Method Urinal Urinal # Voids 3 1 - Exam Patient is awake, comfortable, no acute distress Patient is hard of hearing Examination of the heart S1 and S2 Examination of the lungs bilateral breath sounds are heard Abdomen is soft nontender Examination of lower extremity shows no evidence of edema 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 Hyponatremia, euvolemic with worsening of sodium with saline administration suggestive of underlying SIADH. Currently off of IV fluids and maintained on fluid restriction. Status post D5W for rapid increase in serum sodium however sodium dropped back down to 124 and patient received another dose of Samsca. So dium was 130 yesterday and decreased to 126 today. Samsca will be repeated today. 2. History of fall 3. History of hypertension maintained on SHANKAR inhibitor's and hydralazine along with Norvasc prior to admission. Plan: Continue with fluid restriction Repeat Samsca 15 mg today. If patient remains dependent on tolvaptan we can try demeclocycline as outpatient as Samsca will likely not be covered as outpatient. Repeat sodium in a.m.
[2023-07-24 07:14] LABS: Potassium 4.8 mmol/L (3.5-5.1)
[2023-07-24] MEDS: SODIUM CHLORIDE TAB 1 GM TAB PO SCH (11:25)
[2023-07-24] MEDS: TOLVAPTAN 15 MG TABLET PO ONE ×2 (11:26→22:03)
--- NOTE | 2023-07-24 13:26 | P.PN ---
Subjective Patient is seen for follow-up for hyponatremia, mostly SIADH and improved with Samsca Serum sodium was 126 again this morning. Received 15 mg of Samsca yesterday He denies any significant complaints. Patient remains on fluid restriction. 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 Hyponatremia, euvolemic with worsening of sodium with saline administration suggestive of underlying SIADH. Currently off of IV fluids and maintained on f luid restriction. Status post D5W for rapid increase in serum sodium. Samsca will be repeated again and I will give 1 dose of sodium chloride tablets. Patient may need to be maintained on demeclocycline upon discharge. 2. History of fall 3. History of hypertension maintained on SHANKAR inhibitor's and hydralazine along with Norvasc prior to admission. Plan: Continue with fluid restriction Add sodium chloride tab Repeat Samsca 15 mg today. If patient remains dependent on tolvaptan we can try demeclocycline as outpatient as Samsca will likely not be covered as outpatient. Repeat sodium this afternoon
--- NOTE | 2023-07-24 18:06 | P.PN ---
Subjective Progress Note Date: 07/24/23 (delayed charting seen at 0930) Patient is a 73-year-old male with hypertension, COPD with chronic hypoxic respiratory failure on chronic home O2, and prior tobacco abuse who presented to the emergency department with weakness. Patient was found on the ground unable to get up by his landlord, at that time he was disconnected from his home oxygen. In the emergency department he underwent an extensive evaluation. Chest x-ray showed no acute process but findings consistent with COPD. Laborat ory analysis was remarkable for hemoglobin 9.6 (baseline 11), and sodium 121, baseline 128. Patient was admitted for weakness related to significant hyponatremia. Nephrology was consulted. Patient initially was given IV fluids and had a drop in his sodium level. He was then started on fluid restriction. 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 Patient received a dose of Samsca and his sodium improved. Patient currently lives alone and has known cognitive impairment and requires 24/7 care at home versus [facility] facility. He was seen by physical therapy and was able to ambulate 175 feet with supervision. Patient seen and examined at bedside. He has no complaints today. Denies any chest pain, shortness of breath, lightheadedness, dizziness. Vital signs reviewed General: Nontoxic, no distress, appears at stated age, buccal and temporal wasting Cardiovascular: S1S2 reg, no murmur Lungs: Decreased breath sounds bilateral, no rhonchi, no rales, no accessory m uscle use Abdominal: Soft, nontender to palpation, no guarding Ext: No gross muscle atrophy, no edema b/l lower extremities, no contractures Neuro: CN II-XI grossly intact, no focal neuro deficits Psych: Alert, oriented to self and being in the hospital, appropriate affect Assessment/Plan: 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 Normocytic anemia, likely chronic disease related Severe protein calorie malnutrition Failure to thrive Mild cognitive impairment -Nephrology note reviewed. Repeat Samsca 15 mg today. If patient remains dependent on tolvaptan we can try demeclocycline as an outpatient as Samsca will likely not be covered. Add sodium chloride tablets 1 mg oral twice daily -Repeat sodium this afternoon and in a.m. -Continue to hold SSRI -Patient has been eating well since being hospitalized -Daughter (guardian) is aware that recommendations are for 24/7 supervision. According to case management she is working on arranging this and has a meeting with [employer] on Friday. I have also offered to fill out [place] paperwork for the daughter so that she may be around to care for her father as they continue to make arrangements for a more permanent solution. Chronic: Hypertension COPD without exacerbation Depression Imaging: None new Data Review: Labs reviewed from today include electrolytes which demonstrate sodium of 126 and chloride of 87. DVT prophylaxis: SCDs Anticipated discharge date: 24 to [address]: Home with home care This dictation was prepared using [employer] voice recognition software. Though every attempt is made to correct errors during dictation some may still exist. Objective - Vital Signs Vital signs: Vital Signs Temp 97.8 F 07/24/23 12:56 Pulse 85 07/24/23 12:56 Resp 20 07/24/23 12:56 BP 115/71 07/24/23 12:56 Pulse Ox 92 L 07/24/23 12:56 FiO2 Intake & Output 07/23/23 07/24/23 07/24/23 18:59 06:59 18:59 Intake Total 360 360 Output Total 350 750 Balance 10 -390 Weight 56.245 kg Intake: Oral 360 360 Output: Urine 350 750 Other: Voiding Method Urinal Urinal Urinal # Voids 1 3 1 - Labs CBC & Chem 7: 07/20/23 05:54 07/24/23 17:15 Labs: Abnormal Lab Results - Last 24 Hours (Table) 07/24/23 07/24/23 07/24/23 Range/Units 06:20 14:32 17:15 Sodium 126 L 125 L 127 L (137-145) mmol/L Chloride 87 L (98-107) mmol/L Carbon Dioxide 39 H (22-30) mmol/L
[2023-07-25 09:31] LABS: Anisocytosis Slight; HCT 33.7 % (39.0-53.0); HGB 10.5 gm/dL (13.0-17.5); Hypochromasia Moderate; MCH 29.4 pg (25.0-35.0); MCHC 31.1 g/dL (31.0-37.0); MCV 94.4 fL (80.0-100.0); Mean Platelet Volume 7.2; Platelet Count 233 k/uL (150-450); RBC 3.57 m/uL (4.30-5.90); RDW 16.3 % (11.5-15.5); WBC 3.3 k/uL (3.8-10.6)
[2023-07-25 09:48] LABS: African American GFR (CKD) >90 (>60 ml/min/1.73 sqM); Anion Gap 3 mmol/L; Blood Urea Nitrogen 15 mg/dL (9-20); Calcium 8.5 mg/dL (8.4-10.2); Carbon Dioxide 37 mmol/L (22-30); Chloride 88 mmol/L (98-107); Glucose 139 mg/dL (74-99); Non-African American GFR(CKD) >90 (>60 ml/min/1.73 sqM); Potassium 4.9 mmol/L (3.5-5.1); Sodium 128 mmol/L (137-145)
[2023-07-25] MEDS ORDERED: TOLVAPTAN 15 MG TABLET PO ONE (11:00)
[2023-07-25] MEDS: TOLVAPTAN 30 MG TABLET PO ONE (11:55)
--- NOTE | 2023-07-25 15:55 | P.PN ---
Subjective Patient is seen for follow-up for hyponatremia, mostly SIADH and improved with Samsca Serum sodium was 128 this morning. Received 30 mg of Samsca yesterday also started on sodium chloride tabs yesterday. He denies any significant complaints. Patient remains on fluid restriction. 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 Hyponatremia, euvolemic with worsening of sodium with saline administration suggestive of underlying SIADH. Currently off of IV fluids and maintained on fluid restriction. Receiving Samsca on a daily basis. Sodium chloride tab started yesterday. Patient may need to be maintained on demeclocycline upon discharge. 2. History of fall 3. History of hypertension maintained on SHANKAR inhibitor's and hydralazine along with Norvasc prior to admission. Plan: Continue with fluid restriction Continue sodium chloride tab Repeat Samsca 30 mg today. If patient remains dependent on tolvaptan we can try demeclocycline as outpatient as Samsca will likely not be covered as outpatient. Repeat labs in 1 to 2 days post discharge
--- NOTE | 2023-07-25 17:28 | P.DS ---
Providers Date of admission: 07/18/23 21:02 Expected date of discharge: 07/25/23 Attending physician: Shashi Dick MD Consults: 07/19/23 14:17 Consult Physician Routine Consulting Provider: Saundra Rao Consult Reason/Comments: hyponatremia Do you want consulting provider notified?: Yes Primary care physician: 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 Patient was found on the ground unable to get up by his landlord, at that time he was disconnected from his home oxygen. In the emergency department he underwent an extensive evaluation. Chest x-ray showed no acute process but findings consistent with COPD. Laboratory analysis was remarkable for hemoglobin 9.6 (baseline 11), and sodium 121, baseline 128. Patient was admitted for weakness related to significant hyponatremia. Nephrology was consulted. Patient initially was given IV fluids and had a drop in his sodium level. He was then started on fluid restriction. 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 Patient received a dose of Samsca and his sodium improved. Patient currently lives alone and has known cognitive impairment and requires 24/7 care at home versus group home facility. He was seen by physical therapy and was able to ambulate 175 feet with supervision. He continued to struggle with hyponatremia. He required multiple doses of Samsca. He continued on his fluid restriction. His salt level stabilized and he was determined medically stable for discharge. Follow-up: Dr. Rao in 1 week, BMP in 1 to 2 days, basic metabolic profile in 2 days. Continue with 1 L fluid restriction. New medications include sodium chloride tablet 1 g twice daily, demeclocycline 300 mg once daily. Patient seen and examined at bedside. Doing well. No complaints. Vital signs reviewed and stable. General: Nontoxic, no distress, appears at stated age Cardiovascular: S1S2 reg, no murmur, positive posterior tibial pulse bilateral, Lungs: CTA bilateral, no rhonchi, no rales, no accessory muscle use Abdominal: Soft, nontender to palpation, no guarding, no appreciable organomegaly Ext: No gross muscle atrophy, no edema b/l lower extremities, no contractures Neuro: CN II-XI grossly intact, no focal neuro deficits Psych: Alert, oriented to hospital, appropriate affect A total of 35 minutes of time were spent preparing this complex discharge summary. Patient was discharged on 07/25/2023. This dictation was prepared using [employer] voice recognition software. Though every attempt is made to correct errors during dictation some may still exist. Patient Condition at Discharge: Good Plan - Discharge Summary Discharge Rx Participant: No New Discharge Prescriptions: New Demeclocycline HCl 300 mg PO DAILY #30 tab Sodium Chloride Tab 1 gm PO BID #60 tab Continue Budesonide/Formoterol Fumarate [Symbicort 160-4.5 Mcg Inhaler] 2 puff INHALATION RT-BID Ensure 1 can PO DAILY Magnesium Oxide 420 Mg 420 mg PO BID@0400,0900 Albuterol Inhaler [Ventolin Hfa Inhaler] 1 - 2 puff INHALATION RT-QID PRN PRN Reason: Shortness Of Breath Multivitamins, Thera [Multivitamin (formulary)] 1 tab PO DAILY lisinopriL [Zestril] 20 mg PO DAILY amLODIPine [Norvasc] 10 mg PO DAILY hydrALAZINE HCL [Apresoline] 25 mg PO TID Discontinued Sertraline [Zoloft] 50 mg PO DAILY Furosemide [Lasix] 40 mg PO BID@0900,1600 #60 tab diphenhydrAMINE HCL [Benadryl] 25 mg PO DAILY Discharge Medication List Budesonide/Formoterol Fumarate [Symbicort 160-4.5 Mcg Inhaler] 2 puff INHALATION RT-BID 11/09/19 [History] Ensure 1 can PO DAILY 04/16/23 [History] Magnesium Oxide 420 Mg 420 mg PO BID@0400,0900 04/16/23 [History] Multivitamins, Thera [Multivitamin (formulary)] 1 tab PO DAILY 04/16/23 [History] lisinopriL [Zestril] 20 mg PO DAILY 04/16/23 [History] Albuterol Inhaler [Ventolin Hfa Inhaler] 1 - 2 puff INHALATION RT-QID PRN 07/18/23 [History] amLODIPine [Norvasc] 10 mg PO DAILY 07/18/23 [History] hydrALAZINE HCL [Apresoline] 25 mg PO TID 07/18/23 [History] Demeclocycline HCl 300 mg PO DAILY #30 tab 07/25/23 [Rx] Sodium Chloride Tab 1 gm PO BID #60 tab 07/25/23 [Rx] Follow up Appointment(s)/Referral(s): Saundra Rao MD [STAFF PHYSICIAN] - 1 Week [facility] [place] [NON-STAFF] - 1 Week [facility] [Primary Care Provider] - 1-2 days Ambulatory/Diagnostic Orders: Basic Metabolic Panel [LAB.AMB] Time Frame: 2 Days, Location: None Selected Activity/Diet/Wound Care/Special Instructions: Activity: tolerated Diet: heart healthy, 1,000 ml fluid restriction Special Instructions: Repeat blood work in 2 days to recheck salt levels Discharge Disposition: HOME WITH HOME HEALTH SERVICES
[2023-07-25] MEDS: ALBUTEROL NEBULIZED 2.5 MG/3 ML INHALATION PRN (18:37)
--- NOTE | 2023-07-26 08:51 | P.PN ---
Subjective Patient is seen in follow-up for hyponatremia. Oral intake fair. Denies chest pain or shortness of breath. Wants to be discharged. Vital signs are stable. General: No acute distress. HEENT: Head exam is unremarkable. On nasal cannula. LUNGS: No audible rhonchi or wheezes. HEART: Rate and Rhythm are regular. ABDOMEN: Nontender. EXTREMITITES: No edema. Objective - Vital Signs Vital signs: Vital Signs Temp 97.6 F 07/26/23 07:14 Pulse 76 07/26/23 07:14 Resp 16 07/26/23 07:14 BP 123/75 07/26/23 07:14 Pulse Ox 100 07/26/23 07:49 FiO2 Intake & Output 07/25/23 07/26/23 07/26/23 18:59 06:59 18:59 Intake Total 480 240 Output Total 575 775 Balance -95 -535 Intake: Oral 480 240 Output: Urine 575 775 Other: Voiding Method Urinal # Voids 1 - Labs CBC & Chem 7: 07/25/23 09:07 07/25/23 09:07 Labs: Abnormal Lab Results - Last 24 Hours (Table) 07/25/23 07/25/23 Range/Units 09:07 09:07 WBC 3.3 L (3.8-10.6) k/uL RBC 3.57 L (4.30-5.90) m/uL Hgb 10.5 L (13.0-17.5) gm/dL Hct 33.7 L (39.0-53.0) % RDW 16.3 H (11.5-15.5) % Sodium 128 L (137-145) mmol/L Chloride 88 L (98-107) mmol/L Carbon Dioxide 37 H (22-30) mmol/L Creatinine 0.55 L (0.66-1.25) mg/dL Glucose 139 H (74-99) mg/dL Assessment and Plan Plan: Assessment: 1. Hyponatremia, euvolemic. 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 Urine sodium 118 and urine osmolality 419. Cortisol 14.7. TSH normal. 2. Benign hypertension. 3. History of falls. 4. Failure to thrive. Plan: Maintain sodium chloride tabs. Maintain fluid restriction. Morning labs pending. Repeat BMP and magnesium level 2 to 3 days postdischarge. Will be started on demeclocycline as well outpatient. Follow-up outpatient in 1 week.
[2023-07-26 11:37] LABS: African American GFR (CKD) >90 (>60 ml/min/1.73 sqM); Anion Gap 1 mmol/L; Blood Urea Nitrogen 16 mg/dL (9-20); Calcium 8.5 mg/dL (8.4-10.2); Carbon Dioxide 36 mmol/L (22-30); Chloride 91 mmol/L (98-107); Glucose 122 mg/dL (74-99); Non-African American GFR(CKD) >90 (>60 ml/min/1.73 sqM); Potassium 4.9 mmol/L (3.5-5.1); Sodium 128 mmol/L (137-145)
--- NOTE | 2023-07-26 13:46 | P.PN ---
Subjective Progress Note Date: 07/26/23 (delayed charting seen at 0945) Patient is a 73-year-old male with hypertension, COPD with chronic hypoxic respiratory failure on chronic home O2, and prior tobacco abuse who presented to the emergency department with weakness. Patient was found on the ground unable to get up by his landlord, at that time he was disconnected from his home oxygen. In the emergency department he underwent an extensive evaluation. Chest x-ray showed no acute process but findings consistent with COPD. Laborat ory analysis was remarkable for hemoglobin 9.6 (baseline 11), and sodium 121, baseline 128. Patient was admitted for weakness related to significant hyponatremia. Nephrology was consulted. Patient initially was given IV fluids and had a drop in his sodium level. He was then started on fluid restriction. 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 Patient received a dose of Samsca and his sodium improved. Patient currently lives alone and has known cognitive impairment and requires 24/7 care at home versus prison facility. He was seen by physical therapy and was able to ambulate 175 feet with supervision. He continued to struggle with hyponatremia. He required mu ltiple doses of Samsca. He continued on his fluid restriction. His salt level stabilized and he was determined medically stable for discharge. Case discussed extensively with case management team. Patient has a legal guardian which is his daughter Noir. She is refusing to pick him up from the hospital or participate in his care. APS report has been filed. They have also been discussing his case with his accounting technician. At this point in time it does not appear that his legal guardian is going to sweet pickled fruit maker the patient and therefore he will likely need to remain in the hospital until this can be resolved. Patient seen and examined at bedside. He is angry that he is still in the hospital. I explained to him that he had been discharged yesterday, but that his daughter had declined to pick him up from the hospital and being that she is his legal guardian we cannot just send him home. 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 Continue sodium chloride tablets 1 mg oral twice daily -Continue to hold SSRI -Patient has been eating well since being hospitalized - follow bmp while hospitalized Chronic: Hypertension COPD without exacerbation Depression Imaging: None new Data Review: Labs reviewed from today show sodium stable at 128. DVT prophylaxis: SCDs Anticipated discharge date: 24 to [address]: Home with home care This dictation was prepared using [email or web address] voice recognition software. Though every attempt is made to correct errors during dictation some may still exist. Objective - Vital Signs Vital signs: Vital Signs Temp 97.5 F L 07/26/23 12:48 Pulse 85 07/26/23 12:48 Resp 16 07/26/23 12:48 BP 131/77 07/26/23 12:48 Pulse Ox 92 L 07/26/23 12:48 FiO2 Intake & Output 07/25/23 07/26/23 07/26/23 18:59 06:59 18:59 Intake Total 480 240 Output Total 575 775 100 Balance -95 -535 -100 Intake: Oral 480 240 Output: Urine 575 775 100 Other: Voiding Method Urinal # Voids 1 1 - Labs CBC & Chem 7: 07/25/23 09:07 07/26/23 10:44 Labs: Abnormal Lab Results - Last 24 Hours (Table) 07/26/23 Range/Units 10:44 Sodium 128 L (137-145) mmol/L Chloride 91 L (98-107) mmol/L Carbon Dioxide 36 H (22-30) mmol/L Creatinine 0.42 L (0.66-1.25) mg/dL Glucose 122 H (74-99) mg/dL
[2023-07-26] MEDS: TOLVAPTAN 15 MG TABLET PO ONE (16:32)
[2023-07-27 07:49] LABS: African American GFR (CKD) >90 (>60 ml/min/1.73 sqM); Anion Gap 1 mmol/L; Blood Urea Nitrogen 16 mg/dL (9-20); Calcium 8.4 mg/dL (8.4-10.2); Carbon Dioxide 35 mmol/L (22-30); Chloride 92 mmol/L (98-107); Glucose 104 mg/dL (74-99); Non-African American GFR(CKD) >90 (>60 ml/min/1.73 sqM); Potassium 4.7 mmol/L (3.5-5.1); Sodium 128 mmol/L (137-145)
--- NOTE | 2023-07-27 10:38 | P.PN ---
Subjective Progress Note Date: 07/27/23 Patient is a 73-year-old male with hypertension, COPD with chronic hypoxic respiratory failure on chronic home O2, and prior tobacco abuse who presented to the emergency department with weakness. Patient was found on the ground unable to get up by his landlord, at that time he was disconnected from his home oxygen. In the emergency department he underwent an extensive evaluation. Chest x-ray showed no acute process but findings consistent with COPD. Laboratory analysis was remarkable for hemoglobin 9.6 (baseline 11), and sodium 121, baseline 128. Patient was admitted for weakness related to significant hyponatremia. Nephrology was consulted. Patient initially was given IV fluids and had a drop in his sodium level. He was then started on fluid restriction. 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 Patient received a dose of Samsca and his sodium improved. Patient currently lives alone and has known cognitive impairment and requires 24/7 care at home versus senior care facility. He was seen by physical therapy and was able to ambulate 175 feet with supervision. He continued to struggle with hyponatremia. He required multiple doses of Samsca. He continued on his fluid restriction. His salt level stabilized and he was determined medically stable for discharge. Case discussed extensively with case management team. Patient has a legal guardian which is his daughter oNri. She is refusing to pick him up from the hospital or participate in his care. APS report has been filed. They have also been discussing his case with his buffet manager. At this point in time it does not appear that his legal guardian is going to pick pulling machine tender the patient and therefore he will likely need to remain in the hospital until this can be resolved. Patient seen and examined at bedside. He is doing well today. No acute complaints. Frustrated that he is still in the hospital.. 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 -Continue sodium chloride tablets 1 mg oral twice daily -Continue to hold SSRI -Patient has been eating well since being hospitalized - follow bmp on 07/28 Chronic: Hypertension COPD without exacerbation Depression Imaging: None new Data Review: Reviewed from today include basic metabolic profile which are remarkable for sodium of 128, chloride 92, carbon dioxide 35. DVT prophylaxis: SCDs Anticipated discharge date: undetermined, daughter decline to pick patient up. Anticipated discharge place: undetermined This dictation was prepared using [employer] voice recognition software. Though every attempt is made to correct errors during dictation some may still exist. Objective - Vital Signs Vital signs: Vital Signs Temp 97.8 F 07/27/23 07:19 Pulse 82 07/27/23 07:19 Resp 20 07/27/23 07:19 BP 116/70 07/27/23 07:19 Pulse Ox 99 07/27/23 08:22 FiO2 Intake & Output 07/26/23 07/27/23 07/27/23 17:59 06:59 18:59 Intake Total Output Total 125 Balance -125 Intake: Oral Output: Urine 125 Other: Voiding Method Urinal # Voids 1 - Labs CBC & Chem 7: 07/25/23 09:07 07/27/23 06:42 Labs: Abnormal Lab Results - Last 24 Hours (Table) 07/26/23 07/27/23 Range/Units 10:44 06:42 Sodium 128 L 128 L (137-145) mmol/L Chloride 91 L 92 L (98-107) mmol/L Carbon Dioxide 36 H 35 H (22-30) mmol/L Creatinine 0.42 L 0.46 L (0.66-1.25) mg/dL Glucose 122 H 104 H (74-99) mg/dL
--- NOTE | 2023-07-27 10:54 | P.PN ---
Subjective Patient is seen in follow-up for hyponatremia. Oral intake fair. Denies chest pain or shortness of breath. Sodium level stable. Vital signs are stable. General: No acute distress. HEENT: Head exam is unremarkable. On nasal cannula. LUNGS: No audible rhonchi or wheezes. HEART: Rate and Rhythm are regular. ABDOMEN: Nontender. EXTREMITITES: No edema. Objective - Vital Signs Vital signs: Vital Signs Temp 97.8 F 07/27/23 07:19 Pulse 82 07/27/23 07:19 Resp 20 07/27/23 07:19 BP 116/70 07/27/23 07:19 Pulse Ox 99 07/27/23 08:22 FiO2 Intake & Output 07/26/23 07/27/23 07/27/23 17:59 06:59 18:59 Intake Total Output Total 325 Balance -325 Intake: Oral Output: Urine 325 Other: Voiding Method Urinal # Voids 2 - Labs CBC & Chem 7: 07/25/23 09:07 07/27/23 06:42 Labs: Abnormal Lab Results - Last 24 Hours (Table) 07/26/23 07/27/23 Range/Units 10:44 06:42 Sodium 128 L 128 L (137-145) mmol/L Chloride 91 L 92 L (98-107) mmol/L Carbon Dioxide 36 H 35 H (22-30) mmol/L Creatinine 0.42 L 0.46 L (0.66-1.25) mg/dL Glucose 122 H 104 H (74-99) mg/dL Assessment and Plan Plan: Assessment: 1. Hyponatremia, euvolemic. 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 Urine sodium 118 and urine osmolality 419. Cortisol 14.7. TSH normal. Sodium level stable. 2. Benign hypertension. Controlled. 3. History of falls. 4. Failure to thrive. Plan: Maintain sodium chloride tabs. Maintain fluid restriction. Encouraged oral intake, particularly protein Follow-up PTH related peptide. Add demeclocycline. Repeat Samsca. Repeat BMP and magnesium level 2 to 3 days postdischarge. Follow-up outpatient in 1 week.
[2023-07-27] MEDS: DEMECLOCYCLINE 150 MG TAB PO SCH (11:52)
[2023-07-27] MEDS: TOLVAPTAN 15 MG TABLET PO ONE (11:52)
--- NOTE | 2023-07-28 10:29 | P.PN ---
Subjective Progress Note Date: 07/28/23 Patient is a 73-year-old male with hypertension, COPD with chronic hypoxic respiratory failure on chronic home O2, and prior tobacco abuse who presented to the emergency department with weakness. Patient was found on the ground unable to get up by his landlord, at that time he was disconnected from his home oxygen. In the emergency department he underwent an extensive evaluation. Chest x-ray showed no acute process but findings consistent with COPD. Laboratory analysis was remarkable for hemoglobin 9.6 (baseline 11), and sodium 121, baseline 128. Patient was admitted for weakness related to significant hyponatremia. Nephrology was consulted. Patient initially was given IV fluids and had a drop in his sodium level. He was then started on fluid restriction. 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 Patient received a dose of Samsca and his sodium improved. Patient currently lives alone and has known cognitive impairment and requires 24/7 care at home versus [facility] facility. He was seen by physical therapy and was able to ambulate 175 feet with supervision. He continued to struggle with hyponatremia. He required multiple doses of Samsca. He continued on his fluid restriction. His salt level stabilized and he was determined medically stable for discharge. Case discussed extensively with case management team. Patient has a legal guardian which is his daughter Nori. She is refusing to pick him up from the hospital or participate in his care. APS report has been filed. They have also been discussing his case with his supervisor machine workers. At this point in time it does not appear that his legal guardian is going to picker tender helper the patient and therefore he will likely need to remain in the hospital until this can be resolved. Patient seen and examined at bedside. CM working on dispo and guardianship. 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 -Continue sodium chloride tablets 1 mg oral twice daily -Continue to hold SSRI -Patient has been eating well since being hospitalized - follow bmp on 07/28 Chronic: Hypertension COPD without exacerbation Depression Imaging: None new Data Review: Reviewed from today include basic metabolic profile which are remarkable for sodium of 128, chloride 92, carbon dioxide 35. DVT prophylaxis: SCDs Anticipated discharge date: undetermined, daughter decline to pick patient up. Anticipated discharge place: undetermined Objective - Vital Signs Vital signs: Vital Signs Temp 97.6 F 07/28/23 07:39 Pulse 85 07/28/23 07:39 Resp 20 07/28/23 07:39 BP 142/73 07/28/23 07:39 Pulse Ox 95 07/28/23 08:24 FiO2 Intake & Output 07/27/23 07/28/23 07/28/23 18:59 06:59 18:59 Intake Total 825 390 Output Total 650 400 175 Balance 175 -10 -175 Intake: Oral 825 390 Output: Urine 650 400 175 Other: Voiding Method Urinal Urinal Urinal # Voids 1 6 1 # Bowel Movements 1 - Labs CBC & Chem 7: 07/25/23 09:07 07/27/23 06:42
[2023-07-28 11:22] LABS: Carbon Dioxide 34.2 mmol/L (21.6-31.8); Chloride 92 mmol/L (96-109); Glucose 90 mg/dL (70-110); Magnesium 1.8 mg/dL (1.5-2.4); Potassium 5.2 mmol/L (3.5-5.5); Sodium 131 mmol/L (135-145)
--- NOTE | 2023-07-28 12:21 | P.PN ---
Subjective Patient is seen in follow-up for hyponatremia. Sodium level better. Oral intake fair. Denies chest pain or shortness of breath. Vital signs are stable. General: No acute distress. HEENT: Head exam is unremarkable. On nasal cannula. LUNGS: No audible rhonchi or wheezes. HEART: Rate and Rhythm are regular. ABDOMEN: Nontender. EXTREMITITES: No edema. Objective - Vital Signs Vital signs: Vital Signs Temp 97.6 F 07/28/23 07:39 Pulse 85 07/28/23 07:39 Resp 20 07/28/23 07:39 BP 142/73 07/28/23 07:39 Pulse Ox 95 07/28/23 08:24 FiO2 Intake & Output 07/27/23 07/28/23 07/28/23 18:59 06:59 18:59 Intake Total 825 390 Output Total 650 400 175 Balance 175 -10 -175 Intake: Oral 825 390 Output: Urine 650 400 175 Other: Voiding Method Urinal Urinal Urinal # Voids 1 6 1 # Bowel Movements 1 - Labs CBC & Chem 7: 07/25/23 09:07 07/28/23 05:52 Labs: Abnormal Lab Results - Last 24 Hours (Table) 07/28/23 Range/Units 05:52 Sodium 131 L (135-145) mmol/L Chloride 92 L (96-109) mmol/L Carbon Dioxide 34.2 H (21.6-31.8) mmol/L Creatinine 0.5 L (0.6-1.5) mg/dL BUN/Creatinine Ratio 28.00 H (12.00-20.00) Ratio Assessment and Plan Plan: Assessment: 1. Hyponatremia, euvolemic. 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 Urine sodium 118 and urine osmolality 419. Cortisol 14.7. TSH normal. On salt tabs and demeclocycline. Also received Samsca this admission. Sodium level better - 131 today. 2. Benign hypertension. Stable. 3. History of falls. 4. Failure to thrive. Plan: Maintain sodium chloride tabs. Maintain fluid restriction. Encouraged oral intake, particularly protein Follow-up PTH related peptide. Maintain demeclocycline. Repeat BMP and magnesium level 2 to 3 days postdischarge. Follow-up outpatient in 1 week.
[2023-07-28] MEDS: ACETAMINOPHEN TAB 325 MG TAB PO PRN (22:16)
[2023-07-28] MEDS: ZINC OXIDE PASTE (Z-GUARD) 1 APPLIC TOPICAL PRN (22:18)
--- NOTE | 2023-07-29 09:25 | P.PN ---
Subjective Progress Note Date: 07/29/23 Patient is a 73-year-old male with hypertension, COPD with chronic hypoxic respiratory failure on chronic home O2, and prior tobacco abuse who presented to the emergency department with weakness. Patient was found on the ground unable to get up by his landlord, at that time he was disconnected from his home oxygen. In the emergency department he underwent an extensive evaluation. Chest x-ray showed no acute process but findings consistent with COPD. Laboratory analysis was remarkable for hemoglobin 9.6 (baseline 11), and sodium 121, baseline 128. Patient was admitted for weakness related to significant hyponatremia. Nephrology was consulted. Patient initially was given IV fluids and had a drop in his sodium level. He was then started on fluid restriction. 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 Patient received a dose of Samsca and his sodium improved. Patient currently lives alone and has known cognitive impairment and requires 24/7 care at home versus assisted facility. He was seen by physical therapy and was able to ambulate 175 feet with supervision. He continued to struggle with hyponatremia. He required multiple doses of Samsca. He continued on his fluid restriction. His salt level stabilized and he was determined medically stable for discharge. Case discussed extensively with case management team. Patient has a legal guardian which is his daughter Nori. She is refusing to pick him up from the hospital or participate in his care. APS report has been filed. They have also been discussing his case with his shredder picker. At this point in time it does not appear that his legal guardian is going to mushroom picker the patient and therefore he will likely need to remain in the hospital until this can be resolved. Patient seen and examined at bedside. He is doing well today. No acute complaints. Frustrated that he is still in the hospital.. 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 Now on Demeclocycline 300 twice daily -S/p multiple doses of Samsca. -Continue sodium chloride tablets 1 mg oral twice daily -Continue to hold SSRI -Patient has been eating well since being hospitalized - follow bmp on 07/29 Chronic: Hypertension COPD without exacerbation Depression Imaging: None new Data Review: none new DVT prophylaxis: SCDs Anticipated discharge date: undetermined, daughter decline to pick patient up. Anticipated discharge place: undetermined This dictation was prepared using [employer] voice recognition software. Though every attempt is made to correct errors during dictation some may still exist. Objective - Vital Signs Vital signs: Vital Signs Temp 97.5 F L 07/29/23 07:32 Pulse 74 07/29/23 07:32 Resp 16 07/29/23 07:32 BP 143/82 07/29/23 07:32 Pulse Ox 98 07/29/23 08:00 FiO2 Intake & Output 07/28/23 07/29/23 07/29/23 18:59 06:59 18:59 Intake Total 480 240 Output Total 375 300 Balance 105 -60 Weight 56.245 kg Intake: Oral 480 240 Output: Urine 375 300 Other: Voiding Method Urinal Urinal # Voids 1 4 - Labs CBC & Chem 7: 07/25/23 09:07 07/28/23 05:52 Labs: Abnormal Lab Results - Last 24 Hours (Table) 07/28/23 Range/Units 05:52 Sodium 131 L (135-145) mmol/L Chloride 92 L (96-109) mmol/L Carbon Dioxide 34.2 H (21.6-31.8) mmol/L Creatinine 0.5 L (0.6-1.5) mg/dL BUN/Creatinine Ratio 28.00 H (12.00-20.00) Ratio
--- NOTE | 2023-07-29 12:03 | P.PN ---
Subjective Patient is seen in follow-up for hyponatremia. Sodium level 131 yesterday. Oral intake fair. Denies chest pain or shortness of breath. Vital signs are stable. General: No acute distress. HEENT: Head exam is unremarkable. On nasal cannula. LUNGS: No audible rhonchi or wheezes. HEART: Rate and Rhythm are regular. ABDOMEN: Nontender. EXTREMITITES: No edema. Objective - Vital Signs Vital signs: Vital Signs Temp 97.5 F L 07/29/23 07:32 Pulse 74 07/29/23 07:32 Resp 16 07/29/23 07:32 BP 143/82 07/29/23 07:32 Pulse Ox 98 07/29/23 08:00 FiO2 Intake & Output 07/28/23 07/29/23 07/29/23 18:59 06:59 18:59 Intake Total 480 240 Output Total 375 300 Balance 105 -60 Weight 56.245 kg Intake: Oral 480 240 Output: Urine 375 300 Other: Voiding Method Urinal Urinal Urinal # Voids 1 4 - Labs CBC & Chem 7: 07/25/23 09:07 07/28/23 05:52 Assessment and Plan Plan: Assessment: 1. Hyponatremia, euvolemic. 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 Urine sodium 118 and urine osmolality 419. Cortisol 14.7. TSH normal. On salt tabs and demeclocycline. Also received Samsca this admission. Sodium level better - 131 yesterday. 2. Benign hypertension. Stable. 3. History of falls. 4. Failure to thrive. Plan: Maintain sodium chloride tabs. Maintain fluid restriction. Encouraged oral intake, particularly protein Follow-up PTH related peptide. Maintain demeclocycline. Repeat BMP and magnesium level 2 to 3 days postdischarge. Follow-up outpatient in 1 week.
[2023-07-30 08:54] LABS: BUN/Creat Ratio 41.25 Ratio (12.00-20.00); Blood Urea Nitrogen 16.5 mg/dL (9.0-27.0); Calcium 8.8 mg/dL (8.7-10.3); Carbon Dioxide 33.7 mmol/L (21.6-31.8); Chloride 92 mmol/L (96-109); Glucose 121 mg/dL (70-110); Potassium 4.3 mmol/L (3.5-5.5); Sodium 130 mmol/L (135-145)
--- NOTE | 2023-07-30 12:16 | P.PN ---
Subjective Patient is seen in follow-up for hyponatremia. Sodium level stable at 130 today. Oral intake fair. Denies chest pain or shortness of breath. No changes overnight. Vital signs are stable. General: No acute distress. HEENT: Head exam is unremarkable. On nasal cannula. LUNGS: No audible rhonchi or wheezes. HEART: Rate and Rhythm are regular. ABDOMEN: Nontender. EXTREMITITES: No edema. Objective - Vital Signs Vital signs: Vital Signs Temp 97.4 F L 07/30/23 07:30 Pulse 85 07/30/23 08:45 Resp 16 07/30/23 08:45 BP 121/66 07/30/23 07:30 Pulse Ox 91 L 07/30/23 09:27 FiO2 Intake & Output 07/29/23 07/30/23 07/30/23 18:59 06:59 18:59 Intake Total 240 Output Total 150 Balance 240 -150 Intake: Oral 240 Output: Urine 150 Other: Voiding Method Urinal Urinal Urinal # Voids 3 - Labs CBC & Chem 7: 07/25/23 09:07 07/30/23 05:39 Labs: Abnormal Lab Results - Last 24 Hours (Table) 07/30/23 Range/Units 05:39 Sodium 130 L (135-145) mmol/L Chloride 92 L (96-109) mmol/L Carbon Dioxide 33.7 H (21.6-31.8) mmol/L Creatinine 0.4 L (0.6-1.5) mg/dL BUN/Creatinine Ratio 41.25 H (12.00-20.00) Ratio Glucose 121 H (70-110) mg/dL Assessment and Plan Plan: Assessment: 1. Hyponatremia, euvolemic. 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 Urine sodium 118 and urine osmolality 419. Cortisol 14.7. TSH normal. On salt tabs and demeclocycline. Also received Samsca this admission. Sodium level better - 130 today. 2. Benign hypertension. Stable. 3. History of falls. 4. Failure to thrive. Plan: Maintain sodium chloride tabs. Maintain fluid restriction. Encouraged oral intake, particularly protein Follow-up PTH related peptide. Maintain demeclocycline. Add Lasix 20 mg once daily. Repeat labs in the morning. Repeat BMP and magnesium level 2 to 3 days postdischarge. Follow-up outpatient in 1 week.
[2023-07-30] MEDS: FUROSEMIDE 20 MG TAB PO SCH (13:23)
--- NOTE | 2023-07-30 13:40 | XR ---
EXAMINATION TYPE: XR chest 1V portable DATE OF EXAM: 07/30/2023 COMPARISON: 07/18/2023. HISTORY: Hypoxia. TECHNIQUE: Single frontal view of the chest is obtained. IMPRESSION: There is some new patchy areas of opacity within the right medial lung base which may represent a dev eloping pneumonia. There are some scattered interstitial changes otherwise noted which are likely chronic. The cardiac silhouette does not appear enlarged.
--- NOTE | 2023-07-30 14:36 | P.PN ---
Subjective Progress Note Date: 07/30/23 (delayed charting seen at 0850) Patient is a 73-year-old male with hypertension, COPD with chronic hypoxic respiratory failure on chronic home O2, and prior tobacco abuse who presented to the emergency department with weakness. Patient was found on the ground unable to get up by his landlord, at that time he was disconnected from his home oxygen. In the emergency department he underwent an extensive evaluation. Chest x-ray showed no acute process but findings consistent with COPD. Laborat ory analysis was remarkable for hemoglobin 9.6 (baseline 11), and sodium 121, baseline 128. Patient was admitted for weakness related to significant hyponatremia. Nephrology was consulted. Patient initially was given IV fluids and had a drop in his sodium level. He was then started on fluid restriction. 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 Patient received a dose of Samsca and his sodium improved. Patient currently lives alone and has known cognitive impairment and requires 24/7 care at home versus assisted facility. He was seen by physical therapy and was able to ambulate 175 feet with supervision. He continued to struggle with hyponatremia. He required mu ltiple doses of Samsca. He continued on his fluid restriction. His salt level stabilized and he was determined medically stable for discharge. Case discussed extensively with case management team. Patient has a legal guardian which is his daughter Nori. She is refusing to pick him up from the hospital or participate in his care. APS report has been filed. They have also been discussing his case with his sign letterer. At this point in time it does not appear that his legal guardian is going to machine operator picker the patient and therefore he will likely need to remain in the hospital until this can be resolved. Patient seen and examined at bedside. He has no complaints other than wanting to leave the hospital. 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 Now on Demeclocycline 300 twice daily -S/p multiple doses of Samsca. -Continue sodium chloride tablets 1 mg oral twice daily -Continue to hold SSRI -Patient has been eating well since being hospitalized -Nephrology note reviewed: Add Lasix 20 mg p.o. x 1. Repeat labs in AM. Follow-up outpatient in 1 week. -Repeat BMP in AM -Patient okay to remain without IV access Chronic: Hypertension COPD without exacerbation Depression Imaging: None new Data Review: Labs reviewed from today include basic metabolic profile which is remarkable for sodium 130 DVT prophylaxis: SCDs Anticipated discharge date: undetermined, daughter decline to pick patient up. Anticipated discharge place: undetermined This dictation was prepared using [employer] voice recognition software. Though every attempt is made to correct errors during dictation some may still exist. Objective - Vital Signs Vital signs: Vital Signs Temp 97.4 F L 07/30/23 12:33 Pulse 79 07/30/23 12:33 Resp 16 07/30/23 12:33 BP 113/67 07/30/23 12:33 Pulse Ox 90 L 07/30/23 12:33 FiO2 Intake & Output 07/29/23 07/30/23 07/30/23 18:59 06:59 18:59 Intake Total 240 Output Total 150 Balance 240 -150 Intake: Oral 240 Output: Urine 150 Other: Voiding Method Urinal Urinal Urinal # Voids 3 - Labs CBC & Chem 7: 07/25/23 09:07 07/30/23 05:39 Labs: Abnormal Lab Results - Last 24 Hours (Table) 07/30/23 Range/Units 05:39 Sodium 130 L (135-145) mmol/L Chloride 92 L (96-109) mmol/L Carbon Dioxide 33.7 H (21.6-31.8) mmol/L Creatinine 0.4 L (0.6-1.5) mg/dL BUN/Creatinine Ratio 41.25 H (12.00-20.00) Ratio Glucose 121 H (70-110) mg/dL
[2023-07-31 09:14] LABS: Chloride 91 mmol/L (96-109); Glucose 88 mg/dL (70-110); Potassium 4.3 mmol/L (3.5-5.5); Sodium 130 mmol/L (135-145)
[2023-07-31 09:15] LABS: Calcium 8.9 mg/dL (8.7-10.3); Carbon Dioxide 33.4 mmol/L (21.6-31.8); Magnesium 1.7 mg/dL (1.5-2.4)
--- NOTE | 2023-07-31 12:39 | P.PN ---
Subjective Patient is seen in follow-up for hyponatremia. Sodium level stable at 130 today. Oral intake fair. Denies chest pain or shortness of breath. No changes overnight. Vital signs are stable. General: No acute distress. HEENT: Head exam is unremarkable. On nasal cannula. LUNGS: No audible rhonchi or wheezes. HEART: Rate and Rhythm are regular. ABDOMEN: Nontender. EXTREMITITES: No edema. Objective - Vital Signs Vital signs: Vital Signs Temp 97.8 F 07/31/23 07:27 Pulse 78 07/31/23 07:27 Resp 16 07/31/23 07:27 BP 104/64 07/31/23 07:27 Pulse Ox 98 07/31/23 07:51 FiO2 Intake & Output 07/30/23 07/31/23 07/31/23 18:59 06:59 18:59 Intake Total 240 350 Output Total 700 500 Balance -460 -150 Intake: Oral 240 350 Output: Urine 700 500 Other: Voiding Method Urinal Urinal Bedside Commode Urinal - Labs CBC & Chem 7: 07/25/23 09:07 07/31/23 04:52 Labs: Abnormal Lab Results - Last 24 Hours (Table) 07/31/23 Range/Units 04:52 Sodium 130 L (135-145) mmol/L Chloride 91 L (96-109) mmol/L Carbon Dioxide 33.4 H (21.6-31.8) mmol/L Creatinine 0.5 L (0.6-1.5) mg/dL BUN/Creatinine Ratio 34.00 H (12.00-20.00) Ratio Assessment and Plan Plan: Assessment: 1. Hyponatremia, euvolemic. 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 Urine sodium 118 and urine osmolality 419. Cortisol 14.7. TSH normal. On salt tabs and demeclocycline. Also received Samsca this admission. Sodium level better - 130 today. 2. Benign hypertension. Stable. 3. History of falls. 4. Failure to thrive. Plan: Maintain sodium chloride tabs. Maintain fluid restriction. Encouraged oral intake, particularly protein Follow-up PTH related peptide. Maintain demeclocycline. Maintain Lasix 20 mg once daily. Repeat Samsca today. Repeat labs in the morning. Repeat BMP and magnesium level 2 to 3 days postdischarge. Follow-up outpatient in 1 week.
[2023-07-31] MEDS: TOLVAPTAN 15 MG TABLET PO ONE (13:42)
--- NOTE | 2023-07-31 14:18 | P.PN ---
Subjective Progress Note Date: 07/31/23 (delayed charting seen at 0835) Patient is a 73-year-old male with hypertension, COPD with chronic hypoxic respiratory failure on chronic home O2, and prior tobacco abuse who presented to the emergency department with weakness. Patient was found on the ground unable to get up by his landlord, at that time he was disconnected from his home oxygen. In the emergency department he underwent an extensive evaluation. Chest x-ray showed no acute process but findings consistent with COPD. Laborat ory analysis was remarkable for hemoglobin 9.6 (baseline 11), and sodium 121, baseline 128. Patient was admitted for weakness related to significant hyponatremia. Nephrology was consulted. Patient initially was given IV fluids and had a drop in his sodium level. He was then started on fluid restriction. 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 Patient received a dose of Samsca and his sodium improved. Patient currently lives alone and has known cognitive impairment and requires 24/7 care at home versus [facility] facility. He was seen by physical therapy and was able to ambulate 175 feet with supervision. He continued to struggle with hyponatremia. He required mu ltiple doses of Samsca. He continued on his fluid restriction. His salt level stabilized and he was determined medically stable for discharge. Case discussed extensively with case management team. Patient has a legal guardian which is his daughter Nori. She is refusing to pick him up from the hospital or participate in his care. APS report has been filed. They have also been discussing his case with his solar panel technician. At this point in time it does not appear that his legal guardian is going to supervisor picking crew the patient and therefore he will likely need to remain in the hospital until this can be resolved. Patient seen and examined at bedside. No chest pain, SOB, or nausea. No vomiting, no diarrhea. 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 Now on Demeclocycline 300 twice daily -S/p multiple doses of Samsca. - Nephrology note reviewed: Await PTH -Continue sodium chloride tablets 1 mg oral twice daily -Continue to hold SSRI -Patient has been eating well since being hospitalized - Samsca 15 mg PO X 1 -Patient okay to remain without IV access Chronic: Hypertension COPD without exacerbation Depression Imaging: None new Data Review: Labs reviewed from table include BMP which was remarkable for sodium of 130. DVT prophylaxis: SCDs Anticipated discharge date: undetermined, daughter decline to pick patient up. Anticipated discharge place: undetermined This dictation was prepared using [employer] voice recognition software. Though every attempt is made to correct errors during dictation some may still exist. Objective - Vital Signs Vital signs: Vital Signs Temp 97.6 F 07/31/23 12:34 Pulse 83 07/31/23 12:34 Resp 16 07/31/23 12:34 BP 129/74 07/31/23 12:34 Pulse Ox 90 L 07/31/23 12:34 FiO2 Intake & Output 07/30/23 07/31/23 07/31/23 18:59 06:59 18:59 Intake Total 240 350 Output Total 700 500 325 Balance -460 -150 -325 Weight 56.245 kg Intake: Oral 240 350 Output: Urine 700 500 325 Other: Voiding Method Urinal Urinal Bedside Commode Urinal - Labs CBC & Chem 7: 07/25/23 09:07 07/31/23 04:52 Labs: Abnormal Lab Results - Last 24 Hours (Table) 07/31/23 Range/Units 04:52 Sodium 130 L (135-145) mmol/L Chloride 91 L (96-109) mmol/L Carbon Dioxide 33.4 H (21.6-31.8) mmol/L Creatinine 0.5 L (0.6-1.5) mg/dL BUN/Creatinine Ratio 34.00 H (12.00-20.00) Ratio
--- NOTE | 2023-08-01 10:19 | P.PN ---
Subjective Patient is seen in follow-up for hyponatremia. Sodium level stable at 130 as of yesterday. Oral intake fair. Denies chest pain or shortness of breath. No changes overnight. Vital signs are stable. General: No acute distress. HEENT: Head exam is unremarkable. On nasal cannula. LUNGS: No audible rhonchi or wheezes. HEART: Rate and Rhythm are regular. ABDOMEN: Nontender. EXTREMITITES: No edema. Objective - Vital Signs Vital signs: Vital Signs Temp 98.2 F 08/01/23 07:58 Pulse 84 08/01/23 07:58 Resp 22 08/01/23 07:58 BP 99/61 08/01/23 07:58 Pulse Ox 90 L 08/01/23 07:58 FiO2 Intake & Output 07/31/23 08/01/23 08/01/23 18:59 06:59 18:59 Intake Total 780 830 Output Total 1050 1500 375 Balance -270 -670 -375 Weight 56.245 kg Intake: Oral 830 Other 780 Output: Urine 1050 1500 375 Other: Voiding Method Bedside Commode Urinal Urinal # Voids 2 - Labs CBC & Chem 7: 07/25/23 09:07 07/31/23 04:52 Assessment and Plan Plan: Assessment: 1. Hyponatremia, euvolemic. 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 Urine sodium 118 and urine osmolality 419. Cortisol 14.7. TSH normal. On salt tabs and demeclocycline. Also received Samsca this admission. Sodium level better - 130 as of yesterday. 2. Benign hypertension. Blood pressure on the lower side. 3. History of falls. 4. Failure to thrive. Plan: Maintain sodium chloride tabs. Maintain fluid restriction. Encouraged oral intake, particularly protein Follow-up PTH related peptide. Maintain demeclocycline. Maintain Lasix 20 mg once daily. Stop hydralazine. Stop lisinopril. Maintain amlodipine. Hold for systolic blood pressure less than 120. Repeat labs in the morning. Repeat BMP and magnesium level 2 to 3 days postdischarge. Follow-up outpatient in 1 week.
--- NOTE | 2023-08-01 17:26 | P.PN ---
Subjective Progress Note Date: 08/01/23 (delayed charting seen at 0820) Patient is a 73-year-old male with hypertension, COPD with chronic hypoxic respiratory failure on chronic home O2, and prior tobacco abuse who presented to the emergency department with weakness. Patient was found on the ground unable to get up by his landlord, at that time he was disconnected from his home oxygen. In the emergency department he underwent an extensive evaluation. Chest x-ray showed no acute process but findings consistent with COPD. Laborat ory analysis was remarkable for hemoglobin 9.6 (baseline 11), and sodium 121, baseline 128. Patient was admitted for weakness related to significant hyponatremia. Nephrology was consulted. Patient initially was given IV fluids and had a drop in his sodium level. He was then started on fluid restriction. 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 Patient received a dose of Samsca and his sodium improved. Patient currently lives alone and has known cognitive impairment and requires 24/7 care at home versus senior care facility. He was seen by physical therapy and was able to ambulate 175 feet with supervision. He continued to struggle with hyponatremia. He required mu ltiple doses of Samsca. He continued on his fluid restriction. His salt level stabilized and he was determined medically stable for discharge. Case discussed extensively with case management team. Patient has a legal guardian which is his daughter Nori. She is refusing to pick him up from the hospital or participate in his care. APS report has been filed. They have also been discussing his case with his pension manager. At this point in time it does not appear that his legal guardian is going to berry picker the patient and therefore he will likely need to remain in the hospital until this can be resolved. Patient seen and examined at bedside. 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 Now on Demeclocycline 300 twice daily -S/p multiple doses of Samsca. - nephrology following -Continue sodium chloride tablets 1 mg oral twice daily -Continue to hold SSRI -Patient has been eating well since being hospitalized -Patient okay to remain without IV access - repeat BMP in AM Chronic: Hypertension COPD without exacerbation Depression awaiting guardianship Imaging: None new Data Review: None new DVT prophylaxis: SCDs Anticipated discharge date: undetermined, daughter decline to pick patient up. Anticipated discharge place: undetermined This dictation was prepared using [employer] voice recognition software. Though every attempt is made to correct errors during dictation some may still exist. Objective - Vital Signs Vital signs: Vital Signs Temp 98.0 F 08/01/23 12:43 Pulse 84 08/01/23 12:43 Resp 17 08/01/23 12:43 BP 105/67 08/01/23 12:43 Pulse Ox 95 08/01/23 12:43 FiO2 Intake & Output 07/31/23 08/01/23 08/01/23 18:59 06:59 18:59 Intake Total 780 830 480 Output Total 1050 1500 1300 Balance -270 -670 -820 Weight 56.245 kg Intake: Oral 830 480 Other 780 Output: Urine 1050 1500 1300 Other: Voiding Method Bedside Commode Urinal Urinal Urinal # Voids 2 - Labs CBC & Chem 7: 07/25/23 09:07 07/31/23 04:52
[2023-08-01] MEDS: amLODIPine 5 MG TAB PO SCH (20:55)
[2023-08-02 06:20] LABS: African American GFR (CKD) >90 (>60 ml/min/1.73 sqM); Anion Gap -1 mmol/L; Blood Urea Nitrogen 22 mg/dL (9-20); Calcium 8.7 mg/dL (8.4-10.2); Carbon Dioxide 38 mmol/L (22-30); Chloride 92 mmol/L (98-107); Glucose 92 mg/dL (74-99); Non-African American GFR(CKD) >90 (>60 ml/min/1.73 sqM); Sodium 129 mmol/L (137-145)
--- NOTE | 2023-08-02 12:14 | P.PN ---
Subjective Progress Note Date: 08/02/23 Patient is seen in follow-up for hyponatremia. Sodium level stable at 130 as of yesterday. Oral intake fair. Denies chest pain or shortness of breath. No changes overnight. Vital signs are stable. General: No acute distress. HEENT: Head exam is unremarkable. On nasal cannula. LUNGS: No audible rhonchi or wheezes. HEART: Rate and Rhythm are regular. ABDOMEN: Nontender. EXTREMITITES: No edema. Objective - Vital Signs Vital signs: Vital Signs Temp 97.6 F 08/02/23 07:48 Pulse 92 08/02/23 08:42 Resp 19 08/02/23 07:48 BP 127/73 08/02/23 07:48 Pulse Ox 96 08/02/23 07:48 FiO2 Intake & Output 08/01/23 08/02/23 08/02/23 18:59 06:59 18:59 Intake Total 720 720 Output Total 1300 300 150 Balance -580 420 -150 Intake: Oral 720 720 Output: Urine 1300 300 150 Other: Voiding Method Urinal Urinal # Voids 2 - Labs CBC & Chem 7: 07/25/23 09:07 08/02/23 05:44 Labs: Abnormal Lab Results - Last 24 Hours (Table) 08/02/23 Range/Units 05:44 Sodium 129 L (137-145) mmol/L Chloride 92 L (98-107) mmol/L Carbon Dioxide 38 H (22-30) mmol/L BUN 22 H (9-20) mg/dL Creatinine 0.47 L (0.66-1.25) mg/dL Assessment and Plan Plan: Assessment: 1. Hyponatremia, euvolemic. 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 Urine sodium 118 and urine osmolality 419. Cortisol 14.7. TSH normal. On salt tabs and demeclocycline. Also received Samsca this admission. Sodium level better - 130 as of yesterday. 2. Benign hypertension. Blood pressure on the lower side. 3. History of falls. 4. Failure to thrive. Plan: Maintain sodium chloride tabs. Maintain fluid restriction. Encouraged oral intake, particularly protein Follow-up PTH related peptide. Maintain demeclocycline. Maintain Lasix 20 mg once daily. Stop hydralazine. Stop lisinopril. Maintain amlodipine. Hold for systolic blood pressure less than 120. Repeat BMP and magnesium level 2 to 3 days post discharge. Follow-up outpatient in 1 week.
--- NOTE | 2023-08-02 12:38 | P.PN ---
Subjective Progress Note Date: 08/02/23 Patient is a 73-year-old male with hypertension, COPD with chronic hypoxic respiratory failure on chronic home O2, and prior tobacco abuse who presented to the emergency department with weakness. Patient was found on the ground unable to get up by his landlord, at that time he was disconnected from his home oxygen. In the emergency department he underwent an extensive evaluation. Chest x-ray showed no acute process but findings consistent with COPD. Laboratory analysis was remarkable for hemoglobin 9.6 (baseline 11), and sodium 121, baseline 128. Patient was admitted for weakness related to significant hyponatremia. Nephrology was consulted. Patient initially was given IV fluids and had a drop in his sodium level. He was then started on fluid restriction. 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 Patient received a dose of Samsca and his sodium improved. Patient currently lives alone and has known cognitive impairment and requires 24/7 care at home versus nursing home facility. He was seen by physical therapy and was able to ambulate 175 feet with supervision. He continued to struggle with hyponatremia. He required multiple doses of Samsca. He continued on his fluid restriction. His salt level stabilized and he was determined medically stable for discharge. Case discussed extensively with case management team. Patient has a legal guardian which is his daughter Nori. She is refusing to pick him up from the hospital or participate in his care. APS report has been filed. They have also been discussing his case with his custom shop worker. At this point in time it does not appear that his legal guardian is going to picker and packer the patient and therefore he will likely need to remain in the hospital until this can be resolved. Patient seen and examined at bedside. 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 - nephrology note reviewed, continue demeclocycline 300 twice daily, oral Lasix 20 daily, sodium chloride tabs 1 g twice daily -Continue to hold SSRI -Patient has been eating well since being hospitalized -Patient okay to remain without IV access - repeat BMP in AM Chronic: Hypertension COPD without exacerbation Depression awaiting guardianship Imaging: None new Data Review: None new DVT prophylaxis: SCDs Anticipated discharge date: undetermined, daughter decline to pick patient up. Anticipated discharge place: undetermined Objective - Vital Signs Vital signs: Vital Signs Temp 97.6 F 08/02/23 07:48 Pulse 92 08/02/23 08:42 Resp 19 08/02/23 07:48 BP 127/73 08/02/23 07:48 Pulse Ox 96 08/02/23 07:48 FiO2 Intake & Output 08/01/23 08/02/23 08/02/23 18:59 06:59 18:59 Intake Total 720 720 Output Total 1300 300 150 Balance -580 420 -150 Intake: Oral 720 720 Output: Urine 1300 300 150 Other: Voiding Method Urinal Urinal Urinal # Voids 2 - Labs CBC & Chem 7: 07/25/23 09:07 08/02/23 05:44 Labs: Abnormal Lab Results - Last 24 Hours (Table) 08/02/23 Range/Units 05:44 Sodium 129 L (137-145) mmol/L Chloride 92 L (98-107) mmol/L Carbon Dioxide 38 H (22-30) mmol/L BUN 22 H (9-20) mg/dL Creatinine 0.47 L (0.66-1.25) mg/dL
[2023-08-03 04:54] LABS: Anisocytosis Slight; Basophils # (A) 0.1 k/uL (0-0.2); Basophils % (A) 1 %; Eosinophils # (A) 0.1 k/uL (0-0.7); Eosinophils % (A) 2 %; HCT 30.1 % (39.0-53.0); HGB 9.4 gm/dL (13.0-17.5); Hypochromasia Slight; Lymphocytes # (A) 1.1 k/uL (1.0-4.8); Lymphocytes % (A) 20 %; MCH 29.2 pg (25.0-35.0); MCHC 31.1 g/dL (31.0-37.0); MCV 93.9 fL (80.0-100.0); Mean Platelet Volume 7.2; Monocytes # (A) 0.4 k/uL (0-1.0); Monocytes % (A) 8 %; Neutrophils # (A) 3.5 k/uL (1.3-7.7); Neutrophils % (A) 66 %; Platelet Count 298 k/uL (150-450); RDW 16.4 % (11.5-15.5); WBC 5.3 k/uL (3.8-10.6)
[2023-08-03 05:07] LABS: African American GFR (CKD) >90 (>60 ml/min/1.73 sqM); Anion Gap 1 mmol/L; Blood Urea Nitrogen 21 mg/dL (9-20); Calcium 8.8 mg/dL (8.4-10.2); Carbon Dioxide 39 mmol/L (22-30); Chloride 87 mmol/L (98-107); Glucose 88 mg/dL (74-99); Non-African American GFR(CKD) >90 (>60 ml/min/1.73 sqM); Sodium 127 mmol/L (137-145)
--- NOTE | 2023-08-03 11:28 | P.PN ---
Subjective Progress Note Date: 08/03/23 Patient is seen in follow-up for hyponatremia. Sodium level stable at 130 as of yesterday. Oral intake fair. Denies chest pain or shortness of breath. No changes overnight. Vital signs are stable. General: No acute distress. HEENT: Head exam is unremarkable. On nasal cannula. LUNGS: No audible rhonchi or wheezes. HEART: Rate and Rhythm are regular. ABDOMEN: Nontender. EXTREMITITES: No edema. Objective - Vital Signs Vital signs: Vital Signs Temp 97.7 F 08/03/23 07:47 Pulse 84 08/03/23 08:55 Resp 17 08/03/23 07:47 BP 131/77 08/03/23 07:47 Pulse Ox 97 08/03/23 07:47 FiO2 Intake & Output 08/02/23 08/03/23 08/03/23 18:59 06:59 18:59 Intake Total 240 240 Output Total 625 350 450 Balance -385 -350 -210 Intake: Oral 240 240 Output: Urine 625 350 450 Other: Voiding Method Urinal Urinal Urinal # Voids 3 1 # Bowel Movements 1 - Labs CBC & Chem 7: 08/03/23 04:17 08/03/23 04:17 Labs: Abnormal Lab Results - Last 24 Hours (Table) 08/03/23 08/03/23 Range/Units 04:17 04:17 RBC 3.20 L (4.30-5.90) m/uL Hgb 9.4 L (13.0-17.5) gm/dL Hct 30.1 L (39.0-53.0) % RDW 16.4 H (11.5-15.5) % Sodium 127 L (137-145) mmol/L Chloride 87 L (98-107) mmol/L Carbon Dioxide 39 H (22-30) mmol/L BUN 21 H (9-20) mg/dL Creatinine 0.45 L (0.66-1.25) mg/dL Assessment and Plan Plan: Assessment: 1. Hyponatremia, euvolemic. 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 Urine sodium 118 and urine osmolality 419. Cortisol 14.7. TSH normal. On salt tabs and demeclocycline. Also received Samsca this admission. Sodium level better - 127 as of today which is near his baseline level. 2. Benign hypertension. Blood pressure on the lower side. 3. History of falls. 4. Failure to thrive. Plan: Maintain sodium chloride tabs, increase to TID. Maintain fluid restriction. Encouraged oral intake, particularly protein Follow-up PTH related peptide. Maintain demeclocycline. Maintain Lasix 20 mg once daily. Stop hydralazine. Stop lisinopril. Maintain amlodipine. Hold for systolic blood pressure less than 120. Repeat BMP and magnesium level 2 to 3 days post discharge. Follow-up outpatient in 1 week.
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
[2023-08-03] MEDS: SODIUM CHLORIDE TAB 1 GM TAB PO SCH (17:34)
[2023-08-04 08:45] LABS: Blood Urea Nitrogen 20.4 mg/dL (9.0-27.0); Calcium 9.1 mg/dL (8.7-10.3); Carbon Dioxide 37.4 mmol/L (21.6-31.8); Chloride 88 mmol/L (96-109); Glucose 71 mg/dL (70-110); Potassium 5.2 mmol/L (3.5-5.5); Sodium 129 mmol/L (135-145)
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
--- NOTE | 2023-08-04 11:53 | P.PN ---
Subjective Patient is seen for follow-up for hyponatremia, SIADH and improved with Samsca Maintained on sodium chloride tab 1 g 3 times a day. Status post demeclocycline and Samsca. Also maintained on Lasix 20 mg by mouth daily Objective - Vital Signs Vital signs: Vital Signs Temp 97.5 F L 08/04/23 07:10 Pulse 84 08/04/23 08:05 Resp 16 08/04/23 07:10 BP 127/74 08/04/23 07:10 Pulse Ox 96 08/04/23 07:47 FiO2 Intake & Output 08/03/23 08/04/23 08/04/23 18:59 06:59 18:59 Intake Total 680 20 240 Output Total 575 500 450 Balance 105 -480 -210 Intake: Oral 680 20 240 Output: Urine 575 500 450 Other: Voiding Method Urinal Urinal # Voids 1 # Bowel Movements 1 - Exam Patient is awake, comfortable, no acute distress Patient is hard of hearing Examination of the heart S1 and S2 Examination of the lungs bilateral breath sounds are heard Abdomen is soft nontender Examination of lower extremity shows no evidence of edema PALS NURSE exam grossly intact - Labs CBC & Chem 7: 08/03/23 04:17 08/04/23 05:59 Labs: Abnormal Lab Results - Last 24 Hours (Table) 08/04/23 Range/Units 05:59 Sodium 129 L (135-145) mmol/L Chloride 88 L (96-109) mmol/L Carbon Dioxide 37.4 H (21.6-31.8) mmol/L Anion Gap 3.60 L (4.00-12.00) mmol/L Creatinine 0.4 L (0.6-1.5) mg/dL BUN/Creatinine Ratio 51.00 H (12.00-20.00) Ratio Assessment and Plan Assessment: 1. 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 Status post demeclocycline and Samsca. Currently maintained on sodium chloride tabs and small dose of oral Lasix. 2. History of fall 3. History of hypertension maintained on Norvasc. Pressure is not high. Plan: Check sodium this evening as patient may need to resume demeclocycline. Continue with fluid restriction.
[2023-08-05 11:42] LABS: Blood Urea Nitrogen 15.8 mg/dL (9.0-27.0); Carbon Dioxide 36.9 mmol/L (21.6-31.8); Chloride 88 mmol/L (96-109); Glucose 79 mg/dL (70-110); Potassium 5.3 mmol/L (3.5-5.5); Sodium 130 mmol/L (135-145)
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
--- NOTE | 2023-08-06 12:09 | P.PN ---
Subjective Patient is seen for follow-up for hyponatremia, SIADH Maintained on sodium chloride tab 1 g 3 times a day. Status post demeclocycline and Samsca. Also maintained on Lasix 20 mg by mouth daily Objective - Vital Signs Vital signs: Vital Signs Temp 97.9 F 08/06/23 08:05 Pulse 70 08/06/23 08:05 Resp 20 08/06/23 08:05 BP 103/70 08/06/23 08:05 Pulse Ox 95 08/06/23 09:37 FiO2 Intake & Output 08/05/23 08/06/23 08/06/23 18:59 06:59 18:59 Intake Total 941 240 Output Total 1600 725 Balance -659 -485 Weight 56.245 kg Intake: Oral 941 240 Output: Urine 1600 725 Other: Voiding Method Urinal # Bowel Movements 1 - Exam Patient is awake, comfortable, no acute distress Patient is hard of hearing Abdomen is soft nontender Examination of lower extremity shows no evidence of edema SUPERVISING FIRE MARSHAL exam grossly intact - Labs CBC & Chem 7: 08/03/23 04:17 08/05/23 06:58 Assessment and Plan Assessment: 1. 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 Status post demeclocycline and Samsca. Currently maintained on sodium chloride tabs and small dose of oral Lasix. 2. History of fall 3. History of hypertension maintained on Norvasc. Pressure is not high. Plan: Continue with sodium chloride tab and small dose of oral Lasix Continue with fluid restriction.
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
[2023-08-07 09:06] LABS: BUN/Creat Ratio 37.17 Ratio (12.00-20.00); Blood Urea Nitrogen 22.3 mg/dL (9.0-27.0); Carbon Dioxide 35.1 mmol/L (21.6-31.8); Chloride 88 mmol/L (96-109); Glucose 94 mg/dL (70-110); Potassium 4.6 mmol/L (3.5-5.5); Sodium 130 mmol/L (135-145)
[2023-08-07 09:07] LABS: Calcium 9.3 mg/dL (8.7-10.3)
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
--- NOTE | 2023-08-07 17:06 | P.PN ---
Subjective Progress Note Date: 08/07/23 (delayed charting seen at 0830) Patient is a 73-year-old male with hypertension, COPD with chronic hypoxic respiratory failure on chronic home O2, and prior tobacco abuse who presented to the emergency department with weakness. Patient was found on the ground unable to get up by his landlord, at that time he was disconnected from his home oxygen. In the emergency department he underwent an extensive evaluation. Chest x-ray showed no acute process but findings consistent with COPD. Laborat ory analysis was remarkable for hemoglobin 9.6 (baseline 11), and sodium 121, baseline 128. Patient was admitted for weakness related to significant hyponatremia. Nephrology was consulted. Patient initially was given IV fluids and had a drop in his sodium level. He was then started on fluid restriction. 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 Patient received a dose of Samsca and his sodium improved. Patient currently lives alone and has known cognitive impairment and requires 24/7 care at home versus shelter facility. He was seen by physical therapy and was able to ambulate 175 feet with supervision. He continued to struggle with hyponatremia. He required mu ltiple doses of Samsca. He continued on his fluid restriction. His salt level stabilized and he was determined medically stable for discharge. Case discussed extensively with case management team. Patient has a legal guardian which is his daughter oNri. She is refusing to pick him up from the hospital or participate in his care. APS report has been filed. They have also been discussing his case with his intellectual property lawyer. At this point in time it does not appear that his legal guardian is going to hop picker the patient and therefore he will likely need to remain in the hospital until this can be resolved. Patient seen and examined at bedside. For me he had no complaints currently. Case discussed with nurse. Daughter reported that he was making suicidal text messages yesterday. 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 Now on Demeclocycline 300 twice daily -S/p multiple doses of Samsca. -Await further nephrology recs -Continue sodium chloride tablets 1 mg oral TID, Lasix 20 mg daily -Continue to hold SSRI -Patient has been eating well since being hospitalized -Patient okay to remain without IV access - repeat BMP in 3 days Suicidal ideation -Case discussed with Dr. Iglesias. Psychiatry consultation placed and reviewed. Possible candidate for inpatient [facility] but will continue to follow. Started on fluvoxamine 25 mg nightly and Remeron 7.5 mg nightly as needed for insomnia. 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 Chronic: Hypertension COPD without exacerbation Depression Court appointed co-guardian 08/03 awaiting financial review of patient. Imaging: None new Data Review: Labs reviewed from today include basic metabolic profile which is remarkable for sodium of 130. DVT prophylaxis: SCDs Anticipated discharge date: undetermined, daughter decline to pick patient up. Anticipated discharge place: undetermined This dictation was prepared using [employer] voice recognition software. Though every attempt is made to correct errors during dictation some may still exist. Objective - Vital Signs Vital signs: Vital Signs Temp 97.6 F 08/07/23 12:51 Pulse 75 08/07/23 12:51 Resp 20 08/07/23 12:51 BP 121/75 08/07/23 12:51 Pulse Ox 95 08/07/23 12:51 FiO2 Intake & Output 08/06/23 08/07/23 08/07/23 18:59 06:59 18:59 Intake Total 680 450 Output Total 2024 600 Balance -1345 450 -600 Intake: Oral 680 450 Output: Urine 2024 600 Other: Voiding Method Urinal Urinal # Voids 1 - Labs CBC & Chem 7: 08/03/23 04:17 08/07/23 05:35 Labs: Abnormal Lab Results - Last 24 Hours (Table) 08/07/23 Range/Units 05:35 Sodium 130 L (135-145) mmol/L Chloride 88 L (96-109) mmol/L Carbon Dioxide 35.1 H (21.6-31.8) mmol/L BUN/Creatinine Ratio 37.17 H (12.00-20.00) Ratio
--- NOTE | 2023-08-08 12:14 | P.PN ---
Subjective Progress Note Date: 08/08/23 (delayed charting seen at 0845) Patient is a 73-year-old male with hypertension, COPD with chronic hypoxic respiratory failure on chronic home O2, and prior tobacco abuse who presented to the emergency department with weakness. Patient was found on the ground unable to get up by his landlord, at that time he was disconnected from his home oxygen. In the emergency department he underwent an extensive evaluation. Chest x-ray showed no acute process but findings consistent with COPD. Laborat ory analysis was remarkable for hemoglobin 9.6 (baseline 11), and sodium 121, baseline 128. Patient was admitted for weakness related to significant hyponatremia. Nephrology was consulted. Patient initially was given IV fluids and had a drop in his sodium level. He was then started on fluid restriction. 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 Patient received a dose of Samsca and his sodium improved. Patient currently lives alone and has known cognitive impairment and requires 24/7 care at home versus [facility] facility. He was seen by physical therapy and was able to ambulate 175 feet with supervision. He continued to struggle with hyponatremia. He required mu ltiple doses of Samsca. He continued on his fluid restriction. His salt level stabilized and he was determined medically stable for discharge. Case discussed extensively with case management team. Patient has a legal guardian which is his daughter Nori. She is refusing to pick him up from the hospital or participate in his care. APS report has been filed. They have also been discussing his case with his industrial spray painter. At this point in time it does not appear that his legal guardian is going to pick up attendant the patient and therefore he will likely need to remain in the hospital until this can be resolved. Patient seen and examined at bedside. He has complaints of neck pain, no other complaints but wants his phone back Vital signs reviewed General: Nontoxic, no distress, appears at stated age, buccal and temporal wasting Cardiovascular: S1S2 reg, no murmur Lungs: Decreased breath sounds bilateral, no rhonchi, no rales, no accessory muscle use Neuro: CN II-XI grossly intact, no focal neuro deficits Psych: Alert, oriented to self and being in the hospital, appropriate affect Assessment/Plan: 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 Normocytic anemia, likely chronic disease related Severe protein calorie malnutrition Failure to thrive Mild cognitive impairment. Now on Demeclocycline 300 twice daily -S/p multiple doses of Samsca. -Await further nephrology recs -Continue sodium chloride tablets 1 mg oral TID, Lasix 20 mg daily -Continue to hold SSRI -Patient has been eating well since being hospitalized -Patient okay to remain without IV access - repeat BMP in 3 days Suicidal ideation -Psych recs reviewed: possible candidate for inpatient [facility] psych but will continue to follow. - fluvoxamine 25 mg nightly and Remeron 7.5 mg nightly as needed for insomnia. 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 Chronic: Hypertension COPD without exacerbation Depression Awaiting geripsych replacement Imaging: None new Data Review: Labs reviewed from today include basic metabolic profile which is remarkable for sodium of 130. DVT prophylaxis: SCDs Anticipated discharge date: undetermined, daughter decline to pick patient up. Anticipated discharge place: undetermined This dictation was prepared using [employer] voice recognition software. Though every attempt is made to correct errors during dictation some may still exist. Objective - Vital Signs Vital signs: Vital Signs Temp 97.8 F 08/08/23 07:00 Pulse 77 08/08/23 07:00 Resp 17 08/08/23 07:00 BP 127/67 08/08/23 07:00 Pulse Ox 95 08/08/23 07:59 FiO2 Intake & Output 08/07/23 08/08/23 08/08/23 18:59 06:59 18:59 Intake Total 320 Output Total 1050 300 Balance -1050 20 Intake: Oral 320 Output: Urine 1050 300 Other: Voiding Method Urinal Urinal Urinal - Labs CBC & Chem 7: 08/03/23 04:17 08/07/23 05:35
--- NOTE | 2023-08-08 14:21 | P.PN ---
Progress Note - Text Progress Note Date: 08/08/23 Interval history: Patient was seen today for psychiatric follow-up at the bedside. Patient appe ars to have improvement in his irritability and also his affect. He states that he is doing "better" with regards to his mood and anxiety. States that he is tolerating the medication fairly well at this time. States that he slept fairly last night with no problems. Denying any side effects at this time. He states that he was feeling upset earlier because he did not have the doughnut to sit on while he is in the bed and states that his daughter brought it in for him and he is feeling better about it. He appears to be more future oriented at this time and states that he is looking forward to going up to visit family members up in the [facility] once he is discharged. He is adamantly denying any suicidal thoughts today, denying any homicidal ideations. He was requesting to have his phone and tower technician back. Denies any auditory or visual hallucinations. Claims that he slept fairly throughout the night has a fair appetite at this time. MENTAL STATUS EXAM: General Appearance: Patient appears to be frail, wearing glasses, has a hat, stated age is alert, attempts to cooperate. Improving grooming, improved eye contact. Behavior: Patient is calmly lying in bed without any agitated behavior. Hard of hearing. Less irritable today Speech: Patient's speech is fluent and nonpressured. Rambles at times, improving Mood/Affect: Patient reports their mood is "good", affect is congruent and affect improving Suicidality/Homicidality: Patient denies having any suicidal or homicidal ideation intent or plan. Perceptions: Patient denies any visual hallucinations and denies any auditory hallucinations Though content/process: There is no evidence of any delusional thought content and thought process is linear and goal-directed. Rambling less, more future oriented. Memory and concentration: AOX3, grossly intact for the purposes of this session. Judgment and insight: Improving mildly IMPRESSIONS: Depressive disorder unspecified Cannabis use disorder mild Nicotine dependence PLAN: -At this time patient does not meet criteria for inpatient psychiatric hospitalization. Patient is not endorsing any suicidal ideations or thoughts of harming others, not displaying any psychotic symptoms or aggression. -Delirium precautions recommended with patient including - avoiding use of narcotics and SCHOOL CLERK sedatives, limit anticholinergic medications when possible, frequent re-orientation, minimize use of restraints, open window shades during the day and close them at night -Would recommend the following medication changes/additions: Due to patient's SIADH, most antidepressants would not be a good option at this point. Can continue with scheduled fluvoxamine 25 mg nightly for mood/anxiety/sleep, Remeron 7.5 mg nightly as needed for insomnia. -discontinue 1:1 sitter for safety -Communicated plan to patient's nurse and case hardener -At this time psychiatry will sign off. can continue to look for placement options with gaurdians daughter and public gaurdian. -Please contact with any questions.
--- NOTE | 2023-08-08 16:43 | P.PN ---
Subjective Patient is seen for follow-up for hyponatremia secondary to SIADH Maintained on sodium chloride tab 1 g 3 times a day and fluid restriction. Stat us post demeclocycline and Samsca. Also maintained on Lasix 20 mg by mouth daily. Serum sodium staying at 130. Objective - Vital Signs Vital signs: Vital Signs Temp 97.9 F 08/08/23 12:54 Pulse 77 08/08/23 16:20 Resp 17 08/08/23 12:54 BP 119/72 08/08/23 12:54 Pulse Ox 89 L 08/08/23 12:54 FiO2 Intake & Output 08/07/23 08/08/23 08/08/23 18:59 06:59 18:59 Intake Total 320 Output Total 1050 300 Balance -1050 20 Intake: Oral 320 Output: Urine 1050 300 Other: Voiding Method Urinal Urinal Urinal - Exam Patient is awake, comfortable, no acute distress Patient is hard of hearing Abdomen is soft nontender Examination of lower extremity shows no evidence of edema INTERACTIVE PROJECT MANAGER exam grossly intact - Labs CBC & Chem 7: 08/03/23 04:17 08/07/23 05:35 Assessment and Plan Assessment: 1. 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 Status post demeclocycline and Samsca. Currently maintained on sodium chloride tabs and small dose of oral Lasix. 2. History of fall 3. History of hypertension maintained on Norvasc. Pressure is not high. 4. Verbalization of suicidal thoughts. Being evaluated by psychiatry. Mood has improved. Plan: Continue with sodium chloride tab and small dose of oral Lasix Continue with fluid restriction.
--- NOTE | 2023-08-09 11:14 | P.PN ---
Subjective Patient is seen in follow-up for hyponatremia. Sodium level stable at 130 dated August 07, 2023. Oral intake fair. Denies chest pain or shortness of breath. No changes overnight. Vital signs are stable. General: No acute distress. HEENT: Head exam is unremarkable. On nasal cannula. LUNGS: No audible rhonchi or wheezes. HEART: Rate and Rhythm are regular. ABDOMEN: Nontender. EXTREMITITES: No edema. Objective - Vital Signs Vital signs: Vital Signs Temp 98.0 F 08/09/23 08:16 Pulse 75 08/09/23 08:16 Resp 16 08/09/23 08:16 BP 124/74 08/09/23 08:16 Pulse Ox 92 L 08/09/23 08:16 FiO2 Intake & Output 08/08/23 08/09/23 08/09/23 18:59 06:59 18:59 Intake Total 660 Output Total 75 200 Balance 585 -200 Intake: Oral 660 Output: Urine 75 200 Other: Voiding Method Urinal Urinal - Labs CBC & Chem 7: 08/03/23 04:17 08/07/23 05:35 Assessment and Plan Plan: Assessment: 1. Hyponatremia, euvolemic. 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 Urine sodium 118 and urine osmolality 419. Cortisol 14.7. TSH normal. PTH related peptide negative. On salt tabs and Lasix. Also received Samsca this admission. Sodium level stable at 130 dated August 07, 2023. 2. Benign hypertension. Controlled. 3. History of falls. 4. Failure to thrive. Plan: Maintain sodium chloride tabs. Maintain fluid restriction. Encouraged oral intake, particularly protein Maintain Lasix 20 mg once daily. Maintain amlodipine. Hold for systolic blood pressure less than 120. Repeat labs in the morning. Repeat BMP and magnesium level 2 to 3 days postdischarge. Follow-up outpatient in 1 week.
--- NOTE | 2023-08-09 12:25 | P.PN ---
Subjective Progress Note Date: 08/09/23 Patient is a 73-year-old male with hypertension, COPD with chronic hypoxic respiratory failure on chronic home O2, and prior tobacco abuse who presented to the emergency department with weakness. Patient was found on the ground unable to get up by his landlord, at that time he was disconnected from his home oxygen. In the emergency department he underwent an extensive evaluation. Chest x-ray showed no acute process but findings consistent with COPD. Laboratory analysis was remarkable for hemoglobin 9.6 (baseline 11), and sodium 121, baseline 128. Patient was admitted for weakness related to significant hyponatremia. Nephrology was consulted. Patient initially was given IV fluids and had a drop in his sodium level. He was then started on fluid restriction. 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 Patient received a dose of Samsca and his sodium improved. Patient currently lives alone and has known cognitive impairment and requires 24/7 care at home versus [facility] facility. He was seen by physical therapy and was able to ambulate 175 feet with supervision. He continued to struggle with hyponatremia. He required multiple doses of Samsca. He continued on his fluid restriction. His salt level stabilized and he was determined medically stable for discharge. Case discussed extensively with case management team. Patient has a legal guardian which is his daughter Nori. She is refusing to pick him up from the hospital or participate in his care. APS report has been filed. They have also been discussing his case with his news production assistant. At this point in time it does not appear that his legal guardian is going to cotton picker the patient and therefore he will likely need to remain in the hospital until this can be resolved. Patient seen and examined at bedside. 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 Now on Demeclocycline 300 twice daily -S/p multiple doses of Samsca. -Await further nephrology recs -Continue sodium chloride tablets 1 mg oral TID, Lasix 20 mg daily -Continue to hold SSRI -Patient has been eating well since being hospitalized -Patient okay to remain without IV access - repeat BMP in 3 days Suicidal ideation -Psych recs reviewed: Does not meet inpatient criteria, medication changed, discontinued one-to-one sitter - fluvoxamine 25 mg nightly and Remeron 7.5 mg nightly as needed for insomnia Chronic: Hypertension COPD without exacerbation Depression Awaiting placement. Imaging: None new Data Review: No new labs DVT prophylaxis: SCDs Anticipated discharge date: undetermined, daughter decline to pick patient up. Anticipated discharge place: undetermined Objective - Vital Signs Vital signs: Vital Signs Temp 98.0 F 08/09/23 08:16 Pulse 75 08/09/23 08:16 Resp 16 08/09/23 08:16 BP 124/74 08/09/23 08:16 Pulse Ox 92 L 08/09/23 08:16 FiO2 Intake & Output 08/08/23 08/09/23 08/09/23 18:59 06:59 18:59 Intake Total 660 Output Total 75 200 Balance 585 -200 Intake: Oral 660 Output: Urine 75 200 Other: Voiding Method Urinal Urinal - Labs CBC & Chem 7: 08/03/23 04:17 08/07/23 05:35
[2023-08-09] MEDS: MIRTAZAPINE 15 MG TAB PO PRN (20:47)
[2023-08-10 08:06] LABS: African American GFR (CKD) >90 (>60 ml/min/1.73 sqM); Anion Gap 2 mmol/L; Blood Urea Nitrogen 16 mg/dL (9-20); Calcium 8.9 mg/dL (8.4-10.2); Carbon Dioxide 37 mmol/L (22-30); Chloride 91 mmol/L (98-107); Glucose 94 mg/dL (74-99); Magnesium 1.9 mg/dL (1.6-2.3); Non-African American GFR(CKD) >90 (>60 ml/min/1.73 sqM); Potassium 4.8 mmol/L (3.5-5.1); Sodium 130 mmol/L (137-145)
--- NOTE | 2023-08-10 11:23 | P.PN ---
Subjective Patient is seen in follow-up for hyponatremia. Sodium level stable at 130. Oral intake fair. Denies chest pain or shortness of breath. No changes overnight. Vital signs are stable. General: No acute distress. HEENT: Head exam is unremarkable. On nasal cannula. LUNGS: No audible rhonchi or wheezes. HEART: Rate and Rhythm are regular. ABDOMEN: Nontender. EXTREMITITES: No edema. Objective - Vital Signs Vital signs: Vital Signs Temp 97.8 F 08/10/23 07:06 Pulse 72 08/10/23 07:06 Resp 16 08/10/23 07:06 BP 119/73 08/10/23 07:06 Pulse Ox 97 08/10/23 07:06 FiO2 Intake & Output 08/09/23 08/10/23 08/10/23 18:59 06:59 18:59 Other: Voiding Method Urinal # Voids 4 3 - Labs CBC & Chem 7: 08/03/23 04:17 08/10/23 07:13 Labs: Abnormal Lab Results - Last 24 Hours (Table) 08/10/23 Range/Units 07:13 Sodium 130 L (137-145) mmol/L Chloride 91 L (98-107) mmol/L Carbon Dioxide 37 H (22-30) mmol/L Creatinine 0.45 L (0.66-1.25) mg/dL Assessment and Plan Plan: Assessment: 1. Hyponatremia, euvolemic. 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 Urine sodium 118 and urine osmolality 419. Cortisol 14.7. TSH normal. PTH related peptide negative. On salt tabs and Lasix. Also received Samsca this admission. Sodium level stable at 130. 2. Benign hypertension. Controlled. 3. History of falls. 4. Failure to thrive. Plan: Maintain sodium chloride tabs. Maintain fluid restriction. Encouraged oral intake, particularly protein Maintain Lasix 20 mg once daily. Maintain amlodipine. Hold for systolic blood pressure less than 120. Repeat labs in the morning. Repeat BMP and magnesium level 2 to 3 days postdischarge. Follow-up outpatient in 1 week.
--- NOTE | 2023-08-10 13:14 | P.PN ---
Subjective Progress Note Date: 08/10/23 Patient is a 73-year-old male with hypertension, COPD with chronic hypoxic respiratory failure on chronic home O2, and prior tobacco abuse who presented to the emergency department with weakness. Patient was found on the ground unable to get up by his landlord, at that time he was disconnected from his home oxygen. In the emergency department he underwent an extensive evaluation. Chest x-ray showed no acute process but findings consistent with COPD. Laboratory analysis was remarkable for hemoglobin 9.6 (baseline 11), and sodium 121, baseline 128. Patient was admitted for weakness related to significant hyponatremia. Nephrology was consulted. Patient initially was given IV fluids and had a drop in his sodium level. He was then started on fluid restriction. 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 Patient received a dose of Samsca and his sodium improved. Patient currently lives alone and has known cognitive impairment and requires 24/7 care at home versus custodial facility. He was seen by physical therapy and was able to ambulate 175 feet with supervision. He continued to struggle with hyponatremia. He required multiple doses of Samsca. He continued on his fluid restriction. His salt level stabilized and he was determined medically stable for discharge. Case discussed extensively with case management team. Patient has a legal guardian which is his daughter Nori. She is refusing to pick him up from the hospital or participate in his care. APS report has been filed. They have also been discussing his case with his train dispatcher. At this point in time it does not appear that his legal guardian is going to machine operator hop picker the patient and therefore he will likely need to remain in the hospital until this can be resolved. Patient seen and examined at bedside. 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 Now on Demeclocycline 300 twice daily -S/p multiple doses of Samsca. -Nephrology note reviewed, continue current management -Continue sodium chloride tablets 1 mg oral TID, Lasix 20 mg daily -Patient has been eating well since being hospitalized -Patient okay to remain without IV access Suicidal ideation, resolved -Psych recs : Does not meet inpatient criteria, medication changed, discontinued one-to-one sitter - fluvoxamine 25 mg nightly and Remeron 7.5 mg nightly as needed for insomnia Also on mirtazapine as needed for insomnia Chronic: Hypertension COPD without exacerbation Depression Awaiting placement. Imaging: None new Data Review: BMP shows potassium 4.8, sodium 130, creatinine 0.45, magnesium 1.9 DVT prophylaxis: SCDs Anticipated discharge date: undetermined, daughter decline to pick patient up. Anticipated discharge place: undetermined Objective - Vital Signs Vital signs: Vital Signs Temp 97.6 F 08/10/23 12:52 Pulse 77 08/10/23 12:52 Resp 16 08/10/23 12:52 BP 138/77 08/10/23 12:52 Pulse Ox 96 08/10/23 12:52 FiO2 Intake & Output 08/09/23 08/10/23 08/10/23 18:59 06:59 18:59 Other: Voiding Method Urinal # Voids 4 3 - Labs CBC & Chem 7: 08/03/23 04:17 08/10/23 07:13 Labs: Abnormal Lab Results - Last 24 Hours (Table) 08/10/23 Range/Units 07:13 Sodium 130 L (137-145) mmol/L Chloride 91 L (98-107) mmol/L Carbon Dioxide 37 H (22-30) mmol/L Creatinine 0.45 L (0.66-1.25) mg/dL
--- NOTE | 2023-08-11 11:20 | P.PN ---
Subjective Patient is seen in follow-up for hyponatremia. Sodium level stable at 130 as of yesterday. Oral intake fair. Denies chest pain or shortness of breath. No changes overnight. Vital signs are stable. General: No acute distress. HEENT: Head exam is unremarkable. On nasal cannula. LUNGS: No audible rhonchi or wheezes. HEART: Rate and Rhythm are regular. ABDOMEN: Nontender. EXTREMITITES: No edema. Objective - Vital Signs Vital signs: Vital Signs Temp 97.2 F L 08/11/23 08:00 Pulse 72 08/11/23 08:00 Resp 16 08/11/23 08:00 BP 126/74 08/11/23 08:00 Pulse Ox 97 08/11/23 08:00 FiO2 Intake & Output 08/10/23 08/11/23 08/11/23 18:59 06:59 18:59 Output Total 600 700 Balance -600 -700 Output: Urine 600 700 Other: Voiding Method Urinal # Voids 3 - Labs CBC & Chem 7: 08/03/23 04:17 08/10/23 07:13 Assessment and Plan Plan: Assessment: 1. Hyponatremia, euvolemic. 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 Urine sodium 118 and urine osmolality 419. Cortisol 14.7. TSH normal. PTH related peptide negative. On salt tabs and Lasix. Also received Samsca this admission. Sodium level stable at 130. 2. Benign hypertension. Controlled. 3. History of falls. 4. Failure to thrive. Plan: Maintain sodium chloride tabs. Maintain fluid restriction. Encouraged oral intake, particularly protein Maintain Lasix 20 mg once daily. Maintain amlodipine. Hold for systolic blood pressure less than 120. Repeat labs in the morning. Repeat BMP and magnesium level 2 to 3 days postdischarge. Follow-up outpatient in 1 week.
--- NOTE | 2023-08-11 13:44 | P.PN ---
Subjective Progress Note Date: 08/11/23 Patient is a 73-year-old male with hypertension, COPD with chronic hypoxic respiratory failure on chronic home O2, and prior tobacco abuse who presented to the emergency department with weakness. Patient was found on the ground unable to get up by his landlord, at that time he was disconnected from his home oxygen. In the emergency department he underwent an extensive evaluation. Chest x-ray showed no acute process but findings consistent with COPD. Laboratory analysis was remarkable for hemoglobin 9.6 (baseline 11), and sodium 121, baseline 128. Patient was admitted for weakness related to significant hyponatremia. Nephrology was consulted. Patient initially was given IV fluids and had a drop in his sodium level. He was then started on fluid restriction. 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 Patient received a dose of Samsca and his sodium improved. Patient currently lives alone and has known cognitive impairment and requires 24/7 care at home versus [facility]. He was seen by physical therapy and was able to ambulate 175 feet with supervision. He continued to struggle with hyponatremia. He required multiple doses of Samsca. He continued on his fluid restriction. His salt level stabilized and he was determined medically stable for discharge. Case discussed extensively with case management team. Patient has a legal guardian which is his daughter Nori. She is refusing to pick him up from the hospital or participate in his care. APS report has been filed. They have also been discussing his case with his husbandry person. At this point in time it does not appear that his legal guardian is going to bead picker the patient and therefore he will likely need to remain in the hospital until this can be resolved. Now has a public guardian, who is a co-guardian with daughter. Will reach out further to her, and to [facility] for possible placement. Patient seen and examined at bedside. 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 Now on Demeclocycline 300 twice daily -S/p multiple doses of Samsca. -Nephrology note reviewed, continue current management -Continue sodium chloride tablets 1 mg oral TID, Lasix 20 mg daily -Patient has been eating well since being hospitalized -Patient okay to remain without IV access Suicidal ideation, resolved -Psych recs : Does not meet inpatient criteria, medication changed, discontinued one-to-one sitter - fluvoxamine 25 mg nightly and Remeron 7.5 mg nightly as needed for insomnia Also on mirtazapine as needed for insomnia Chronic: Hypertension COPD without exacerbation Depression Awaiting placement. Imaging: None new Data Review: No new imaging DVT prophylaxis: SCDs Anticipated discharge date: undetermined, daughter decline to pick patient up. Anticipated discharge place: undetermined Objective - Vital Signs Vital signs: Vital Signs Temp 97.2 F L 08/11/23 08:00 Pulse 72 08/11/23 08:00 Resp 16 08/11/23 08:00 BP 126/74 08/11/23 08:00 Pulse Ox 97 08/11/23 08:00 FiO2 Intake & Output 08/10/23 08/11/23 08/11/23 18:59 06:59 18:59 Intake Total 40 Output Total 600 700 300 Balance -600 -700 -260 Intake: Oral 40 Output: Urine 600 700 300 Other: Voiding Method Urinal # Voids 3 1 - Labs CBC & Chem 7: 08/03/23 04:17 08/10/23 07:13
--- NOTE | 2023-08-12 10:28 | P.PN ---
Subjective Patient is seen in follow-up for hyponatremia. Sodium level stable at 130 dated August 10, 2023. Oral intake fair. Denies chest pain or shortness of breath. No changes overnight. Hemodynamically stable. Vital signs are stable. General: No acute distress. HEENT: Head exam is unremarkable. On nasal cannula. LUNGS: No audible rhonchi or wheezes. HEART: Rate and Rhythm are regular. ABDOMEN: Nontender. EXTREMITITES: No edema. Objective - Vital Signs Vital signs: Vital Signs Temp 97.5 F L 08/12/23 07:44 Pulse 73 08/12/23 07:44 Resp 17 08/12/23 07:44 BP 125/73 08/12/23 07:44 Pulse Ox 94 L 08/12/23 07:44 FiO2 Intake & Output 08/11/23 08/12/23 08/12/23 18:59 06:59 18:59 Intake Total 80 280 120 Output Total 750 500 Balance -670 -220 120 Intake: Oral 80 280 120 Output: Urine 750 500 Other: Voiding Method Urinal Urinal # Voids 1 - Labs CBC & Chem 7: 08/03/23 04:17 08/10/23 07:13 Assessment and Plan Plan: Assessment: 1. Hyponatremia, euvolemic. 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 Urine sodium 118 and urine osmolality 419. Cortisol 14.7. TSH normal. PTH related peptide negative. On salt tabs and Lasix. Also received Samsca this admission. Sodium level stable at 130. 2. Benign hypertension. Stable. 3. History of falls. 4. Failure to thrive. Plan: Maintain sodium chloride tabs. Maintain fluid restriction. Encouraged oral intake, particularly protein Maintain Lasix 20 mg once daily. Maintain amlodipine. Hold for systolic blood pressure less than 120. Repeat labs in the morning. Repeat BMP and magnesium level 2 to 3 days postdischarge. Follow-up outpatient in 1 week. Awaits placement.
--- NOTE | 2023-08-12 13:12 | P.PN ---
Subjective Progress Note Date: 08/12/23 Patient is a 73-year-old male with hypertension, COPD with chronic hypoxic respiratory failure on chronic home O2, and prior tobacco abuse who presented to the emergency department with weakness. Patient was found on the ground unable to get up by his landlord, at that time he was disconnected from his home oxygen. In the emergency department he underwent an extensive evaluation. Chest x-ray showed no acute process but findings consistent with COPD. Laboratory analysis was remarkable for hemoglobin 9.6 (baseline 11), and sodium 121, baseline 128. Patient was admitted for weakness related to significant hyponatremia. Nephrology was consulted. Patient initially was given IV fluids and had a drop in his sodium level. He was then started on fluid restriction. 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 Patient received a dose of Samsca and his sodium improved. Patient currently lives alone and has known cognitive impairment and requires 24/7 care at home versus [facility] facility. He was seen by physical therapy and was able to ambulate 175 feet with supervision. He continued to struggle with hyponatremia. He required multiple doses of Samsca. He continued on his fluid restriction. His salt level stabilized and he was determined medically stable for discharge. Case discussed extensively with case management team. Patient has a legal guardian which is his daughter Nori. She is refusing to pick him up from the hospital or participate in his care. APS report has been filed. They have also been discussing his case with his quarry boss. At this point in time it does not appear that his legal guardian is going to picker tender the patient and therefore he will likely need to remain in the hospital until this can be resolved. Now has a public guardian, who is a co-guardian with daughter. Will reach out further to her, and to [facility] for possible placement. Patient seen and examined at bedside. 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 Now on Demeclocycline 300 twice daily -S/p multiple doses of Samsca. -Nephrology note reviewed, continue current management -Continue sodium chloride tablets 1 mg oral TID, Lasix 20 mg daily -Patient has been eating well since being hospitalized -Patient okay to remain without IV access Suicidal ideation, resolved -Psych recs : Does not meet inpatient criteria, medication changed, discontinued one-to-one sitter - fluvoxamine 25 mg nightly and Remeron 7.5 mg nightly as needed for insomnia - Also on mirtazapine as needed for insomnia Chronic: Hypertension COPD without exacerbation Depression Imaging: None new Data Review: No new imaging DVT prophylaxis: SCDs Ending placement Objective - Vital Signs Vital signs: Vital Signs Temp 97.5 F L 08/12/23 13:07 Pulse 69 08/12/23 13:07 Resp 18 08/12/23 13:07 BP 139/78 08/12/23 13:07 Pulse Ox 94 L 08/12/23 13:07 FiO2 Intake & Output 08/11/23 08/12/23 08/12/23 18:59 06:59 18:59 Intake Total 80 280 120 Output Total 750 500 Balance -670 -220 120 Weight 56.245 kg Intake: Oral 80 280 120 Output: Urine 750 500 Other: Voiding Method Urinal Urinal # Voids 1 - Labs CBC & Chem 7: 08/03/23 04:17 08/10/23 07:13
[2023-08-13 08:45] LABS: Blood Urea Nitrogen 18.3 mg/dL (9.0-27.0); Glucose 126 mg/dL (70-110)
[2023-08-13 08:46] LABS: Calcium 8.9 mg/dL (8.7-10.3); Carbon Dioxide 39.2 mmol/L (21.6-31.8); Chloride 91 mmol/L (96-109); Potassium 4.5 mmol/L (3.5-5.5); Sodium 134 mmol/L (135-145)
--- NOTE | 2023-08-13 11:58 | P.PN ---
Subjective Patient is seen in follow-up for hyponatremia. Sodium level 134 today. Oral intake fair. Denies chest pain or shortness of breath. No changes overnight. Hemodynamically stable. Vital signs are stable. General: No acute distress. HEENT: Head exam is unremarkable. On nasal cannula. LUNGS: No audible rhonchi or wheezes. HEART: Rate and Rhythm are regular. ABDOMEN: Nontender. EXTREMITITES: No edema. Objective - Vital Signs Vital signs: Vital Signs Temp 97.4 F L 08/13/23 07:44 Pulse 74 08/13/23 07:44 Resp 17 08/13/23 07:44 BP 132/67 08/13/23 07:44 Pulse Ox 97 08/13/23 08:19 FiO2 Intake & Output 08/12/23 08/13/23 08/13/23 18:59 06:59 18:59 Intake Total 660 300 Output Total 1000 800 Balance -340 -800 300 Weight 56.245 kg Intake: Oral 660 300 Output: Urine 1000 800 Other: Voiding Method Urinal Urinal Urinal - Labs CBC & Chem 7: 08/03/23 04:17 08/13/23 05:57 Labs: Abnormal Lab Results - Last 24 Hours (Table) 08/13/23 Range/Units 05:57 Sodium 134 L (135-145) mmol/L Chloride 91 L (96-109) mmol/L Carbon Dioxide 39.2 H (21.6-31.8) mmol/L Anion Gap 3.80 L (4.00-12.00) mmol/L Creatinine 0.5 L (0.6-1.5) mg/dL BUN/Creatinine Ratio 36.60 H (12.00-20.00) Ratio Glucose 126 H (70-110) mg/dL Assessment and Plan Plan: Assessment: 1. Hyponatremia, euvolemic. 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 Urine sodium 118 and urine osmolality 419. Cortisol 14.7. TSH normal. PTH related peptide negative. On salt tabs and Lasix. Also received Samsca this admission. Sodium level improved to 134 today. 2. Benign hypertension. Stable. 3. History of falls. 4. Failure to thrive. Plan: Maintain sodium chloride tabs. Maintain fluid restriction. Encouraged oral intake, particularly protein Maintain Lasix 20 mg once daily. Maintain amlodipine. Hold for systolic blood pressure less than 120. Repeat BMP and magnesium level 2 to 3 days postdischarge. Follow-up outpatient in 1 week. Awaits placement.
--- NOTE | 2023-08-13 13:53 | P.PN ---
Subjective Progress Note Date: 08/13/23 Patient is a 73-year-old male with hypertension, COPD with chronic hypoxic respiratory failure on chronic home O2, and prior tobacco abuse who presented to the emergency department with weakness. Patient was found on the ground unable to get up by his landlord, at that time he was disconnected from his home oxygen. In the emergency department he underwent an extensive evaluation. Chest x-ray showed no acute process but findings consistent with COPD. Laboratory analysis was remarkable for hemoglobin 9.6 (baseline 11), and sodium 121, baseline 128. Patient was admitted for weakness related to significant hyponatremia. Nephrology was consulted. Patient initially was given IV fluids and had a drop in his sodium level. He was then started on fluid restriction. 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 Patient received a dose of Samsca and his sodium improved. Patient currently lives alone and has known cognitive impairment and requires 24/7 care at home versus alf facility. He was seen by physical therapy and was able to ambulate 175 feet with supervision. He continued to struggle with hyponatremia. He required multiple doses of Samsca. He continued on his fluid restriction. His salt level stabilized and he was determined medically stable for discharge. Case discussed extensively with case management team. Patient has a legal guardian which is his daughter Nori. She is refusing to pick him up from the hospital or participate in his care. APS report has been filed. They have also been discussing his case with his rating specialist. At this point in time it does not appear that his legal guardian is going to picker / packer the patient and therefore he will likely need to remain in the hospital until this can be resolved. Now has a public guardian, who is a co-guardian with daughter. Will reach out further to her, and to [facility] for possible placement. Patient seen and examined at bedside. 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 Now on Demeclocycline 300 twice daily -S/p multiple doses of Samsca. -Nephrology note reviewed, continue current management -Continue sodium chloride tablets 1 mg oral TID, Lasix 20 mg daily -Patient has been eating well since being hospitalized -Patient okay to remain without IV access Suicidal ideation, resolved -Psych recs : Does not meet inpatient criteria, medication changed, discontinued one-to-one sitter - fluvoxamine 25 mg nightly and Remeron 7.5 mg nightly as needed for insomnia - Also on mirtazapine as needed for insomnia Chronic: Hypertension COPD without exacerbation Depression Imaging: None new Data Review: Sodium 134, creatinine 0.5, magnesium 2 DVT prophylaxis: SCDs Pending placement Objective - Vital Signs Vital signs: Vital Signs Temp 98.2 F 08/13/23 12:51 Pulse 81 08/13/23 12:51 Resp 16 08/13/23 12:51 BP 132/71 08/13/23 12:51 Pulse Ox 97 08/13/23 12:51 FiO2 Intake & Output 08/12/23 08/13/23 08/13/23 18:59 06:59 18:59 Intake Total 660 420 Output Total 1000 800 Balance -340 -800 420 Weight 56.245 kg Intake: Oral 660 420 Output: Urine 1000 800 Other: Voiding Method Urinal Urinal Urinal - Labs CBC & Chem 7: 08/03/23 04:17 08/13/23 05:57 Labs: Abnormal Lab Results - Last 24 Hours (Table) 08/13/23 Range/Units 05:57 Sodium 134 L (135-145) mmol/L Chloride 91 L (96-109) mmol/L Carbon Dioxide 39.2 H (21.6-31.8) mmol/L Anion Gap 3.80 L (4.00-12.00) mmol/L Creatinine 0.5 L (0.6-1.5) mg/dL BUN/Creatinine Ratio 36.60 H (12.00-20.00) Ratio Glucose 126 H (70-110) mg/dL
--- NOTE | 2023-08-14 11:29 | P.PN ---
Subjective Progress Note Date: 08/14/23 Patient is a 73-year-old male with hypertension, COPD with chronic hypoxic respiratory failure on chronic home O2, and prior tobacco abuse who presented to the emergency department with weakness. Patient was found on the ground unable to get up by his landlord, at that time he was disconnected from his home oxygen. In the emergency department he underwent an extensive evaluation. Chest x-ray showed no acute process but findings consistent with COPD. Laboratory analysis was remarkable for hemoglobin 9.6 (baseline 11), and sodium 121, baseline 128. Patient was admitted for weakness related to significant hyponatremia. Nephrology was consulted. Patient initially was given IV fluids and had a drop in his sodium level. He was then started on fluid restriction. 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 Patient received a dose of Samsca and his sodium improved. Patient currently lives alone and has known cognitive impairment and requires 24/7 care at home versus half-way facility. He was seen by physical therapy and was able to ambulate 175 feet with supervision. He continued to struggle with hyponatremia. He required multiple doses of Samsca. He continued on his fluid restriction. His salt level stabilized and he was determined medically stable for discharge. Case discussed extensively with case management team. Patient has a legal guardian which is his daughter Nori. She is refusing to pick him up from the hospital or participate in his care. APS report has been filed. They have also been discussing his case with his counterintelligence agent. At this point in time it does not appear that his legal guardian is going to clam picker the patient and therefore he will likely need to remain in the hospital until this can be resolved. Now has a public guardian, who is a co-guardian with daughter. Will reach out further to her, and to [facility] for possible placement. Patient seen and examined at bedside. 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 Now on Demeclocycline 300 twice daily -S/p multiple doses of Samsca. -Nephrology following, continue current management -Continue sodium chloride tablets 1 mg oral TID, Lasix 20 mg daily -Patient has been eating well since being hospitalized -Patient okay to remain without IV access Suicidal ideation, resolved -Psych recs : Does not meet inpatient criteria, medication changed, discontinued one-to-one sitter - fluvoxamine 25 mg nightly and Remeron 7.5 mg nightly as needed for insomnia - Also on mirtazapine as needed for insomnia Chronic: Hypertension COPD without exacerbation Depression Imaging: None new Data Review: No new labs DVT prophylaxis: Lovenox Pending placement Objective - Vital Signs Vital signs: Vital Signs Temp 97 F L 08/14/23 08:00 Pulse 71 08/14/23 08:00 Resp 16 08/14/23 08:00 BP 134/76 08/14/23 08:00 Pulse Ox 95 08/14/23 08:28 FiO2 Intake & Output 08/13/23 08/14/23 08/14/23 18:59 06:59 18:59 Intake Total 780 240 Output Total 800 400 Balance -20 -400 240 Intake: Oral 780 240 Output: Urine 800 400 Other: Voiding Method Urinal Urinal - Labs CBC & Chem 7: 08/03/23 04:17 08/13/23 05:57
--- NOTE | 2023-08-14 11:52 | P.PN ---
Subjective Patient is seen in follow-up for hyponatremia. Sodium level 134 yesterday. Oral intake fair. Denies chest pain or shortness of breath. No changes overnight. Hemodynamically stable. Vital signs are stable. General: No acute distress. HEENT: Head exam is unremarkable. On nasal cannula. LUNGS: No audible rhonchi or wheezes. HEART: Rate and Rhythm are regular. ABDOMEN: Nontender. EXTREMITITES: No edema. Objective - Vital Signs Vital signs: Vital Signs Temp 97 F L 08/14/23 08:00 Pulse 71 08/14/23 08:00 Resp 16 08/14/23 08:00 BP 134/76 08/14/23 08:00 Pulse Ox 95 08/14/23 08:28 FiO2 Intake & Output 08/13/23 08/14/23 08/14/23 18:59 06:59 18:59 Intake Total 780 240 Output Total 800 400 Balance -20 -400 240 Intake: Oral 780 240 Output: Urine 800 400 Other: Voiding Method Urinal Urinal - Labs CBC & Chem 7: 08/03/23 04:17 08/13/23 05:57 Assessment and Plan Plan: Assessment: 1. Hyponatremia, euvolemic. 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 Urine sodium 118 and urine osmolality 419. Cortisol 14.7. TSH normal. PTH related peptide negative. On salt tabs and Lasix. Also received Samsca this admission. Sodium level improved to 134 yesterday. 2. Benign hypertension. Stable. 3. History of falls. 4. Failure to thrive. Plan: Maintain sodium chloride tabs. Maintain fluid restriction. Encouraged oral intake, particularly protein Maintain Lasix 20 mg once daily. Maintain amlodipine. Hold for systolic blood pressure less than 120. Repeat BMP and magnesium level 2 to 3 days postdischarge. Follow-up outpatient in 1 week. Awaits placement.
--- NOTE | 2023-08-15 12:43 | P.PN ---
Subjective Patient is seen in follow-up for hyponatremia. Sodium level 134 dated August 13, 2023. Oral intake fair. Denies chest pain or shortness of breath. No changes overnight. Hemodynamically stable. Vital signs are stable. General: No acute distress. HEENT: Head exam is unremarkable. On nasal cannula. LUNGS: No audible rhonchi or wheezes. HEART: Rate and Rhythm are regular. ABDOMEN: Nontender. EXTREMITITES: No edema. Objective - Vital Signs Vital signs: Vital Signs Temp 97.5 F L 08/15/23 11:43 Pulse 72 08/15/23 11:43 Resp 16 08/15/23 11:43 BP 135/73 08/15/23 11:43 Pulse Ox 96 08/15/23 11:43 FiO2 Intake & Output 08/14/23 08/15/23 08/15/23 18:59 06:59 18:59 Intake Total 605 440 Output Total 1825 1125 900 Balance -7304 -682 -900 Intake: Oral 605 440 Output: Urine 1825 1125 900 Other: Voiding Method Urinal Urinal # Bowel Movements 1 - Labs CBC & Chem 7: 08/03/23 04:17 08/13/23 05:57 Assessment and Plan Plan: Assessment: 1. Hyponatremia, euvolemic. 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 Urine sodium 118 and urine osmolality 419. Cortisol 14.7. TSH normal. PTH related peptide negative. On salt tabs and Lasix. Also received Samsca this admission. Sodium level improved to 134 dated August 13, 2023. 2. Benign hypertension. Stable. 3. History of falls. 4. Failure to thrive. Plan: Maintain sodium chloride tabs. Maintain fluid restriction. Encouraged oral intake, particularly protein Maintain Lasix 20 mg once daily. Maintain amlodipine. Hold for systolic blood pressure less than 120. Repeat BMP and magnesium level 2 to 3 days postdischarge. Follow-up outpatient in 1 week. Awaits placement. Repeat labs in AM.
--- NOTE | 2023-08-15 14:56 | P.PN ---
Subjective Progress Note Date: 08/15/23 Patient is a 73-year-old male with hypertension, COPD with chronic hypoxic respiratory failure on chronic home O2, and prior tobacco abuse who presented to the emergency department with weakness. Patient was found on the ground unable to get up by his landlord, at that time he was disconnected from his home oxygen. In the emergency department he underwent an extensive evaluation. Chest x-ray showed no acute process but findings consistent with COPD. Laboratory analysis was remarkable for hemoglobin 9.6 (baseline 11), and sodium 121, baseline 128. Patient was admitted for weakness related to significant hyponatremia. Nephrology was consulted. Patient initially was given IV fluids and had a drop in his sodium level. He was then started on fluid restriction. 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 Patient received a dose of Samsca and his sodium improved. Patient currently lives alone and has known cognitive impairment and requires 24/7 care at home versus custodial facility. He was seen by physical therapy and was able to ambulate 175 feet with supervision. He continued to struggle with hyponatremia. He required multiple doses of Samsca. He continued on his fluid restriction. His salt level stabilized and he was determined medically stable for discharge. Case discussed extensively with case management team. Patient has a legal guardian which is his daughter Nori. She is refusing to pick him up from the hospital or participate in his care. APS report has been filed. They have also been discussing his case with his tin worker. At this point in time it does not appear that his legal guardian is going to pick and shovel man the patient and therefore he will likely need to remain in the hospital until this can be resolved. Now has a public guardian, who is a co-guardian with daughter. Still pending placement. Patient seen and examined at bedside. 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 Now on Demeclocycline 300 twice daily -S/p multiple doses of Samsca. -Nephrology note reviewed, continue current management -Continue sodium chloride tablets 1 mg oral TID, Lasix 20 mg daily -Patient has been eating well since being hospitalized -Patient okay to remain without IV access Suicidal ideation, resolved -Psych recs : Does not meet inpatient criteria, medication changed, discontinued one-to-one sitter - fluvoxamine 25 mg nightly and Remeron 7.5 mg nightly as needed for insomnia - Also on mirtazapine as needed for insomnia Chronic: Hypertension COPD without exacerbation Depression Imaging: None new Data Review: No new labs DVT prophylaxis: Lovenox Pending placement Objective - Vital Signs Vital signs: Vital Signs Temp 97.5 F L 08/15/23 11:43 Pulse 72 08/15/23 11:43 Resp 16 08/15/23 11:43 BP 135/73 08/15/23 11:43 Pulse Ox 96 08/15/23 11:43 FiO2 Intake & Output 08/14/23 08/15/23 08/15/23 18:59 06:59 18:59 Intake Total 605 440 Output Total 1825 1125 900 Balance -0111 -681 -900 Intake: Oral 605 440 Output: Urine 1825 1125 900 Other: Voiding Method Urinal Urinal # Bowel Movements 1 - Labs CBC & Chem 7: 08/03/23 04:17 08/13/23 05:57
[2023-08-16 09:48] LABS: Blood Urea Nitrogen 19.4 mg/dL (9.0-27.0); Calcium 9.1 mg/dL (8.7-10.3); Carbon Dioxide 36.8 mmol/L (21.6-31.8); Chloride 91 mmol/L (96-109); Glucose 97 mg/dL (70-110); Potassium 5.1 mmol/L (3.5-5.5); Sodium 133 mmol/L (135-145)
--- NOTE | 2023-08-16 13:07 | P.PN ---
Subjective Patient is seen for follow-up for hyponatremia secondary to SIADH Maintained on sodium chloride tab 1 g 3 times a day and fluid restriction. unique nt is also maintained on Lasix 20 mg daily. serum sodium stable at 133-134 No significant complaints. Objective - Vital Signs Vital signs: Vital Signs Temp 97.4 F L 08/16/23 07:37 Pulse 72 08/16/23 07:37 Resp 16 08/16/23 07:37 BP 128/75 08/16/23 07:37 Pulse Ox 94 L 08/16/23 07:37 FiO2 Intake & Output 08/15/23 08/16/23 08/16/23 18:59 06:59 18:59 Intake Total 590 Output Total 1250 215 525 Balance -1250 375 -525 Intake: Oral 590 Output: Urine 1250 215 525 Other: Voiding Method Urinal Urinal # Voids 2 3 2 - Exam Patient is awake, comfortable, no acute distress Patient is hard of hearing Abdomen is soft nontender Examination of lower extremity shows no evidence of edema MARINE SERVICE MANAGER exam grossly intact - Labs CBC & Chem 7: 08/03/23 04:17 08/16/23 06:27 Labs: Abnormal Lab Results - Last 24 Hours (Table) 08/16/23 Range/Units 06:27 Sodium 133 L (135-145) mmol/L Chloride 91 L (96-109) mmol/L Carbon Dioxide 36.8 H (21.6-31.8) mmol/L Creatinine 0.5 L (0.6-1.5) mg/dL BUN/Creatinine Ratio 38.80 H (12.00-20.00) Ratio Assessment and Plan Assessment: 1. 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 Status post demeclocycline and Samsca. Currently maintained on sodium chloride tabs and small dose of oral Lasix. 2. History of fall 3. History of hypertension maintained on Norvasc. stable Plan: Continue with sodium chloride tab and small dose of oral Lasix Continue with fluid restriction.
--- NOTE | 2023-08-16 13:10 | P.PN ---
Subjective Progress Note Date: 08/16/23 Patient is a 73-year-old male with hypertension, COPD with chronic hypoxic respiratory failure on chronic home O2, and prior tobacco abuse who presented to the emergency department with weakness. Patient was found on the ground unable to get up by his landlord, at that time he was disconnected from his home oxygen. In the emergency department he underwent an extensive evaluation. Chest x-ray showed no acute process but findings consistent with COPD. Laboratory analysis was remarkable for hemoglobin 9.6 (baseline 11), and sodium 121, baseline 128. Patient was admitted for weakness related to significant hyponatremia. Nephrology was consulted. Patient initially was given IV fluids and had a drop in his sodium level. He was then started on fluid restriction. 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 Patient received a dose of Samsca and his sodium improved. Patient currently lives alone and has known cognitive impairment and requires 24/7 care at home versus snf facility. He was seen by physical therapy and was able to ambulate 175 feet with supervision. He continued to struggle with hyponatremia. He required multiple doses of Samsca. He continued on his fluid restriction. His salt level stabilized and he was determined medically stable for discharge. Case discussed extensively with case management team. Patient has a legal guardian which is his daughter Nori. She is refusing to pick him up from the hospital or participate in his care. APS report has been filed. They have also been discussing his case with his media production support manager. At this point in time it does not appear that his legal guardian is going to pick up driver the patient and therefore he will likely need to remain in the hospital until this can be resolved. Now has a public guardian, who is a co-guardian with daughter. Still pending placement. Patient seen and examined at bedside. 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 Now on Demeclocycline 300 twice daily -S/p multiple doses of Samsca. -Nephrology note reviewed, continue current management -Continue sodium chloride tablets 1 mg oral TID, Lasix 20 mg daily -Patient has been eating well since being hospitalized -Patient okay to remain without IV access Suicidal ideation, resolved -Psych recs : Does not meet inpatient criteria, medication changed, discontinued one-to-one sitter - fluvoxamine 25 mg nightly and Remeron 7.5 mg nightly as needed for insomnia - Also on mirtazapine as needed for insomnia Chronic: Hypertension COPD without exacerbation Depression Imaging: None new Data Review: Sodium 133, creatinine 0.5, magnesium 2 DVT prophylaxis: Lovenox Pending placement Objective - Vital Signs Vital signs: Vital Signs Temp 97.4 F L 08/16/23 07:37 Pulse 72 08/16/23 07:37 Resp 16 08/16/23 07:37 BP 128/75 08/16/23 07:37 Pulse Ox 94 L 08/16/23 07:37 FiO2 Intake & Output 08/15/23 08/16/23 08/16/23 18:59 06:59 18:59 Intake Total 590 Output Total 1250 215 525 Balance -1250 375 -525 Intake: Oral 590 Output: Urine 1250 215 525 Other: Voiding Method Urinal Urinal # Voids 2 3 2 - Labs CBC & Chem 7: 08/03/23 04:17 08/16/23 06:27 Labs: Abnormal Lab Results - Last 24 Hours (Table) 08/16/23 Range/Units 06:27 Sodium 133 L (135-145) mmol/L Chloride 91 L (96-109) mmol/L Carbon Dioxide 36.8 H (21.6-31.8) mmol/L Creatinine 0.5 L (0.6-1.5) mg/dL BUN/Creatinine Ratio 38.80 H (12.00-20.00) Ratio
--- NOTE | 2023-08-17 11:24 | P.PN ---
Subjective Progress Note Date: 08/17/23 Patient is a 73-year-old male with hypertension, COPD with chronic hypoxic respiratory failure on chronic home O2, and prior tobacco abuse who presented to the emergency department with weakness. Patient was found on the ground unable to get up by his landlord, at that time he was disconnected from his home oxygen. In the emergency department he underwent an extensive evaluation. Chest x-ray showed no acute process but findings consistent with COPD. Laboratory analysis was remarkable for hemoglobin 9.6 (baseline 11), and sodium 121, baseline 128. Patient was admitted for weakness related to significant hyponatremia. Nephrology was consulted. Patient initially was given IV fluids and had a drop in his sodium level. He was then started on fluid restriction. 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 Patient received a dose of Samsca and his sodium improved. Patient currently lives alone and has known cognitive impairment and requires 24/7 care at home versus halfway facility. He was seen by physical therapy and was able to ambulate 175 feet with supervision. He continued to struggle with hyponatremia. He required multiple doses of Samsca. He continued on his fluid restriction. His salt level stabilized and he was determined medically stable for discharge. Case discussed extensively with case management team. Patient has a legal guardian which is his daughter Nori. She is refusing to pick him up from the hospital or participate in his care. APS report has been filed. They have also been discussing his case with his central office installer. At this point in time it does not appear that his legal guardian is going to picker / packer the patient and therefore he will likely need to remain in the hospital until this can be resolved. Now has a public guardian, who is a co-guardian with daughter. Still pending placement. Patient seen and examined at bedside. 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 Now on Demeclocycline 300 twice daily -S/p multiple doses of Samsca. -Nephrology note reviewed, continue current management -Continue sodium chloride tablets 1 mg oral TID, Lasix 20 mg daily -Patient has been eating well since being hospitalized -Patient okay to remain without IV access Suicidal ideation, resolved -Psych recs : Does not meet inpatient criteria, medication changed, discontinued one-to-one sitter - fluvoxamine 25 mg nightly and Remeron 7.5 mg nightly as needed for insomnia - Also on mirtazapine as needed for insomnia Chronic: Hypertension COPD without exacerbation Depression Imaging: None new Data Review: No new labs DVT prophylaxis: Lovenox Pending placement Objective - Vital Signs Vital signs: Vital Signs Temp 97.5 F L 08/17/23 07:32 Pulse 80 08/17/23 10:02 Resp 16 08/17/23 10:02 BP 135/83 08/17/23 07:32 Pulse Ox 93 L 08/17/23 09:49 FiO2 Intake & Output 08/16/23 08/17/23 08/17/23 18:59 06:59 18:59 Intake Total 721 240 Output Total 1325 400 Balance -604 240 -400 Intake: Oral 721 240 Output: Urine 1325 400 Other: Voiding Method Urinal Urinal # Voids 1 3 - Labs CBC & Chem 7: 08/03/23 04:17 08/16/23 06:27
--- NOTE | 2023-08-17 11:43 | P.PN ---
Subjective Patient is seen for follow-up for hyponatremia secondary to SIADH Maintained on sodium chloride tab 1 g 3 times a day and fluid restriction. unique nt is also maintained on Lasix 20 mg daily. serum sodium stable at 133-134 No significant complaints. Objective - Vital Signs Vital signs: Vital Signs Temp 97.5 F L 08/17/23 07:32 Pulse 80 08/17/23 10:02 Resp 16 08/17/23 10:02 BP 135/83 08/17/23 07:32 Pulse Ox 93 L 08/17/23 09:49 FiO2 Intake & Output 08/16/23 08/17/23 08/17/23 18:59 06:59 18:59 Intake Total 721 240 Output Total 1325 400 Balance -604 240 -400 Intake: Oral 721 240 Output: Urine 1325 400 Other: Voiding Method Urinal Urinal # Voids 1 3 - Exam Patient is awake, comfortable, no acute distress Patient is hard of hearing Abdomen is soft nontender Examination of lower extremity shows no evidence of edema SHIRT PRESSER exam grossly intact - Labs CBC & Chem 7: 08/03/23 04:17 08/16/23 06:27 Assessment and Plan Assessment: 1. 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 Status post demeclocycline and Samsca. Currently maintained on sodium chloride tabs and small dose of oral Lasix. 2. History of fall 3. History of hypertension maintained on Norvasc. stable Plan: Continue with sodium chloride tab and small dose of oral Lasix Continue with fluid restriction.
--- NOTE | 2023-08-18 11:25 | P.PN ---
Subjective Patient is seen for follow-up for hyponatremia secondary to SIADH Maintained on sodium chloride tab 1 g 3 times a day and fluid restriction. unique nt is also maintained on Lasix 20 mg daily. serum sodium stable at 133-134 No significant complaints. Objective - Vital Signs Vital signs: Vital Signs Temp 98.2 F 08/18/23 07:16 Pulse 74 08/18/23 07:16 Resp 16 08/18/23 07:16 BP 134/68 08/18/23 07:16 Pulse Ox 98 08/18/23 07:16 FiO2 Intake & Output 08/17/23 08/18/23 08/18/23 18:59 06:59 18:59 Intake Total 658 240 Output Total 1775 300 400 Balance -1117 -300 -160 Intake: Oral 658 240 Output: Urine 1775 300 400 Other: Voiding Method Urinal Urinal # Voids 1 # Bowel Movements 1 - Exam Patient is awake, comfortable, no acute distress Patient is hard of hearing Examination of the heart S1 and S2 Examination of the lungs bilateral breath sounds are heard Abdomen is soft nontender Examination of lower extremity shows no evidence of edema WEB APPLICATIONS PROGRAMMER exam grossly intact - Labs CBC & Chem 7: 08/03/23 04:17 08/16/23 06:27 Assessment and Plan Assessment: 1. 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 Status post demeclocycline and Samsca. Currently maintained on sodium chloride tabs and small dose of oral Lasix. 2. History of fall 3. History of hypertension maintained on Norvasc. stable Plan: Continue with sodium chloride tab and small dose of oral Lasix Continue with fluid restriction. Check sodium
--- NOTE | 2023-08-18 14:06 | P.PN ---
Subjective Progress Note Date: 08/18/23 Patient is a 73-year-old male with hypertension, COPD with chronic hypoxic respiratory failure on chronic home O2, and prior tobacco abuse who presented to the emergency department with weakness. Patient was found on the ground unable to get up by his landlord, at that time he was disconnected from his home oxygen. In the emergency department he underwent an extensive evaluation. Chest x-ray showed no acute process but findings consistent with COPD. Laboratory analysis was remarkable for hemoglobin 9.6 (baseline 11), and sodium 121, baseline 128. Patient was admitted for weakness related to significant hyponatremia. Nephrology was consulted. Patient initially was given IV fluids and had a drop in his sodium level. He was then started on fluid restriction. 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 Patient received a dose of Samsca and his sodium improved. Patient currently lives alone and has known cognitive impairment and requires 24/7 care at home versus halfway facility. He was seen by physical therapy and was able to ambulate 175 feet with supervision. He continued to struggle with hyponatremia. He required multiple doses of Samsca. He continued on his fluid restriction. His salt level stabilized and he was determined medically stable for discharge. Case discussed extensively with case management team. Patient has a legal guardian which is his daughter Nori. She is refusing to pick him up from the hospital or participate in his care. APS report has been filed. They have also been discussing his case with his environmental property assessor. At this point in time it does not appear that his legal guardian is going to nut picker the patient and therefore he will likely need to remain in the hospital until this can be resolved. Now has a public guardian, who is a co-guardian with daughter. Options for placement are being explored. Patient seen and examined at bedside. 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 Now on Demeclocycline 300 twice daily -S/p multiple doses of Samsca. -Nephrology note reviewed, continue current management -Continue sodium chloride tablets 1 mg oral TID, Lasix 20 mg daily -Patient has been eating well since being hospitalized -Patient okay to remain without IV access Suicidal ideation, resolved -Psych recs : Does not meet inpatient criteria, medication changed, discontinued one-to-one sitter - fluvoxamine 25 mg nightly and Remeron 7.5 mg nightly as needed for insomnia - Also on mirtazapine as needed for insomnia Chronic: Hypertension COPD without exacerbation Depression Imaging: None new Data Review: Sodium 130 DVT prophylaxis: Lovenox Pending placement Objective - Vital Signs Vital signs: Vital Signs Temp 97.5 F L 08/18/23 12:43 Pulse 79 08/18/23 12:43 Resp 18 08/18/23 12:43 BP 123/67 08/18/23 12:43 Pulse Ox 96 08/18/23 12:43 FiO2 Intake & Output 08/17/23 08/18/23 08/18/23 18:59 06:59 18:59 Intake Total 658 462 Output Total 7723 969 3734 Balance -1119 -300 1063 Intake: Oral 658 462 Output: Urine 7668 803 5120 Other: Voiding Method Urinal Urinal # Voids 1 # Bowel Movements 1 - Labs CBC & Chem 7: 08/03/23 04:17 08/18/23 12:13 Labs: Abnormal Lab Results - Last 24 Hours (Table) 08/18/23 Range/Units 12:13 Sodium 130 L (137-145) mmol/L
--- NOTE | 2023-08-19 18:04 | P.PN ---
Subjective Progress Note Date: 08/19/23 (delayed charting seen at 0905) Patient is a 73-year-old male with hypertension, COPD with chronic hypoxic respiratory failure on chronic home O2, and prior tobacco abuse who presented to the emergency department with weakness. Patient was found on the ground unable to get up by his landlord, at that time he was disconnected from his home oxygen. In the emergency department he underwent an extensive evaluation. Chest x-ray showed no acute process but findings consistent with COPD. Laborat ory analysis was remarkable for hemoglobin 9.6 (baseline 11), and sodium 121, baseline 128. Patient was admitted for weakness related to significant hyponatremia. Nephrology was consulted. Patient initially was given IV fluids and had a drop in his sodium level. He was then started on fluid restriction. 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 Patient received a dose of Samsca and his sodium improved. Patient currently lives alone and has known cognitive impairment and requires 24/7 care at home versus [facility] facility. He was seen by physical therapy and was able to ambulate 175 feet with supervision. He continued to struggle with hyponatremia. He required mu ltiple doses of Samsca. He continued on his fluid restriction. His salt level stabilized and he was determined medically stable for discharge. Case discussed extensively with case management team. Patient has a legal guardian which is his daughter Nori. She is refusing to pick him up from the hospital or participate in his care. APS report has been filed. They have also been discussing his case with his exhibit designer. Patient had emergency hearing and now has a public guardian as co-guardian with the daughter. Patient seen and examined at bedside. He does not have any complaints at this time. 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 Now on Demeclocycline 300 twice daily -S/p multiple doses of Samsca. -Await further nephrology recs -Continue sodium chloride tablets 1 mg oral TID, Lasix 20 mg daily -Continue to hold SSRI -Patient has been eating well since being hospitalized -Patient okay to remain without IV access -Repeat BMP in 3 days -Case discussed with social work. Continuing to work with apolinar which is a public guardian and the daughter for possible placement. Suicidal ideation, resolved -Psych recs : No longer meets inpatient criteria, medication changed, discontinued one-to-one sitter - fluvoxamine 25 mg nightly and Remeron 7.5 mg nightly as needed for insomnia - Also on mirtazapine as needed for insomnia Chronic: Hypertension COPD without exacerbation Depression Imaging: None new Data Review: Labs reviewed from today include basic metabolic profile which is remarkable for sodium of 130. DVT prophylaxis: SCDs Anticipated discharge date: undetermined, daughter decline to pick patient up. Anticipated discharge place: undetermined This dictation was prepared using [employer] voice recognition software. Though every attempt is made to correct errors during dictation some may still exist. Objective - Vital Signs Vital signs: Vital Signs Temp 97.9 F 08/19/23 15:21 Pulse 82 08/19/23 15:21 Resp 17 08/19/23 15:21 BP 103/67 08/19/23 15:21 Pulse Ox 97 08/19/23 12:34 FiO2 Intake & Output 08/18/23 08/19/23 08/19/23 18:59 06:59 18:59 Intake Total 684 120 555 Output Total 1825 1000 2400 Balance -0391 -370 -3366 Weight 56.245 kg Intake: Oral 684 120 555 Output: Urine 1825 1000 2400 Other: Voiding Method Urinal # Voids 1 - Labs CBC & Chem 7: 08/03/23 04:17 08/18/23 12:13
--- NOTE | 2023-08-19 18:33 | P.PN ---
Subjective Patient is seen for follow-up for hyponatremia secondary to SIADH Maintained on sodium chloride tab 1 g 3 times a day and fluid restriction. unique nt is also maintained on Lasix 20 mg daily. serum sodium has been stable. It is 130 today No significant complaints. Objective - Vital Signs Vital signs: Vital Signs Temp 97.9 F 08/19/23 15:21 Pulse 82 08/19/23 15:21 Resp 17 08/19/23 15:21 BP 103/67 08/19/23 15:21 Pulse Ox 97 08/19/23 12:34 FiO2 Intake & Output 08/18/23 08/19/23 08/19/23 18:59 06:59 18:59 Intake Total 684 120 555 Output Total 1825 1000 2400 Balance -1141 -940 -1845 Weight 56.245 kg Intake: Oral 684 120 555 Output: Urine 1825 1000 2400 Other: Voiding Method Urinal # Voids 1 - Exam Patient is awake, comfortable, no acute distress Patient is hard of hearing Examination of the heart S1 and S2 Examination of the lungs bilateral breath sounds are heard Abdomen is soft nontender Examination of lower extremity shows no evidence of edema WEBFED OFFSET PRESS OPERATOR exam grossly intact - Labs CBC & Chem 7: 08/03/23 04:17 08/18/23 12:13 Assessment and Plan Assessment: 1. 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 Status post demeclocycline and Samsca. Currently maintained on sodium chloride tabs and small dose of oral Lasix. 2. History of fall 3. History of hypertension maintained on Norvasc. stable Plan: Continue with sodium chloride tab and small dose of oral Lasix Continue with fluid restriction. Check sodium in a.m.
[2023-08-20] MEDS: IBUPROFEN 400 MG TAB PO STA (10:57)
[2023-08-20 11:29] LABS: Blood Urea Nitrogen 21.9 mg/dL (9.0-27.0); Calcium 9.2 mg/dL (8.7-10.3); Carbon Dioxide 35.5 mmol/L (21.6-31.8); Chloride 93 mmol/L (96-109); Glucose 89 mg/dL (70-110); Potassium 4.9 mmol/L (3.5-5.5); Sodium 134 mmol/L (135-145)
--- NOTE | 2023-08-20 14:45 | P.PN ---
Subjective Patient is seen for follow-up for hyponatremia secondary to SIADH Maintained on sodium chloride tab 1 g 3 times a day and fluid restriction. unique nt is also maintained on Lasix 20 mg daily. serum sodium has been stable. It is 134 today No significant complaints. Eating quite well. Objective - Vital Signs Vital signs: Vital Signs Temp 98.3 F 08/20/23 12:01 Pulse 78 08/20/23 12:01 Resp 16 08/20/23 12:01 BP 109/66 08/20/23 12:01 Pulse Ox 94 L 08/20/23 12:01 FiO2 Intake & Output 08/19/23 08/20/23 08/20/23 18:59 06:59 18:59 Intake Total 555 120 240 Output Total 3000 975 1120 Balance -0765 -855 -880 Weight 56.245 kg Intake: Oral 555 120 240 Output: Urine 3000 975 1120 Other: Voiding Method Urinal # Voids 5 1 - Exam Patient is awake, comfortable, no acute distress Patient is hard of hearing Examination of lower extremity shows no evidence of edema WASH OIL PUMP OPERATOR exam grossly intact - Labs CBC & Chem 7: 08/03/23 04:17 08/20/23 06:39 Labs: Abnormal Lab Results - Last 24 Hours (Table) 08/20/23 Range/Units 06:39 Sodium 134 L (135-145) mmol/L Chloride 93 L (96-109) mmol/L Carbon Dioxide 35.5 H (21.6-31.8) mmol/L Creatinine 0.5 L (0.6-1.5) mg/dL BUN/Creatinine Ratio 43.80 H (12.00-20.00) Ratio Assessment and Plan Assessment: 1. 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 Status post demeclocycline and Samsca. Currently maintained on sodium chloride tabs and small dose of oral Lasix. 2. History of fall 3. History of hypertension maintained on Norvasc. stable Plan: Continue with sodium chloride tab and small dose of oral Lasix Continue with fluid restriction. Continue to encourage increased oral intake
--- NOTE | 2023-08-20 16:49 | P.PN ---
Subjective Progress Note Date: 08/20/23 (delayed charting seen at 0830) Patient is a 73-year-old male with hypertension, COPD with chronic hypoxic respiratory failure on chronic home O2, and prior tobacco abuse who presented to the emergency department with weakness. Patient was found on the ground unable to get up by his landlord, at that time he was disconnected from his home oxygen. In the emergency department he underwent an extensive evaluation. Chest x-ray showed no acute process but findings consistent with COPD. Laborat ory analysis was remarkable for hemoglobin 9.6 (baseline 11), and sodium 121, baseline 128. Patient was admitted for weakness related to significant hyponatremia. Nephrology was consulted. Patient initially was given IV fluids and had a drop in his sodium level. He was then started on fluid restriction. 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 Patient received a dose of Samsca and his sodium improved. Patient currently lives alone and has known cognitive impairment and requires 24/7 care at home versus nursing home facility. He was seen by physical therapy and was able to ambulate 175 feet with supervision. He continued to struggle with hyponatremia. He required mu ltiple doses of Samsca. He continued on his fluid restriction. His salt level stabilized and he was determined medically stable for discharge. Case discussed extensively with case management team. Patient has a legal guardian which is his daughter Nori. She is refusing to pick him up from the hospital or participate in his care. APS report has been filed. They have also been discussing his case with his pharmacy general manager. Patient had emergency hearing and now has a public guardian as co-guardian with the daughter. Patient seen and examined at bedside. He is having some positional rib pain, no shortness of breath, nausea, dizziness or palpitations Vital signs reviewed General: Nontoxic, no distress, appears at stated age, buccal and temporal wasting Cardiovascular: S1S2 reg, no murmur, pain to palpation over right chest wall Lungs: Decreased breath sounds bilateral, no rhonchi, no rales, no accessory muscle use Neuro: CN II-XI grossly intact, no focal neuro deficits Psych: Alert, oriented to self and being in the hospital, appropriate affect Assessment/Plan: 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 Normocytic anemia, likely chronic disease related Severe protein calorie malnutrition Failure to thrive Mild cognitive impairment. Now on Demeclocycline 300 twice daily -S/p multiple doses of Samsca. -Nephrology note reviewed: Continue with sodium chloride and small dose of Lasix as well as fluid restriction. -Continue sodium chloride tablets 1 mg oral TID, Lasix 20 mg daily -Continue to hold SSRI -Patient has been eating well since being hospitalized -Patient okay to remain without IV access -Repeat BMP in 3 days -Case discussed with oncology social work. Awaiting for guardians to confirm that they have applied for Medicaid and to see if he could potentially go home with increased monitoring as he has been independent with physical therapy. Suicidal ideation, resolved -Psych recs : No longer meets inpatient criteria, medication changed, discontinued one-to-one sitter - fluvoxamine 25 mg nightly and Remeron 7.5 mg nightly as needed for insomnia - Also on mirtazapine as needed for insomnia Chronic: Hypertension COPD without exacerbation Depression Imaging: None new Data Review: Labs reviewed from today include basic metabolic profile with sodium increased to 134. DVT prophylaxis: SCDs Anticipated discharge date: undetermined, Anticipated discharge place: undetermined This dictation was prepared using [employer] voice recognition software. Though every attempt is made to correct errors during dictation some may still exist. Objective - Vital Signs Vital signs: Vital Signs Temp 98.3 F 08/20/23 12:01 Pulse 78 08/20/23 12:01 Resp 16 08/20/23 12:01 BP 109/66 08/20/23 12:01 Pulse Ox 94 L 08/20/23 12:01 FiO2 Intake & Output 08/19/23 08/20/23 08/20/23 18:59 06:59 18:59 Intake Total 555 120 240 Output Total 3000 975 1120 Balance -2445 -855 -880 Weight 56.245 kg Intake: Oral 555 120 240 Output: Urine 3000 975 1120 Other: Voiding Method Urinal # Voids 5 1 - Labs CBC & Chem 7: 08/03/23 04:17 08/20/23 06:39 Labs: Abnormal Lab Results - Last 24 Hours (Table) 08/20/23 Range/Units 06:39 Sodium 134 L (135-145) mmol/L Chloride 93 L (96-109) mmol/L Carbon Dioxide 35.5 H (21.6-31.8) mmol/L Creatinine 0.5 L (0.6-1.5) mg/dL BUN/Creatinine Ratio 43.80 H (12.00-20.00) Ratio
[2023-08-20] MEDS: ASPIRIN 81 MG PO STA (23:03)
--- NOTE | 2023-08-21 13:00 | P.PN ---
Subjective Patient is seen for follow-up for hyponatremia secondary to SIADH Maintained on sodium chloride tab 1 g 3 times a day and fluid restriction. unique nt is also maintained on Lasix 20 mg daily. serum sodium has been stable. It is 134 yesterday No significant complaints. Eating quite well. Objective - Vital Signs Vital signs: Vital Signs Temp 97.6 F 08/21/23 12:02 Pulse 75 08/21/23 12:02 Resp 16 08/21/23 12:02 BP 128/62 08/21/23 12:02 Pulse Ox 95 08/21/23 12:02 FiO2 Intake & Output 08/20/23 08/21/23 08/21/23 18:59 06:59 18:59 Intake Total 461 320 40 Output Total 1720 1000 500 Balance -1259 -680 -460 Intake: Oral 461 320 40 Output: Urine 1720 1000 500 Other: Voiding Method Urinal - Exam Patient is awake, comfortable, no acute distress Patient is hard of hearing Examination of the heart S1 and S2 Examination of the lungs bilateral breath sounds are heard Abdomen is soft nontender Examination of lower extremity shows no evidence of edema SOCIAL INSURANCE ADMINISTRATOR exam grossly intact - Labs CBC & Chem 7: 08/03/23 04:17 08/20/23 06:39 Assessment and Plan Assessment: 1. 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 Status post demeclocycline and Samsca. Currently maintained on sodium chloride tabs and small dose of oral Lasix. 2. History of fall 3. History of hypertension maintained on Norvasc. stable Plan: Continue with sodium chloride tab and small dose of oral Lasix Continue with fluid restriction. Continue to encourage increased oral intake
--- NOTE | 2023-08-21 14:53 | P.PN ---
Subjective Progress Note Date: 08/21/23 Patient is a 73-year-old male with hypertension, COPD with chronic hypoxic respiratory failure on chronic home O2, and prior tobacco abuse who presented to the emergency department with weakness. Patient was found on the ground unable to get up by his landlord, at that time he was disconnected from his home oxygen. In the emergency department he underwent an extensive evaluation. Chest x-ray showed no acute process but findings consistent with COPD. Laboratory analysis was remarkable for hemoglobin 9.6 (baseline 11), and sodium 121, baseline 128. Patient was admitted for weakness related to significant hyponatremia. Nephrology was consulted. Patient initially was given IV fluids and had a drop in his sodium level. He was then started on fluid restriction. 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 Patient received a dose of Samsca and his sodium improved. Patient currently lives alone and has known cognitive impairment and requires 24/7 care at home versus long-term facility. He was seen by physical therapy and was able to ambulate 175 feet with supervision. He continued to struggle with hyponatremia. He required multiple doses of Samsca. He continued on his fluid restriction. His salt level stabilized and he was determined medically stable for discharge. Case discussed extensively with case management team. Patient has a legal guardian which is his daughter Nori. She is refusing to pick him up from the hospital or participate in his care. APS report has been filed. They have also been discussing his case with his field superintendent. Patient had emergency hearing and now has a public guardian as co-guardian with the daughter. Patient seen and examined at bedside. No acute overnight events. 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 Now on Demeclocycline 300 twice daily -S/p multiple doses of Samsca. -Nephrology note reviewed: Continue with sodium chloride and small dose of Lasix as well as fluid restriction. -Continue sodium chloride tablets 1 mg oral TID, Lasix 20 mg daily -Continue to hold SSRI -Patient has been eating well since being hospitalized -Patient okay to remain without IV access -Repeat BMP in 3 days -Case discussed with psychologist social. Awaiting for guardians to confirm that they have applied for Medicaid and to see if he could potentially go home with increased monitoring as he has been independent with physical therapy. Suicidal ideation, resolved -Psych recs : No longer meets inpatient criteria, medication changed, discontinued one-to-one sitter - fluvoxamine 25 mg nightly and Remeron 7.5 mg nightly as needed for insomnia - Also on mirtazapine as needed for insomnia Chronic: Hypertension COPD without exacerbation Depression Imaging: None new Data Review: New labs DVT prophylaxis: SCDs Anticipated discharge date: undetermined, Anticipated discharge place: undetermined Objective - Vital Signs Vital signs: Vital Signs Temp 97.6 F 08/21/23 12:02 Pulse 75 08/21/23 12:02 Resp 16 08/21/23 12:02 BP 128/62 08/21/23 12:02 Pulse Ox 95 08/21/23 12:02 FiO2 Intake & Output 08/20/23 08/21/23 08/21/23 18:59 06:59 18:59 Intake Total 461 320 40 Output Total 1720 1000 500 Balance -1259 -680 -460 Intake: Oral 461 320 40 Output: Urine 1720 1000 500 Other: Voiding Method Urinal - Labs CBC & Chem 7: 08/03/23 04:17 08/20/23 06:39
--- NOTE | 2023-08-22 10:54 | P.PN ---
Subjective Patient is seen for follow-up for hyponatremia secondary to SIADH Maintained on sodium chloride tab 1 g 3 times a day and fluid restriction. unique nt is also maintained on Lasix 20 mg daily. serum sodium has been stable. It is 134 on 08/20/2023 No significant complaints. Objective - Vital Signs Vital signs: Vital Signs Temp 97.8 F 08/22/23 07:23 Pulse 70 08/22/23 07:23 Resp 17 08/22/23 07:23 BP 142/79 08/22/23 07:23 Pulse Ox 99 08/22/23 07:23 FiO2 Intake & Output 08/21/23 08/22/23 08/22/23 18:59 06:59 18:59 Intake Total 722 240 100 Output Total 1200 1900 400 Balance -478 -1660 -300 Weight 56.245 kg Intake: Oral 722 240 100 Output: Urine 1200 1900 400 Other: Voiding Method Toilet Toilet Urinal Urinal - Exam Patient is awake, comfortable, no acute distress Patient is hard of hearing Examination of lower extremity shows no evidence of edema SEPTIC TANK SETTER exam grossly intact - Labs CBC & Chem 7: 08/03/23 04:17 08/20/23 06:39 Assessment and Plan Assessment: 1. 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 Status post demeclocycline and Samsca. Currently maintained on sodium chloride tabs and small dose of oral Lasix. 2. History of fall 3. History of hypertension maintained on Norvasc. stable Plan: Continue with sodium chloride tab and small dose of oral Lasix Continue with fluid restriction. Continue to encourage increased oral intake
--- NOTE | 2023-08-22 14:36 | P.PN ---
Subjective Progress Note Date: 08/22/23 Patient is a 73-year-old male with hypertension, COPD with chronic hypoxic respiratory failure on chronic home O2, and prior tobacco abuse who presented to the emergency department with weakness. Patient was found on the ground unable to get up by his landlord, at that time he was disconnected from his home oxygen. In the emergency department he underwent an extensive evaluation. Chest x-ray showed no acute process but findings consistent with COPD. Laboratory analysis was remarkable for hemoglobin 9.6 (baseline 11), and sodium 121, baseline 128. Patient was admitted for weakness related to significant hyponatremia. Nephrology was consulted. Patient initially was given IV fluids and had a drop in his sodium level. He was then started on fluid restriction. 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 Patient received a dose of Samsca and his sodium improved. Patient currently lives alone and has known cognitive impairment and requires 24/7 care at home versus alf facility. He was seen by physical therapy and was able to ambulate 175 feet with supervision. He continued to struggle with hyponatremia. He required multiple doses of Samsca. He continued on his fluid restriction. His salt level stabilized and he was determined medically stable for discharge. Case discussed extensively with case management team. Patient has a legal guardian which is his daughter Nori. She is refusing to pick him up from the hospital or participate in his care. APS report has been filed. They have also been discussing his case with his compressor station operator. Patient had emergency hearing and now has a public guardian as co-guardian with the daughter. Patient seen and examined at bedside. No acute overnight events. 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 Now on Demeclocycline 300 twice daily -S/p multiple doses of Samsca. -Nephrology note reviewed: Continue with sodium chloride and small dose of Lasix as well as fluid restriction. -Continue sodium chloride tablets 1 mg oral TID, Lasix 20 mg daily -Continue to hold SSRI -Patient has been eating well since being hospitalized -Patient okay to remain without IV access -Repeat BMP in 3 days -Case discussed with social services technician. Awaiting for guardians to confirm that they have applied for Medicaid and to see if he could potentially go home with increased monitoring as he has been independent with physical therapy. Suicidal ideation, resolved -Psych recs : No longer meets inpatient criteria, medication changed, discontinued one-to-one sitter - fluvoxamine 25 mg nightly and Remeron 7.5 mg nightly as needed for insomnia - Also on mirtazapine as needed for insomnia Chronic: Hypertension COPD without exacerbation Depression Imaging: None new Data Review: New labs DVT prophylaxis: SCDs Anticipated discharge date: undetermined, Anticipated discharge place: undetermined Objective - Vital Signs Vital signs: Vital Signs Temp 97.3 F L 08/22/23 12:38 Pulse 78 08/22/23 12:38 Resp 18 08/22/23 12:38 BP 120/69 08/22/23 12:38 Pulse Ox 94 L 08/22/23 12:38 FiO2 Intake & Output 08/21/23 08/22/23 08/22/23 18:59 06:59 18:59 Intake Total 722 240 100 Output Total 1200 1900 1375 Balance -170 -7610 -3381 Weight 56.245 kg Intake: Oral 722 240 100 Output: Urine 1200 1900 1375 Other: Voiding Method Toilet Toilet Urinal Urinal - Labs CBC & Chem 7: 08/03/23 04:17 08/20/23 06:39
--- NOTE | 2023-08-23 09:12 | P.PN ---
Subjective Progress Note Date: 08/23/23 Patient is a 73-year-old male with hypertension, COPD with chronic hypoxic respiratory failure on chronic home O2, and prior tobacco abuse who presented to the emergency department with weakness. Patient was found on the ground unable to get up by his landlord, at that time he was disconnected from his home oxygen. In the emergency department he underwent an extensive evaluation. Chest x-ray showed no acute process but findings consistent with COPD. Laboratory analysis was remarkable for hemoglobin 9.6 (baseline 11), and sodium 121, baseline 128. Patient was admitted for weakness related to significant hyponatremia. Nephrology was consulted. Patient initially was given IV fluids and had a drop in his sodium level. He was then started on fluid restriction. 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 Patient received a dose of Samsca and his sodium improved. Patient currently lives alone and has known cognitive impairment and requires 24/7 care at home versus [facility]p facility. He was seen by physical therapy and was able to ambulate 175 feet with supervision. He continued to struggle with hyponatremia. He required multiple doses of Samsca. He continued on his fluid restriction. His salt level stabilized and he was determined medically stable for discharge. Case discussed extensively with case management team. Patient has a legal guardian which is his daughter Nori. She is refusing to pick him up from the hospital or participate in his care. APS report has been filed. They have also been discussing his case with his intranet specialist. Patient had emergency hearing and now has a public guardian as co-guardian with the daughter. Patient seen and examined at bedside. He denies any chest pain at this time. No nausea or vomiting. eating well, walker yesterday, does not like sitting in the chair. 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 -Nephrology note reviewed: Continue sodium chloride tabs, Lasix , & fluid restriction. -Continue sodium chloride tablets 1 mg oral TID, Lasix 20 mg daily -Continue to hold SSRI -Patient has been eating well since being hospitalized -Patient okay to remain without IV access -Repeat BMP in AM Suicidal ideation, resolved -Psych recs : No longer meets inpatient criteria, medication changed, discontinued one-to-one sitter - fluvoxamine 25 mg nightly and Remeron 7.5 mg nightly as needed for insomnia - Also on mirtazapine as needed for insomnia Chronic: Hypertension COPD without exacerbation Depression Imaging: None new Data Review: None new DVT prophylaxis: SCDs Anticipated discharge date: undetermined, Anticipated discharge place: undetermined This dictation was prepared using [employer] voice recognition software. Though every attempt is made to correct errors during dictation some may still exist. Objective - Vital Signs Vital signs: Vital Signs Temp 97.8 F 08/23/23 07:05 Pulse 70 08/23/23 07:05 Resp 18 08/23/23 07:05 BP 116/65 08/23/23 07:05 Pulse Ox 94 L 08/23/23 07:05 FiO2 Intake & Output 08/22/23 08/23/23 08/23/23 18:59 06:59 18:59 Intake Total 562 510 Output Total 1675 1200 300 Balance -1113 -690 -300 Weight 56.245 kg Intake: Oral 562 510 Output: Urine 1675 1200 300 Other: Voiding Method Toilet Toilet Urinal Urinal # Voids 2 - Labs CBC & Chem 7: 08/03/23 04:17 08/20/23 06:39
--- NOTE | 2023-08-23 13:29 | P.PN ---
Subjective Progress Note Date: 08/23/23 Patient is seen for follow-up for hyponatremia secondary to SIADH. Maintained on sodium chloride tab 1 g 3 times a day and fluid restriction. patient is also maintained on Lasix 20 mg daily. No new complaints. Patient is awake, comfortable, no acute distress Patient is hard of hearing Examination of lower extremity shows no evidence of edema TELEMETRY TECH exam grossly intact Objective - Vital Signs Vital signs: Vital Signs Temp 97.8 F 08/23/23 07:05 Pulse 76 08/23/23 09:22 Resp 18 08/23/23 07:05 BP 116/65 08/23/23 07:05 Pulse Ox 94 L 08/23/23 07:05 FiO2 Intake & Output 08/22/23 08/23/23 08/23/23 18:59 06:59 18:59 Intake Total 562 510 Output Total 1675 1200 300 Balance -1113 -690 -300 Weight 56.245 kg Intake: Oral 562 510 Output: Urine 1675 1200 300 Other: Voiding Method Toilet Toilet Urinal Urinal # Voids 2 - Labs CBC & Chem 7: 08/03/23 04:17 08/20/23 06:39 Assessment and Plan Plan: 1. 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 Status post demeclocycline and Samsca. Currently maintained on sodium chloride tabs and small dose of oral Lasix. Sodium stable 134 on 08/19. 2. History of fall 3. History of hypertension maintained on Norvasc. stable Plan: Continue with sodium chloride tab and small dose of oral Lasix Continue with fluid restriction. Continue to encourage increased oral intake
[2023-08-23] MEDS: ARTIFICIAL TEARS-HYPROMELLOSE DROPS 15 ML BTL BOTH EYES PRN (16:37)
[2023-08-24 05:51] LABS: African American GFR (CKD) >90 (>60 ml/min/1.73 sqM); Anion Gap -1 mmol/L; Blood Urea Nitrogen 21 mg/dL (9-20); Calcium 8.6 mg/dL (8.4-10.2); Carbon Dioxide 37 mmol/L (22-30); Chloride 93 mmol/L (98-107); Glucose 91 mg/dL (74-99); Non-African American GFR(CKD) >90 (>60 ml/min/1.73 sqM); Potassium 4.3 mmol/L (3.5-5.1); Sodium 129 mmol/L (137-145)
--- NOTE | 2023-08-24 11:18 | P.PN ---
Subjective Progress Note Date: 08/24/23 Patient is seen for follow-up for hyponatremia secondary to SIADH. Maintained on sodium chloride tab 1 g 3 times a day and fluid restriction. patient is also maintained on Lasix 20 mg daily. No new complaints. Patient is awake, comfortable, no acute distress Patient is hard of hearing Examination of lower extremity shows no evidence of edema SEAT PACK INSPECTOR exam grossly intact Objective - Vital Signs Vital signs: Vital Signs Temp 97.4 F L 08/24/23 07:01 Pulse 70 08/24/23 07:01 Resp 18 08/24/23 07:01 BP 138/66 08/24/23 07:01 Pulse Ox 97 08/24/23 07:01 FiO2 Intake & Output 08/23/23 08/24/23 08/24/23 18:59 06:59 18:59 Intake Total 780 Output Total 650 925 300 Balance -650 -145 -300 Intake: Oral 780 Output: Urine 650 925 300 Other: Voiding Method Toilet Urinal # Bowel Movements 1 - Labs CBC & Chem 7: 08/03/23 04:17 08/24/23 04:52 Labs: Abnormal Lab Results - Last 24 Hours (Table) 08/24/23 Range/Units 04:52 Sodium 129 L (137-145) mmol/L Chloride 93 L (98-107) mmol/L Carbon Dioxide 37 H (22-30) mmol/L BUN 21 H (9-20) mg/dL Creatinine 0.49 L (0.66-1.25) mg/dL Assessment and Plan Plan: 1. 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 Status post demeclocycline and Samsca. Currently maintained on sodium chloride tabs and small dose of oral Lasix. Sodium stable 134 on 08/19. 2. History of fall 3. History of hypertension maintained on Norvasc. stable Plan: Continue with sodium chloride tab and small dose of oral Lasix Continue with fluid restriction. Continue to encourage increased oral intake
--- NOTE | 2023-08-24 11:29 | P.PN ---
Subjective Progress Note Date: 08/24/23 Patient is a 73-year-old male with hypertension, COPD with chronic hypoxic respiratory failure on chronic home O2, and prior tobacco abuse who presented to the emergency department with weakness. Patient was found on the ground unable to get up by his landlord, at that time he was disconnected from his home oxygen. In the emergency department he underwent an extensive evaluation. Chest x-ray showed no acute process but findings consistent with COPD. Laboratory analysis was remarkable for hemoglobin 9.6 (baseline 11), and sodium 121, baseline 128. Patient was admitted for weakness related to significant hyponatremia. Nephrology was consulted. Patient initially was given IV fluids and had a drop in his sodium level. He was then started on fluid restriction. 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 Patient received a dose of Samsca and his sodium improved. Patient currently lives alone and has known cognitive impairment and requires 24/7 care at home versus intermediate facility. He was seen by physical therapy and was able to ambulate 175 feet with supervision. He continued to struggle with hyponatremia. He required multiple doses of Samsca. He continued on his fluid restriction. His salt level stabilized and he was determined medically stable for discharge. Case discussed extensively with case management team. Patient has a legal guardian which is his daughter Nori. She is refusing to pick him up from the hospital or participate in his care. APS report has been filed. They have also been discussing his case with his collar separator. Patient had emergency hearing and now has a public guardian as co-guardian with the daughter. Patient seen and examined at bedside. He is sleeping today and asked to be left alone. Per nursing no other acute complaints Vital signs reviewed General: Nontoxic, no distress, appears at stated age, buccal and temporal wasting Cardiovascular: S1S2 reg, no murmur Lungs: Decreased breath sounds bilateral, no rhonchi, no rales, no accessory muscle use Neuro: CN II-XI grossly intact, no focal neuro deficits Psych: Alert, oriented to self and being in the hospital, appropriate affect Assessment/Plan: 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 Normocytic anemia, likely chronic disease related Severe protein calorie malnutrition Failure to thrive Mild cognitive impairmen -S/p multiple doses of Samsca. -Nephrology note reviewed: Continue sodium chloride tabs, Lasix & fluid restriction. -Continue sodium chloride tablets 1 mg oral TID, Lasix 20 mg daily -Continue to hold SSRI -Patient has been eating well since being hospitalized -Patient okay to remain without IV access -Discussed with nursing ensuring adherence to fluid restriction. Will repeat basic metabolic profile in AM. Suicidal ideation, resolved -Psych recs : No longer meets inpatient criteria, medication changed, disc ontinued one-to-one sitter - fluvoxamine 25 mg nightly and Remeron 7.5 mg nightly as needed for insomnia - Also on mirtazapine as needed for insomnia Chronic: Hypertension COPD without exacerbation Depression Imaging: None new Data Review: Labs reviewed from today include basic metabolic profile which is remarkable for sodium of 129, BUN 21, creatinine 0.49 DVT prophylaxis: SCDs Anticipated discharge date: undetermined, Anticipated discharge place: undetermined This dictation was prepared using [employer] voice recognition software. Though every attempt is made to correct errors during dictation some may still exist. Objective - Vital Signs Vital signs: Vital Signs Temp 97.4 F L 08/24/23 07:01 Pulse 70 08/24/23 07:01 Resp 18 08/24/23 07:01 BP 138/66 08/24/23 07:01 Pulse Ox 97 08/24/23 07:01 FiO2 Intake & Output 08/23/23 08/24/23 08/24/23 18:59 06:59 18:59 Intake Total 780 Output Total 650 925 300 Balance -650 -145 -300 Intake: Oral 780 Output: Urine 650 925 300 Other: Voiding Method Toilet Urinal # Bowel Movements 1 - Labs CBC & Chem 7: 08/03/23 04:17 08/24/23 04:52 Labs: Abnormal Lab Results - Last 24 Hours (Table) 08/24/23 Range/Units 04:52 Sodium 129 L (137-145) mmol/L Chloride 93 L (98-107) mmol/L Carbon Dioxide 37 H (22-30) mmol/L BUN 21 H (9-20) mg/dL Creatinine 0.49 L (0.66-1.25) mg/dL
[2023-08-25 09:01] LABS: Blood Urea Nitrogen 17.8 mg/dL (9.0-27.0); Carbon Dioxide 36.1 mmol/L (21.6-31.8); Chloride 91 mmol/L (96-109); Glucose 115 mg/dL (70-110); Potassium 4.4 mmol/L (3.5-5.5); Sodium 132 mmol/L (135-145)
[2023-08-25] MEDS: amLODIPine 5 MG TAB PO SCH (09:28)
--- NOTE | 2023-08-25 09:34 | P.PN ---
Subjective Patient is seen in follow-up for hyponatremia. Sodium level stable. Oral intake fair. Denies chest pain or shortness of breath. No changes overnight. Hemodynamically stable. Vital signs are stable. General: No acute distress. HEENT: Head exam is unremarkable. On nasal cannula. LUNGS: No audible rhonchi or wheezes. HEART: Rate and Rhythm are regular. ABDOMEN: Nontender. EXTREMITITES: No edema. Objective - Vital Signs Vital signs: Vital Signs Temp 97.6 F 08/25/23 07:20 Pulse 80 08/25/23 08:05 Resp 16 08/25/23 07:20 BP 127/78 08/25/23 07:20 Pulse Ox 97 08/25/23 07:57 FiO2 Intake & Output 08/24/23 08/25/23 08/25/23 18:59 06:59 18:59 Intake Total 684 720 40 Output Total 1500 800 260 Balance -816 -80 -220 Intake: Oral 684 720 40 Output: Urine 1500 800 260 Other: Voiding Method Toilet Toilet Urinal Urinal - Labs CBC & Chem 7: 08/03/23 04:17 08/25/23 06:12 Labs: Abnormal Lab Results - Last 24 Hours (Table) 08/25/23 Range/Units 06:12 Sodium 132 L (135-145) mmol/L Chloride 91 L (96-109) mmol/L Carbon Dioxide 36.1 H (21.6-31.8) mmol/L Creatinine 0.5 L (0.6-1.5) mg/dL BUN/Creatinine Ratio 35.60 H (12.00-20.00) Ratio Glucose 115 H (70-110) mg/dL Assessment and Plan Plan: Assessment: 1. Hyponatremia, euvolemic. 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 Urine sodium 118 and urine osmolality 419. Cortisol 14.7. TSH normal. PTH related peptide negative. On salt tabs and Lasix. Also received Samsca this admission. Sodium level 132. 2. Benign hypertension. Stable. 3. History of falls. 4. Failure to thrive. Plan: Maintain sodium chloride tabs. Maintain fluid restriction. Encouraged oral intake, particularly protein Maintain Lasix 20 mg once daily. Maintain amlodipine. Hold for systolic blood pressure less than 120. Repeat BMP and magnesium level 2 to 3 days postdischarge. Follow-up outpatient in [address].
--- NOTE | 2023-08-25 14:31 | P.PN ---
Subjective Progress Note Date: 08/25/23 (delayed charting seen at 0845) Patient is a 73-year-old male with hypertension, COPD with chronic hypoxic respiratory failure on chronic home O2, and prior tobacco abuse who presented to the emergency department with weakness. Patient was found on the ground unable to get up by his landlord, at that time he was disconnected from his home oxygen. In the emergency department he underwent an extensive evaluation. Chest x-ray showed no acute process but findings consistent with COPD. Laborat ory analysis was remarkable for hemoglobin 9.6 (baseline 11), and sodium 121, baseline 128. Patient was admitted for weakness related to significant hyponatremia. Nephrology was consulted. Patient initially was given IV fluids and had a drop in his sodium level. He was then started on fluid restriction. 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 Patient received a dose of Samsca and his sodium improved. Patient currently lives alone and has known cognitive impairment and requires 24/7 care at home versus [facility] facility. He was seen by physical therapy and was able to ambulate 175 feet with supervision. He continued to struggle with hyponatremia. He required mu ltiple doses of Samsca. He continued on his fluid restriction. His salt level stabilized and he was determined medically stable for discharge. Case discussed extensively with case management team. Patient has a legal guardian which is his daughter Nori. She is refusing to pick him up from the hospital or participate in his care. APS report has been filed. They have also been discussing his case with his pe electrical engineer. Patient had emergency hearing and now has a public guardian as co-guardian with the daughter. Seen and examined at bedside. He is doing well today. No chest pain or shortness of breath. 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 -Nephrology note reviewed: continue current care -Continue sodium chloride tablets 1 mg oral TID, Lasix 20 mg daily -Continue to hold SSRI -Patient has been eating well since being hospitalized -Patient okay to remain without IV access Suicidal ideation, resolved -Psych recs : No longer meets inpatient criteria, medication changed, discontinued one-to-one sitter - fluvoxamine 25 mg nightly and Remeron 7.5 mg nightly as needed for insomnia - Also on mirtazapine as needed for insomnia Chronic: Hypertension COPD without exacerbation Depression Imaging: None new Data Review: Labs reviewed today include BMP which is remarkable for sodium 132, BUN 18 creatinine 0.5 DVT prophylaxis: SCDs Anticipated discharge date: undetermined, Anticipated discharge place: undetermined This dictation was prepared using [employer] voice recognition software. Though every attempt is made to correct errors during dictation some may still exist. Objective - Vital Signs Vital signs: Vital Signs Temp 97.5 F L 08/25/23 12:25 Pulse 81 08/25/23 12:25 Resp 16 08/25/23 12:25 BP 111/51 08/25/23 12:25 Pulse Ox 97 08/25/23 14:17 FiO2 Intake & Output 08/24/23 08/25/23 08/25/23 18:59 06:59 18:59 Intake Total 684 720 260 Output Total 1500 800 635 Balance -816 -80 -375 Intake: Oral 684 720 260 Output: Urine 1500 800 635 Other: Voiding Method Toilet Toilet Urinal Urinal - Labs CBC & Chem 7: 08/03/23 04:17 08/25/23 06:12 Labs: Abnormal Lab Results - Last 24 Hours (Table) 08/25/23 Range/Units 06:12 Sodium 132 L (135-145) mmol/L Chloride 91 L (96-109) mmol/L Carbon Dioxide 36.1 H (21.6-31.8) mmol/L Creatinine 0.5 L (0.6-1.5) mg/dL BUN/Creatinine Ratio 35.60 H (12.00-20.00) Ratio Glucose 115 H (70-110) mg/dL
--- NOTE | 2023-08-26 10:08 | P.PN ---
Subjective Patient is seen in follow-up for hyponatremia. Sodium level stable at 132 dated August 25, 2023. Oral intake fair. Denies chest pain or shortness of breath. No changes overnight. Hemodynamically stable. Vital signs are stable. General: No acute distress. HEENT: Head exam is unremarkable. On nasal cannula. LUNGS: No audible rhonchi or wheezes. HEART: Rate and Rhythm are regular. ABDOMEN: Nontender. EXTREMITITES: No edema. Objective - Vital Signs Vital signs: Vital Signs Temp 95.5 F L 08/26/23 08:00 Pulse 73 08/26/23 08:00 Resp 20 08/26/23 08:00 BP 131/73 08/26/23 08:00 Pulse Ox 95 08/26/23 08:16 FiO2 Intake & Output 08/25/23 08/26/23 08/26/23 18:59 06:59 18:59 Intake Total 535 240 Output Total 1035 600 700 Balance -500 -360 -700 Intake: Oral 535 240 Output: Urine 1035 600 700 Other: Voiding Method Toilet Toilet Toilet Urinal Urinal Urinal # Bowel Movements 1 1 - Labs CBC & Chem 7: 08/03/23 04:17 08/25/23 06:12 Assessment and Plan Plan: Assessment: 1. Hyponatremia, euvolemic. 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 Urine sodium 118 and urine osmolality 419. Cortisol 14.7. TSH normal. PTH related peptide negative. On salt tabs and Lasix. Also received Samsca this admission. Sodium level 132 dated August 25, 2023. 2. Benign hypertension. Stable. 3. History of falls. 4. Failure to thrive. Plan: Maintain sodium chloride tabs. Maintain fluid restriction. Encouraged oral intake, particularly protein Maintain Lasix 20 mg once daily. Maintain amlodipine. Hold for systolic blood pressure less than 120. Repeat BMP and magnesium level 2 to 3 days postdischarge. Follow-up outpatient in [address].
--- NOTE | 2023-08-26 15:19 | P.PN ---
Subjective Progress Note Date: 08/26/23 Patient is a 73-year-old male with hypertension, COPD with chronic hypoxic respiratory failure on chronic home O2, and prior tobacco abuse who presented to the emergency department with weakness. Patient was found on the ground unable to get up by his landlord, at that time he was disconnected from his home oxygen. In the emergency department he underwent an extensive evaluation. Chest x-ray showed no acute process but findings consistent with COPD. Laboratory analysis was remarkable for hemoglobin 9.6 (baseline 11), and sodium 121, baseline 128. Patient was admitted for weakness related to significant hyponatremia. Nephrology was consulted. Patient initially was given IV fluids and had a drop in his sodium level. He was then started on fluid restriction. 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 Patient received a dose of Samsca and his sodium improved. Patient currently lives alone and has known cognitive impairment and requires 24/7 care at home versus [facility] facility. He was seen by physical therapy and was able to ambulate 175 feet with supervision. He continued to struggle with hyponatremia. He required multiple doses of Samsca. He continued on his fluid restriction. His salt level stabilized and he was determined medically stable for discharge. Case discussed extensively with case management team. Patient has a legal guardian which is his daughter Nori. She is refusing to pick him up from the hospital or participate in his care. APS report has been filed. They have also been discussing his case with his copy preparer. Patient had emergency hearing and now has a public guardian as co-guardian with the daughter. Seen and examined at bedside. Sleeping does not want to wake up. Vital signs reviewed General: Nontoxic, no distress, appears at stated age, buccal and temporal wasting Cardiovascular: S1S2 reg, no murmur Lungs: Decreased breath sounds bilateral, no rhonchi, no rales, no accessory muscle use Neuro: CN II-XI grossly intact, no focal neuro deficits Psych: awakes to voice and rolls over in bed. 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 -Nephrology following -Continue sodium chloride tablets 1 mg oral TID, Lasix 20 mg daily -Continue to hold SSRI -Patient has been eating well since being hospitalized -Patient okay to remain without IV access Suicidal ideation, resolved -Psych recs : No longer meets inpatient criteria, medication changed, discontinued one-to-one sitter - fluvoxamine 25 mg nightly and Remeron 7.5 mg nightly as needed for insomnia - Also on mirtazapine as needed for insomnia Chronic: Hypertension COPD without exacerbation Depression Imaging: None new Data Review: Labs reviewed today include BMP which is remarkable for sodium 132, BUN 18 creatinine 0.5 DVT prophylaxis: SCDs Anticipated discharge date: undetermined, Anticipated discharge place: undetermined This dictation was prepared using [employer] voice recognition software. Though every attempt is made to correct errors during dictation some may still exist. Objective - Vital Signs Vital signs: Vital Signs Temp 95.5 F L 08/26/23 08:00 Pulse 84 08/26/23 11:23 Resp 20 08/26/23 08:00 BP 127/71 08/26/23 11:23 Pulse Ox 95 08/26/23 08:16 FiO2 Intake & Output 08/25/23 08/26/23 08/26/23 18:59 06:59 18:59 Intake Total 535 240 Output Total 1035 600 950 Balance -500 -360 -950 Intake: Oral 535 240 Output: Urine 1035 600 950 Other: Voiding Method Toilet Toilet Toilet Urinal Urinal Urinal # Voids 1 # Bowel Movements 1 1 - Labs CBC & Chem 7: 08/03/23 04:17 08/25/23 06:12
[2023-08-27 07:56] LABS: African American GFR (CKD) >90 (>60 ml/min/1.73 sqM); Anion Gap 2 mmol/L; Blood Urea Nitrogen 28 mg/dL (9-20); Calcium 9.1 mg/dL (8.4-10.2); Carbon Dioxide 37 mmol/L (22-30); Chloride 93 mmol/L (98-107); Glucose 90 mg/dL (74-99); Non-African American GFR(CKD) >90 (>60 ml/min/1.73 sqM); Potassium 4.7 mmol/L (3.5-5.1); Sodium 132 mmol/L (137-145)
--- NOTE | 2023-08-27 09:32 | P.PN ---
Subjective Progress Note Date: 08/27/23 Patient is a 73-year-old male with hypertension, COPD with chronic hypoxic respiratory failure on chronic home O2, and prior tobacco abuse who presented to the emergency department with weakness. Patient was found on the ground unable to get up by his landlord, at that time he was disconnected from his home oxygen. In the emergency department he underwent an extensive evaluation. Chest x-ray showed no acute process but findings consistent with COPD. Laboratory analysis was remarkable for hemoglobin 9.6 (baseline 11), and sodium 121, baseline 128. Patient was admitted for weakness related to significant hyponatremia. Nephrology was consulted. Patient initially was given IV fluids and had a drop in his sodium level. He was then started on fluid restriction. 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 Patient received a dose of Samsca and his sodium improved. Patient currently lives alone and has known cognitive impairment and requires 24/7 care at home versus halfway facility. He was seen by physical therapy and was able to ambulate 175 feet with supervision. He continued to struggle with hyponatremia. He required multiple doses of Samsca. He continued on his fluid restriction. His salt level stabilized and he was determined medically stable for discharge. Case discussed extensively with case management team. Patient has a legal guardian which is his daughter Nori. She is refusing to pick him up from the hospital or participate in his care. APS report has been filed. They have also been discussing his case with his first assist. Patient had emergency hearing and now has a public guardian as co-guardian with the daughter. Patient seen and examined at bedside. he is having his chronic right shoulder pain and is asking from his tylenol. He denies any chest pain. Eating well. Vital signs reviewed General: Nontoxic, no distress, appears at stated age, buccal and temporal wasting Cardiovascular: S1S2 reg, no murmur Lungs: Decreased breath sounds bilateral, no rhonchi, no rales, no accessory muscle use Neuro: CN II-XI grossly intact, no focal neuro deficits Psych: awakes to voice and rolls over in bed. 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 -Nephrology following -Continue sodium chloride tablets 1 mg oral TID, Lasix 20 mg daily -Continue to hold SSRI -Patient has been eating well since being hospitalized -Patient okay to remain without IV access Suicidal ideation, resolved -Psych recs : No longer meets inpatient criteria, medication changed, discontinued one-to-one sitter - fluvoxamine 25 mg nightly and Remeron 7.5 mg nightly as needed for insomnia - Also on mirtazapine as needed for insomnia Chronic: Hypertension COPD without exacerbation Depression Imaging: None new Data Review: Labs reviewed from today include basic metabolic profile which is remarkable for sodium of 132, BUN 28, creatinine 0.63 DVT prophylaxis: SCDs Anticipated discharge date: undetermined, Anticipated discharge place: undetermined This dictation was prepared using [employer] voice recognition software. Though every attempt is made to correct errors during dictation some may still e xist. Objective - Vital Signs Vital signs: Vital Signs Temp 97.3 F L 08/27/23 08:00 Pulse 77 08/27/23 08:00 Resp 18 08/27/23 08:00 BP 149/81 08/27/23 08:00 Pulse Ox 95 08/27/23 08:03 FiO2 Intake & Output 08/26/23 08/27/23 08/27/23 18:59 06:59 18:59 Intake Total 662 240 Output Total 1500 800 Balance -838 -560 Intake: Oral 662 240 Output: Urine 1500 800 Other: Voiding Method Toilet Toilet Urinal Urinal # Voids 1 # Bowel Movements 1 - Labs CBC & Chem 7: 08/03/23 04:17 08/27/23 06:34 Labs: Abnormal Lab Results - Last 24 Hours (Table) 08/27/23 Range/Units 06:34 Sodium 132 L (137-145) mmol/L Chloride 93 L (98-107) mmol/L Carbon Dioxide 37 H (22-30) mmol/L BUN 28 H (9-20) mg/dL Creatinine 0.63 L (0.66-1.25) mg/dL
--- NOTE | 2023-08-27 11:23 | P.PN ---
Subjective Patient is seen in follow-up for hyponatremia. Sodium level stable at 132. Oral intake fair. Denies chest pain or shortness of breath. No changes overnight. Hemodynamically stable. Vital signs are stable. General: No acute distress. HEENT: Head exam is unremarkable. On nasal cannula. LUNGS: No audible rhonchi or wheezes. HEART: Rate and Rhythm are regular. ABDOMEN: Nontender. EXTREMITITES: No edema. Objective - Vital Signs Vital signs: Vital Signs Temp 97.3 F L 08/27/23 08:00 Pulse 77 08/27/23 09:57 Resp 18 08/27/23 08:00 BP 144/75 08/27/23 09:57 Pulse Ox 95 08/27/23 08:03 FiO2 Intake & Output 08/26/23 08/27/23 08/27/23 18:59 06:59 18:59 Intake Total 662 240 240 Output Total 1500 800 Balance -838 -560 240 Intake: Oral 662 240 240 Output: Urine 1500 800 Other: Voiding Method Toilet Toilet Urinal Urinal # Voids 1 # Bowel Movements 1 - Labs CBC & Chem 7: 08/03/23 04:17 08/27/23 06:34 Labs: Abnormal Lab Results - Last 24 Hours (Table) 08/27/23 Range/Units 06:34 Sodium 132 L (137-145) mmol/L Chloride 93 L (98-107) mmol/L Carbon Dioxide 37 H (22-30) mmol/L BUN 28 H (9-20) mg/dL Creatinine 0.63 L (0.66-1.25) mg/dL Assessment and Plan Plan: Assessment: 1. Hyponatremia, euvolemic. 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 Urine sodium 118 and urine osmolality 419. Cortisol 14.7. TSH normal. PTH related peptide negative. On salt tabs and Lasix. Also received Samsca this admission. Sodium level 132. 2. Benign hypertension. Stable. 3. History of falls. 4. Failure to thrive. Plan: Maintain sodium chloride tabs -decrease frequency to twice daily. Maintain fluid restriction. Encouraged oral intake, particularly protein Maintain Lasix 20 mg once daily. Maintain amlodipine. Hold for systolic blood pressure less than 120. Repeat BMP and magnesium level 2 to 3 days postdischarge. Follow-up outpatient in 1 week[address] Awaits placement.
[2023-08-27] MEDS: SODIUM CHLORIDE TAB 1 GM TAB PO SCH (21:01)
--- NOTE | 2023-08-28 09:47 | P.PN ---
Subjective Progress Note Date: 08/28/23 Patient is a 73-year-old male with hypertension, COPD with chronic hypoxic respiratory failure on chronic home O2, and prior tobacco abuse who presented to the emergency department with weakness. Patient was found on the ground unable to get up by his landlord, at that time he was disconnected from his home oxygen. In the emergency department he underwent an extensive evaluation. Chest x-ray showed no acute process but findings consistent with COPD. Laboratory analysis was remarkable for hemoglobin 9.6 (baseline 11), and sodium 121, baseline 128. Patient was admitted for weakness related to significant hyponatremia. Nephrology was consulted. Patient initially was given IV fluids and had a drop in his sodium level. He was then started on fluid restriction. 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 Patient received a dose of Samsca and his sodium improved. Patient currently lives alone and has known cognitive impairment and requires 24/7 care at home versus [facility] facility. He was seen by physical therapy and was able to ambulate 175 feet with supervision. He continued to struggle with hyponatremia. He required multiple doses of Samsca. He continued on his fluid restriction. His salt level stabilized and he was determined medically stable for discharge. Case discussed extensively with case management team. Patient has a legal guardian which is his daughter Nori. She is refusing to pick him up from the hospital or participate in his care. APS report has been filed. They have also been discussing his case with his vp informatics. Patient had emergency hearing and now has a public guardian as co-guardian with the daughter. Still awaiting placement. Patient seen and examined at bedside. No acute events overnight. Vital signs reviewed General: Nontoxic, no distress, appears at stated age, buccal and temporal wasting Cardiovascular: S1S2 reg, no murmur Lungs: Decreased breath sounds bilateral, no rhonchi, no rales, no accessory mus osmel use Neuro: CN II-XI grossly intact, no focal neuro deficits Psych: awakes to voice and rolls over in bed. 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 -Nephrology following -Continue sodium chloride tablets 1 mg oral BID, Lasix 20 mg daily -Patient has been eating well since being hospitalized -Patient okay to remain without IV access Suicidal ideation, resolved -Psych recs : No longer meets inpatient criteria, medication changed, discontinued one-to-one sitter - fluvoxamine 25 mg nightly and Remeron 7.5 mg nightly as needed for insomnia Chronic: Hypertension COPD without exacerbation Depression Imaging: None new Data Review: No new labs DVT prophylaxis: Lovenox Anticipated discharge date: undetermined, Anticipated discharge place: undetermined Objective - Vital Signs Vital signs: Vital Signs Temp 97.7 F 08/28/23 07:32 Pulse 74 08/28/23 07:32 Resp 20 08/28/23 07:32 BP 142/77 08/28/23 07:32 Pulse Ox 97 08/28/23 08:04 FiO2 Intake & Output 08/27/23 08/28/23 08/28/23 18:59 06:59 18:59 Intake Total 580 520 Output Total 1300 300 175 Balance -720 220 -175 Weight 56.245 kg Intake: Oral 580 520 Output: Urine 1300 300 175 Other: Voiding Method Toilet Urinal # Voids 1 - Labs CBC & Chem 7: 08/03/23 04:17 08/27/23 06:34
--- NOTE | 2023-08-28 11:44 | P.PN ---
Subjective Patient is seen in follow-up for hyponatremia. Sodium level stable at 132 yesterday. Oral intake fair. Denies chest pain or shortness of breath. No changes overnight. Hemodynamically stable. Vital signs are stable. General: No acute distress. HEENT: Head exam is unremarkable. On nasal cannula. LUNGS: No audible rhonchi or wheezes. HEART: Rate and Rhythm are regular. ABDOMEN: Nontender. EXTREMITITES: No edema. Objective - Vital Signs Vital signs: Vital Signs Temp 97.7 F 08/28/23 07:32 Pulse 74 08/28/23 07:32 Resp 20 08/28/23 07:32 BP 142/77 08/28/23 07:32 Pulse Ox 97 08/28/23 08:04 FiO2 Intake & Output 08/27/23 08/28/23 08/28/23 18:59 06:59 18:59 Intake Total 580 520 Output Total 1300 300 425 Balance -720 220 -425 Weight 56.245 kg Intake: Oral 580 520 Output: Urine 1300 300 425 Other: Voiding Method Toilet Toilet Urinal Urinal # Voids 1 - Labs CBC & Chem 7: 08/03/23 04:17 08/27/23 06:34 Assessment and Plan Plan: Assessment: 1. Hyponatremia, euvolemic. 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 Urine sodium 118 and urine osmolality 419. Cortisol 14.7. TSH normal. PTH related peptide negative. On salt tabs and Lasix. Also received Samsca this admission. Sodium level 132. 2. Benign hypertension. Stable. 3. History of falls. 4. Failure to thrive. Plan: Maintain sodium chloride tabs. Maintain fluid restriction. Encouraged oral intake, particularly protein Maintain Lasix 20 mg once daily. Maintain amlodipine. Hold for systolic blood pressure less than 120. Repeat BMP and magnesium level 2 to 3 days postdischarge. Follow-up outpatient in 1 week. Awaits placement.
--- NOTE | 2023-08-29 11:01 | P.PN ---
Subjective Progress Note Date: 08/29/23 Patient is a 73-year-old male with hypertension, COPD with chronic hypoxic respiratory failure on chronic home O2, and prior tobacco abuse who presented to the emergency department with weakness. Patient was found on the ground unable to get up by his landlord, at that time he was disconnected from his home oxygen. In the emergency department he underwent an extensive evaluation. Chest x-ray showed no acute process but findings consistent with COPD. Laboratory analysis was remarkable for hemoglobin 9.6 (baseline 11), and sodium 121, baseline 128. Patient was admitted for weakness related to significant hyponatremia. Nephrology was consulted. Patient initially was given IV fluids and had a drop in his sodium level. He was then started on fluid restriction. 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 Patient received a dose of Samsca and his sodium improved. Patient currently lives alone and has known cognitive impairment and requires 24/7 care at home versus [facility] facility. He was seen by physical therapy and was able to ambulate 175 feet with supervision. He continued to struggle with hyponatremia. He required multiple doses of Samsca. He continued on his fluid restriction. His salt level stabilized and he was determined medically stable for discharge. Case discussed extensively with case management team. Patient has a legal guardian which is his daughter Nori. She is refusing to pick him up from the hospital or participate in his care. APS report has been filed. They have also been discussing his case with his cardiac exercise specialist. Patient had emergency hearing and now has a public guardian as co-guardian with the daughter. Still awaiting placement. Patient seen and examined at bedside. No acute events overnight. Vital signs reviewed General: Nontoxic, no distress, appears at stated age, buccal and temporal wasting Cardiovascular: S1S2 reg, no murmur Lungs: Decreased breath sounds bilateral, no rhonchi, no rales, no accessory mus osmel use Neuro: CN II-XI grossly intact, no focal neuro deficits Psych: awakes to voice and rolls over in bed. 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 -Nephrology following -Continue sodium chloride tablets 1 mg oral BID, Lasix 20 mg daily -Patient has been eating well since being hospitalized -Patient okay to remain without IV access Suicidal ideation, resolved -Psych recs : No longer meets inpatient criteria, medication changed, discontinued one-to-one sitter - fluvoxamine 25 mg nightly and Remeron 7.5 mg nightly as needed for insomnia Chronic: Hypertension COPD without exacerbation Depression Imaging: None new Data Review: No new labs DVT prophylaxis: Lovenox Anticipated discharge date: undetermined, Anticipated discharge place: undetermined Objective - Vital Signs Vital signs: Vital Signs Temp 97.6 F 08/29/23 07:21 Pulse 72 08/29/23 08:45 Resp 20 08/29/23 07:21 BP 120/72 08/29/23 07:21 Pulse Ox 95 08/29/23 07:21 FiO2 Intake & Output 08/28/23 08/29/23 08/29/23 18:59 06:59 18:59 Intake Total 462 Output Total 1600 700 150 Balance -1138 -700 -150 Intake: Oral 462 Output: Urine 1600 700 150 Other: Voiding Method Toilet Toilet Toilet Urinal Urinal Urinal # Voids 1 - Labs CBC & Chem 7: 08/03/23 04:17 08/27/23 06:34
--- NOTE | 2023-08-29 11:41 | P.PN ---
Subjective Patient is seen in follow-up for hyponatremia. Sodium level stable at 132 dated 09/26/2023. Oral intake fair. Denies chest pain or shortness of breath. No changes overnight. Hemodynamically stable. Vital signs are stable. General: No acute distress. HEENT: Head exam is unremarkable. On nasal cannula. LUNGS: No audible rhonchi or wheezes. HEART: Rate and Rhythm are regular. ABDOMEN: Nontender. EXTREMITITES: No edema. Objective - Vital Signs Vital signs: Vital Signs Temp 97.6 F 08/29/23 07:21 Pulse 72 08/29/23 08:45 Resp 20 08/29/23 07:21 BP 120/72 08/29/23 07:21 Pulse Ox 95 08/29/23 07:21 FiO2 Intake & Output 08/28/23 08/29/23 08/29/23 18:59 06:59 18:59 Intake Total 462 Output Total 1600 700 150 Balance -1138 -700 -150 Intake: Oral 462 Output: Urine 1600 700 150 Other: Voiding Method Toilet Toilet Toilet Urinal Urinal Urinal # Voids 1 - Labs CBC & Chem 7: 08/03/23 04:17 08/27/23 06:34 Assessment and Plan Plan: Assessment: 1. Hyponatremia, euvolemic. 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 Urine sodium 118 and urine osmolality 419. Cortisol 14.7. TSH normal. PTH related peptide negative. On salt tabs and Lasix. Also received Samsca this admission. Sodium level 132. 2. Benign hypertension. Stable. 3. History of falls. 4. Failure to thrive. Plan: Maintain sodium chloride tabs. Maintain fluid restriction. Encouraged oral intake, particularly protein Maintain Lasix 20 mg once daily. Maintain amlodipine. Hold for systolic blood pressure less than 120. Repeat BMP and magnesium level 2 to 3 days postdischarge. Follow-up outpatient in 1 week. Awaits placement.
--- NOTE | 2023-08-30 10:05 | P.PN ---
Subjective Patient is seen in follow-up for hyponatremia. Sodium level stable at 132 dated 08/27/2023. Oral intake fair. Denies chest pain or shortness of breath. No changes overnight. Hemodynamically stable. Vital signs are stable. General: No acute distress. HEENT: Head exam is unremarkable. On nasal cannula. LUNGS: No audible rhonchi or wheezes. HEART: Rate and Rhythm are regular. ABDOMEN: Nontender. EXTREMITITES: No edema. Objective - Vital Signs Vital signs: Vital Signs Temp 97.7 F 08/30/23 07:52 Pulse 72 08/30/23 07:52 Resp 18 08/30/23 07:52 BP 125/79 08/30/23 07:52 Pulse Ox 97 08/30/23 07:56 FiO2 Intake & Output 08/29/23 08/30/23 08/30/23 18:59 06:59 18:59 Intake Total 540 480 Output Total 1675 700 Balance -1135 -220 Intake: Oral 540 480 Output: Urine 1675 700 Other: Voiding Method Toilet Urinal Urinal - Labs CBC & Chem 7: 08/03/23 04:17 08/27/23 06:34 Assessment and Plan Plan: Assessment: 1. Hyponatremia, euvolemic. 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 Urine sodium 118 and urine osmolality 419. Cortisol 14.7. TSH normal. PTH related peptide negative. On salt tabs and Lasix. Also received Samsca this admission. Sodium level 132. 2. Benign hypertension. Stable. 3. History of falls. 4. Failure to thrive. Plan: Maintain sodium chloride tabs. Maintain fluid restriction. Encouraged oral intake, particularly protein Maintain Lasix 20 mg once daily. Maintain amlodipine. Hold for systolic blood pressure less than 120. Repeat labs in AM. Repeat BMP and magnesium level 2 to 3 days postdischarge. Follow-up outpatient in 1 week[address] Awaits placement.
--- NOTE | 2023-08-30 10:35 | P.PN ---
Subjective Progress Note Date: 08/30/23 Patient is a 73-year-old male with hypertension, COPD with chronic hypoxic respiratory failure on chronic home O2, and prior tobacco abuse who presented to the emergency department with weakness. Patient was found on the ground unable to get up by his landlord, at that time he was disconnected from his home oxygen. In the emergency department he underwent an extensive evaluation. Chest x-ray showed no acute process but findings consistent with COPD. Laboratory analysis was remarkable for hemoglobin 9.6 (baseline 11), and sodium 121, baseline 128. Patient was admitted for weakness related to significant hyponatremia. Nephrology was consulted. Patient initially was given IV fluids and had a drop in his sodium level. He was then started on fluid restriction. 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 Patient received a dose of Samsca and his sodium improved. Patient currently lives alone and has known cognitive impairment and requires 24/7 care at home versus snf facility. He was seen by physical therapy and was able to ambulate 175 feet with supervision. He continued to struggle with hyponatremia. He required multiple doses of Samsca. He continued on his fluid restriction. His salt level stabilized and he was determined medically stable for discharge. Case discussed extensively with case management team. Patient has a legal guardian which is his daughter Nori. She is refusing to pick him up from the hospital or participate in his care. APS report has been filed. They have also been discussing his case with his child and family counselor. Patient had emergency hearing and now has a public guardian as co-guardian with the daughter. Still awaiting placement. Patient seen and examined at bedside. No acute events overnight. Vital signs reviewed General: Nontoxic, no distress, appears at stated age, buccal and temporal wasting Cardiovascular: S1S2 reg, no murmur Lungs: Decreased breath sounds bilateral, no rhonchi, no rales, no accessory mus osmel use Neuro: CN II-XI grossly intact, no focal neuro deficits Psych: awakes to voice and rolls over in bed. 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 -Nephrology following -Continue sodium chloride tablets 1 mg oral BID, Lasix 20 mg daily -Patient has been eating well since being hospitalized -Patient okay to remain without IV access Suicidal ideation, resolved -Psych recs : No longer meets inpatient criteria, medication changed, discontinued one-to-one sitter - fluvoxamine 25 mg nightly and Remeron 7.5 mg nightly as needed for insomnia Chronic: Hypertension COPD without exacerbation Depression Imaging: None new Data Review: No new labs DVT prophylaxis: Lovenox Anticipated discharge date: undetermined, Anticipated discharge place: undetermined Objective - Vital Signs Vital signs: Vital Signs Temp 97.7 F 08/30/23 07:52 Pulse 72 08/30/23 07:52 Resp 18 08/30/23 07:52 BP 125/79 08/30/23 07:52 Pulse Ox 97 08/30/23 07:56 FiO2 Intake & Output 08/29/23 08/30/23 08/30/23 18:59 06:59 18:59 Intake Total 540 480 Output Total 1675 700 Balance -1135 -220 Intake: Oral 540 480 Output: Urine 1675 700 Other: Voiding Method Toilet Urinal Urinal - Labs CBC & Chem 7: 08/03/23 04:17 08/27/23 06:34
[2023-08-31 09:30] LABS: BUN/Creat Ratio 41.14 Ratio (12.00-20.00); Blood Urea Nitrogen 28.8 mg/dL (9.0-27.0); Calcium 9.5 mg/dL (8.7-10.3); Carbon Dioxide 31.5 mmol/L (21.6-31.8); Chloride 94 mmol/L (96-109); Glucose 102 mg/dL (70-110); Magnesium 1.9 mg/dL (1.5-2.4); Sodium 133 mmol/L (135-145)
--- NOTE | 2023-08-31 09:57 | P.PN ---
Subjective Progress Note Date: 08/31/23 Patient is a 73-year-old male with hypertension, COPD with chronic hypoxic respiratory failure on chronic home O2, and prior tobacco abuse who presented to the emergency department with weakness. Patient was found on the ground unable to get up by his landlord, at that time he was disconnected from his home oxygen. In the emergency department he underwent an extensive evaluation. Chest x-ray showed no acute process but findings consistent with COPD. Laboratory analysis was remarkable for hemoglobin 9.6 (baseline 11), and sodium 121, baseline 128. Patient was admitted for weakness related to significant hyponatremia. Nephrology was consulted. Patient initially was given IV fluids and had a drop in his sodium level. He was then started on fluid restriction. 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 Patient received a dose of Samsca and his sodium improved. Patient currently lives alone and has known cognitive impairment and requires 24/7 care at home versus residential facility. He was seen by physical therapy and was able to ambulate 175 feet with supervision. He continued to struggle with hyponatremia. He required multiple doses of Samsca. He continued on his fluid restriction. His salt level stabilized and he was determined medically stable for discharge. Case discussed extensively with case management team. Patient has a legal guardian which is his daughter Nori. She is refusing to pick him up from the hospital or participate in his care. APS report has been filed. They have also been discussing his case with his electroplater. Patient had emergency hearing and now has a public guardian as co-guardian with the daughter. Still awaiting placement. Patient seen and examined at bedside. No acute events overnight. Vital signs reviewed General: Nontoxic, no distress, appears at stated age, buccal and temporal wasting Cardiovascular: S1S2 reg, no murmur Lungs: Decreased breath sounds bilateral, no rhonchi, no rales, no accessory mus osmel use Neuro: CN II-XI grossly intact, no focal neuro deficits Psych: awakes to voice and rolls over in bed. 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 -Nephrology following -Continue sodium chloride tablets 1 mg oral BID, Lasix 20 mg daily -Patient has been eating well since being hospitalized -Patient okay to remain without IV access Suicidal ideation, resolved -Psych recs : No longer meets inpatient criteria, medication changed, discontinued one-to-one sitter - fluvoxamine 25 mg nightly and Remeron 7.5 mg nightly as needed for insomnia Chronic: Hypertension COPD without exacerbation Depression Imaging: None new Data Review: Sodium 133, creatinine 0.7, magnesium 1.9 DVT prophylaxis: Lovenox Anticipated discharge date: undetermined, Anticipated discharge place: undetermined Objective - Vital Signs Vital signs: Vital Signs Temp 97.6 F 08/31/23 07:05 Pulse 72 08/31/23 07:05 Resp 16 08/31/23 07:05 BP 136/68 08/31/23 07:05 Pulse Ox 97 08/31/23 07:05 FiO2 Intake & Output 08/30/23 08/31/23 08/31/23 18:59 06:59 18:59 Intake Total 960 240 240 Output Total 400 Balance 960 -160 240 Intake: Oral 960 240 240 Output: Urine 400 Other: Voiding Method Urinal Urinal - Labs CBC & Chem 7: 08/03/23 04:17 08/31/23 06:00 Labs: Abnormal Lab Results - Last 24 Hours (Table) 08/31/23 Range/Units 06:00 Sodium 133 L (135-145) mmol/L Chloride 94 L (96-109) mmol/L BUN 28.8 H (9.0-27.0) mg/dL BUN/Creatinine Ratio 41.14 H (12.00-20.00) Ratio
--- NOTE | 2023-08-31 10:26 | P.PN ---
Subjective Patient is seen in follow-up for hyponatremia. Sodium level stable at 133 today. Oral intake fair. Denies chest pain or shortness of breath. No changes overnight. Hemodynamically stable. Vital signs are stable. General: No acute distress. HEENT: Head exam is unremarkable. On nasal cannula. LUNGS: No audible rhonchi or wheezes. HEART: Rate and Rhythm are regular. ABDOMEN: Nontender. EXTREMITITES: No edema. Objective - Vital Signs Vital signs: Vital Signs Temp 97.6 F 08/31/23 07:05 Pulse 72 08/31/23 07:05 Resp 16 08/31/23 07:05 BP 136/68 08/31/23 07:05 Pulse Ox 97 08/31/23 07:05 FiO2 Intake & Output 08/30/23 08/31/23 08/31/23 18:59 06:59 18:59 Intake Total 960 240 240 Output Total 400 Balance 960 -160 240 Intake: Oral 960 240 240 Output: Urine 400 Other: Voiding Method Urinal Urinal - Labs CBC & Chem 7: 08/03/23 04:17 08/31/23 06:00 Labs: Abnormal Lab Results - Last 24 Hours (Table) 08/31/23 Range/Units 06:00 Sodium 133 L (135-145) mmol/L Chloride 94 L (96-109) mmol/L BUN 28.8 H (9.0-27.0) mg/dL BUN/Creatinine Ratio 41.14 H (12.00-20.00) Ratio Assessment and Plan Plan: Assessment: 1. Hyponatremia, euvolemic. 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 Urine sodium 118 and urine osmolality 419. Cortisol 14.7. TSH normal. PTH related peptide negative. On salt tabs and Lasix. Also received Samsca this admission. Sodium level 133. 2. Benign hypertension. Stable. 3. History of falls. 4. Failure to thrive. Plan: Maintain sodium chloride tabs. Maintain fluid restriction. Encouraged oral intake, particularly protein Maintain Lasix 20 mg once daily. Maintain amlodipine. Hold for systolic blood pressure less than 120. Repeat BMP and magnesium level 2 to 3 days postdischarge. Follow-up outpatient in 1 week. Awaits placement.
--- NOTE | 2023-09-01 11:30 | P.PN ---
Subjective Progress Note Date: 09/01/23 Patient is a 73-year-old male with hypertension, COPD with chronic hypoxic respiratory failure on chronic home O2, and prior tobacco abuse who presented to the emergency department with weakness. Patient was found on the ground unable to get up by his landlord, at that time he was disconnected from his home oxygen. In the emergency department he underwent an extensive evaluation. Chest x-ray showed no acute process but findings consistent with COPD. Laboratory analysis was remarkable for hemoglobin 9.6 (baseline 11), and sodium 121, baseline 128. Patient was admitted for weakness related to significant hyponatremia. Nephrology was consulted. Patient initially was given IV fluids and had a drop in his sodium level. He was then started on fluid restriction. 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 Patient received a dose of Samsca and his sodium improved. Patient currently lives alone and has known cognitive impairment and requires 24/7 care at home versus half-way facility. He was seen by physical therapy and was able to ambulate 175 feet with supervision. He continued to struggle with hyponatremia. He required multiple doses of Samsca. He is continued on fluid restriction. His sodium level stabilized and he was determined medically stable for discharge. Case discussed extensively with case management team. Patient has a legal guardian which is his daughter Nori. She is refusing to pick him up from the hospital or participate in his care. APS report has been filed. They have also been discussing his case with his parts cataloguer. Patient had an emergency hearing and now has a public guardian as co-guardian with the daughter. Still awaiting place ment. Patient seen and examined at bedside. Sleeping comfortably. Vital signs reviewed General: Nontoxic, no distress, appears at stated age, buccal and temporal wasting Cardiovascular: Good distal perfusion in all 4 extremities Lungs: Breathing comfortably, no accessory muscle use Neuro: No focal neuro deficits Psych: Awakes to voice and rolls over in bed. 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 Normocytic anemia, likely chronic disease related Severe protein calorie malnutrition Failure to thrive Mild cognitive impairment -S/p multiple doses of Samsca -Nephrology following -Continue sodium chloride tablets 1 mg oral BID, Lasix 20 mg daily -Patient has been eating well since being hospitalized -Patient okay to remain without IV access Suicidal ideation, resolved -Psych recs: No longer meets inpatient criteria, medication changed, discontinued one-to-one sitter -Fluvoxamine 25 mg nightly and Remeron 7.5 mg nightly as needed for insomnia Chronic: Hypertension, COPD without exacerbation, Depression DVT prophylaxis: Lovenox Anticipated discharge date: Undetermined Anticipated discharge place: Undetermined Objective - Vital Signs Vital signs: Vital Signs Temp 97.4 F L 09/01/23 07:10 Pulse 70 09/01/23 07:10 Resp 16 09/01/23 07:10 BP 146/82 09/01/23 07:10 Pulse Ox 96 09/01/23 07:10 FiO2 Intake & Output 08/31/23 09/01/23 09/01/23 18:59 06:59 18:59 Intake Total 960 280 Output Total 1590 400 200 Balance -630 -120 -200 Intake: Oral 960 280 Output: Urine 1590 400 200 Other: Voiding Method Urinal Urinal # Voids 2 3 - Labs CBC & Chem 7: 08/03/23 04:17 08/31/23 06:00
--- NOTE | 2023-09-01 11:42 | P.PN ---
Subjective Patient is seen for follow-up for hyponatremia secondary to SIADH Maintained on sodium chloride tab 1 g 3 times a day and fluid restriction. unique denis is also maintained on Lasix 20 mg daily. serum sodium has been stable. It is 133 on 08/31/2023 No significant complaints. Objective - Vital Signs Vital signs: Vital Signs Temp 97.4 F L 09/01/23 07:10 Pulse 70 09/01/23 07:10 Resp 16 09/01/23 07:10 BP 146/82 09/01/23 07:10 Pulse Ox 96 09/01/23 07:10 FiO2 Intake & Output 08/31/23 09/01/23 09/01/23 18:59 06:59 18:59 Intake Total 960 280 Output Total 1590 400 200 Balance -630 -120 -200 Intake: Oral 960 280 Output: Urine 1590 400 200 Other: Voiding Method Urinal Urinal # Voids 2 3 - Exam Patient is awake, comfortable, no acute distress Patient is hard of hearing Examination of the heart S1 and S2 Examination of the lungs bilateral breath sounds are heard Examination of lower extremity shows no evidence of edema CARE COMPANION exam grossly intact - Labs CBC & Chem 7: 08/03/23 04:17 08/31/23 06:00 Assessment and Plan Assessment: 1. 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 Status post demeclocycline and Samsca. Currently maintained on sodium chloride tabs and small dose of oral Lasix. 2. History of fall 3. History of hypertension maintained on Norvasc. stable Plan: Continue with sodium chloride tab and small dose of oral Lasix Continue with fluid restriction. Continue to encourage increased oral intake
--- NOTE | 2023-09-02 12:21 | P.PN ---
Subjective Progress Note Date: 09/02/23 Patient is a 73-year-old male with hypertension, COPD with chronic hypoxic respiratory failure on chronic home O2, and prior tobacco abuse who presented to the emergency department with weakness. Patient was found on the ground unable to get up by his landlord, at that time he was disconnected from his home oxygen. In the emergency department he underwent an extensive evaluation. Chest x-ray showed no acute process but findings consistent with COPD. Laboratory analysis was remarkable for hemoglobin 9.6 (baseline 11), and sodium 121, baseline 128. Patient was admitted for weakness related to significant hyponatremia. Nephrology was consulted. Patient initially was given IV fluids and had a drop in his sodium level. He was then started on fluid restriction. 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 Patient received a dose of Samsca and his sodium improved. Patient currently lives alone and has known cognitive impairment and requires 24/7 care at home versus longterm facility. He was seen by physical therapy and was able to ambulate 175 feet with supervision. He continued to struggle with hyponatremia. He required multiple doses of Samsca. He is continued on fluid restriction. His sodium level stabilized and he was determined medically stable for discharge. Case discussed extensively with case management team. Patient has a legal guardian which is his daughter Nori. She is refusing to pick him up from the hospital or participate in his care. APS report has been filed. They have also been discussing his case with his lining baster. Patient had an emergency hearing and now has a public guardian as co-guardian with the daughter. Still awaiting place ment. Patient seen and examined at bedside. Sleeping comfortably. Vital signs reviewed General: Nontoxic, no distress, appears at stated age, buccal and temporal wasting Cardiovascular: Good distal perfusion in all 4 extremities Lungs: Breathing comfortably, no accessory muscle use Neuro: No focal neuro deficits Psych: Awakes to voice and rolls over in bed. 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 Normocytic anemia, likely chronic disease related Severe protein calorie malnutrition Failure to thrive Mild cognitive impairment -S/p multiple doses of Samsca -Nephrology following -Continue sodium chloride tablets 1 mg oral BID, Lasix 20 mg daily -Patient has been eating well since being hospitalized -Patient okay to remain without IV access Suicidal ideation, resolved -Psych recs: No longer meets inpatient criteria, medication changed, discontinued one-to-one sitter -Fluvoxamine 25 mg nightly and Remeron 7.5 mg nightly as needed for insomnia Chronic: Hypertension, COPD without exacerbation, Depression DVT prophylaxis: Lovenox Anticipated discharge date: Undetermined Anticipated discharge place: Undetermined Objective - Vital Signs Vital signs: Vital Signs Temp 97.3 F L 09/02/23 08:00 Pulse 65 09/02/23 08:00 Resp 18 09/02/23 08:00 BP 166/86 09/02/23 08:00 Pulse Ox 96 09/02/23 08:00 FiO2 Intake & Output 09/01/23 09/02/23 09/02/23 18:59 06:59 18:59 Intake Total 838 420 236 Output Total 200 500 Balance 888 420 -264 Intake: Oral 838 420 236 Output: Urine 200 500 Other: Voiding Method Urinal # Voids 4 3 - Labs CBC & Chem 7: 08/03/23 04:17 08/31/23 06:00
--- NOTE | 2023-09-03 11:22 | P.PN ---
Subjective Progress Note Date: 09/03/23 Patient is a 73-year-old male with hypertension, COPD with chronic hypoxic respiratory failure on chronic home O2, and prior tobacco abuse who presented to the emergency department with weakness. Patient was found on the ground unable to get up by his landlord, at that time he was disconnected from his home oxygen. In the emergency department he underwent an extensive evaluation. Chest x-ray showed no acute process but findings consistent with COPD. Laboratory analysis was remarkable for hemoglobin 9.6 (baseline 11), and sodium 121, baseline 128. Patient was admitted for weakness related to significant hyponatremia. Nephrology was consulted. Patient initially was given IV fluids and had a drop in his sodium level. He was then started on fluid restriction. 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 Patient received a dose of Samsca and his sodium improved. Patient currently lives alone and has known cognitive impairment and requires 24/7 care at home versus [facility] facility. He was seen by physical therapy and was able to ambulate 175 feet with supervision. He continued to struggle with hyponatremia. He required multiple doses of Samsca. He is continued on fluid restriction. His sodium level stabilized and he was determined medically stable for discharge. Case discussed extensively with case management team. Patient has a legal guardian which is his daughter Nori. She is refusing to pick him up from the hospital or participate in his care. APS report has been filed. They have also been discussing his case with his weigher and grader. Patient had an emergency hearing and now has a public guardian as co-guardian with the daughter. Still awaiting place ment. Patient seen and examined at bedside. Eating breakfast comfortably. Vital signs reviewed General: Nontoxic, no distress, appears at stated age, buccal and temporal wasting Cardiovascular: Good distal perfusion in all 4 extremities Lungs: Breathing comfortably, no accessory muscle use Neuro: No focal neuro deficits Psych: Awakes to voice and rolls over in bed. 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 Normocytic anemia, likely chronic disease related Severe protein calorie malnutrition Failure to thrive Mild cognitive impairment -S/p multiple doses of Samsca -Nephrology following -Continue sodium chloride tablets 1 mg oral BID, Lasix 20 mg daily -Patient has been eating well since being hospitalized -Patient okay to remain without IV access Suicidal ideation, resolved -Psych recs: No longer meets inpatient criteria, medication changed, discontinued one-to-one sitter -Fluvoxamine 25 mg nightly and Remeron 7.5 mg nightly as needed for insomnia Chronic: Hypertension, COPD without exacerbation, Depression DVT prophylaxis: Lovenox Anticipated discharge date: Undetermined Anticipated discharge place: Undetermined Objective - Vital Signs Vital signs: Vital Signs Temp 98.1 F 09/03/23 08:00 Pulse 64 09/03/23 08:00 Resp 16 09/03/23 08:00 BP 138/85 09/03/23 08:00 Pulse Ox 94 L 09/03/23 08:00 FiO2 Intake & Output 09/02/23 09/03/23 09/03/23 18:59 06:59 18:59 Intake Total 476 Output Total 2300 700 Balance -1824 -700 Intake: Oral 476 Output: Urine 2300 700 Other: Voiding Method Urinal # Voids 3 3 - Labs CBC & Chem 7: 08/03/23 04:17 08/31/23 06:00
--- NOTE | 2023-09-03 11:42 | P.PN ---
Subjective Patient is seen for follow-up for hyponatremia secondary to SIADH Maintained on sodium chloride tab 1 g 3 times a day and fluid restriction. unique nt is also maintained on Lasix 20 mg daily. serum sodium has been stable. It is 133 on 08/31/2023 No significant complaints. Objective - Vital Signs Vital signs: Vital Signs Temp 98.1 F 09/03/23 08:00 Pulse 64 09/03/23 08:00 Resp 16 09/03/23 08:00 BP 138/85 09/03/23 08:00 Pulse Ox 94 L 09/03/23 08:00 FiO2 Intake & Output 09/02/23 09/03/23 09/03/23 18:59 06:59 18:59 Intake Total 476 Output Total 2300 700 Balance -1824 -700 Intake: Oral 476 Output: Urine 2300 700 Other: Voiding Method Urinal # Voids 3 3 - Exam Patient is awake, comfortable, no acute distress Patient is hard of hearing Examination of the heart S1 and S2 Examination of the lungs bilateral breath sounds are heard Examination of lower extremity shows no evidence of edema ADULT NEUROPSYCHOLOGIST exam grossly intact - Labs CBC & Chem 7: 08/03/23 04:17 08/31/23 06:00 Assessment and Plan Assessment: 1. 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 Status post demeclocycline and Samsca. Currently maintained on sodium chloride tabs and small dose of oral Lasix. 2. History of fall 3. History of hypertension maintained on Norvasc. stable Plan: Continue with sodium chloride tab and small dose of oral Lasix Continue with fluid restriction. Continue to encourage increased oral intake
--- NOTE | 2023-09-04 10:44 | P.PN ---
Subjective Progress Note Date: 09/04/23 Patient is a 73-year-old male with hypertension, COPD with chronic hypoxic respiratory failure on chronic home O2, and prior tobacco abuse who presented to the emergency department with weakness. Patient was found on the ground unable to get up by his landlord, at that time he was disconnected from his home oxygen. In the emergency department he underwent an extensive evaluation. Chest x-ray showed no acute process but findings consistent with COPD. Laboratory analysis was remarkable for hemoglobin 9.6 (baseline 11), and sodium 121, baseline 128. Patient was admitted for weakness related to significant hyponatremia. Nephrology was consulted. Patient initially was given IV fluids and had a drop in his sodium level. He was then started on fluid restriction. 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 Patient received a dose of Samsca and his sodium improved. Patient currently lives alone and has known cognitive impairment and requires 24/7 care at home versus longterm facility. He was seen by physical therapy and was able to ambulate 175 feet with supervision. He continued to struggle with hyponatremia. He required multiple doses of Samsca. He is continued on fluid restriction. His sodium level stabilized and he was determined medically stable for discharge. Case discussed extensively with case management team. Patient has a legal guardian which is his daughter Nori. She is refusing to pick him up from the hospital or participate in his care. APS report has been filed. They have also been discussing his case with his filtering machine tender helper. Patient had an emergency hearing and now has a public guardian as co-guardian with the daughter. Still awaiting place ment. Patient seen and examined at bedside. No nursing complaints. Vital signs reviewed General: Nontoxic, no distress, appears at stated age, buccal and temporal wasting Cardiovascular: Good distal perfusion in all 4 extremities Lungs: Breathing comfortably, no accessory muscle use Neuro: No focal neuro deficits Psych: Awakes to voice and rolls over in bed. 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 Normocytic anemia, likely chronic disease related Severe protein calorie malnutrition Failure to thrive Mild cognitive impairment -S/p multiple doses of Samsca -Nephrology following -Continue sodium chloride tablets 1 mg oral BID, Lasix 20 mg daily -Patient has been eating well since being hospitalized -Patient okay to remain without IV access Suicidal ideation, resolved -Psych recs: No longer meets inpatient criteria, medication changed, discontinued one-to-one sitter -Fluvoxamine 25 mg nightly and Remeron 7.5 mg nightly as needed for insomnia Chronic: Hypertension, COPD without exacerbation, Depression DVT prophylaxis: Lovenox Anticipated discharge date: Undetermined Anticipated discharge place: Undetermined Objective - Vital Signs Vital signs: Vital Signs Temp 97.8 F 09/04/23 07:46 Pulse 75 09/04/23 07:46 Resp 16 09/04/23 07:46 BP 142/82 09/04/23 07:46 Pulse Ox 98 09/04/23 07:51 FiO2 Intake & Output 09/03/23 09/04/23 09/04/23 18:59 06:59 18:59 Intake Total 240 240 Output Total 400 1400 Balance -160 -1160 Intake: Oral 240 240 Output: Urine 400 1400 Other: Voiding Method Urinal - Labs CBC & Chem 7: 08/03/23 04:17 08/31/23 06:00
--- NOTE | 2023-09-04 12:08 | P.PN ---
Subjective Patient is seen for follow-up for hyponatremia secondary to SIADH Maintained on sodium chloride tab 1 g 3 times a day and fluid restriction. unique denis is also maintained on Lasix 20 mg daily. serum sodium has been stable. It is 133 on 08/31/2023 No significant complaints. Objective - Vital Signs Vital signs: Vital Signs Temp 97.8 F 09/04/23 07:46 Pulse 75 09/04/23 07:46 Resp 16 09/04/23 07:46 BP 142/82 09/04/23 07:46 Pulse Ox 98 09/04/23 07:51 FiO2 Intake & Output 09/03/23 09/04/23 09/04/23 18:59 06:59 18:59 Intake Total 240 240 40 Output Total 400 1400 500 Balance -160 -1160 -460 Intake: Oral 240 240 40 Output: Urine 400 1400 500 Other: Voiding Method Urinal Urinal - Exam Patient is awake, comfortable, no acute distress Patient is hard of hearing Examination of the heart S1 and S2 Examination of the lungs bilateral breath sounds are heard Examination of lower extremity shows no evidence of edema MINE EXPERT exam grossly intact - Labs CBC & Chem 7: 08/03/23 04:17 08/31/23 06:00 Assessment and Plan Assessment: 1. 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 Status post demeclocycline and Samsca. Currently maintained on sodium chloride tabs and small dose of oral Lasix. 2. History of fall 3. History of hypertension maintained on Norvasc. stable Plan: Continue with sodium chloride tab and small dose of oral Lasix Continue with fluid restriction. Continue to encourage increased oral intake
--- NOTE | 2023-09-05 11:46 | P.PN ---
Subjective Progress Note Date: 09/05/23 Patient is a 73-year-old male with hypertension, COPD with chronic hypoxic respiratory failure on chronic home O2, and prior tobacco abuse who presented to the emergency department with weakness. Patient was found on the ground unable to get up by his landlord, at that time he was disconnected from his home oxygen. In the emergency department he underwent an extensive evaluation. Chest x-ray showed no acute process but findings consistent with COPD. Laboratory analysis was remarkable for hemoglobin 9.6 (baseline 11), and sodium 121, baseline 128. Patient was admitted for weakness related to significant hyponatremia. Nephrology was consulted. Patient initially was given IV fluids and had a drop in his sodium level. He was then started on fluid restriction. 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 Patient received a dose of Samsca and his sodium improved. Patient currently lives alone and has known cognitive impairment and requires 24/7 care at home versus [facility] facility. He was seen by physical therapy and was able to ambulate 175 feet with supervision. He continued to struggle with hyponatremia. He required multiple doses of Samsca. He is continued on fluid restriction. His sodium level stabilized and he was determined medically stable for discharge. Case discussed extensively with case management team. Patient has a legal guardian which is his daughter Nori. She is refusing to pick him up from the hospital or participate in his care. APS report has been filed. They have also been discussing his case with his cras. Patient had an emergency hearing and now has a public guardian as co-guardian with the daughter. Still awaiting place ment. Patient seen and examined at bedside. Sleeping comfortably. No nursing complaints. Na was 131 on 09/03. Vital signs reviewed General: Nontoxic, no distress, appears at stated age, buccal and temporal wasting Cardiovascular: Good distal perfusion in all 4 extremities Lungs: Breathing comfortably, no accessory muscle use Neuro: No focal neuro deficits Psych: Awakes to voice and rolls over in bed. 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 Normocytic anemia, likely chronic disease related Severe protein calorie malnutrition Failure to thrive Mild cognitive impairment -Na 131 on 09/03 -S/p multiple doses of Samsca -Nephrology following -Continue sodium chloride tablets 1 mg oral BID, Lasix 20 mg daily -Patient has been eating well since being hospitalized -Patient okay to remain without IV access Suicidal ideation, resolved -Psych recs: No longer meets inpatient criteria, medication changed, discontinued one-to-one sitter -Fluvoxamine 25 mg nightly and Remeron 7.5 mg nightly as needed for insomnia Chronic: Hypertension, COPD without exacerbation, Depression DVT prophylaxis: Lovenox Anticipated discharge date: Undetermined Anticipated discharge place: Undetermined Objective - Vital Signs Vital signs: Vital Signs Temp 97.5 F L 09/05/23 07:24 Pulse 75 09/05/23 07:24 Resp 16 09/05/23 07:24 BP 127/76 09/05/23 07:24 Pulse Ox 95 09/05/23 07:24 FiO2 Intake & Output 09/04/23 09/05/23 09/05/23 18:59 06:59 18:59 Intake Total 40 720 240 Output Total 1700 700 250 Balance -1660 20 -10 Weight 56.245 kg Intake: Oral 40 720 240 Output: Urine 1700 700 250 Other: Voiding Method Urinal Urinal - Labs CBC & Chem 7: 08/03/23 04:17 09/04/23 12:03 Labs: Abnormal Lab Results - Last 24 Hours (Table) 09/04/23 Range/Units 12:03 Sodium 131 L (137-145) mmol/L
--- NOTE | 2023-09-06 12:20 | P.PN ---
Subjective Progress Note Date: 09/06/23 Hospital course Patient is a 73-year-old male with hypertension, COPD with chronic hypoxic respiratory failure on chronic home O2, and prior tobacco abuse who presented to the emergency department with weakness. Patient was found on the ground unable to get up by his landlord, at that time he was disconnected from his home oxygen. In the emergency department he underwent an extensive evaluation. Ches t x-ray showed no acute process but findings consistent with COPD. Laboratory analysis was remarkable for hemoglobin 9.6 (baseline 11), and sodium 121, baseline 128. Patient was admitted for weakness related to significant hyponatremia. Nephrology was consulted. Patient initially was given IV fluids and had a drop in his sodium level. He was then started on fluid restriction. 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 Patient received a dose of Samsca and his sodium improved. Patient currently lives alone and has known cognitive impairment and requires 24/7 care at home versus intermediate facility. He was seen by physical therapy and was able to ambulate 175 feet wit h supervision. He continued to struggle with hyponatremia. He required multiple doses of Samsca. He is continued on fluid restriction. His sodium level stabilized and he was determined medically stable for discharge. Case discussed extensively with case management team. Patient has a legal guardian which is his daughter Nori. She is refusing to pick him up from the hospital or participate in his care. APS report has been filed. They have also been discussing his case with his cement tester assistant. Patient had an emergency hearing and now has a public guardian as co-guardian with the daughter. Still awaiting placement. HPI Patient seen this morning. He is requesting for more coffee. I told him that we do need to restrict his fluid intake. 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 Normocytic anemia, likely chronic disease related Severe protein calorie malnutrition Failure to thrive Mild cognitive impairment -Na 131 on 09/03 -S/p multiple doses of Samsca -Nephrology following -Continue sodium chloride tablets 1 mg oral BID, Lasix 20 mg daily -Patient has been eating well since being hospitalized -Patient okay to remain without IV access Suicidal ideation, resolved -Psych recs: No longer meets inpatient criteria, medication changed, discontinued one-to-one sitter -Fluvoxamine 25 mg nightly and Remeron 7.5 mg nightly as needed for insomnia Chronic: Hypertension, COPD without exacerbation, Depression DVT prophylaxis: Lovenox Anticipated discharge date: Undetermined Anticipated discharge place: Undetermined Objective - Vital Signs Vital signs: Vital Signs Temp 97.8 F 09/06/23 07:37 Pulse 73 09/06/23 07:37 Resp 20 09/06/23 07:37 BP 148/75 09/06/23 07:37 Pulse Ox 93 L 09/06/23 08:33 FiO2 Intake & Output 09/05/23 09/06/23 09/06/23 18:59 06:59 18:59 Intake Total 720 240 280 Output Total 825 1000 100 Balance -105 -760 180 Intake: Oral 720 240 280 Output: Urine 825 1000 100 Other: Voiding Method Urinal Urinal # Voids 1 2 - Labs CBC & Chem 7: 08/03/23 04:17 09/04/23 12:03
--- NOTE | 2023-09-07 12:13 | P.PN ---
Subjective Patient is seen for follow-up for hyponatremia secondary to SIADH Maintained on sodium chloride tab 1 g 3 times a day and fluid restriction. unique denis is also maintained on Lasix 20 mg daily. serum sodium has been stable. It is 131 on 09/04/2023 No significant complaints. Objective - Vital Signs Vital signs: Vital Signs Temp 97.6 F 09/07/23 07:30 Pulse 73 09/07/23 07:30 Resp 20 09/07/23 07:30 BP 159/89 09/07/23 07:30 Pulse Ox 97 09/07/23 08:09 FiO2 Intake & Output 09/06/23 09/07/23 09/07/23 18:59 06:59 18:59 Intake Total 760 Output Total 1150 1000 600 Balance -390 -1000 -600 Intake: Oral 760 Output: Urine 1150 1000 600 Other: Voiding Method Urinal Urinal Urinal - Exam Patient is awake, comfortable, no acute distress Patient is hard of hearing Examination of the heart S1 and S2 Examination of the lungs bilateral breath sounds are heard Examination of lower extremity shows no evidence of edema VIDEO PRODUCTION ENGINEER exam grossly intact - Labs CBC & Chem 7: 08/03/23 04:17 09/07/23 10:17 Labs: Abnormal Lab Results - Last 24 Hours (Table) 09/07/23 Range/Units 10:17 Sodium 132 L (137-145) mmol/L Assessment and Plan Assessment: 1. 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 Status post demeclocycline and Samsca. Currently maintained on sodium chloride tabs and small dose of oral Lasix. 2. History of fall 3. History of hypertension maintained on Norvasc. stable Plan: Continue with sodium chloride tab and small dose of oral Lasix Continue with fluid restriction. Continue to encourage increased oral intake
--- NOTE | 2023-09-07 13:44 | P.PN ---
Subjective Progress Note Date: 09/07/23 Hospital course Patient is a 73-year-old male with hypertension, COPD with chronic hypoxic respiratory failure on chronic home O2, and prior tobacco abuse who presented to the emergency department with weakness. Patient was found on the ground unable to get up by his landlord, at that time he was disconnected from his home oxygen. In the emergency department he underwent an extensive evaluation. Ches t x-ray showed no acute process but findings consistent with COPD. Laboratory analysis was remarkable for hemoglobin 9.6 (baseline 11), and sodium 121, baseline 128. Patient was admitted for weakness related to significant hyponatremia. Nephrology was consulted. Patient initially was given IV fluids and had a drop in his sodium level. He was then started on fluid restriction. 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 Patient received a dose of Samsca and his sodium improved. Patient currently lives alone and has known cognitive impairment and requires 24/7 care at home versus longterm facility. He was seen by physical therapy and was able to ambulate 175 feet wit h supervision. He continued to struggle with hyponatremia. He required multiple doses of Samsca. He is continued on fluid restriction. His sodium level stabilized and he was determined medically stable for discharge. Case discussed extensively with case management team. Patient has a legal guardian which is his daughter Nori. She is refusing to pick him up from the hospital or participate in his care. APS report has been filed. They have also been discussing his case with his building serviceman. Patient had an emergency hearing and now has a public guardian as co-guardian with the daughter. Still awaiting placement. HPI Patient seen this morning. He denies any acute complaints. He states that he is waiting for lunch. 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 Normocytic anemia, likely chronic disease related Severe protein calorie malnutrition Failure to thrive Mild cognitive impairment -Na 131 on 09/03 -S/p multiple doses of Samsca -Nephrology following -Continue sodium chloride tablets 1 mg oral BID, Lasix 20 mg daily -Patient has been eating well since being hospitalized -Patient okay to remain without IV access Suicidal ideation, resolved -Psych recs: No longer meets inpatient criteria, medication changed, disc ontinued one-to-one sitter -Fluvoxamine 25 mg nightly and Remeron 7.5 mg nightly as needed for insomnia Chronic: Hypertension, COPD without exacerbation, Depression DVT prophylaxis: Lovenox Anticipated discharge date: Undetermined Anticipated discharge place: Undetermined Objective - Vital Signs Vital signs: Vital Signs Temp 97.6 F 09/07/23 07:30 Pulse 73 09/07/23 07:30 Resp 20 09/07/23 07:30 BP 159/89 09/07/23 07:30 Pulse Ox 97 09/07/23 08:09 FiO2 Intake & Output 09/06/23 09/07/23 09/07/23 18:59 06:59 18:59 Intake Total 760 Output Total 1150 1000 1600 Balance -390 -1000 -1600 Intake: Oral 760 Output: Urine 1150 1000 1600 Other: Voiding Method Urinal Urinal Urinal # Bowel Movements 1 - Labs CBC & Chem 7: 08/03/23 04:17 09/07/23 10:17 Labs: Abnormal Lab Results - Last 24 Hours (Table) 09/07/23 Range/Units 10:17 Sodium 132 L (137-145) mmol/L
--- NOTE | 2023-09-08 11:23 | P.PN ---
Subjective Patient is seen in follow-up for hyponatremia. Sodium level stable at 132 yesterday. Oral intake fair. Denies chest pain or shortness of breath. No changes overnight. Hemodynamically stable. Vital signs are stable. General: No acute distress. HEENT: Head exam is unremarkable. On nasal cannula. LUNGS: No audible rhonchi or wheezes. HEART: Rate and Rhythm are regular. ABDOMEN: Nontender. EXTREMITITES: No edema. Objective - Vital Signs Vital signs: Vital Signs Temp 97.5 F L 09/08/23 07:27 Pulse 75 09/08/23 07:27 Resp 16 09/08/23 07:27 BP 156/84 09/08/23 07:27 Pulse Ox 96 09/08/23 08:35 FiO2 Intake & Output 09/07/23 09/08/23 09/08/23 18:59 06:59 18:59 Output Total 2200 800 Balance -2200 -800 Output: Urine 2200 800 Other: Voiding Method Urinal Urinal # Bowel Movements 1 - Labs CBC & Chem 7: 08/03/23 04:17 09/07/23 10:17 Assessment and Plan Plan: Assessment: 1. Hyponatremia, euvolemic. 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 Urine sodium 118 and urine osmolality 419. Cortisol 14.7. TSH normal. PTH related peptide negative. On salt tabs and Lasix. Also received Samsca this admission. Sodium level 132. 2. Benign hypertension. Stable. 3. History of falls. 4. Failure to thrive. Plan: Maintain sodium chloride tabs. Maintain fluid restriction. Encouraged oral intake, particularly protein Maintain Lasix 20 mg once daily. Maintain amlodipine. Hold for systolic blood pressure less than 120. Repeat BMP and magnesium level 2 to 3 days postdischarge. Follow-up outpatient in 1 week. Awaits placement.
--- NOTE | 2023-09-08 14:07 | P.PN ---
Subjective Progress Note Date: 09/08/23 Hospital course Patient is a 73-year-old male with hypertension, COPD with chronic hypoxic respiratory failure on chronic home O2, and prior tobacco abuse who presented to the emergency department with weakness. Patient was found on the ground unable to get up by his landlord, at that time he was disconnected from his home oxygen. In the emergency department he underwent an extensive evaluation. Ches t x-ray showed no acute process but findings consistent with COPD. Laboratory analysis was remarkable for hemoglobin 9.6 (baseline 11), and sodium 121, baseline 128. Patient was admitted for weakness related to significant hyponatremia. Nephrology was consulted. Patient initially was given IV fluids and had a drop in his sodium level. He was then started on fluid restriction. 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 Patient received a dose of Samsca and his sodium improved. Patient currently lives alone and has known cognitive impairment and requires 24/7 care at home versus [facility] facility. He was seen by physical therapy and was able to ambulate 175 feet wit h supervision. He continued to struggle with hyponatremia. He required multiple doses of Samsca. He is continued on fluid restriction. His sodium level stabilized and he was determined medically stable for discharge. Case discussed extensively with case management team. Patient has a legal guardian which is his daughter Nori. She is refusing to pick him up from the hospital or participate in his care. APS report has been filed. They have also been discussing his case with his rehabilitation counsellor. Patient had an emergency hearing and now has a public guardian as co-guardian with the daughter. Still awaiting placement. HPI Patient seen this morning. He denies any acute complaints. Patient states that he is trying to take a nap. 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 Normocytic anemia, likely chronic disease related Severe protein calorie malnutrition Failure to thrive Mild cognitive impairment -Sodium is stable -S/p multiple doses of Samsca -Nephrology following -Continue sodium chloride tablets 1 mg oral BID, Lasix 20 mg daily -Patient has been eating well since being hospitalized -Patient okay to remain without IV access Suicidal ideation, resolved -Psych recs: No longer meets inpatient criteria, medication changed, discontinued one-to-one sitter -Fluvoxamine 25 mg nightly and Remeron 7.5 mg nightly as needed for insomnia Chronic: Hypertension, COPD without exacerbation, Depression DVT prophylaxis: Lovenox Anticipated discharge date: Undetermined Anticipated discharge place: Undetermined Objective - Vital Signs Vital signs: Vital Signs Temp 97.5 F L 09/08/23 12:08 Pulse 75 09/08/23 12:08 Resp 18 09/08/23 12:08 BP 156/84 09/08/23 12:08 Pulse Ox 94 L 09/08/23 12:08 FiO2 Intake & Output 09/07/23 09/08/23 09/08/23 18:59 06:59 18:59 Intake Total 600 Output Total 2200 800 600 Balance -2200 -800 0 Intake: Oral 600 Output: Urine 2200 800 600 Other: Voiding Method Urinal Urinal # Bowel Movements 1 - Labs CBC & Chem 7: 08/03/23 04:17 09/07/23 10:17
--- NOTE | 2023-09-09 11:17 | P.PN ---
Subjective Patient is seen in follow-up for hyponatremia. Sodium level stable at 132 dated September 07, 2023. Oral intake fair. Denies chest pain or shortness of breath. No changes overnight. Hemodynamically stable. Patient frustrated as he wants to get out of the hospital. Vital signs are stable. General: No acute distress. HEENT: Head exam is unremarkable. On nasal cannula. LUNGS: No audible rhonchi or wheezes. HEART: Rate and Rhythm are regular. ABDOMEN: Nontender. EXTREMITITES: No edema. Objective - Vital Signs Vital signs: Vital Signs Temp 98.2 F 09/09/23 07:23 Pulse 68 09/09/23 07:23 Resp 17 09/09/23 07:23 BP 149/76 09/09/23 07:23 Pulse Ox 93 L 09/09/23 07:23 FiO2 Intake & Output 09/08/23 09/09/23 09/09/23 18:59 06:59 18:59 Intake Total 1320 340 240 Output Total 600 800 175 Balance 720 -460 65 Intake: Oral 1320 340 240 Output: Urine 600 800 175 Other: Voiding Method Urinal Urinal # Voids 1 - Labs CBC & Chem 7: 08/03/23 04:17 09/07/23 10:17 Assessment and Plan Plan: Assessment: 1. Hyponatremia, euvolemic. 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 Urine sodium 118 and urine osmolality 419. Cortisol 14.7. TSH normal. PTH related peptide negative. On salt tabs and Lasix. Also received Samsca this admission. Sodium level 132 dated September 07, 2023. 2. Benign hypertension. Stable. 3. History of falls. 4. Failure to thrive. Plan: Maintain sodium chloride tabs. Maintain fluid restriction. Encouraged oral intake, particularly protein Maintain Lasix 20 mg once daily. Maintain amlodipine. Hold for systolic blood pressure less than 120. Repeat BMP and magnesium level 2 to 3 days postdischarge. Follow-up outpatient in 1 week[address] Awaits placement.
--- NOTE | 2023-09-09 12:52 | P.PN ---
Subjective Progress Note Date: 09/09/23 Patient is a 73-year-old male with hypertension, COPD with chronic hypoxic respiratory failure on chronic home O2, and prior tobacco abuse who presented to the emergency department with weakness. Patient was found on the ground unable to get up by his landlord, at that time he was disconnected from his home oxygen. In the emergency department he underwent an extensive evaluation. Chest x-ray showed no acute process but findings consistent with COPD. Laboratory analysis was remarkable for hemoglobin 9.6 (baseline 11), and sodium 121, baseline 128. Patient was admitted for weakness related to significant hyponatremia. Nephrology was consulted. Patient initially was given IV fluids and had a drop in his sodium level. He was then started on fluid restriction. 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 Patient received a dose of Samsca and his sodium improved. Patient currently lives alone and has known cognitive impairment and requires 24/7 care at home versus group home facility. He was seen by physical therapy and was able to ambulate 175 feet with supervision. He continued to struggle with hyponatremia. He required multiple doses of Samsca. He continued on his fluid restriction. His salt level stabilized and he was determined medically stable for discharge. Case discussed extensively with case management team. Patient has a legal guardian which is his daughter Nori. She is refusing to pick him up from the hospital or participate in his care. APS report has been filed. They have also been discussing his case with his flooring installer. Patient had emergency hearing and now has a public guardian as co-guardian with the daughter. Guardian office has not been able to arrange safe discharge plan at this point. Patient seen and examined at bedside. Doing well, wants chips and more coffee. No other complaints. Vital signs reviewed General: Nontoxic, no distress, appears at stated age, buccal and temporal wasting Cardiovascular: S1S2 reg, no murmur LungsCTA bilateral, no rhonchi, no rales, no accessory muscle use Neuro: CN II-XI grossly intact, no focal neuro deficits Psych: awake, alert, easily upset. 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 -Nephrology following -Continue sodium chloride tablets 1 mg oral BID, Lasix 20 mg daily, 1.2L fluid restriction - off SSRI -Patient has been eating well since being hospitalized -Patient okay to remain without IV access Suicidal ideation, resolved -Psych recs : No longer meets inpatient criteria, medication changed, discontinued one-to-one sitter - fluvoxamine 25 mg nightly and Remeron 7.5 mg nightly as needed for insomnia - Also on mirtazapine as needed for insomnia Chronic: Hypertension COPD without exacerbation Depression - D/W social work at [facility] discharge options. Imaging: None new Data Review: Labs reviewed from 09/06 sodium of 132 DVT prophylaxis: SCDs Anticipated discharge date: undetermined Anticipated discharge place: undetermined This dictation was prepared using [employer] voice recognition software. Though every attempt is made to correct errors during dictation some may still exist. Objective - Vital Signs Vital signs: Vital Signs Temp 98.2 F 09/09/23 07:23 Pulse 68 09/09/23 07:23 Resp 17 09/09/23 07:23 BP 149/76 09/09/23 07:23 Pulse Ox 93 L 09/09/23 07:23 FiO2 Intake & Output 09/08/23 09/09/23 09/09/23 18:59 06:59 18:59 Intake Total 1320 340 360 Output Total 600 800 175 Balance 720 -460 185 Intake: Oral 1320 340 360 Output: Urine 600 800 175 Other: Voiding Method Urinal Urinal # Voids 1 - Labs CBC & Chem 7: 08/03/23 04:17 09/07/23 10:17
--- NOTE | 2023-09-10 12:03 | P.PN ---
Subjective Patient is seen in follow-up for hyponatremia. Sodium level stable at 132 dated September 07, 2023. Oral intake fair. Denies chest pain or shortness of breath. No changes overnight. Hemodynamically stable. Vital signs are stable. General: No acute distress. HEENT: Head exam is unremarkable. On nasal cannula. LUNGS: No audible rhonchi or wheezes. HEART: Rate and Rhythm are regular. ABDOMEN: Nontender. EXTREMITITES: No edema. Objective - Vital Signs Vital signs: Vital Signs Temp 98.4 F 09/10/23 07:57 Pulse 74 09/10/23 07:57 Resp 19 09/10/23 07:57 BP 161/86 09/10/23 07:57 Pulse Ox 100 09/10/23 07:57 FiO2 Intake & Output 09/09/23 09/10/23 09/10/23 18:59 06:59 18:59 Intake Total 960 Output Total 175 800 Balance 785 -800 Intake: Oral 960 Output: Urine 175 800 Other: Voiding Method Urinal Urinal # Voids 1 - Labs CBC & Chem 7: 08/03/23 04:17 09/07/23 10:17 Assessment and Plan Plan: Assessment: 1. Hyponatremia, euvolemic. 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 Urine sodium 118 and urine osmolality 419. Cortisol 14.7. TSH normal. PTH related peptide negative. On salt tabs and Lasix. Also received Samsca this admission. Sodium level 132 dated September 07, 2023. 2. Benign hypertension. Stable. 3. History of falls. 4. Failure to thrive. Plan: Maintain sodium chloride tabs. Maintain fluid restriction. Encouraged oral intake, particularly protein Maintain Lasix 20 mg once daily. Maintain amlodipine. Hold for systolic blood pressure less than 120. Repeat BMP and magnesium level 2 to 3 days postdischarge. Follow-up outpatient in 1 week. Awaits placement.
--- NOTE | 2023-09-10 15:47 | P.PN ---
Subjective Progress Note Date: 09/10/23 (delayed charting seen at 0930) Patient is a 73-year-old male with hypertension, COPD with chronic hypoxic respiratory failure on chronic home O2, and prior tobacco abuse who presented to the emergency department with weakness. Patient was found on the ground unable to get up by his landlord, at that time he was disconnected from his home oxygen. In the emergency department he underwent an extensive evaluation. Chest x-ray showed no acute process but findings consistent with COPD. Laborat ory analysis was remarkable for hemoglobin 9.6 (baseline 11), and sodium 121, baseline 128. Patient was admitted for weakness related to significant hyponatremia. Nephrology was consulted. Patient initially was given IV fluids and had a drop in his sodium level. He was then started on fluid restriction. 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 Patient received a dose of Samsca and his sodium improved. Patient currently lives alone and has known cognitive impairment and requires 24/7 care at home versus group home facility. He was seen by physical therapy and was able to ambulate 175 feet with supervision. He continued to struggle with hyponatremia. He required mu ltiple doses of Samsca. He continued on his fluid restriction. His salt level stabilized and he was determined medically stable for discharge. Case discussed extensively with case management team. Patient has a legal guardian which is his daughter Nori. She is refusing to pick him up from the hospital or participate in his care. APS report has been filed. 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 Patient had emergency hearing and now has a public guardian as co-guardian with the daughter. Guardian office has not been able to arrange safe discharge plan at this point. Patient seen and examined at bedside. No complaints currently. Vital signs reviewed General: Nontoxic, no distress, appears at stated age, buccal and temporal wasting Cardiovascular: S1S2 reg, no murmur Lungs: CTA bilateral, no rhonchi, no rales, no accessory muscle use Neuro: CN II-XI grossly intact, no focal neuro deficits Psych: awake, alert, easily upset. 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 -Nephrology following -Continue sodium chloride tablets 1 mg oral BID, Lasix 20 mg daily, 1.2L fluid restriction - off SSRI -Patient has been eating well since being hospitalized -Patient okay to remain without IV access -Repeat BMP in AM Suicidal ideation, resolved -Psych recs : No longer meets inpatient criteria, medication changed, discontinued one-to-one sitter - fluvoxamine 25 mg nightly and Remeron 7.5 mg nightly as needed for insomnia - Also on mirtazapine as needed for insomnia Chronic: Hypertension COPD without exacerbation Depression - D/W social work at [facility] discharge options. Imaging: None new Data Review: None new DVT prophylaxis: SCDs Anticipated discharge date: undetermined Anticipated discharge place: undetermined This dictation was prepared using [employer] voice recognition software. Though every attempt is made to correct errors during dictation some may still exist. Objective - Vital Signs Vital signs: Vital Signs Temp 97.4 F L 09/10/23 13:27 Pulse 78 09/10/23 13:27 Resp 16 09/10/23 13:27 BP 119/66 09/10/23 13:27 Pulse Ox 97 09/10/23 13:27 FiO2 Intake & Output 09/09/23 09/10/23 09/10/23 18:59 06:59 18:59 Intake Total 960 240 Output Total 200 575 2781 Balance 785 -800 -760 Weight 56.245 kg Intake: Oral 960 240 Output: Urine 190 460 1692 Other: Voiding Method Urinal Urinal # Voids 1 - Labs CBC & Chem 7: 08/03/23 04:17 09/07/23 10:17
--- NOTE | 2023-09-11 11:04 | P.PN ---
Subjective Patient is seen in follow-up for hyponatremia. Sodium level stable at 132 dated September 07, 2023. Oral intake fair. Denies chest pain or shortness of breath. No changes overnight. Hemodynamically stable. Vital signs are stable. General: No acute distress. HEENT: Head exam is unremarkable. On nasal cannula. LUNGS: No audible rhonchi or wheezes. HEART: Rate and Rhythm are regular. ABDOMEN: Nontender. EXTREMITITES: No edema. Objective - Vital Signs Vital signs: Vital Signs Temp 97.9 F 09/11/23 07:58 Pulse 81 09/11/23 07:58 Resp 15 09/11/23 07:58 BP 137/81 09/11/23 07:58 Pulse Ox 97 09/11/23 08:02 FiO2 Intake & Output 09/10/23 09/11/23 09/11/23 18:59 06:59 18:59 Intake Total 600 480 Output Total 1600 600 Balance -1000 -120 Weight 56.245 kg Intake: Oral 600 480 Output: Urine 1600 600 Other: Voiding Method Urinal - Labs CBC & Chem 7: 08/03/23 04:17 09/07/23 10:17 Assessment and Plan Plan: Assessment: 1. Hyponatremia, euvolemic. 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 Urine sodium 118 and urine osmolality 419. Cortisol 14.7. TSH normal. PTH related peptide negative. On salt tabs and Lasix. Also received Samsca this admission. Sodium level 132 dated September 07, 2023. 2. Benign hypertension. Stable. 3. History of falls. 4. Failure to thrive. Plan: Maintain sodium chloride tabs. Maintain fluid restriction. Encouraged oral intake, particularly protein Maintain Lasix 20 mg once daily. Maintain amlodipine. Hold for systolic blood pressure less than 120. Repeat BMP and magnesium level 2 to 3 days postdischarge. Follow-up outpatient in 1 week. Awaits placement.
[2023-09-11 11:08] LABS: Blood Urea Nitrogen 18.6 mg/dL (9.0-27.0); Calcium 9.4 mg/dL (8.7-10.3); Carbon Dioxide 30.9 mmol/L (21.6-31.8); Chloride 94 mmol/L (96-109); Glucose 97 mg/dL (70-110); Potassium 5.1 mmol/L (3.5-5.5); Sodium 133 mmol/L (135-145)
--- NOTE | 2023-09-11 14:17 | P.PN ---
Subjective Progress Note Date: 09/11/23 Hospital course: Patient is a very pleasant 73-year-old male with hypertension, COPD with chronic hypoxic respiratory failure on chronic home O2, and prior tobacco abuse who presented to the emergency department with weakness. Patient was found on the ground unable to get up by his landlord, at that time he was disconnected from his home oxygen. In the emergency department he underwent an extensive evaluation. Chest x-ray showed no acute process but findings consistent with COPD. Laboratory analysis was remarkable for hemoglobin 9.6 (baseline 11), and sodium 121, baseline 128. Patient was admitted for weakness related to significant hyponatremia. Nephrology was consulted. Patient initially was given IV fluids and had a drop in his sodium level. He was then started on fluid restriction. 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 Victor Hugo goyal received a dose of Samsca and his sodium improved. Patient currently lives alone and has known cognitive impairment and requires 24/7 care at home versus senior care facility. He was seen by physical therapy and was able to ambulate 175 feet with supervision. He continued to struggle with hyponatremia. He required multiple doses of Samsca. He continued on his fluid restriction. His salt level stabilized and he was determined medically stable for discharge. Case discussed extensively with case management team. Patient has a legal guardian which is his daughter Nori. She is refusing to pick him up from the hospital or participate in his care. APS report has been filed. 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 Patient had emergency hearing and now has a public guardian as co-guardian with the daughter. Guardian office has not been able to arrange safe discharge plan at this point. Physical exam: Vital signs reviewed and stable. General: Nontoxic, no distress and appears stated age. Derm: Skin warm and dry, normal coloration for ethnicity. Head: Atraumatic, normocephalic and symmetric. Eyes: EOMs intact, no lid lag, and anicteric sclera Mouth: no lip lesions, mucus membranes moist Cardiovascular: regular rate and rhythm with normal S1S2, no murmur, positive posterior tibial pulses bilaterally, and cap refill < 2 seconds. Lungs: Respirations even, regular, and unlabored on room air. Lungs CTA bilaterally, no rhonchi, no rales, no wheezing, and no accessory muscle usage. Abdominal: soft, nontender to palpation, no guarding, no appreciable organomegaly Ext: ROM intact. No gross muscle atrophy, no edema, no contractures Neuro: Speech clear, face symmetrical and CN II-XII grossly intact with no noted focal neuro deficits Psych: Alert and oriented to person, place, time, and situation. Appropriate and pleasant affect. 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 -Nephrology following -Continue sodium chloride tablets 1 mg oral BID, Lasix 20 mg daily, 1.2L fluid restriction - off SSRI -Patient has been eating well since being hospitalized -Patient okay to remain without IV access -Repeat BMP this morning revealing stable hyponatremia with sodium of 133 and chloride of 94. Depression Suicidal ideation, resolved and cleared by psychiatry -Psych recs : No longer meets inpatient criteria, medication changed, discontinued one-to-one sitter -Patient to continue medication regimen with fluvoxamine 25 mg nightly and Remeron 7.5 mg nightly as needed for insomnia Chronic: Hypertension COPD without exacerbation -Patient to continue daily medication regimen with amlodipine 5 mg daily, Symbicort 160-4.5 mcg 2 puffs twice daily, and as needed Ventolin nebulizer for shortness of breath and/or weakness. Imaging reviewed: -No new imaging for review Data Reviewed: -Morning labs completed and reviewed. BMP showing stable hyponatremia with sodium of 133 and hypochloremia with chloride of 94. -Vital signs reviewed. Blood pressure 137/81, heart rate 88, respiratory rate 15, temp 97.9 F, and SpO2 of 99% on 2 L. CODE STATUS: Full code DVT prophylaxis: SCDs Anticipated discharge date: Pending placement, patient is medically cleared for discharge. Social work/case management working on public guardian and placement. Anticipated discharge place: undetermined Patient was seen independently by Nurse Pracitioner. This document was prepared using [employer] dictation software. Please allow for errors in manager finance, while rare they do occur. I reviewed the documentation as provided by the TUNDE above, who is the original author of this note. I agree with the documented assessment and plan, with the following changes: none Objective - Vital Signs Vital signs: Vital Signs Temp 97.9 F 09/11/23 07:58 Pulse 81 09/11/23 07:58 Resp 15 09/11/23 07:58 BP 137/81 09/11/23 07:58 Pulse Ox 97 09/11/23 08:02 FiO2 Intake & Output 09/10/23 09/11/23 09/11/23 18:59 06:59 18:59 Intake Total 600 480 Output Total 1600 600 Balance -1000 -120 Weight 56.245 kg Intake: Oral 600 480 Output: Urine 1600 600 Other: Voiding Method Urinal - Labs CBC & Chem 7: 08/03/23 04:17 09/11/23 06:42
--- NOTE | 2023-09-12 11:23 | P.PN ---
Subjective Patient is seen in follow-up for hyponatremia. Sodium level stable at 133 yesterday. Oral intake fair. Denies chest pain or shortness of breath. No changes overnight. Hemodynamically stable. Vital signs are stable. General: No acute distress. HEENT: Head exam is unremarkable. On nasal cannula. LUNGS: No audible rhonchi or wheezes. HEART: Rate and Rhythm are regular. ABDOMEN: Nontender. EXTREMITITES: No edema. Objective - Vital Signs Vital signs: Vital Signs Temp 98.3 F 09/12/23 07:16 Pulse 70 09/12/23 07:16 Resp 16 09/12/23 09:47 BP 146/78 09/12/23 07:16 Pulse Ox 92 L 09/12/23 07:16 FiO2 Intake & Output 09/11/23 09/12/23 09/12/23 18:59 06:59 18:59 Intake Total 780 580 600 Output Total 900 1300 Balance -120 -720 600 Intake: Oral 780 580 600 Output: Urine 900 1300 Other: Voiding Method Urinal Urinal # Voids 4 - Labs CBC & Chem 7: 08/03/23 04:17 09/11/23 06:42 Assessment and Plan Plan: Assessment: 1. Hyponatremia, euvolemic. 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 Urine sodium 118 and urine osmolality 419. Cortisol 14.7. TSH normal. PTH related peptide negative. On salt tabs and Lasix. Also received Samsca this admission. Sodium level 133 dated September 11, 2023. 2. Benign hypertension. Stable. 3. History of falls. 4. Failure to thrive. Plan: Maintain sodium chloride tabs. Maintain fluid restriction. Encouraged oral intake, particularly protein Maintain Lasix 20 mg once daily. Maintain amlodipine. Hold for systolic blood pressure less than 120. Repeat BMP and magnesium level 2 to 3 days postdischarge. Follow-up outpatient in 1 week. Awaits placement.
--- NOTE | 2023-09-12 16:50 | P.PN ---
Subjective Progress Note Date: 09/12/23 Hospital course: Patient is a very pleasant 73-year-old male with hypertension, COPD with chronic hypoxic respiratory failure on chronic home O2, and prior tobacco abuse who presented to the emergency department with weakness. Patient was found on the ground unable to get up by his landlord, at that time he was disconnected from his home oxygen. In the emergency department he underwent an extensive evaluation. Chest x-ray showed no acute process but findings consistent with COPD. Laboratory analysis was remarkable for hemoglobin 9.6 (baseline 11), and sodium 121, baseline 128. Patient was admitted for weakness related to significant hyponatremia. Nephrology was consulted. Patient initially was given IV fluids and had a drop in his sodium level. He was then started on fluid restriction. 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 Victor Hugo goyal received a dose of Samsca and his sodium improved. Patient currently lives alone and has known cognitive impairment and requires 24/7 care at home versus custodial facility. He was seen by physical therapy and was able to ambulate 175 feet with supervision. He continued to struggle with hyponatremia. He required multiple doses of Samsca. He continued on his fluid restriction. His salt level stabilized and he was determined medically stable for discharge. Case discussed extensively with case management team. Patient has a legal guardian which is his daughter Nori. She is refusing to pick him up from the hospital or participate in his care. APS report has been filed. They have also been discussing his case with his [employer] assistant manager. Patient had emergency hearing and now has a public guardian as co-guardian with the daughter. Guardian office has not been able to arrange safe discharge plan at this point. Physical exam: Vital signs reviewed and stable. General: Nontoxic, no distress and appears stated age. Derm: Skin warm and dry, normal coloration for ethnicity. Head: Atraumatic, normocephalic and symmetric. Eyes: EOMs intact, no lid lag, and anicteric sclera Mouth: no lip lesions, mucus membranes moist Cardiovascular: regular rate and rhythm with normal S1S2, no murmur, positive posterior tibial pulses bilaterally, and cap refill < 2 seconds. Lungs: Respirations even, regular, and unlabored on room air. Lungs CTA bilaterally, no rhonchi, no rales, no wheezing, and no accessory muscle usage. Abdominal: soft, nontender to palpation, no guarding, no appreciable organomegaly Ext: ROM intact. No gross muscle atrophy, no edema, no contractures Neuro: Speech clear, face symmetrical and CN II-XII grossly intact with no noted focal neuro deficits Psych: Alert and oriented to person, place, time, and situation. Appropriate and pleasant affect. 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 -Nephrology following, reviewed documentation in chart. -Continue sodium chloride tablets 1 mg oral BID, Lasix 20 mg daily, 1.2L fluid restriction - off SSRI -Patient has been eating well since being hospitalized -Patient okay to remain without IV access -Repeat BMP this morning revealing stable hyponatremia with sodium of 133 and chloride of 94. Depression Suicidal ideation, resolved and cleared by psychiatry -Psych recs : No longer meets inpatient criteria, medication changed, discontinued one-to-one sitter -Patient to continue medication regimen with fluvoxamine 25 mg nightly and Remeron 7.5 mg nightly as needed for insomnia Chronic: Hypertension COPD without exacerbation -Patient to continue daily medication regimen with amlodipine 5 mg daily, Symbicort 160-4.5 mcg 2 puffs twice daily, and as needed Ventolin nebulizer for shortness of breath and/or weakness. Imaging reviewed: -No new imaging for review Data Reviewed: -Vital signs reviewed. Blood pressure 146/78, heart rate 70, respiratory rate 18, temp 98.3 F, and SpO2 of 92% on 2 L. Discussed case with administrator social welfare, per social work [facility] was asked to further reevaluate patient for placement in [facility] and patient's public guardian is not available until 09/16/2023 to reevaluate patient for returning home with home health care. CODE STATUS: Full code DVT prophylaxis: SCDs Anticipated discharge date: Pending placement, patient is medically cleared for discharge. Social work/case management working on public guardian and placement. Anticipated discharge place: undetermined Patient was seen independently by Nurse Pracitioner. This document was prepared using [employer] dictation software. Please allow for errors in grocery bagger, while rare they do occur. .I reviewed the documentation as provided by the TUNDE above, who is the original author of this note. I agree with the documented assessment and plan, with the following changes: none Objective - Vital Signs Vital signs: Vital Signs Temp 98.3 F 09/12/23 07:16 Pulse 70 09/12/23 07:16 Resp 18 09/12/23 07:16 BP 146/78 09/12/23 07:16 Pulse Ox 92 L 09/12/23 07:16 FiO2 Intake & Output 09/11/23 09/12/23 09/12/23 18:59 06:59 18:59 Intake Total 780 580 240 Output Total 900 1300 Balance -120 -720 240 Intake: Oral 780 580 240 Output: Urine 900 1300 Other: Voiding Method Urinal Urinal # Voids 4 - Labs CBC & Chem 7: 08/03/23 04:17 09/11/23 06:42 Labs: Abnormal Lab Results - Last 24 Hours (Table) 09/11/23 Range/Units 06:42 Sodium 133 L (135-145) mmol/L Chloride 94 L (96-109) mmol/L BUN/Creatinine Ratio 31.00 H (12.00-20.00) Ratio
--- NOTE | 2023-09-13 11:51 | P.PN ---
Subjective Progress Note Date: 09/13/23 Patient is seen for follow-up for hyponatremia secondary to SIADH. Maintained on sodium chloride tab 1 g 3 times a day and fluid restriction. patient is also maintained on Lasix 20 mg daily. No new complaints. 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 Hyponatremia, euvolemic. 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 Urine sodium 118 and urine osmolality 419. Cortisol 14.7. TSH normal. PTH related peptide negative. On salt tabs and Lasix. Also received Samsca this admission. Sodium level 133 dated September 11, 2023. 2. Benign hypertension. Stable. 3. History of falls. 4. Failure to thrive. Plan: Maintain sodium chloride tabs. Maintain fluid restriction. Encouraged oral intake, particularly protein Maintain Lasix 20 mg once daily. Maintain amlodipine. Hold for systolic blood pressure less than 120. Repeat BMP and magnesium level 2 to 3 days postdischarge. Follow-up outpatient in 1 week. Awaits placement.
--- NOTE | 2023-09-13 17:44 | P.PN ---
Subjective Progress Note Date: 09/13/23 Hospital course: Patient is a very pleasant 73-year-old male with hypertension, COPD with chronic hypoxic respiratory failure on chronic home O2, and prior tobacco abuse who presented to the emergency department with weakness. Patient was found on the ground unable to get up by his landlord, at that time he was disconnected from his home oxygen. In the emergency department he underwent an extensive evaluation. Chest x-ray showed no acute process but findings consistent with COPD. Laboratory analysis was remarkable for hemoglobin 9.6 (baseline 11), and sodium 121, baseline 128. Patient was admitted for weakness related to significant hyponatremia. Nephrology was consulted. Patient initially was given IV fluids and had a drop in his sodium level. He was then started on fluid restriction. 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 Victor Hugo goyal received a dose of Samsca and his sodium improved. Patient currently lives alone and has known cognitive impairment and requires 24/7 care at home versus long-term facility. He was seen by physical therapy and was able to ambulate 175 feet with supervision. He continued to struggle with hyponatremia. He required multiple doses of Samsca. He continued on his fluid restriction. His salt level stabilized and he was determined medically stable for discharge. Case discussed extensively with case management team. Patient has a legal guardian which is his daughter Nori. She is refusing to pick him up from the hospital or participate in his care. APS report has been filed. They have also been discussing his case with his car salesman. Patient had emergency hearing and now has a public guardian as co-guardian with the daughter. Guardian office has not been able to arrange safe discharge plan at this point. Physical exam: Patient seen and fully evaluated at bedside this morning. He was resting comfortably, denied having any complaints or needs at this time. Vital signs reviewed and stable. General: Nontoxic, no distress and appears stated age. Derm: Skin warm and dry, normal coloration for ethnicity. Head: Atraumatic, normocephalic and symmetric. Eyes: EOMs intact, no lid lag, and anicteric sclera Mouth: no lip lesions, mucus membranes moist Cardiovascular: regular rate and rhythm with normal S1S2, no murmur, positive posterior tibial pulses bilaterally, and cap refill < 2 seconds. Lungs: Respirations even, regular, and unlabored on room air. Lungs CTA bilaterally, no rhonchi, no rales, no wheezing, and no accessory muscle usage. Abdominal: soft, nontender to palpation, no guarding, no appreciable organomegal y Ext: ROM intact. No gross muscle atrophy, no edema, no contractures Neuro: Speech clear, face symmetrical and CN II-XII grossly intact with no noted focal neuro deficits Psych: Alert and oriented to person, place, time, and situation. Appropriate and pleasant affect. 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 -Nephrology following, reviewed documentation in chart. -Continue sodium chloride tablets 1 mg oral BID, Lasix 20 mg daily, 1.2L fluid restriction - off SSRI -Patient has been eating well since being hospitalized -Patient okay to remain without IV access -Repeat BMP this morning revealing stable hyponatremia with sodium of 133 and chloride of 94. Depression Suicidal ideation, resolved and cleared by psychiatry -Psych recs : No longer meets inpatient criteria, medication changed, discontinued one-to-one sitter -Patient to continue medication regimen with fluvoxamine 25 mg nightly and Remeron 7.5 mg nightly as needed for insomnia Chronic: Hypertension COPD without exacerbation -Patient to continue daily medication regimen with amlodipine 5 mg daily, Symbicort 160-4.5 mcg 2 puffs twice daily, and as needed Ventolin nebulizer for shortness of breath and/or weakness. Imaging reviewed: -No new imaging for review Data Reviewed: -Vital signs reviewed. Blood pressure 128/73, heart rate 74, respiratory rate 17, temp 98.3 F, and SpO2 of 97% on room air. Discussed case with social human services assistants, per social work [facility] was asked to further reevaluate patient for placement in [facility] and patient's public guardian is not available until 09/16/2023 to reevaluate patient for returning home with home health care. CODE STATUS: Full code DVT prophylaxis: SCDs Anticipated discharge date: Pending placement, patient is medically cleared for discharge. Social work/case management working on public guardian and placement. Anticipated discharge place: undetermined Patient was seen independently by Nurse Pracitioner. This document was prepared using [employer] dictation software. Please allow for errors in clerk rating, while rare they do occur. Germán Hobbs COMMUNICATIONS ASSOCIATE rendered care for this patient independently, reviewed the findings and plan as documented in the note above. I did not physically speak with or examine the patient on this date. Objective - Vital Signs Vital signs: Vital Signs Temp 98 F 09/13/23 07:52 Pulse 74 09/13/23 07:52 Resp 17 09/13/23 07:52 BP 128/73 09/13/23 07:52 Pulse Ox 97 09/13/23 07:52 FiO2 Intake & Output 09/12/23 09/13/23 09/13/23 18:59 06:59 18:59 Intake Total 840 240 Output Total 1200 Balance 840 -960 Intake: Oral 840 240 Output: Urine 1200 Other: Voiding Method Toilet Urinal # Voids 3 3 - Labs CBC & Chem 7: 08/03/23 04:17 09/11/23 06:42
--- NOTE | 2023-09-14 11:07 | P.PN ---
Subjective Progress Note Date: 09/14/23 Patient is seen for follow-up for hyponatremia secondary to SIADH. Maintained on sodium chloride tab 1 g 3 times a day and fluid restriction. patient is also maintained on Lasix 20 mg daily. No new complaints. Patient is awake, comfortable, no acute distress Patient is hard of hearing Examination of lower extremity shows no evidence of edema MAINFRAME PROGRAMMER exam grossly intact Objective - Vital Signs Vital signs: Vital Signs Temp 97.8 F 09/14/23 07:56 Pulse 76 09/14/23 07:56 Resp 16 09/14/23 07:56 BP 130/78 09/14/23 07:56 Pulse Ox 96 09/14/23 07:56 FiO2 Intake & Output 09/13/23 09/14/23 09/14/23 18:59 06:59 18:59 Intake Total 240 240 240 Output Total 1250 300 500 Balance -1010 -60 -260 Intake: Oral 240 240 240 Output: Urine 1250 300 500 Other: Voiding Method Toilet Toilet Urinal Urinal - Labs CBC & Chem 7: 08/03/23 04:17 09/11/23 06:42 Assessment and Plan Plan: Assessment: 1. Hyponatremia, euvolemic. 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 Urine sodium 118 and urine osmolality 419. Cortisol 14.7. TSH normal. PTH related peptide negative. On salt tabs and Lasix. Also received Samsca this admission. Sodium level 133 dated September 11, 2023. 2. Benign hypertension. Stable. 3. History of falls. 4. Failure to thrive. Plan: Maintain sodium chloride tabs. Maintain fluid restriction. Encouraged oral intake, particularly protein Maintain Lasix 20 mg once daily. Maintain amlodipine. Hold for systolic blood pressure less than 120. Repeat BMP and magnesium level 2 to 3 days postdischarge. Follow-up outpatient in 1 week. Awaits placement.
--- NOTE | 2023-09-14 14:29 | P.PN ---
Subjective Progress Note Date: 09/14/23 Hospital course: Patient is a very pleasant 73-year-old male with hypertension, COPD with chronic hypoxic respiratory failure on chronic home O2, and prior tobacco abuse who presented to the emergency department with weakness. Patient was found on the ground unable to get up by his landlord, at that time he was disconnected from his home oxygen. In the emergency department he underwent an extensive evaluation. Chest x-ray showed no acute process but findings consistent with COPD. Laboratory analysis was remarkable for hemoglobin 9.6 (baseline 11), and sodium 121, baseline 128. Patient was admitted for weakness related to significant hyponatremia. Nephrology was consulted. Patient initially was given IV fluids and had a drop in his sodium level. He was then started on fluid restriction. 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 P atient received a dose of Samsca and his sodium improved. Patient currently lives alone and has known cognitive impairment and requires 24/7 care at home versus [facility] facility. He was seen by physical therapy and was able to ambulate 175 feet with supervision. He continued to struggle with hyponatremia. He required multiple doses of Samsca. He continued on his fluid restriction. His salt level stabilized and he was determined medically stable for discharge. Case discussed extensively with case management team. Patient has a legal guardian which is his daughter Nori. She is refusing to pick him up from the hospital or participate in his care. APS report has been filed. Th jazmyn have also been discussing his case with his vacuum technician. Patient had emergency hearing and now has a public guardian as co-guardian with the daughter. Guardian office has not been able to arrange safe discharge plan at this point. Physical exam: Patient seen and fully evaluated at bedside this morning. He just completed eating breakfast and was resting comfortably, denied having any complaints, questions or needs at this time. Vital signs reviewed and stable. General: Nontoxic, no distress and appears stated age. Derm: Skin warm and dry, normal coloration for ethnicity. Head: Atraumatic, normocephalic and symmetric. Eyes: EOMs intact, no lid lag, and anicteric sclera Mouth: no lip lesions, mucus membranes moist Cardiovascular: regular rate and rhythm with normal S1S2, no murmur, positive posterior tibial pulses bilaterally, and cap refill < 2 seconds. Lungs: Respirations even, regular, and unlabored on room air. Lungs CTA bilaterally, no rhonchi, no rales, no wheezing, and no accessory muscle usage. Abdominal: soft, nontender to palpation, no guarding, no appreciable organomegaly Ext: ROM intact. No gross muscle atrophy, no edema, no contractures Neuro: Speech clear, face symmetrical and CN II-XII grossly intact with no noted focal neuro deficits Psych: Alert and oriented to person, place, time, and situation. Appropriate and pleasant affect. 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 -Nephrology following, reviewed documentation in chart. -Continue sodium chloride tablets 1 mg oral BID, Lasix 20 mg daily, 1.2L fluid restriction - off SSRI -Patient has been eating well since being hospitalized -Patient okay to remain without IV access -Repeat BMP this morning revealing stable hyponatremia with sodium of 133 and chloride of 94. Depression Suicidal ideation, resolved and cleared by psychiatry -Psych recs : No longer meets inpatient criteria, medication changed, discontinued one-to-one sitter -Patient to continue medication regimen with fluvoxamine 25 mg nightly and Remeron 7.5 mg nightly as needed for insomnia Chronic: Hypertension COPD without exacerbation -Patient to continue daily medication regimen with amlodipine 5 mg daily, Symbicort 160-4.5 mcg 2 puffs twice daily, and as needed Ventolin nebulizer for shortness of breath and/or weakness. Imaging reviewed: -No new imaging for review Data Reviewed: -Vital signs reviewed. Blood pressure 130/78, heart rate 76, respiratory rate 16, temp 97.8 F, and SpO2 of 96% on room air. Discussed case with aids social worker, per social work [place] was asked to further reevaluate patient for placement in [facility] and patient's public guardian is not available until 09/16/2023 to reevaluate patient for returning home with home health care. CODE STATUS: Full code DVT prophylaxis: SCDs Anticipated discharge date: Pending placement, patient is medically cleared for discharge. Social work/case management working on public guardian and placeme nt. Anticipated discharge place: undetermined Patient was seen independently by Nurse Pracitioner. This document was prepared using [employer] dictation software. Please allow for errors in stage electrician helper, while rare they do occur. Germán Hobbs SUPERVISOR PARTICLEBOARD rendered care for this patient independently, reviewed the findings and plan as documented in the note above. I did not physically speak with or examine the patient on this date. Objective - Vital Signs Vital signs: Vital Signs Temp 97.8 F 09/14/23 07:56 Pulse 76 09/14/23 07:56 Resp 16 09/14/23 07:56 BP 130/78 09/14/23 07:56 Pulse Ox 96 09/14/23 07:56 FiO2 Intake & Output 09/13/23 09/14/23 09/14/23 18:59 06:59 18:59 Intake Total 240 240 Output Total 1250 300 Balance -1010 -60 Intake: Oral 240 240 Output: Urine 1250 300 Other: Voiding Method Toilet Toilet Urinal Urinal - Labs CBC & Chem 7: 08/03/23 04:17 09/11/23 06:42
[2023-09-15 10:33] LABS: HCT 32.5 % (39.6-50.0); HGB 9.3 g/dL (13.0-17.0); MCH 27.4 pg (27.0-32.0); MCHC 28.6 g/dL (32.0-37.0); MCV 95.9 FL (80.0-97.0); Mean Platelet Volume 10.2 FL (9.5-12.2); NRBC Per 100 WBC 0 X 10*3/uL (0.00-0.01); Platelet Count 221 X 10*3/uL (140-440); RBC 3.39 X 10*6/uL (4.40-5.60); RDW 13.5 % (11.5-14.5); WBC 5.07 X 10*3/uL (4.50-10.00)
[2023-09-15 10:43] LABS: Calcium 9.4 mg/dL (8.7-10.3); Carbon Dioxide 31.8 mmol/L (21.6-31.8); Chloride 95 mmol/L (96-109); Glucose 96 mg/dL (70-110); Magnesium 1.9 mg/dL (1.5-2.4); Potassium 4.8 mmol/L (3.5-5.5); Sodium 134 mmol/L (135-145)
--- NOTE | 2023-09-15 13:55 | P.PN ---
Subjective Patient is seen for follow-up for hyponatremia secondary to SIADH Maintained on sodium chloride tab 1 g 3 times a day and fluid restriction. unique nt is also maintained on Lasix 20 mg daily. serum sodium has been stable. It is 134 No significant complaints. Objective - Vital Signs Vital signs: Vital Signs Temp 97.4 F L 09/15/23 11:53 Pulse 71 09/15/23 11:53 Resp 18 09/15/23 11:53 BP 153/91 09/15/23 11:53 Pulse Ox 97 09/15/23 11:53 FiO2 Intake & Output 09/14/23 09/15/23 09/15/23 18:59 06:59 18:59 Intake Total 960 480 600 Output Total 2700 200 Balance -1740 480 400 Intake: Oral 960 480 600 Output: Urine 2700 200 Other: Voiding Method Urinal Urinal Urinal # Voids 3 - Exam Patient is awake, comfortable, no acute distress Patient is hard of hearing Examination of lower extremity shows no evidence of edema HOSE SUSPENDER CUTTER exam grossly intact - Labs CBC & Chem 7: 09/15/23 06:20 09/15/23 06:20 Labs: Abnormal Lab Results - Last 24 Hours (Table) 09/15/23 09/15/23 Range/Units 06:20 06:20 RBC 3.39 L (4.40-5.60) X 10*6/uL Hgb 9.3 L (13.0-17.0) g/dL Hct 32.5 L (39.6-50.0) % MCHC 28.6 L (32.0-37.0) g/dL Sodium 134 L (135-145) mmol/L Chloride 95 L (96-109) mmol/L BUN/Creatinine Ratio 35.00 H (12.00-20.00) Ratio Assessment and Plan Assessment: 1. 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 Status post demeclocycline and Samsca. Currently maintained on sodium chloride tabs and small dose of oral La six. 2. History of fall 3. History of hypertension maintained on Norvasc. stable Plan: Continue with sodium chloride tab and small dose of oral Lasix Continue with fluid restriction. Continue to encourage increased oral intake
--- NOTE | 2023-09-15 14:17 | P.PN ---
Subjective Progress Note Date: 09/15/23 Hospital course: Patient is a very pleasant 73-year-old male with hypertension, COPD with chronic hypoxic respiratory failure on chronic home O2, and prior tobacco abuse who presented to the emergency department with weakness. Patient was found on the ground unable to get up by his landlord, at that time he was disconnected from his home oxygen. In the emergency department he underwent an extensive evaluation. Chest x-ray showed no acute process but findings consistent with COPD. Laboratory analysis was remarkable for hemoglobin 9.6 (baseline 11), and sodium 121, baseline 128. Patient was admitted for weakness related to significant hyponatremia. Nephrology was consulted. Patient initially was given IV fluids and had a drop in his sodium level. He was then started on fluid restriction. 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 P atient received a dose of Samsca and his sodium improved. Patient currently lives alone and has known cognitive impairment and requires 24/7 care at home versus shelter facility. He was seen by physical therapy and was able to ambulate 175 feet with supervision. He continued to struggle with hyponatremia. He required multiple doses of Samsca. He continued on his fluid restriction. His salt level stabilized and he was determined medically stable for discharge. Case discussed extensively with case management team. Patient has a legal guardian which is his daughter Nori. She is refusing to pick him up from the hospital or participate in his care. APS report has been filed. Th jazmyn have also been discussing his case with his development assistant. Patient had emergency hearing and now has a public guardian as co-guardian with the daughter. Guardian office has not been able to arrange safe discharge plan at this point. Physical exam: Patient seen and fully evaluated at bedside this morning. He was eating breakfast and looking out the window at time of assessment. Patient denies having any needs or complaints at this time. Vital signs reviewed and stable. General: Nontoxic, no distress and appears stated age. Derm: Skin warm and dry, normal coloration for ethnicity. Head: Atraumatic, normocephalic and symmetric. Eyes: EOMs intact, no lid lag, and anicteric sclera Mouth: no lip lesions, mucus membranes moist Cardiovascular: regular rate and rhythm with normal S1S2, no murmur, positive posterior tibial pulses bilaterally, and cap refill < 2 seconds. Lungs: Respirations even, regular, and unlabored on room air. Lungs CTA bilaterally, no rhonchi, no rales, no wheezing, and no accessory muscle usage. Abdominal: soft, nontender to palpation, no guarding, no appreciable organomegaly Ext: ROM intact. No gross muscle atrophy, no edema, no contractures Neuro: Speech clear, face symmetrical and CN II-XII grossly intact with no noted focal neuro deficits Psych: Alert and oriented to person, place, time, and situation. Appropriate and pleasant affect. 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 -Nephrology following, reviewed documentation in chart. -Continue sodium chloride tablets 1 mg oral BID, Lasix 20 mg daily, 1.2L fluid restriction - off SSRI -Patient has been eating well since being hospitalized -Patient okay to remain without IV access -Repeat BMP this morning revealing stable hyponatremia with sodium of 133 and chloride of 94. Depression Suicidal ideation, resolved and cleared by psychiatry -Psych recs : No longer meets inpatient criteria, medication changed, discontinued one-to-one sitter -Patient to continue medication regimen with fluvoxamine 25 mg nightly and Remeron 7.5 mg nightly as needed for insomnia Chronic: Hypertension COPD without exacerbation -Patient to continue daily medication regimen with amlodipine 5 mg daily, Symbicort 160-4.5 mcg 2 puffs twice daily, and as needed Ventolin nebulizer for shortness of breath and/or weakness. Imaging reviewed: -No new imaging for review Data Reviewed: -Vital signs reviewed. Blood pressure 146/72, heart rate 74, respiratory rate 16, temp 97.9 F, and SpO2 of 96% on 2 L. -Morning labs reviewed. CBC showing stable normocytic anemia with hemoglobin of 9.3. BMP showing further improvement of sodium at 134 and hypochloremia with chloride of 95. Magnesium normal findings at 1.9. Discussed case with social worker aide, per social work [facility] was asked to further reevaluate patient for placement in [facility] and patient's public guardian is not available until Friday09/16/2023 to reevaluate patient for returning home with home health care. CODE STATUS: Full code DVT prophylaxis: SCDs Anticipated discharge date: Pending placement, patient is medically cleared for discharge. Social work/case management working on public guardian and placement. Anticipated discharge place: undetermined Patient was seen independently by Nurse Pracitioner. This document was prepared using [employer] dictation software. Please allow for errors in fruit grader operator, while rare they do occur. Germán Hobbs MALTED MILK MIXER rendered care for this patient independently, reviewed the findings and plan as documented in the note above. I did not physically speak with or examine the patient on this date. Objective - Vital Signs Vital signs: Vital Signs Temp 97.9 F 09/15/23 07:33 Pulse 74 09/15/23 07:33 Resp 16 09/15/23 07:33 BP 146/72 09/15/23 07:33 Pulse Ox 96 09/15/23 07:33 FiO2 Intake & Output 09/14/23 09/15/23 09/15/23 18:59 06:59 18:59 Intake Total 960 480 Output Total 2700 Balance -1740 480 Intake: Oral 960 480 Output: Urine 2700 Other: Voiding Method Urinal Urinal # Voids 3 - Labs CBC & Chem 7: 09/15/23 06:20 09/15/23 06:20
--- NOTE | 2023-09-16 10:29 | P.PN ---
Subjective Progress Note Date: 09/16/23 Hospital course: Patient is a very pleasant 73-year-old male with hypertension, COPD with chronic hypoxic respiratory failure on chronic home O2, and prior tobacco abuse who presented to the emergency department with weakness. Patient was found on the ground unable to get up by his landlord, at that time he was disconnected from his home oxygen. In the emergency department he underwent an extensive evaluation. Chest x-ray showed no acute process but findings consistent with COPD. Laboratory analysis was remarkable for hemoglobin 9.6 (baseline 11), and sodium 121, baseline 128. Patient was admitted for weakness related to significant hyponatremia. Nephrology was consulted. Patient initially was given IV fluids and had a drop in his sodium level. He was then started on fluid restriction. 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 P atient received a dose of Samsca and his sodium improved. Patient currently lives alone and has known cognitive impairment and requires 24/7 care at home versus [facility] facility. He was seen by physical therapy and was able to ambulate 175 feet with supervision. He continued to struggle with hyponatremia. He required multiple doses of Samsca. He continued on his fluid restriction. His salt level stabilized and he was determined medically stable for discharge. Case discussed extensively with case management team. Patient has a legal guardian which is his daughter Nori. She is refusing to pick him up from the hospital or participate in his care. APS report has been filed. Th jazmyn have also been discussing his case with his medical officer psychiatry. Patient had emergency hearing and now has a public guardian as co-guardian with the daughter. Guardian office has not been able to arrange safe discharge plan at this point. Physical exam: Patient seen and fully evaluated at bedside this morning. He just finished eating breakfast and is back sitting in chair looking out the window at time of assessment. Patient denies having any needs or complaints at this time. Vital signs reviewed and stable. General: Nontoxic, no distress and appears stated age. Derm: Skin warm and dry, normal coloration for ethnicity. Head: Atraumatic, normocephalic and symmetric. Eyes: EOMs intact, no lid lag, and anicteric sclera Mouth: no lip lesions, mucus membranes moist Cardiovascular: regular rate and rhythm with normal S1S2, no murmur, positive posterior tibial pulses bilaterally, and cap refill < 2 seconds. Lungs: Respirations even, regular, and unlabored on room air. Lungs CTA bilaterally, no rhonchi, no rales, no wheezing, and no accessory muscle usage. Abdominal: soft, nontender to palpation, no guarding, no appreciable organomegaly Ext: ROM intact. No gross muscle atrophy, no edema, no contractures Neuro: Speech clear, face symmetrical and CN II-XII grossly intact with no noted focal neuro deficits Psych: Alert and oriented to person, place, time, and situation. Appropriate and pleasant affect. 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 -Nephrology following, reviewed documentation in chart. -Continue sodium chloride tablets 1 mg oral BID, Lasix 20 mg daily, 1.2L fluid restriction - off SSRI -Patient has been eating well since being hospitalized -Patient okay to remain without IV access -Repeat BMP this morning revealing stable hyponatremia with sodium of 133 and chloride of 94. Depression Suicidal ideation, resolved and cleared by psychiatry -Psych recs : No longer meets inpatient criteria, medication changed, discontinued one-to-one sitter -Patient to continue medication regimen with fluvoxamine 25 mg nightly and Remeron 7.5 mg nightly as needed for insomnia Chronic: Hypertension COPD without exacerbation -Patient to continue daily medication regimen with amlodipine 5 mg daily, Symbicort 160-4.5 mcg 2 puffs twice daily, and as needed Ventolin nebulizer for shortness of breath and/or weakness. Imaging reviewed: -No new imaging for review Data Reviewed: -Vital signs reviewed. Blood pressure 120/74, heart rate 72, respiratory rate 16, temp 97.8 F, and SpO2 of 96% on room air. -Labs completed 09/15/2023 reviewed.. CBC showing stable normocytic anemia with hemoglobin of 9.3. BMP showing further improvement of sodium at 134 and hyp ochloremia with chloride of 95. Magnesium normal findings at 1.9. Discussed case with social science instructor, per social work [facility] was asked to further reevaluate patient for placement in [facility] and patient's public guardian is not available until Friday09/16/2023 to reevaluate patient for returning home with home health care. CODE STATUS: Full code DVT prophylaxis: SCDs Anticipated discharge date: Pending placement, patient is medically cleared for discharge. Social work/case management working on public guardian and placement. Anticipated discharge place: undetermined Patient was seen independently by Nurse Pracitioner. This document was prepared using [employer] dictation software. Please allow for errors in allergist/immunologist, while rare they do occur. Germán Hobbs PRODUCT RESPONSIBILITY LIAISON rendered care for this patient independently, reviewed the findings and plan as documented in the note above. I did not physically speak with or examine the patient on this date. Objective - Vital Signs Vital signs: Vital Signs Temp 97.8 F 09/16/23 07:45 Pulse 72 09/16/23 07:45 Resp 16 09/16/23 07:45 BP 120/74 09/16/23 07:45 Pulse Ox 96 09/16/23 07:45 FiO2 Intake & Output 09/15/23 09/16/23 09/16/23 18:59 06:59 18:59 Intake Total 600 880 Output Total 400 350 Balance 200 530 Intake: Oral 600 880 Output: Urine 400 350 Other: Voiding Method Urinal Urinal # Voids 2 - Labs CBC & Chem 7: 09/15/23 06:20 09/15/23 06:20 Labs: Abnormal Lab Results - Last 24 Hours (Table) 09/15/23 09/15/23 Range/Units 06:20 06:20 RBC 3.39 L (4.40-5.60) X 10*6/uL Hgb 9.3 L (13.0-17.0) g/dL Hct 32.5 L (39.6-50.0) % MCHC 28.6 L (32.0-37.0) g/dL Sodium 134 L (135-145) mmol/L Chloride 95 L (96-109) mmol/L BUN/Creatinine Ratio 35.00 H (12.00-20.00) Ratio
--- NOTE | 2023-09-16 13:03 | P.DS ---
Providers Date of admission: 07/18/23 21:02 Expected date of discharge: 09/16/23 Attending physician: Shashi Dick MD Consults: 07/19/23 14:17 Consult Physician Routine Consulting Provider: Saundra Rao Consult Reason/Comments: hyponatremia Do you want consulting provider notified?: Yes 08/07/23 09:14 Consult Physician Routine Consulting Provider: Félix Iglesias Consult Reason/Comments: texting family sucidial statements Do you want consulting provider notified?: Yes Primary care physician: [facility] Hospital Course: This is a progress note as patient no longer has an apartment. - Case discussed with social work at length. 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 Patient discharged home on heart healthy diet with 1200 cc fluid restriction. Normocytic anemia, likely chronic disease related. Severe protein calorie malnutrition Failure to thrive Mild cognitive impairment. Patient discharged with public guardian. Depression with suicidal ideation, resolved and cleared by psychiatry. Patient to continue medication regimen with fluvoxamine 25 mg nightly and Remeron 7.5 mg nightly as needed for insomnia Hypertension. Patient to continue daily medication regimen with amlodipine 5 mg daily. COPD without exacerbation. Patient to continue home oxygen use and daily medication regimen with Symbicort 160-4.5 mcg 2 puffs twice daily and as needed Ventolin nebulizer for shortness of breath and/or weakness. Hospital course: Patient is a very pleasant 73-year-old male with hypertension, COPD with chronic hypoxic respiratory failure on chronic home O2, and prior tobacco abuse who p resented to the emergency department with weakness. Patient was found on the ground unable to get up by his landlord, at that time he was disconnected from his home oxygen. In the emergency department he underwent an extensive evaluation. Chest x-ray showed no acute process but findings consistent with COPD. Laboratory analysis was remarkable for hemoglobin 9.6 (baseline 11), and sodium 121, baseline 128. Patient was admitted for weakness related to significant hyponatremia. Nephrology was consulted. Patient initially was given IV fluids and had a drop in his sodium level. He was then started on fluid restriction. 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 Patient received a dose of Samsca and his sodium improved. Patient currently lives alone and has known cognitive impairment and requires 24/7 care at home versus retirement facility. He was seen by physical therapy and was able to ambulate 175 feet with supervision. He continued to struggle with hyponatr emia. He required multiple doses of Samsca. He continued on his fluid restriction. His salt level stabilized and he was determined medically stable for discharge. Case discussed extensively with case management team. Patient has a legal guardian which is his daughter Nori. She is refusing to pick him up from the hospital or participate in his care. APS report has been filed. 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 Patient had emergency hearing and now has a public guardian as co-guardian with the daughter. Guardian office has not been able to arrange safe discharge plan at this point. Patient is medically stable, public guardian has cleared patient to return home with home care. Physical exam: Vital signs reviewed and stable. General: Nontoxic, no distress and appears stated age. Derm: Skin warm and dry, normal coloration for ethnicity. Head: Atraumatic, normocephalic and symmetric. Eyes: EOMs intact, no lid lag, and anicteric sclera Mouth: no lip lesions, mucus membranes moist Cardiovascular: regular rate and rhythm with normal S1S2, no murmur, positive posterior tibial pulses bilaterally, and cap refill < 2 seconds. Lungs: Respirations even, regular, and unlabored on room air. Lungs CTA bilaterally, no rhonchi, no rales, no wheezing, and no accessory muscle usage. Abdominal: soft, nontender to palpation, no guarding, no appreciable organomegaly Ext: ROM intact. No gross muscle atrophy, no edema, no contractures Neuro: Speech clear, face symmetrical and CN II-XII grossly intact with no noted focal neuro deficits Psych: Alert and oriented to person, place, time, and situation. Appropriate and pleasant affect. A total of 31 minutes of time were spent preparing this complex discharge summary. Pt has been cleared for discharge send 07/25/2023 at 2:55 PM but due to delays and public guardian patient was discharged on 09/16/2023 at 12:59 PM. Patient was seen independently by Nurse Practitioner. This document was prepared using [employer] dictation software. Please allow for errors in keno dealer while rare they do occur. Germán Hobbs NP rendered care for this patient independently, reviewed the findings and plan as documented in the note above. I did not physically speak with or examine the patient on this date. Patient Condition at Discharge: Stable Plan - Discharge Summary Discharge Rx Participant: No New Discharge Prescriptions: New Demeclocycline HCl 300 mg PO DAILY #30 tab Sodium Chloride Tab 1 gm PO BID #60 tab Continue Budesonide/Formoterol Fumarate [Symbicort 160-4.5 Mcg Inhaler] 2 puff INHALATION RT-BID Ensure 1 can PO DAILY Magnesium Oxide 420 Mg 420 mg PO BID@0400,0900 Albuterol Inhaler [Ventolin Hfa Inhaler] 1 - 2 puff INHALATION RT-QID PRN PRN Reason: Shortness Of Breath Multivitamins, Thera [Multivitamin (formulary)] 1 tab PO DAILY lisinopriL [Zestril] 20 mg PO DAILY amLODIPine [Norvasc] 10 mg PO DAILY hydrALAZINE HCL [Apresoline] 25 mg PO TID Discontinued Sertraline [Zoloft] 50 mg PO DAILY Furosemide [Lasix] 40 mg PO BID@0900,1600 #60 tab diphenhydrAMINE HCL [Benadryl] 25 mg PO DAILY Discharge Medication List Budesonide/Formoterol Fumarate [Symbicort 160-4.5 Mcg Inhaler] 2 puff INHALATION RT-BID 11/09/19 [History] Ensure 1 can PO DAILY 04/16/23 [History] Magnesium Oxide 420 Mg 420 mg PO BID@0400,0900 04/16/23 [History] Multivitamins, Thera [Multivitamin (formulary)] 1 tab PO DAILY 04/16/23 [History] lisinopriL [Zestril] 20 mg PO DAILY 04/16/23 [History] Albuterol Inhaler [Ventolin Hfa Inhaler] 1 - 2 puff INHALATION RT-QID PRN 07/18/23 [History] amLODIPine [Norvasc] 10 mg PO DAILY 07/18/23 [History] hydrALAZINE HCL [Apresoline] 25 mg PO TID 07/18/23 [History] Demeclocycline HCl 300 mg PO DAILY #30 tab 07/25/23 [Rx] Sodium Chloride Tab 1 gm PO BID #60 tab 07/25/23 [Rx] Follow up Appointment(s)/Referral(s): Saundra Rao MD [STAFF PHYSICIAN] - 09/26/23 11:20 am () [facility] [NON-STAFF] - As Needed [facility],Clinic [Primary Care Provider] - 09/29/23 8:30 am () Ambulatory/Diagnostic Orders: Basic Metabolic Panel [LAB.AMB] Time Frame: 1 Week, Location: None Selected Basic Metabolic Panel [LAB.AMB] Time Frame: 2 Days, Location: None Selected Patient Instructions/Handouts: Demeclocycline (By mouth), Sodium Chloride (By mouth), Hyponatremia (DC), Using Oxygen at Home (DC) Activity/Diet/Wound Care/Special Instructions: social security of $1346 and pension $550 monthly Activity: tolerated Diet: Heart healthy, 1,200 ml fluid restriction Special Instructions: Repeat blood work in 1 week to recheck sodium levels Wheelchair van to provide transportation home--billed to Public Guardians Office. Discharge Disposition: HOME WITH HOME HEALTH SERVICES
[2023-09-17 08:09] VITALS: RESP 20
--- NOTE | 2023-09-17 11:31 | P.PN ---
Subjective Patient is seen for follow-up for hyponatremia secondary to SIADH Maintained on sodium chloride tab 1 g 3 times a day and fluid restriction. unique denis is also maintained on Lasix 20 mg daily. serum sodium has been stable. It was 134 on 09/15/2023 No significant complaints. 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 Status post demeclocycline and Samsca. Currently maintained on sodium chloride tabs and small dose of oral Lasix. 2. History of fall 3. History of hypertension maintained on Norvasc. stable Plan: Continue with sodium chloride tab and small dose of oral Lasix Continue with fluid restriction. Continue to encourage increased oral intake
--- NOTE | 2023-09-17 12:10 | P.DS ---
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 Patient discharged home on heart healthy diet with 1200 cc fluid restriction. Normocytic anemia, likely chronic disease related. Severe protein calorie malnutrition Failure to thrive Mild cognitive impairment. Patient discharged with public guardian. Depression with suicidal ideation, resolved and cleared by psychiatry. Patient to continue medication regimen with fluvoxamine 25 mg nightly and Remeron 7.5 mg nightly as needed for insomnia Hypertension. Patient to continue daily medication regimen with amlodipine 5 mg daily. COPD without exacerbation. Patient to continue home oxygen use and daily medication regimen with Symbicort 160-4.5 mcg 2 puffs twice daily and as needed Ventolin nebulizer for shortness of breath and/or weakness. Hospital course: Patient is a very pleasant 73-year-old male with hypertension, COPD with chronic hypoxic respiratory failure on chronic home O2, and prior tobacco abuse who presented to the emergency department with weakness. Patient was found on the ground unable to get up by his landlord, at that time he was disconnected from his home oxygen. In the emergency department he underwent an extensive evaluation. Chest x-ray showed no acute process but findings consistent with COPD. Laboratory analysis was remarkable for hemoglobin 9.6 (baseline 11), and sodium 121, baseline 128. Patient was admitted for weakness related to significant hyponatremia. Nephrology was consulted. Patient initially was given IV fluids and had a drop in his sodium level. He was then started on fluid restriction. 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 Patient received a dose of Samsca and his sodium improved. Patient currently lives alone and has known cognitive impairment and requires 24/7 care at home versus correction facility. He was seen by physical therapy and was able to ambulate 175 feet with supervision. He continued to struggle with hyponatremia. He required multiple doses of Samsca. He continued on his fluid restriction. His salt level stabilized and he was determined medically stable for discharge. Case discussed extensively with case management team. Patient has a legal guardian which is his daughter Nori. She is refusing to pick him up from the hospital or participate in his care. APS report has been filed. They have also been discussing his case with his optical dispenser. Patient had emergency hearing and now has a public guardian as co-guardian with the daughter. Guardian office has not been able to arrange safe discharge plan at this point. Patient is medically stable, public guardian has arranged placement in [facility]. Physical exam: Vital signs reviewed and stable. General: Nontoxic, no distress and appears stated age. Derm: Skin warm and dry, normal coloration for ethnicity. Head: Atraumatic, normocephalic and symmetric. Eyes: EOMs intact, no lid lag, and anicteric sclera Mouth: no lip lesions, mucus membranes moist Cardiovascular: regular rate and rhythm with normal S1S2, no murmur, positive posterior tibial pulses bilaterally, and cap refill < 2 seconds. Lungs: Respirations even, regular, and unlabored on room air. Lungs CTA bilaterally, no rhonchi, no rales, no wheezing, and no accessory muscle usage. Abdominal: soft, nontender to palpation, no guarding, no appreciable organomegaly Ext: ROM intact. No gross muscle atrophy, no edema, no contractures Neuro: Speech clear, face symmetrical and CN II-XII grossly intact with no noted focal neuro deficits Psych: Alert and oriented to person, place, time, and situation. Appropriate and pleasant affect. A total of 31 minutes of time were spent preparing this complex discharge summary. Pt has been cleared for discharge since 07/25/2023 at 2:55 PM but due to delays and public guardian patient was discharged on 09/17/2023 at 11:50 AM Patient was seen independently by Nurse Practitioner. This document was prepared using [employer] dictation software. Please allow for errors in tie fastener while rare they do occur. Germán Hobbs NP rendered care for this patient independently, reviewed the findings and plan as documented in the note above. I did not physically speak with or examine the patient on this date. Home med list corrected and all medications send to [facility] on 5/1/24 at 1915. Patient Condition at Discharge: Stable Plan - Discharge Summary Discharge Rx Participant: No New Discharge Prescriptions: New fluvoxaMINE MALEATE [Luvox] 25 mg PO HS #30 tab Sodium Chloride Tab 1 gm PO BID #60 tablet Budesonide-Formot 160-4.5 Mcg [Symbicort 160-4.5 Mcg Inhaler] 2 puff INHALATION BID #1 inh amLODIPine [Norvasc] 5 mg PO DAILY #30 tab Artificial Tears-Hypromellose [Artificial Tear Drops] 1 drops BOTH EYES QID PRN #10 ml PRN Reason: Dry Eye(S) Furosemide [Lasix] 20 mg PO DAILY #30 tab Multivitamin [Multivitamins Adult Gummies] 1 each PO DAILY #30 tablet Discontinued Budesonide/Formoterol Fumarate [Symbicort 160-4.5 Mcg Inhaler] 2 puff INHALATION RT-BID Sertraline [Zoloft] 50 mg PO DAILY Ensure 1 can PO DAILY Magnesium Oxide 420 Mg 420 mg PO BID@0400,0900 Furosemide [Lasix] 40 mg PO BID@0900,1600 #60 tab Albuterol Inhaler [Ventolin Hfa Inhaler] 1 - 2 puff INHALATION RT-QID PRN PRN Reason: Shortness Of Breath Multivitamins, Thera [Multivitamin (formulary)] 1 tab PO DAILY lisinopriL [Zestril] 20 mg PO DAILY amLODIPine [Norvasc] 10 mg PO DAILY hydrALAZINE HCL [Apresoline] 25 mg PO TID diphenhydrAMINE HCL [Benadryl] 25 mg PO DAILY Discharge Medication List Artificial Tears-Hypromellose [Artificial Tear Drops] 1 drops BOTH EYES QID PRN #10 ml 09/17/23 [Rx] Budesonide-Formot 160-4.5 Mcg [Symbicort 160-4.5 Mcg Inhaler] 2 puff INHALATION BID #1 inh 09/17/23 [Rx] Furosemide [Lasix] 20 mg PO DAILY #30 tab 09/17/23 [Rx] Multivitamin [Multivitamins Adult Gummies] 1 each PO DAILY #30 tablet 09/17/23 [Rx] Sodium Chloride Tab 1 gm PO BID #60 tablet 09/17/23 [Rx] amLODIPine [Norvasc] 5 mg PO DAILY #30 tab 09/17/23 [Rx] fluvoxaMINE MALEATE [Luvox] 25 mg PO HS #30 tab 09/17/23 [Rx] Follow up Appointment(s)/Referral(s): Saundra Rao MD [STAFF PHYSICIAN] - 09/26/23 11:20 am () [facility]idential [facility] [NON-STAFF] - As Needed [facility],Clinic [Primary Care Provider] - 09/29/23 8:30 am () Ambulatory/Diagnostic Orders: Basic Metabolic Panel [LAB.AMB] Time Frame: 1 Week, Location: None Selected Basic Metabolic Panel [LAB.AMB] Time Frame: 2 Days, Location: None Selected Patient Instructions/Handouts: Demeclocycline (By mouth), Sodium Chloride (By mouth), Hyponatremia (DC), Using Oxygen at Home (DC) Activity/Diet/Wound Care/Special Instructions: Discharge to [facility] [address] [place] [address] social security of $1346 and pension $550 monthly Activity: tolerated Diet: Heart healthy, 1,200 ml fluid restriction Special Instructions: Repeat blood work in 1 week to recheck sodium levels Wheelchair van to provide transportation home--billed to Public Guardians Office. Discharge Disposition: HOME WITH HOME HEALTH SERVICES
[2023-09-17 16:05] VITALS: BP 171/97; PULSE 86; TEMP 97.8
--- NOTE | 2023-09-18 15:52 | CDI ---
Documentation Clarification Form Date: 09/18/2023 03:16:16 PM From: Elena Griffiths Phone: Admit Date: 07/18/2023 09:02:00 PM Patient Name: Josh Brooke Visit Number: [id number] Discharge Date: 09/17/2023 04:35:00 PM ATTENTION: The Clinical Documentation Specialists (CDI) and [facility] Coding Staff appreciate your assistance in clarifying documentation. Please respond to the clarification below the line at the bottom and electronically sign. The CDI & [facility] Coding staff will review the response and follow-up if needed. Please note: Queries are made part of the Legal Health Record. If you have any questions, please contact the author of this message via ITS. Dr. Shashi Dick There is documentation of cachectic per ED Note, and patient is noted to have severe malnutrition per H&P. Please clarify if there is a relationship between the diagnoses. History/Risk Factors: 73yo M, hypovolemic,hyponatremia, anemia, severe PCM, FTT, HTN,COPD, CHRF on O2, dpressionwithSI, Daughter (guardian) issue- APSreport filed, Mild cognitive impairment Clinical Indicators: Buccal and temporal wasting per 3/6 Progress Note BMI: 15.1 Treatment: Patient has been eating well since being hospitalized Please clarify the relationship, if any, which is clinically appropriate for this patient: [ ] Wasting disease (syndrome) is due to severe protein calorie malnutrition. [ ] Wasting disease (syndrome) is not due to severe protein calorie malnutrition. [ ] Wasting disease (syndrome) due to [ ] Other explanation of clinical findings (please specify) [ ] Unable to determine (no explanation for clinical findings) (Template Last Revised: July 2020) MTDD
== END 2023-09-17 16:35 | disposition home health service (06) | DRG 643 ==
LOC: EC 17:40 → 5NMEDONC 21:02 → EEVIPCON 21:02 → 5NMEDONC 07-19 02:41
PROVIDERS: ADMIT Internal Medicine; ATTEND Internal Medicine
DX: E22.2 Syndrome of inappropriate secretion of antidiuretic hormone (principal); E43 Unspecified severe protein-calorie malnutrition; Z68.1 Body mass index [BMI] 19.9 or less, adult; R64 Cachexia; J96.11 Chronic respiratory failure with hypoxia; R45.851 Suicidal ideations; T76.91XA Unspecified adult maltreatment, suspected, initial encounter; D63.8 Anemia in other chronic diseases classified elsewhere; E83.51 Hypocalcemia; R62.7 Adult failure to thrive; E87.8 Other disorders of electrolyte and fluid balance, not elsewhere classified; Z99.81 Dependence on supplemental oxygen; J44.89 Other specified chronic obstructive pulmonary disease; F32.A Depression, unspecified; I10 Essential (primary) hypertension; G31.84 Mild cognitive impairment of uncertain or unknown etiology; E86.1 Hypovolemia; F41.9 Anxiety disorder, unspecified; G89.29 Other chronic pain; G47.09 Other insomnia; M62.59 Muscle wasting and atrophy, not elsewhere classified, multiple sites; H91.90 Unspecified hearing loss, unspecified ear; Z60.2 Problems related to living alone; Y07.44 Child, perpetrator of maltreatment and neglect; Z79.51 Long term (current) use of inhaled steroids; Z79.82 Long term (current) use of aspirin; Z79.84 Long term (current) use of oral hypoglycemic drugs; Z87.891 Personal history of nicotine dependence; Z79.899 Other long term (current) drug therapy; Z88.5 Allergy status to narcotic agent; Z91.81 History of falling
CPT/HCPCS: 36415; 70450; 71045; 71046; 72125; 80048; 80051; 80053; 82533; 82550; 82728; 82747; 82803; 83519; 83540; 83550; 83605; 83735; 83930; 83935; 84295; 84300; 84443; 84484; 85025; 85027; 85045; 85610; 85730; 87636; 93005; 93306; 94640; 94760; 96360; 96361; 96372; 99285

== ENCOUNTER 2024-02-05 19:03 | Emergency (ER) | payer OTHER ==
[2024-02-05 19:27] VITALS: TEMP 97.5
--- NOTE | 2024-02-05 19:36 | ED ---
SOB HPI - General Chief Complaint: Shortness of Breath Stated Complaint: YING Time Seen by Provider: 02/05/24 19:19 Source: EMS, RN notes reviewed, old records reviewed Mode of arrival: EMS - History of Present Illness Initial Comments: This is a 74-year-old male to the ER patient presents today for evaluation of significant COPD cough congestion runny nose at times no chest pain no fevers MD Complaint: shortness of breath, cough, "asthma attack" -: days(s) Radiation: back Severity: mild, moderate Severity scale (1-10): 5 Improves With: nothing Worsens With: nothing Known History Of: COPD, asthma Associated Symptoms: cough, sputum production Treatments Prior to Arrival: none - Related Data Previous Rx's Medication Instructions Recorded Artificial Tears-Hypromellose 1 drops BOTH EYES QID PRN #10 ml 09/17/23 [Artificial Tear Drops] Budesonide-Formot 160-4.5 Mcg 2 puff INHALATION BID #1 inh 09/17/23 [Symbicort 160-4.5 Mcg Inhaler] Furosemide [Lasix] 20 mg PO DAILY #30 tab 09/17/23 Multivitamin [Multivitamins Adult 1 each PO DAILY #30 tablet 09/17/23 Gummies] Sodium Chloride Tab 1 gm PO BID #60 tablet 09/17/23 amLODIPine [Norvasc] 5 mg PO DAILY #30 tab 09/17/23 fluvoxaMINE MALEATE [Luvox] 25 mg PO HS #30 tab 09/17/23 Allergies Allergy/AdvReac Type Severity Reaction Status Date / Time codeine Allergy Unknown Verified 07/18/23 22:44 Review of Systems ROS Statement: Those systems with pertinent positive or pertinent negative responses have been documented in the HPI. ROS Other: All systems not noted in ROS Statement are negative. Past Medical History Past Medical History: COPD, Hypertension, Pneumonia History of Any Multi-Drug Resistant Organisms: None Reported Past Surgical History: Appendectomy, Tonsillectomy Past Anesthesia/Blood Transfusion Reactions: No Reported Reaction Past Psychological History: No Psychological Hx Reported Smoking Status: Current some day smoker, Former smoker Past Alcohol Use History: Occasional Past Drug Use History: Marijuana General Exam General appearance: alert, in no apparent distress Head exam: Present: atraumatic, normocephalic, normal inspection Eye exam: Present: normal appearance, PERRL, EOMI. Absent: scleral icterus, conjunctival injection, periorbital swelling ENT exam: Present: normal exam, mucous membranes moist Neck exam: Present: normal inspection. Absent: tenderness, meningismus, lymphadenopathy Respiratory exam: Present: wheezes. Absent: respiratory distress, rales, rhonchi, stridor Cardiovascular Exam: Present: regular rate, normal rhythm, normal heart sounds. Absent: systolic murmur, diastolic murmur, rubs, gallop, clicks GI/Abdominal exam: Present: soft, normal bowel sounds. Absent: distended, tenderness, guarding, rebound, rigid Extremities exam: Present: normal inspection, full ROM, normal capillary refill. Absent: tenderness, pedal edema, joint swelling, calf tenderness Back exam: Present: normal inspection Neurological exam: Present: alert, oriented X3, CN II-XII intact Psychiatric exam: Present: normal affect, normal mood Skin exam: Present: warm, dry, intact, normal color. Absent: rash Course Vital Signs 02/05/24 02/05/24 02/05/24 19:22 20:16 20:35 Temperature 97.5 F L Pulse Rate 68 70 68 Respiratory 18 Rate Blood Pressure 133/73 O2 Sat by Pulse 96 Oximetry 02/05/24 21:16 Temperature Pulse Rate 63 Respiratory 19 Rate Blood Pressure 128/76 O2 Sat by Pulse 82 L Oximetry - Reevaluation(s) Reevaluation #1: Medical records reviewed Reevaluation #2: Patient symptoms unchanged Reevaluation #3: Patient informed of results and questions answered Reevaluation #4: Was pt. sent in by a medical professional or institution (, PA, DIRECTOR OPERATIONS BROADCAST, urgent care, hospital, or prison...) When possible be specific @ -no Did you speak to anyone other than the patient for history (EMS, parent, family, police, friend...)? What history was obtained from this source @ -no Did you review nursing and triage notes (agree or disagree)? Why? @ -agree Are old charts reviewed (outside hosp., previous admission, EMS record, old EKG, old radiological studies, urgent care reports/EKG's, prison records)? Report findings @ -yes Differential Diagnosis (chest pain, altered mental status, abdominal pain women, abdominal pain men, vaginal bleeding, weakness, fever, dyspnea, syncope, headache, dizziness, GI bleed, back pain, seizure, CVA, palpatations, mental health, musculoskeletal)? @ -prior EKG interpreted by me (3pts min.). @ -yes X-rays interpreted by me (1pt min.). @ -yes negative for acute disease CT interpreted by me (1pt min.). @ -no U/S interpreted by me (1pt. min.). @ -no What testing was considered but not performed or refused? (CT, X-rays, U/S, labs)? Why? @ -none What meds were considered but not given or refused? Why? @ -none Did you discuss the management of the patient with other professionals (professionals i.e. Dr., PA, DIRECTOR OPERATIONS BROADCAST, lab, RT, psych nurse, social media marketer, sushi chef, teacher, unclaimed property officer, director case management)? Give summary @ -no Was smoking cessation discussed for >3mins.? @ -no Was critical care preformed (if so, how long)? @ -no Were there social determinants of health that impacted care today? How? (Homelessness, low income, unemployed, alcoholism, drug addiction, transportation, low edu. Level, literacy, decrease access to med. care, care home, rehab)? @ -none Was there de-escalation of care discussed even if they declined (Discuss DNR or withdrawal of care, Hospice)? DNR status @ -no What co-morbidities impacted this encounter? (DM, HTN, Smoking, COPD, CAD, Cancer, CVA, ARF, Chemo, Hep., AIDS, mental health diagnosis, sleep apnea, morbid obesity)? @ -none Was patient admitted / discharged? Hospital course, mention meds given and route, prescriptions, significant lab abnormalities, going to OR and other pertinent info. @ - 74 male with acute COPD exacerbation feeling improved here in the ER and okay for discharge home Discharge Undiagnosed new problem with uncertain prognosis? @ -no Drug Therapy requiring intensive monitoring for toxicity (Heparin, Nitro, Insulin, Cardizem)? @ -no Were any procedures done? @ -no Diagnosis/symptom? @ -COPD exacerbation Acute, or Chronic, or Acute on Chronic? @ -Acute Uncomplicated (without systemic symptoms) or Complicated (systemic symptoms)? @ -Complicated Side effects of treatment? @ -no Exacerbation, Progression, or Severe Exacerbation? @ -exacerbation Poses a threat to life or bodily function? How? (Chest pain, USA, ME, pneumonia, PE, COPD, DKA, ARF, appy, cholecystitis, CVA, Diverticulitis, Homicidal, Suicidal, threat to staff... and all critical care pts) @ -yes extremes of age Reevaluation #5: Differential Dyspnea: Coronary syndrome, arrhythmia, tamponade, asthma, COPD, pulmonary embolism, pneumonia, pneumothorax, pulmonary effusion, anaphylaxis, diabetic ketoacidosis, flailed chest, pulmonary contusion, diaphragmatic rupture, anemia, neuromuscular, this is not meant to be an all-inclusive list. Medical Decision Making - Medical Decision Making 74 male with acute COPD exacerbation feeling improved here in the ER and okay for discharge home - Radiology Data Radiology results: report reviewed (Chest x-ray is negative for acute disease), image reviewed Disposition Clinical Impression: Asthma with status asthmaticus, Acute exacerbation of chronic obstructive pulmonary disease Disposition: HOME SELF-CARE Condition: Good Instructions (If sedation given, give patient instructions): Acute Bronchitis (ED), Chronic Bronchitis (ED) Is patient prescribed a controlled substance at d/c from ED?: No Referrals: [facility],Clinic [Primary Care Provider] - 1-2 days Time of Disposition: 20:40
[2024-02-05] MEDS: DEXAMETHASONE SOD PHOSPHATE 10 MG/ML 1 ML VIAL IM STA (20:11)
[2024-02-05] MEDS: IPRATROPIUM-ALBUTEROL 3 ML NEB INHALATION STA (20:16)
[2024-02-05 21:43] VITALS: BP 128/76; PULSE 63; RESP 19
--- NOTE | 2024-02-05 22:00 | XR ---
EXAMINATION TYPE: XR chest 2V DATE OF EXAM: 02/05/2024 7:50 PM CLINICAL INDICATION:Male, 74 years old with history of sob; [facility] COMPARISON: Chest radiograph 07/30/2023 TECHNIQUE: XR chest 2V Frontal view of the chest. FINDINGS: Hyperinflated lungs. There is similar mild elevation the left hemidiaphragm. Coarsened and mild promi nence of the interstitial markings bilaterally likely chronic in nature. No pneumothorax. Cardiomedia stinal silhouette is within normal limits. No acute osseous abnormalities. Bibasilar atelectasis. IMPRESSION: Emphysematous lungs with bibasilar atelectasis and senescent changes. [facility], , 02/05/2024 9:57 PM
== END 2024-02-05 22:01 | disposition home or self-care (01) ==
LOC: EC 19:03
CPT/HCPCS: 71046; 94640; 96372; 99285

== ENCOUNTER 2024-04-29 10:49 | Observation (INO) | payer OTHER ==
[2024-04-29] MEDS: ONDANSETRON 4 MG/2 ML VIAL IVP STA (11:32)
[2024-04-29] MEDS: SODIUM CHLORIDE 0.9% 500 ML 500 ML IV STA (11:33)
[2024-04-29 11:44] LABS: Basophils % (A) 0 %; Eosinophils # (A) 0.2 k/uL (0-0.7); Eosinophils % (A) 3 %; HCT 33.6 % (39.0-53.0); HGB 10.7 gm/dL (13.0-17.5); Hypochromasia Moderate; Lymphocytes # (A) 0.9 k/uL (1.0-4.8); Lymphocytes % (A) 21 %; MCH 30.3 pg (25.0-35.0); MCHC 31.8 g/dL (31.0-37.0); MCV 95.4 fL (80.0-100.0); Mean Platelet Volume 8.3; Monocytes # (A) 0.3 k/uL (0-1.0); Monocytes % (A) 7 %; Neutrophils # (A) 2.9 k/uL (1.3-7.7); Neutrophils % (A) 66 %; Platelet Count 167 k/uL (150-450); RBC 3.52 m/uL (4.30-5.90); RDW 13.5 % (11.5-15.5); WBC 4.5 k/uL (3.8-10.6)
[2024-04-29 12:07] LABS: ALT 14 U/L (4-49); AST 21 U/L (17-59); African American GFR (CKD) >90 (>60 ml/min/1.73 sqM); Albumin 3.5 g/dL (3.5-5.0); Alkaline Phosphatase 111 U/L (38-126); Anion Gap -1 mmol/L; Blood Urea Nitrogen 30 mg/dL (9-20); Calcium 8.5 mg/dL (8.4-10.2); Carbon Dioxide 33 mmol/L (22-30); Chloride 99 mmol/L (98-107); Glucose 87 mg/dL (74-99); Magnesium 2.2 mg/dL (1.6-2.3); Non-African American GFR(CKD) 88 (>60 ml/min/1.73 sqM); Potassium 4.8 mmol/L (3.5-5.1); Sodium 131 mmol/L (137-145); Total Bilirubin 0.8 mg/dL (0.2-1.3); Total Protein 5.9 g/dL (6.3-8.2)
--- NOTE | 2024-04-29 12:18 | XR ---
2 view chest HISTORY: Syncope COMPARISON: 1923 TECHNIQUE: PA and lateral views chest obtained. FINDINGS: The lungs are clear of consolidative, interstitial or masslike opacity. There is persistent [id number] elevation left hemidiaphragm. There is no pleural effusion, pleural thickening or pneumothorax. The heart, pulmonary vasculature, mediastinum and chritsiano are within normal limits. The osseous structures and soft tissues of the thorax are intact. IMPRESSION: No acute cardiopulmonary disease and no interval change. [facility], , 04/29/2024 12:16 PM
[2024-04-29 12:24] LABS: INR 0.9 (<1.2); Prothrombin Time 10.5 sec (10.0-12.5)
[2024-04-29 12:31] LABS: Partial Thromboplastin Time 21.2 sec (22.0-30.0)
[2024-04-29] MEDS ORDERED: NITROGLYCERIN SL TABS 0.4 MG TAB SUBLINGUAL PRN (14:07)
[2024-04-29] MEDS: ASPIRIN 81 MG PO STA (14:53)
--- NOTE | 2024-04-29 15:00 | ED ---
Weakness HPI - General Chief complaint: Weakness Stated complaint: abn labs Time Seen by Provider: 04/29/24 10:59 Source: patient, EMS, RN notes reviewed Mode of arrival: EMS Limitations: no limitations - History of Present Illness Initial comments: 74-year-old male presents to the emergency department t via EMS from [facility] for near syncopal episode, hypotension. Patient states that he was not feeling well and waiting for laboratory studies to be drawn. He states he became very nauseous, having chest pain. Patient states that he has these episodes happen in the past but this is worse. He states he feels some nausea at this time he has no focal weakness he did have headache which is resolved. N - Related Data Previous Rx's Medication Instructions Recorded Artificial Tears-Hypromellose 1 drops BOTH EYES QID PRN #10 ml 09/17/23 [Artificial Tear Drops] Budesonide-Formot 160-4.5 Mcg 2 puff INHALATION BID #1 inh 09/17/23 [Symbicort 160-4.5 Mcg Inhaler] Furosemide [Lasix] 20 mg PO DAILY #30 tab 09/17/23 Multivitamin [Multivitamins Adult 1 each PO DAILY #30 tablet 09/17/23 Gummies] Sodium Chloride Tab 1 gm PO BID #60 tablet 09/17/23 amLODIPine [Norvasc] 5 mg PO DAILY #30 tab 09/17/23 fluvoxaMINE MALEATE [Luvox] 25 mg PO HS #30 tab 09/17/23 Allergies Allergy/AdvReac Type Severity Reaction Status Date / Time codeine Allergy Unknown Verified 04/29/24 10:56 Review of Systems ROS Statement: Those systems with pertinent positive or pertinent negative responses have been documented in the HPI. ROS Other: All systems not noted in ROS Statement are negative. Past Medical History Past Medical History: COPD, Hypertension, Pneumonia History of Any Multi-Drug Resistant Organisms: None Reported Past Surgical History: Appendectomy, Tonsillectomy Past Anesthesia/Blood Transfusion Reactions: No Reported Reaction Past Psychological History: No Psychological Hx Reported Smoking Status: Current some day smoker, Former smoker Past Alcohol Use History: Occasional Past Drug Use History: Marijuana General Exam Limitations: no limitations General appearance: alert, in no apparent distress Head exam: Present: atraumatic, normocephalic, normal inspection Eye exam: Present: normal appearance, PERRL, EOMI. Absent: scleral icterus, conjunctival injection, periorbital swelling ENT exam: Present: normal exam, normal oropharynx Neck exam: Present: normal inspection, full ROM. Absent: tenderness, meningismus, lymphadenopathy Respiratory exam: Present: normal lung sounds bilaterally. Absent: respiratory distress, wheezes, rales, rhonchi, stridor Cardiovascular Exam: Present: regular rate, normal rhythm, normal heart sounds. Absent: systolic murmur, diastolic murmur, rubs, gallop, clicks GI/Abdominal exam: Present: soft, normal bowel sounds. Absent: distended, tenderness, guarding, rebound, rigid Neurological exam: Present: alert, oriented X3, CN II-XII intact, reflexes normal. Absent: motor sensory deficit Skin exam: Present: warm, dry, intact, normal color. Absent: rash Course Vital Signs 04/29/24 04/29/24 10:52 14:29 Temperature 97.4 F L Pulse Rate 63 74 Respiratory 16 20 Rate Blood Pressure 116/69 107/75 O2 Sat by Pulse 97 91 L Oximetry EKG Findings - EKG Comments: EKG Findings:: EKG performed at 11: 12 sinus rhythm with a rate of 63 VT 156 QRS 108 QT/QTc 420/431 - EKG Results: EKG: interpreted by ARMIDA Medical Decision Making - Medical Decision Making Was pt. sent in by a medical professional or institution (DUARTE Tang, LENS MOLDER, urgent care, hospital, or retirement...) When possible be specific @ -[[facility] Did you speak to anyone other than the patient for history (EMS, parent, family, police, friend...)? What history was obtained from this source @ -No Did you review nursing and triage notes (agree or disagree)? Why? @ -I reviewed and agree with nursing and triage notes Were old charts reviewed (outside hosp., previous admission, EMS record, old EKG, old radiological studies, urgent care reports/EKG's, retirement records)? Report findings @ -No old charts were reviewed Differential Diagnosis (chest pain, altered mental status, abdominal pain women, abdominal pain men, vaginal bleeding, weakness, fever, dyspnea, syncope, headache, dizziness, GI bleed, back pain, seizure, CVA, palpatations, mental health, musculoskeletal)? @ -Differential Syncope: Valvular disease, hypertrophic cardiomyopathy, pulmonary embolism, tamponade, tachycardia, bradycardia, MA, hypovolemia, hemorrhage, dissection, anemia, intracranial hemorrhage, seizure, hypoglycemia, carbon monoxide poisoning, this is not meant to be an all-inclusive list. EKG interpreted by me (3pts min.). @ -As above X-rays interpreted by me (1pt min.). @ -Chest x-ray shows no acute cardiopulmonary process. CT interpreted by me (1pt min.). @ -None done U/S interpreted by me (1pt. min.). @ -None done What testing was considered but not performed or refused? (CT, X-rays, U/S, labs)? Why? @ -None What meds were considered but not given or refused? Why? @ -None Did you discuss the management of the patient with other professionals (professionals i.e. , PA, LENS MOLDER, lab, RT, psych nurse, long term care social worker, medical director of hospice, teacher, nursing officer, case fitter)? Give summary @ -Sound physician for admission Was smoking cessation discussed for >3mins.? @ -No Was critical care preformed (if so, how long)? @ -No Were there social determinants of health that impacted care today? How? (Homelessness, low income, unemployed, alcoholism, drug addiction, transportation, low edu. Level, literacy, decrease access to med. care, retirement, rehab)? @ -No Was there de-escalation of care discussed even if they declined (Discuss DNR or withdrawal of care, Hospice)? DNR status @ -No What co-morbidities impacted this encounter? (DM, HTN, Smoking, COPD, CAD, Cancer, CVA, ARF, Chemo, Hep., AIDS, mental health diagnosis, sleep apnea, morbid obesity)? @ -None Was patient admitted / discharged? Hospital course, mention meds given and route, prescriptions, significant lab abnormalities, going to OR and other pertinent info. @ -Admitted to observation for repeat troponin, near syncopal episode of hypotension and chest pain. Undiagnosed new problem with uncertain prognosis? @ -No Drug Therapy requiring intensive monitoring for toxicity (Heparin, Nitro, Insulin, Cardizem)? @ -No Were any procedures done? @ -No Diagnosis/symptom? @ -Near syncope, chest pain Acute, or Chronic, or Acute on Chronic? @ -Acute Uncomplicated (without systemic symptoms) or Complicated (systemic symptoms)? @ -Complicated Side effects of treatment? @ -No Exacerbation, Progression, or Severe Exacerbation? @ -No Poses a threat to life or bodily function? How? (Chest pain, USA, MA, pneumonia, PE, COPD, DKA, ARF, appy, cholecystitis, CVA, Diverticulitis, Homicidal, Batista icidal, threat to staff... and all critical care pts) @ -Yes possible underlying ACS, cardiac arrest - Lab Data Result diagrams: 04/29/24 11:29 04/29/24 11:29 Lab Results 04/29/24 04/29/24 04/29/24 Range/Units 11:29 11:29 11:29 WBC 4.5 (3.8-10.6) k/uL RBC 3.52 L (4.30-5.90) m/uL Hgb 10.7 L (13.0-17.5) gm/dL Hct 33.6 L (39.0-53.0) % MCV 95.4 (80.0-100.0) fL MCH 30.3 (25.0-35.0) pg MCHC 31.8 (31.0-37.0) g/dL RDW 13.5 (11.5-15.5) % Plt Count 167 (150-450) k/uL MPV 8.3 Neutrophils % 66 % Lymphocytes % 21 % Monocytes % 7 % Eosinophils % 3 % Basophils % 0 % Neutrophils # 2.9 (1.3-7.7) k/uL Lymphocytes # 0.9 L (1.0-4.8) k/uL Monocytes # 0.3 (0-1.0) k/uL Eosinophils # 0.2 (0-0.7) k/uL Basophils # 0.0 (0-0.2) k/uL Hypochromasia Moderate PT 10.5 (10.0-12.5) sec INR 0.9 (<1.2) APTT 21.2 L (22.0-30.0) sec Sodium 131 L (137-145) mmol/L Potassium 4.8 (3.5-5.1) mmol/L Chloride 99 (98-107) mmol/L Carbon Dioxide 33 H (22-30) mmol/L Anion Gap -1 mmol/L BUN 30 H (9-20) mg/dL Creatinine 0.82 (0.66-1.25) mg/dL Est GFR (CKD-EPI)AfAm >90 (>60 ml/min/1.73 sqM) Est GFR (CKD-EPI)NonAf 88 (>60 ml/min/1.73 sqM) Glucose 87 (74-99) mg/dL Calcium 8.5 (8.4-10.2) mg/dL Magnesium 2.2 (1.6-2.3) mg/dL Total Bilirubin 0.8 (0.2-1.3) mg/dL AST 21 (17-59) U/L ALT 14 (4-49) U/L Alkaline Phosphatase 111 (38-126) U/L Troponin I (0.000-0.034) ng/mL Total Protein 5.9 L (6.3-8.2) g/dL Albumin 3.5 (3.5-5.0) g/dL 04/29/24 Range/Units 11:29 WBC (3.8-10.6) k/uL RBC (4.30-5.90) m/uL Hgb (13.0-17.5) gm/dL Hct (39.0-53.0) % MCV (80.0-100.0) fL MCH (25.0-35.0) pg MCHC (31.0-37.0) g/dL RDW (11.5-15.5) % Plt Count (150-450) k/uL MPV Neutrophils % % Lymphocytes % % Monocytes % % Eosinophils % % Basophils % % Neutrophils # (1.3-7.7) k/uL Lymphocytes # (1.0-4.8) k/uL Monocytes # (0-1.0) k/uL Eosinophils # (0-0.7) k/uL Basophils # (0-0.2) k/uL Hypochromasia PT (10.0-12.5) sec INR (<1.2) APTT (22.0-30.0) sec Sodium (137-145) mmol/L Potassium (3.5-5.1) mmol/L Chloride (98-107) mmol/L Carbon Dioxide (22-30) mmol/L Anion Gap mmol/L BUN (9-20) mg/dL Creatinine (0.66-1.25) mg/dL Est GFR (CKD-EPI)AfAm (>60 ml/min/1.73 sqM) Est GFR (CKD-EPI)NonAf (>60 ml/min/1.73 sqM) Glucose (74-99) mg/dL Calcium (8.4-10.2) mg/dL Magnesium (1.6-2.3) mg/dL Total Bilirubin (0.2-1.3) mg/dL AST (17-59) U/L ALT (4-49) U/L Alkaline Phosphatase (38-126) U/L Troponin I 0.014 (0.000-0.034) ng/mL Total Protein (6.3-8.2) g/dL Albumin (3.5-5.0) g/dL Disposition Clinical Impression: Chest pain, Near syncope Disposition: ADMITTED IP TO THIS HOSP Referrals: [facility],Clinic [Primary Care Provider] - 1-2 days Time of Disposition: 14:59
--- NOTE | 2024-04-29 16:42 | P.HPIM ---
History of Present Illness H&P Date: 04/29/24 Patient is a 74-year-old male with past medical history of COPD on 3 L home oxygen and hypertension presented with substernal chest pain that started around 8:30 AM as a feeling of intermittent [id number] rated at a 78/10 upon trying to stand from seated position. He endorses associated nausea, lightheadedness, dizziness, and shortness of breath. He notes that this type of pain has happened before and associates it with having to eat breakfast earlier than his usually scheduled time. Currently he rates the pain as a 45/10 with improved nausea and shortness of breath. He denies current lightheadedness and dizziness. Chest x-ray: No acute cardiopulmonary disease and no interval change. Initial labs: WBCs 4.5, RBCs 3.52, hemoglobin 10.7, hematocrit 33.6, platelets 16.7, PT 10.5, INR 0.9, APTT 21.2, sodium 131, potassium 4.8, chloride 99, CO2 33, BUN 30, creatinine 0.82, troponin X1 0.014. Initial vitals: T 97.4 F, CO 63 bpm, RR 16, BP 116/69, O2 sat 97% 2 L nasal cannula. ED documentation reviewed. Review of systems: Pertinent positives and negatives as discussed in HPI, a complete review of systems was performed and all other systems are negative. Social history: Tobacco: Former smoker (states he quit a few weeks ago) Alcohol: None reported Recreational drugs: None reported Travel: None reported Sick contacts: Had COVID recently Physical examination: Vital signs reviewed General: Nontoxic, no distress, appears stated age, well-appearing Derm: Warm, dry, intact Head: Atraumatic, normocephalic, symmetric Eyes: EOMI, anicteric sclera Mouth: No lip lesion, mucus membranes moist Cardiovascular: S1-S2 regular, systolic murmur present Lungs: Diminished breath sounds, no rhonchi, no rales, no accessory muscle use Abdominal: Soft, non-tender to palpation Extremities: No cyanosis, clubbing, or pedal edema. Neuro: Alert, oriented x 3, gross neurological examination did not reveal any focal deficits. Cranial nerves II to XII grossly intact. Psych: Appropriate affect and mood Assessment and Plan: Patient is a 74-year-old male with past medical history of COPD on 3 L home oxygen and hypertension presented with substernal and subxiphoid chest pain. Active #. Chest pain #. Pre-syncope Telemetry monitoring Trend troponin Consult cardiology Echo pending Chronic #. COPD #. Chronic hypoxia, on 3 L home O2 Continue 3 L nasal cannula DuoNeb as needed #. Hypertension Hold amlodipine due to blood pressures in the low 100s/70s DVT prophylaxis: Subcutaneous Lovenox The patient is admitted with an anticipated less than 2 midnight stay for evaluation of chest pain CODE STATUS: Full code, patient has a public guardian that is unable to be reached at this timewill confirm tomorrow. Discussed with: Dr. David Anticipated discharge place: Home Attending Attestation I have seen and evaluated the patient today. Discussed with the resident and agree with the residents subjective and objective as documented in the resident's note. The assessment and plan was discussed and outlined as below. Past Medical History Past Medical History: COPD, Hypertension, Pneumonia History of Any Multi-Drug Resistant Organisms: None Reported Past Surgical History: Appendectomy, Tonsillectomy Past Anesthesia/Blood Transfusion Reactions: No Reported Reaction Past Psychological History: No Psychological Hx Reported Smoking Status: Current some day smoker, Former smoker Past Alcohol Use History: Occasional Past Drug Use History: Marijuana Medications and Allergies Home Medications Medication Instructions Recorded Confirmed Type Sodium Chloride Tab 1 gm PO BID #60 tablet 09/17/23 04/29/24 Rx Acetaminophen Tab [Tylenol] 650 mg PO TID PRN 04/29/24 04/29/24 History Albuterol Inhaler [Ventolin Hfa 2 puff INHALATION RT-Q4H PRN 04/29/24 04/29/24 History Inhaler] Budesonide-Formot 160-4.5 Mcg 2 puff INHALATION RT-BID 04/29/24 04/29/24 History [Symbicort 160-4.5 Mcg Inhaler] Carboxymethylcellulose 1% Opth Gel 1 applic BOTH EYES QID PRN 04/29/24 04/29/24 History Ensure Clear 1 can PO DAILY 04/29/24 04/29/24 History Guaifenesin/Dextromethorphan 5 ml PO Q4H PRN 04/29/24 04/29/24 History [Guaifenesin-Dm 100-10 mg/5 ml] Loratadine 10 mg PO DAILY 04/29/24 04/29/24 History Magnesium Oxide 420mg 420 mg PO BID 04/29/24 04/29/24 History Mirtazapine 22.5 mg PO HS 04/29/24 04/29/24 History Multivitamins, Thera [Multivitamin 1 tab PO DAILY 04/29/24 04/29/24 History (formulary)] lisinopriL [Zestril] 20 mg PO DAILY 04/29/24 04/29/24 History Allergies Allergy/AdvReac Type Severity Reaction Status Date / Time codeine Allergy Unknown Verified 04/29/24 10:56 escitalopram [From Lexapro] AdvReac SIADH Verified 04/29/24 15:43 Physical Exam Osteopathic Statement: *. No significant issues noted on an osteopathic structural exam other than those noted in the History and Physical/Consult. Vitals: Vital Signs Temp Pulse Resp BP Pulse Ox 04/29/24 10:52 97.4 F L 63 16 116/69 97 Intake and Output 04/28/24 04/29/24 04/29/24 22:59 06:59 14:59 Other: Weight 68.492 kg Results CBC & Chem 7: 04/29/24 11:29 04/29/24 11:29 Labs: Abnormal Lab Results - Last 24 Hours (Table) 04/29/24 04/29/24 04/29/24 Range/Units 11:29 11:29 11:29 RBC 3.52 L (4.30-5.90) m/uL Hgb 10.7 L (13.0-17.5) gm/dL Hct 33.6 L (39.0-53.0) % Lymphocytes # 0.9 L (1.0-4.8) k/uL APTT 21.2 L (22.0-30.0) sec Sodium 131 L (137-145) mmol/L Carbon Dioxide 33 H (22-30) mmol/L BUN 30 H (9-20) mg/dL Total Protein 5.9 L (6.3-8.2) g/dL
[2024-04-29] MEDS ORDERED: ALBUTEROL NEBULIZED 2.5 MG/3 ML INHALATION PRN (16:43)
[2024-04-29] MEDS: SYMBICORT 160-4.5 MCG INHALER INHALATION SCH (19:50)
[2024-04-29] MEDS: MIRTAZAPINE 15 MG TAB PO SCH (21:10)
[2024-04-30] MEDS: ACETAMINOPHEN TAB 325 MG TAB PO PRN (05:29)
[2024-04-30] MEDS: ARTIFICIAL TEARS-HYPROMELLOSE DROPS 15 ML BTL BOTH EYES PRN (06:29)
[2024-04-30] MEDS: ASPIRIN 325 MG TAB PO SCH (08:35)
[2024-04-30] MEDS: LORATADINE 10 MG TAB PO SCH (08:35)
[2024-04-30 08:42] VITALS: TEMP 97.7
[2024-04-30 08:42] LABS: Chol/HDL Ratio 3.09 Ratio; VLDL Calculation 11.08 mg/dL (5.00-40.00)
--- NOTE | 2024-04-30 11:36 | CA ---
Transthoracic Echo Report Name: Josh Brooke Age: 74 Gender: M : 1950 Exam Date: 04/30/2024 10:21 Exam Location: [facility] Ht (in): 76 Wt (lb): 151 Ordering Physician: Ramiro Howard Attending/Referring Phys: [id number], Lee Supervisor [employer] Trish Zendejas, SUSIE Procedure CPT: Indications: Chest Pain Cardiac Hx: Technical Quality: Fair Contrast 1: Total Dose (mL): Contrast 2: Total Dose (mL): MEASUREMENTS (Male / Female) Normal Values 2D ECHO LV Diastolic Diameter PLAX 3.8 cm 4.2 - 5.9 / 3.9 - 5.3 cm LV Systolic Diameter PLAX 1.9 cm IVS Diastolic Thickness 1.3 cm 0.6 - 1.0 / 0.6 - 0.9 cm LVPW Diastolic Thickness 1.2 cm 0.6 - 1.0 / 0.6 - 0.9 cm LV Relative Wall Thickness 0.7 RV Internal Dim ED PLAX 1.5 cm LVOT Diameter 2.0 cm LA Systolic Diameter LX 2.8 cm 3.0 - 4.0 / 2.7 - 3.8 cm LV Diastolic Volume MOD BP 67.5 cm??? 67 - 155 / 56 - 104 cm??? LV Systolic Volume MOD BP 19.0 cm??? 22 - 58 / 19 - 49 cm??? LV Ejection Fraction MOD BP 71.9 % >= 55 % LV Cardiac Index MOD BP 1815.0 cm???/min???m??? LV Diastolic Volume MOD 4C 63.0 cm??? LV Systolic Volume MOD 4C 22.4 cm??? LV Ejection Fraction MOD 4C 64.5 % LV Cardiac Index MOD 4C 1521.7 cm???/min???m??? LV Diastolic Length 4C 7.3 cm LV Systolic Length 4C 6.3 cm LV Diastolic Volume MOD 2C 70.5 cm??? LV Systolic Volume MOD 2C 16.1 cm??? LV Ejection Fraction MOD 2C 77.2 % LV Cardiac Index MOD 2C 2036.3 cm???/min???m??? LV Diastolic Length 2C 7.2 cm LV Systolic Length 2C 6.2 cm LA Volume 45.3 cm??? 18 - 58 / 22 - 52 cm??? LA Volume Index 23.9 cm???/m??? 16 - 28 cm???/m??? M-MODE Aortic Root Diameter MM 3.4 cm LA Systolic Diameter MM 3.3 cm LA Ao Ratio MM 1.0 AV Cusp Separation MM 0.9 cm DOPPLER AV Peak Velocity 304.9 cm/s AV Peak Gradient 37.2 mmHg AV Mean Velocity 219.9 cm/s AV Mean Gradient 22.0 mmHg AV Velocity Time Integral 60.7 cm LVOT Peak Velocity 104.2 cm/s LVOT Peak Gradient 4.3 mmHg LVOT Velocity Time Integral 27.6 cm LVOT Stroke Volume 83.9 cm??? LVOT Stroke Volume Index 42.7 ml/m??? LVOT Cardiac Index 3139.3 cm???/min???m??? AV Area Cont Eq vti 1.4 cm??? AV Area Cont Eq pk 1.0 cm??? MV Area PHT 2.3 cm??? Mitral E Point Velocity 101.4 cm/s Mitral A Point Velocity 123.0 cm/s Mitral E to A Ratio 0.8 MV Deceleration Time 334.6 ms FINDINGS Left Ventricle Left ventricular ejection fraction is estimated at 55-60 %. Mildly increased septal wall thickness. Left ventricular wall thickness normal. Normal left ventricular systolic function with no obvious regional wall motion abnormalities. Right Ventricle Normal right ventricular size and function. Right ventricular systolic pressure within normal limits. Right Atrium Normal right atrial size. Left Atrium Normal left atrial size. Mitral Valve Structurally normal mitral valve. Trace mitral regurgitation. No mitral stenosis. Aortic Valve Aortic valve not well visualized. Moderate aortic stenosis with a peak gradient of 37 mmHg and a mean gradient of 22 mmHg. Diffuse thickening of the aortic valve cusps with reduced excursion. Tricuspid Valve Structurally normal tricuspid valve. Trace tricuspid regurgitation. No tricuspid stenosis. Pulmonic Valve Structurally normal pulmonic valve. Trace pulmonic regurgitation. No pulmonic stenosis. Pericardium No pericardial or pleural effusion. Aorta Normal size aortic root and proximal ascending aorta. CONCLUSIONS Normal LV size and systolic function with mild concentric LVH. Mild to moderate aortic stenosis. Mild mitral and tricuspid regurgitation. No pericardial effusion Previewed by: Dr. Bhavesh Ivy MD (Electronically Signed) Final Date: 30 April 2024 11:35
--- NOTE | 2024-04-30 13:05 | P.CRDCN ---
History of Present Illness Consult date: 04/30/24 Consult reason: chest pain History of present illness: This is a 74-year-old male patient does not follow with a survey research analyst, history of COPD, hypertension, tobacco use. We have been asked to evaluate the patient for chest pain. Patient states that he was at the [facility] and had a near syncopal episode with hypotension while he was waiting for laboratory studies to be drawn. Patient denies previous history of this. He denies having chest pain, no lightheadedness or dizziness, no palpitations. Blood pressure 137/96, heart rate 77, pulse ox 95% on 4 L nasal cannula. Regarding tobacco use, patient states that he has quit smoking and he has also quit using marijuana. -EKG: Sinus rhythm with no acute ST-T wave changes -Chest x-ray: No acute findings -Laboratory studies: WBC 4.5, hemoglobin 10.7, sodium 131, potassium 4.8, BUN 30 creatinine 0.82. Troponin negative x 3. Triglycerides 55, cholesterol 154, LDL 93, HDL 49 -Home cardiac medications: Magnesium twice daily, lisinopril 20 mg at bedtime. -Echocardiogram performed on 04/30/2024 reveals normal LV size and systolic function with mild concentric LVH. Mild to moderate aortic stenosis. Mild mitral and tricuspid regurgitation. No pericardial effusion. Review Of Systems: At the time of my exam: CONSTITUTIONAL: Denies fever or chills. HEENT: Denies blurred vision, vision changes, or eye pain. Denies hemoptysis CARDIOVASCULAR: Denies chest pain. Denies orthopnea. Denies PND. Denies palpitations RESPIRATORY: Denies shortness of breath. GASTROINTESTINAL: Denies abdominal pain. Denies nausea or vomiting. HEMATOLOGIC: Denies bleeding disorders. GENITOURINARY: Denies any blood in urine. SKIN: Denies puritis. Denies rash. Physical examination: Gen: This is a 74-year-old male in no acute distress VS: reviewed HEENT: Head is atraumatic, normocephalic. Pupils equal, round. Sclerae is anicteric. NECK: Supple. No JVD. LUNGS: Clear to auscultation. No wheezes or rhonchi. No intercostal retractions. HEART: Regular rate and rhythm. Short systolic murmur. ABDOMEN: Soft No tenderness. EXTREMITIES: No pedal edema. No calf tenderness. NEUROLOGICAL: Patient is awake, alert and oriented x3. Assessment: Vasovagal response Hypertension Hyperlipidemia COPD Remote history of tobacco use and marijuana use Plan: Resume patient's home cardiac medications with the following changes Change lisinopril to p.m. dosing and if blood pressures are low, considering decreasing to 10 mg No further cardiac workup at this time Patient is cleared for discharge from cardiology Cardiology will sign off this case and follow on an as-needed basis. Please reconsult for any new concerns. Thank you kindly for this consultation. Nurse practitioner note has been reviewed, I agree with documented findings and plan of care. Patient was seen and examined. Past Medical History Past Medical History: COPD, Hypertension, Pneumonia History of Any Multi-Drug Resistant Organisms: None Reported Past Surgical History: Appendectomy, Tonsillectomy Past Anesthesia/Blood Transfusion Reactions: No Reported Reaction Past Psychological History: No Psychological Hx Reported Smoking Status: Current some day smoker, Former smoker Past Alcohol Use History: Occasional Past Drug Use History: Marijuana Medications and Allergies Home Medications Medication Instructions Recorded Confirmed Type Sodium Chloride Tab 1 gm PO BID #60 tablet 09/17/23 04/29/24 Rx Acetaminophen Tab [Tylenol] 650 mg PO TID PRN 04/29/24 04/29/24 History Albuterol Inhaler [Ventolin Hfa 2 puff INHALATION RT-Q4H PRN 04/29/24 04/29/24 History Inhaler] Budesonide-Formot 160-4.5 Mcg 2 puff INHALATION RT-BID 04/29/24 04/29/24 History [Symbicort 160-4.5 Mcg Inhaler] Carboxymethylcellulose 1% Opth Gel 1 applic BOTH EYES QID PRN 04/29/24 04/29/24 History Ensure Clear 1 can PO DAILY 04/29/24 04/29/24 History Guaifenesin/Dextromethorphan 5 ml PO Q4H PRN 04/29/24 04/29/24 History [Guaifenesin-Dm 100-10 mg/5 ml] Loratadine 10 mg PO DAILY 04/29/24 04/29/24 History Magnesium Oxide 420mg 420 mg PO BID 04/29/24 04/29/24 History Mirtazapine 22.5 mg PO HS 04/29/24 04/29/24 History Multivitamins, Thera [Multivitamin 1 tab PO DAILY 04/29/24 04/29/24 History (formulary)] lisinopriL [Zestril] 20 mg PO HS tab 04/30/24 Rx Allergies Allergy/AdvReac Type Severity Reaction Status Date / Time codeine Allergy Unknown Verified 04/29/24 10:56 escitalopram [From Lexapro] AdvReac SIADH Verified 04/29/24 15:43 Physical Exam Vitals: Vital Signs Temp Pulse Resp BP Pulse Ox 04/30/24 08:42 95 04/30/24 08:36 97.7 F 77 18 137/96 94 L 04/30/24 06:03 62 18 118/70 100 04/30/24 05:00 74 18 130/74 99 04/30/24 04:00 64 18 122/74 98 04/30/24 03:00 64 18 117/72 98 04/30/24 02:00 68 18 134/72 96 04/30/24 01:00 66 18 125/73 96 04/29/24 23:50 67 18 111/60 92 L 04/29/24 21:08 97.6 F 65 18 121/65 94 L 04/29/24 14:29 74 20 107/75 91 L 04/29/24 10:52 97.4 F L 63 16 116/69 97 Intake and Output 04/29/24 04/30/24 04/30/24 22:59 06:59 14:59 Output Total 350 Balance -350 Output: Urine 350 Results 04/29/24 11:29 04/29/24 11:29 Cardiac Enzymes 04/29/24 04/29/24 04/29/24 Range/Units 11:29 11:29 15:21 AST 21 (17-59) U/L Troponin I 0.014 0.013 (0.000-0.034) ng/mL 04/29/24 Range/Units 18:26 AST (17-59) U/L Troponin I <0.012 (0.000-0.034) ng/mL Coagulation 04/29/24 Range/Units 11:29 PT 10.5 (10.0-12.5) sec APTT 21.2 L (22.0-30.0) sec Lipids 04/29/24 Range/Units 11:29 Triglycerides 55.40 (0.00-149.00) mg/dL Cholesterol 154.00 (0.00-200.00) mg/dL HDL Cholesterol 49.90 (40.00-60.00) mg/dL Cholesterol/HDL Ratio 3.09 Ratio CBC 04/29/24 Range/Units 11:29 WBC 4.5 (3.8-10.6) k/uL RBC 3.52 L (4.30-5.90) m/uL Hgb 10.7 L (13.0-17.5) gm/dL Hct 33.6 L (39.0-53.0) % Plt Count 167 (150-450) k/uL Comprehensive Metabolic Panel 04/29/24 Range/Units 11:29 Sodium 131 L (137-145) mmol/L Potassium 4.8 (3.5-5.1) mmol/L Chloride 99 (98-107) mmol/L Carbon Dioxide 33 H (22-30) mmol/L BUN 30 H (9-20) mg/dL Creatinine 0.82 (0.66-1.25) mg/dL Glucose 87 (74-99) mg/dL Calcium 8.5 (8.4-10.2) mg/dL AST 21 (17-59) U/L ALT 14 (4-49) U/L Alkaline Phosphatase 111 (38-126) U/L Total Protein 5.9 L (6.3-8.2) g/dL Albumin 3.5 (3.5-5.0) g/dL Current Medications Generic Name Dose Route Start Last Admin Trade Name Freq PRN Reason Stop Dose Admin Acetaminophen 650 mg 04/29/24 16:43 04/30/24 05:29 Acetaminophen Tab 325 Mg Tab PO 650 mg TID PRN Administration Fever and/ or Mild Pain Albuterol Sulfate 2.5 mg 04/29/24 16:43 Albuterol Nebulized 2.5 Mg/3 Ml INHALATION RT-Q4H PRN Shortness Of Breath Artificial Tears 1 drops 04/29/24 16:43 04/30/24 06:29 Artificial Tears-Hypromellose Drops 15 Ml Btl BOTH EYES 1 drops QID PRN Administration dry/irritated eyes Aspirin 325 mg 04/30/24 09:00 04/30/24 08:35 Aspirin 325 Mg Tab PO 325 mg DAILY TAMMY Administration Budesonide/Formoterol Fumarate 2 puff 04/29/24 20:00 04/30/24 08:40 Symbicort 160-4.5 Mcg Inhaler INHALATION 2 puff RT-BID TAMMY Administration Loratadine 10 mg 04/30/24 09:00 04/30/24 08:35 Loratadine 10 Mg Tab PO 10 mg DAILY TAMMY Administration Mirtazapine 22.5 mg 04/29/24 21:00 04/29/24 21:10 Mirtazapine 15 Mg Tab PO 22.5 mg HS TAMMY Administration Nitroglycerin 0.4 mg 04/29/24 14:07 Nitroglycerin Sl Tabs 0.4 Mg Tab SUBLINGUAL Q5M PRN Chest Pain Intake and Output 04/29/24 04/30/24 04/30/24 22:59 06:59 14:59 Output Total 350 Balance -350 Output: Urine 350 04/29/24 11:29 04/29/24 11:29
[2024-04-30 13:12] VITALS: BP 169/99; PULSE 71; RESP 19
--- NOTE | 2024-04-30 16:30 | P.DS ---
Providers Date of admission: 04/29/24 14:07 Expected date of discharge: 04/30/24 Attending physician: Donya David MD Consults: 04/29/24 14:07 Consult Physician Urgent Consulting Provider: Nayan Hooper Consult Reason/Comments: chest pain Do you want consulting provider notified?: Yes Primary care physician: [facility] Course: Hospital Course: Patient is a 74-year-old male with past medical history of COPD on 3 L home oxygen and hypertension presented with substernal chest pain that started around 8:30 AM as a feeling of intermittent [id number] rated at a 78/10 upon trying to stand from seated position. He endorses associated nausea, lightheadedness, dizziness, and shortness of breath. He notes that this type of pain has happened before and associates it with having to eat breakfast earlier than his usually scheduled time. Currently he rates the pain as a 45/10 with improved nausea and shortness of breath. He denies current lightheadedness and dizziness. Initial chest x-ray: No acute cardiopulmonary disease and no interval change. Initial labs: WBCs 4.5, RBCs 3.52, hemoglobin 10.7, hematocrit 33.6, platelets 16.7, PT 10.5, INR 0.9, APTT 21.2, sodium 131, potassium 4.8, chloride 99, CO2 33, BUN 30, creatinine 0.82, troponin X1 0.014. Initial vitals: T 97.4 F, RI 63 bpm, RR 16, BP 116/69, O2 sat 97% 2 L nasal cannula. Cardiology was consulted. The recommendation was to change lisinopril dosing from a.m. to p.m. Patient is medically stable for discharge. Final Diagnosis: #. Noncardiac chest pain. Resolved. #. Near syncopal episode, likely vasovagal. #. COPD, not in acute exacerbation. #. Hypertension. #. Hyperlipidemia. Physical examination: Vital signs reviewed General: Nontoxic, no distress, appears stated age, well-appearing Derm: Warm, dry, intact Head: Atraumatic, normocephalic, symmetric Eyes: EOMI, anicteric sclera Mouth: No lip lesion, mucus membranes moist Cardiovascular: S1-S2 regular, systolic murmur present Lungs: Diminished breath sounds, no rhonchi, no rales, no accessory muscle use Abdominal: Soft, non-tender to palpation Extremities: No cyanosis, clubbing, or pedal edema. Neuro: Alert, oriented x 3, gross neurological examination did not reveal any focal deficits. Cranial nerves II to XII grossly intact. A total of 33 minutes of time were spent preparing this complex discharge summary. Patient was discharged on 04/30/24 at 1117. I have seen and evaluated the patient today. Discussed with the resident and a gree with the residents finding and plan as documented in the resident's note. Changes highlighted in blue font. Patient Condition at Discharge: Stable Plan - Discharge Summary New Discharge Prescriptions: New lisinopriL [Zestril] 20 mg PO HS tab Continue Sodium Chloride Tab 1 gm PO BID #60 tablet Acetaminophen Tab [Tylenol] 650 mg PO TID PRN PRN Reason: Fever And/ Or Pain Albuterol Inhaler [Ventolin Hfa Inhaler] 2 puff INHALATION RT-Q4H PRN PRN Reason: Shortness Of Breath Guaifenesin/Dextromethorphan [Guaifenesin-Dm 100-10 mg/5 ml] 5 ml PO Q4H PRN PRN Reason: Cough Multivitamins, Thera [Multivitamin (formulary)] 1 tab PO DAILY Magnesium Oxide 420mg 420 mg PO BID Ensure Clear 1 can PO DAILY Mirtazapine 22.5 mg PO HS Carboxymethylcellulose 1% Opth Gel 1 applic BOTH EYES QID PRN PRN Reason: dry/irritated eyes Budesonide-Formot 160-4.5 Mcg [Symbicort 160-4.5 Mcg Inhaler] 2 puff INHALATION RT-BID Loratadine 10 mg PO DAILY Discontinued lisinopriL [Zestril] 20 mg PO DAILY Discharge Medication List Sodium Chloride Tab 1 gm PO BID #60 tablet 09/17/23 [Rx] Acetaminophen Tab [Tylenol] 650 mg PO TID PRN 04/29/24 [History] Albuterol Inhaler [Ventolin Hfa Inhaler] 2 puff INHALATION RT-Q4H PRN 04/29/24 [History] Budesonide-Formot 160-4.5 Mcg [Symbicort 160-4.5 Mcg Inhaler] 2 puff INHALATION RT-BID 04/29/24 [History] Carboxymethylcellulose 1% Opth Gel 1 applic BOTH EYES QID PRN 04/29/24 [History] Ensure Clear 1 can PO DAILY 04/29/24 [History] Guaifenesin/Dextromethorphan [Guaifenesin-Dm 100-10 mg/5 ml] 5 ml PO Q4H PRN 04/29/24 [History] Loratadine 10 mg PO DAILY 04/29/24 [History] Magnesium Oxide 420mg 420 mg PO BID 04/29/24 [History] Mirtazapine 22.5 mg PO HS 04/29/24 [History] Multivitamins, Thera [Multivitamin (formulary)] 1 tab PO DAILY 04/29/24 [History] lisinopriL [Zestril] 20 mg PO HS tab 04/30/24 [Rx] Follow up Appointment(s)/Referral(s): Bhavesh Ivy MD [STAFF PHYSICIAN] - 1 Week [facility]Clinic [Primary Care Provider] - 1-2 days Patient Instructions/Handouts: Syncope (DC) Activity/Diet/Wound Care/Special Instructions: Please follow-up with PCP and lung gun operator. Discharge Disposition: HOME SELF-CARE
[2024-04-30] MEDS ORDERED: lisinopriL 20 MG TAB PO SCH (21:00)
== END 2024-04-30 13:15 | disposition home or self-care (01) ==
LOC: EC 10:49 → 6NMEDSUR 14:07
PROVIDERS: ADMIT Internal Medicine; ATTEND Internal Medicine
DX: R07.2 Precordial pain (principal); R55 Syncope and collapse; J44.9 Chronic obstructive pulmonary disease, unspecified; I95.9 Hypotension, unspecified; I08.3 Combined rheumatic disorders of mitral, aortic and tricuspid valves; I10 Essential (primary) hypertension; E78.5 Hyperlipidemia, unspecified; Z99.81 Dependence on supplemental oxygen; Z79.51 Long term (current) use of inhaled steroids; Z79.899 Other long term (current) drug therapy; Z88.5 Allergy status to narcotic agent; Z88.8 Allergy status to other drugs, medicaments and biological substances; Z86.16 Personal history of COVID-19; Z87.891 Personal history of nicotine dependence
CPT/HCPCS: 96361; 96374; 99285; 36415; 94640 ×2; 94760; 93005; 93306; 80061; 80053; 83735; 84484; 85025; 85610; 85730; 71046; G0378 ×2; J2405

== ENCOUNTER 2024-11-22 13:47 | Inpatient (IN) | payer OTHER ==
[2024-11-22] MEDS: SODIUM CHLORIDE 0.9% 1,000 ML IV STA (14:57)
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
[2024-11-22 15:05] LABS: Basophils # (A) 0.04 10*3/uL (0.00-0.10); Basophils % (A) 0.3 %; Eosinophils # (A) 0.04 10*3/uL (0.04-0.35); Eosinophils % (A) 0.3 %; HCT 43.1 % (39.6-50.0); HGB 13.6 g/dL (13.0-17.0); Lymphocytes # (A) 1.04 10*3/uL (0.90-5.00); Lymphocytes % (A) 9.0 %; MCH 30.0 pg (27.0-32.0); MCHC 31.6 g/dL (32.0-37.0); MCV 94.9 fL (80.0-97.0); Monocytes # (A) 0.90 10*3/uL (0.20-1.00); Monocytes % (A) 7.8 %; Neutrophils # (A) 9.49 10*3/uL (1.80-7.70); Neutrophils % (A) 82.3 %; Platelet Count 233 10*3/uL (140-440); RBC 4.54 10*6/uL (4.40-5.60); RDW 13.0 % (11.5-14.5); WBC 11.55 10*3/uL (4.50-10.00)
[2024-11-22 15:17] LABS: INR 1.0 (<1.2); Partial Thromboplastin Time 25.9 sec (22.0-30.0); Prothrombin Time 11.1 sec (10.0-12.5)
[2024-11-22 15:20] LABS: ALT 18 U/L (4-49); AST 30 U/L (17-59); African American GFR (CKD) >90 (>60 ml/min/1.73 sqM); Albumin 4.3 g/dL (3.5-5.0); Alkaline Phosphatase 151 U/L (38-126); Anion Gap 8 mmol/L; Blood Urea Nitrogen 11 mg/dL (9-20); Calcium 9.8 mg/dL (8.4-10.2); Carbon Dioxide 35 mmol/L (22-30); Chloride 86 mmol/L (98-107); Glucose 93 mg/dL (74-99); Magnesium 1.9 mg/dL (1.6-2.3); Non-African American GFR(CKD) >90 (>60 ml/min/1.73 sqM); Potassium 5.6 mmol/L (3.5-5.1); Sodium 129 mmol/L (137-145); Total Protein 7.2 g/dL (6.3-8.2)
--- NOTE | 2024-11-22 15:50 | XR ---
EXAMINATION TYPE: XR chest 2V DATE OF EXAM: 11/22/2024 3:38 PM COMPARISON: Chest radiographs from 04/29/2024. CLINICAL INDICATION: Male, 74 years old with history of low o2; PHH TECHNIQUE: XR chest 2V Frontal and lateral views of the chest. FINDINGS: Lungs/Pleura: There is no evidence of pleural effusion, focal consolidation, or pneumothorax. Pulmonary vascularity: Unremarkable. Heart/mediastinum: Cardiomediastinal silhouette is unremarkable. Musculoskeletal: No acute osseous pathology. IMPRESSION: No acute cardiopulmonary disease/process. [facility], , 11/22/2024 3:47 PM
[2024-11-22] MEDS ORDERED: NALOXONE 0.4 MG/ML 1 ML VIAL IV PRN (16:19)
[2024-11-22] MEDS: SODIUM CHLORIDE 0.9% 1,000 ML IV SCH (16:38)
[2024-11-22] MEDS: DIPH,PERTUS(ACELL)TETVAC-LF 0.5 ML VIAL IM ONE (16:51)
[2024-11-22] MEDS ORDERED: CALCIUM CARBONATE 500 MG CHEWABLE PO PRN (18:06)
[2024-11-22] MEDS ORDERED: HYDROcodone/APAP 5-325MG 1 EACH TAB PO PRN (18:06)
[2024-11-22] MEDS ORDERED: ONDANSETRON 4 MG/2 ML VIAL IVP PRN (18:06)
[2024-11-22] MEDS ORDERED: IPRATROPIUM-ALBUTEROL 3 ML NEB INHALATION PRN (18:07)
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
[2024-11-22] MEDS: SODIUM CHLORIDE TAB 1 GM TAB PO SCH (20:42)
[2024-11-22] MEDS: AMOXIC-POT CLAV 875-125MG 1 EACH TAB PO SCH (20:42)
[2024-11-23] MEDS: ACETAMINOPHEN TAB 325 MG TAB PO PRN (00:24)
[2024-11-23] MEDS: ENOXAPARIN 40 MG/0.4 ML SYRINGE SQ SCH (08:55)
[2024-11-23 10:10] LABS: Basophils # (A) 0.04 X 10*3/uL (0.00-0.10); Basophils % (A) 0.4 %; Eosinophils # (A) 0.06 X 10*3/uL (0.04-0.35); Eosinophils % (A) 0.5 %; HCT 43.6 % (39.6-50.0); HGB 13.2 g/dL (13.0-17.0); Immature Grans, Automated 0.30 %; Lymphocytes # (A) 1.51 X 10*3/uL (0.90-5.00); Lymphocytes % (A) 13.4 %; MCH 29.7 pg (27.0-32.0); MCHC 30.3 g/dL (32.0-37.0); MCV 98.2 FL (80.0-97.0); Monocytes # (A) 0.77 X 10*3/uL (0.20-1.00); Monocytes % (A) 6.9 %; NRBC Per 100 WBC 0 X 10*3/uL (0.00-0.01); Neutrophils # (A) 8.83 X 10*3/uL (1.80-7.70); Neutrophils % (A) 78.5 %; Platelet Count 208 X 10*3/uL (140-440); RBC 4.44 X 10*6/uL (4.40-5.60); RDW 13.0 % (11.5-14.5); WBC 11.24 X 10*3/uL (4.50-10.00)
[2024-11-23 10:21] VITALS: BMI 17.5
[2024-11-23 10:24] LABS: Anion Gap 7.90 mmol/L (4.00-12.00); BUN/Creat Ratio 14.17 Ratio (12.00-20.00); Blood Urea Nitrogen 8.5 mg/dL (9.0-27.0); Calcium 8.9 mg/dL (8.7-10.3); Carbon Dioxide 31.1 mmol/L (21.6-31.8); Chloride 91 mmol/L (96-109); Glucose 90 mg/dL (70-110); Potassium 4.8 mmol/L (3.5-5.5); Sodium 130 mmol/L (135-145)
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
[2024-11-23] MEDS ORDERED: PETROLATUM, WHITE OINT 50 GM TUBE TOPICAL PRN (17:34)
[2024-11-23] MEDS: SALINE NASAL GEL 14.1 GM TUBE NASAL SCH (19:03)
[2024-11-23] MEDS: MIRTAZAPINE 15 MG TAB PO SCH (20:16)
[2024-11-23] MEDS: SYMBICORT 160-4.5 MCG INHALER INHALATION SCH (20:17)
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
[2024-11-24] MEDS: LORATADINE 10 MG TAB PO SCH (11:02)
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
[2024-11-24 15:50] VITALS: BP 103/70; PULSE 70; RESP 14; TEMP 97.7
== END 2024-11-24 16:30 | disposition home or self-care (01) | DRG 935 ==
LOC: EC 13:47 → 4SSUR 16:20 → 1SOBS 22:48
PROVIDERS: ADMIT Student in an Organized Health Care Education/Training Program; ATTEND Student in an Organized Health Care Education/Training Program
DX: T20.20XA Burn of second degree of head, face, and neck, unspecified site, initial encounter (principal); E22.2 Syndrome of inappropriate secretion of antidiuretic hormone; T59.811A Toxic effect of smoke, accidental (unintentional), initial encounter; Z99.81 Dependence on supplemental oxygen; J44.9 Chronic obstructive pulmonary disease, unspecified; F32.A Depression, unspecified; I10 Essential (primary) hypertension; T20.27XA Burn of second degree of neck, initial encounter; Z79.51 Long term (current) use of inhaled steroids; Z79.899 Other long term (current) drug therapy; Z87.891 Personal history of nicotine dependence; Z88.5 Allergy status to narcotic agent; Z87.01 Personal history of pneumonia (recurrent)
CPT/HCPCS: 36415; 71046; 80048; 80053; 83605; 83735; 85025; 85610; 85730; 90471; 90715; 93005; 94640; 96360; 96361; 99285

== ENCOUNTER 2024-12-13 23:11 | Emergency (ER) | payer OTHER ==
[2024-12-13 23:34] VITALS: TEMP 97.4
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
[2024-12-14 00:24] LABS: Glucose,Whole Blood 116 mg/dL (70-110)
[2024-12-14] MEDS: SODIUM CHLORIDE 0.9% 500 ML 500 ML IV ONE ×2 (00:29→02:45)
--- NOTE | 2024-12-14 00:44 | CT ---
EXAM: CT Head Without Intravenous Contrast CLINICAL HISTORY: ITS.REASON CT Reason: altered mental status TECHNIQUE: Axial computed tomography images of the head/brain without intravenous contrast. CTDI is 49.2 mGy and DLP is 1272.8 mGy-cm. This CT exam was performed using one or more of the following dose reduction techniques: automated exposure control, adjustment of the mA and/or kV according to patient size, and/or use of iterative reconstruction technique. COMPARISON: No relevant prior studies available. FINDINGS: No acute intracranial hemorrhage. No midline shift or mass effect. The territorial wyatt-white matter differentiation is maintained throughout. The ventricles and sulci are commensurate with age. The visualized orbits appear grossly unremarkable. The calvarium is intact. The visualized paranasal sinuses and mastoid air cells are grossly clear. IMPRESSION: No acute intracranial hemorrhage, midline shift, or mass effect.
[2024-12-14 01:05] LABS: Basophils # (A) 0.03 10*3/uL (0.00-0.10); Basophils % (A) 0.6 %; Eosinophils # (A) 0.06 10*3/uL (0.04-0.35); Eosinophils % (A) 1.2 %; HCT 37.1 % (39.6-50.0); HGB 11.2 g/dL (13.0-17.0); Lymphocytes # (A) 0.67 10*3/uL (0.90-5.00); Lymphocytes % (A) 13.9 %; MCH 29.7 pg (27.0-32.0); MCHC 30.2 g/dL (32.0-37.0); MCV 98.4 fL (80.0-97.0); Monocytes # (A) 0.51 10*3/uL (0.20-1.00); Monocytes % (A) 10.6 %; Neutrophils # (A) 3.53 10*3/uL (1.80-7.70); Neutrophils % (A) 73.3 %; Platelet Count 240 10*3/uL (140-440); RBC 3.77 10*6/uL (4.40-5.60); RDW 12.9 % (11.5-14.5); WBC 4.82 10*3/uL (4.50-10.00)
[2024-12-14 01:17] LABS: INR 1.0 (<1.2); Partial Thromboplastin Time 24.1 sec (22.0-30.0); Prothrombin Time 10.8 sec (10.0-12.5)
[2024-12-14 01:20] LABS: ALT 25 U/L (4-49); African American GFR (CKD) >90 (>60 ml/min/1.73 sqM); Albumin 3.5 g/dL (3.5-5.0); Anion Gap 10 mmol/L; Blood Urea Nitrogen 23 mg/dL (9-20); Calcium 8.5 mg/dL (8.4-10.2); Carbon Dioxide 28 mmol/L (22-30); Chloride 88 mmol/L (98-107); Glucose 103 mg/dL (74-99); Non-African American GFR(CKD) >90 (>60 ml/min/1.73 sqM); Sodium 126 mmol/L (137-145); Total Protein 6.1 g/dL (6.3-8.2)
[2024-12-14 01:29] LABS: AST 46 U/L (17-59); Alkaline Phosphatase 103 U/L (38-126); Potassium 4.7 mmol/L (3.5-5.1)
--- NOTE | 2024-12-14 01:33 | XR ---
EXAM: XR Chest, 2 Views CLINICAL HISTORY: ITS.REASON XR Reason: altered mental status TECHNIQUE: Frontal and lateral views of the chest. COMPARISON: No relevant prior studies available. FINDINGS: Lungs: Unremarkable. No consolidation. Pleural space: Unremarkable. No pneumothorax. Heart: Cardiomegaly. Mediastinum: Unremarkable. Bones/joints: Unremarkable. Upper abdomen: Elevated left hemidiaphragm. IMPRESSION: No acute findings in the chest.
[2024-12-14 04:07] LABS: VBG HCO3 31.0 mmol/L (24-28); VBG PCO2 67.0 mmHg (37-51); VBG PH 7.27 (7.31-7.41)
[2024-12-14 04:57] LABS: ABG HCO3 32 mmol/L (21-25); ABG PCO2 61 mmHg (35-45); ABG PH 7.33 (7.35-7.45); ABG PO2 121 mmHg (83-108); ABG TCO2 34 mmol/L (19-24); Allen Test Performed? Yes
[2024-12-14 07:02] VITALS: BP 129/78; PULSE 65; RESP 16
== END 2024-12-14 07:07 | disposition home or self-care (01) ==
LOC: EC 23:11
DX: F10.129 Alcohol abuse with intoxication, unspecified (principal); E87.1 Hypo-osmolality and hyponatremia; F17.200 Nicotine dependence, unspecified, uncomplicated; Z88.5 Allergy status to narcotic agent; Z88.8 Allergy status to other drugs, medicaments and biological substances
CPT/HCPCS: 36415; 36600; 70450; 71046; 80053; 80320; 82140; 82803; 82805; 84484; 85025; 85610; 85730; 93005; 96360; 96361; 99285